=== PATIENT | female | born 1970 | race American Indian/Alaskan Native ===

== ENCOUNTER 2020-11-08 02:02 | Emergency (ER) | payer OTHER, SELFPAY ==
[2020-11-08 02:55] VITALS: BP 83/57; PULSE 78; RESP 18; TEMP 36.7; O2SAT 98; BMI 19.4
--- NOTE | 2020-11-08 04:06 | ED.HA ---
HPI - Headache General Chief Complaint: Headache Stated Complaint: Migraine Time Seen by Provider: 11/08/20 04:04 History of Present Illness HPI Narrative: Patient is a 50-year-old female presents today with having headaches that is frontal in nature similar to previous bouts of migraine headache. Associated with nausea. No fever no chills. Light makes the headache worse. Loud sound makes the headache worse. The symptoms been ongoing for about 4 days. Patient denies any focal weakness. No chest pain or shortness of breath no diaphoresis no cough no congestion no neck pain no fever no chills. No history of sudden in the family. Related Data Home Medications Medication Instructions Recorded Confirmed czukzkevmp-lysxmlswxinlk-xoyggpaz 1 tab PO Q8H PRN tab 08/31/20 50 mg-325 mg-40 mg tablet Previous Rx's Medication Instructions Recorded valproic acid 250 mg capsule 250 mg PO BID #180 cap 07/03/20 mhijecjhfb-taaewzmbvkugx-relbwevo 1 tab PO TID PRN 30 Days #90 tab 09/02/20 50 mg-325 mg-40 mg tablet amoxicillin 875 mg-potassium 1 tab PO BID #20 tab 10/29/20 clavulanate 125 mg tablet prednisone 20 mg tablet 20 mg PO .COMPLEX #18 tab 10/29/20 ibuprofen 400 mg PO Q6H PRN #20 tab 11/08/20 ondansetron 4 mg PO TID PRN 5 Days #10 tab 11/08/20 Allergies Allergy/AdvReac Type Severity Reaction Status Date / Time aspirin [Aspirin] Allergy Severe WHEEZING Verified 11/08/20 04:11 clarithromycin [From Biaxin] Allergy Intermediate HIVES Verified 11/08/20 04:11 Sulfa (Sulfonamide Allergy Intermediate HIVES Verified 11/08/20 04:11 Antibiotics) [SULFA (SULFONAMIDE ANTIBIOTICS)] bee pollen [BEE STINGS] Allergy Unknown UNKNOWN Unverified 05/10/20 16:00 pineapple [PINEAPPLE] Allergy Unknown UNKNOWN Unverified 05/10/20 16:00 Review of Systems Review of Systems: Constitutional: No Weight loss, No Fever, No Chills, No Night Sweats, No Fatigue, No Malaise ENT/Mouth: No Hearing loss, No Ear Pain, No Nasal Congestion, No Sinus Pain, No Hoarseness, No sore throat, No Rhinorrhea, No Swallowing Difficulty Eyes: No Eye Pain, No Swelling, No Redness, No Foreign Body, No Discharge, No Vision Changes Cardiovascular: No Chest Pain, No SOB, No Dyspnea on Exertion, No Orthopnea, No Edema, No Palpitations Respiratory: No Cough, No Sputum, No Wheezing, No Smoke Exposure, No Dyspnea Gastrointestinal: Positive Nausea, No Vomiting, No Diarrhea, No Constipation, No abdominal Pain, No Hematochezia, No Melena Genitourinary: no irregular bleeding, No Dysuria, No Urinary Frequency, No Hematuria, No Urinary Incontinence, No Urgency, No Flank Pain, No Urinary Flow Changes, No Hesitancy Musculoskeletal: No joint pain, No Myalgias, No Joint Swelling Skin: No Skin Lesions, No rash Neuro: No Weakness, No Numbness, No Paresthesias, No Loss of Consciousness, No Dizziness, positive Psych: No Anxiety/Panic, No Depression, No SI/HI/AH/VH, No Social Issues, Heme/Lymph: No Bruising, No Bleeding,No Lymphadenopathy Endocrine: No Polyuria, No Polydipsia, No Temperature Intolerance [facility] Past Medical History Medical History Hypotension IBS (irritable bowel syndrome) Migraine Social History Social History Alcohol intake: unknown Smoking Status: Unknown if ever smoked Use of substances other than those prescribed or required for medical reasons: No Advance Directives: No Physical Exam Vital Signs: Vital Signs: Last Vital Signs Temp 98.0 F 11/08/20 02:55 Pulse 78 11/08/20 02:55 Resp 18 11/08/20 02:55 BP 83/57 L 11/08/20 02:55 Pulse Ox 98 11/08/20 02:55 Body Mass Index 19.4 Appearance: Alert. Oriented X3. No acute distress. Eyes: Pupils equal, round and reactive to light. ENT: Pharynx normal. Neck: Normal inspection. Neck supple. No lymph nodes noted. No crepitus CVS: Normal heart rate and rhythm. Pulses normal. Normal S1 and S2 Respiratory: No respiratory distress. Breath sounds normal. No Wheezing. No rales Abdomen: Soft and nontender. No rigidity. No distention. good BS x4 Skin: Skin warm and dry. Normal skin color. Normal skin turgor. Extremities: No lower extremity edema. Neurovascular intact to all extremities. No Lacerations. No Rash Neuro: Oriented X 3. No motor deficit. No sensory deficit. Moving all extermities. No slurred speech MDM - Headache MDM Narrative Medical decision making narrative: Patient neurologically intact. Given Reglan, Benadryl, NSAIDs with good relief of patient's headache. She is currently sleeping. Will discharge patient home. Patient had a previous history of overdosing on narcotics. Will attempt to avoid narcotics. Will have patient follow-up outpatient. Differential Diagnosis Differential diagnosis: Likely migraine Medical Records Attestation: I reviewed the patient's medical records. Discharge Plan Discharge Clinical Impression: Migraines, Headache Patient Disposition: Home, Self-Care Instructions: Migraine Headache (ED) Prescriptions: New ibuprofen 400 mg tablet 400 mg PO Q6H PRN (Reason: pain) Qty: 20 RF: 0 ondansetron 4 mg tablet,disintegrating 4 mg PO TID PRN (Reason: nausea and vomiting) 5 Days Qty: 10 RF: 0 No Action valproic acid 250 mg capsule 250 mg PO BID Qty: 180 RF: 2 emgdlfmgmj-rygyvbqhoqkpp-mlpr 50-325-40 mg tablet 1 tab PO Q8H PRNRF: 0 zoteovwves-ajizaghityurz-hoqy 50-325-40 mg tablet 1 tab PO TID PRN (Reason: pain) 30 Days Qty: 90 RF: 2 prednisone 20 mg tablet 20 mg PO .COMPLEX Qty: 18 RF: 0 amoxicillin-pot clavulanate [Augmentin] 875-125 mg tablet 1 tab PO BID Qty: 20 RF: 0 Referrals: Kevan Gordon PA-C [Primary Care Provider] - 2 days
[2020-11-08] MEDS: 0.9 % Sodium Chloride 1,000 ML 999 ML IV (04:38)
[2020-11-08] MEDS: Ketorolac Tromethamine 30 MG/ML VIAL IVPUSH (04:38)
[2020-11-08] MEDS: diphenhydrAMINE HCL 50 MG/ML VIAL 25 MG IVPUSH (04:39)
[2020-11-08] MEDS: Prochlorperazine Edisylate 10 MG/2 ML VIAL IVPUSH (04:39)
--- NOTE | 2020-11-08 05:55 | PC.NURSE ---
PT SOUND ASLEEP.
--- NOTE | 2020-11-08 08:00 | PC.NURSE ---
d/c vs 136/94 p-66 98%
== END 2020-11-08 07:31 | disposition home or self-care (01) ==
PROVIDERS: Emergency Provider Emergency Medicine Emergency Medical Services; PCP Physician Assistant
DX: G43.909 Migraine, unspecified, not intractable, without status migrainosus (principal); R11.0 Nausea
CPT/HCPCS: 96361; 96374; 96375; 99284; J1200; J1885

== ENCOUNTER 2021-01-26 11:35 | Emergency (ER) | payer OTHER, SELFPAY ==
[2021-01-26 14:47] VITALS: BP 95/68; PULSE 81; RESP 16; TEMP 36.7; O2SAT 99; BMI 19.0
--- NOTE | 2021-01-26 15:30 | ED_ITS ---
HPI - Headache General Chief Complaint: Headache Stated Complaint: headache Time Seen by Provider: 01/26/21 15:26 History of Present Illness HPI Narrative: 50-year-old female with a history of migraine headaches. Presents today with having headaches on the left side. Associated with nausea. Associated photophobia. Made worse with light. Pain typical of her migraine. Patient tried Motrin at home to no avail. Denies any coughing congestion upper respiratory symptoms. Denies any focal weakness. Patient is from home. No new medications. Related Data Previous Rx's Medication Instructions Recorded amoxicillin 875 mg-potassium 1 tab PO BID #20 tab 10/29/20 clavulanate 125 mg tablet prednisone 20 mg tablet 20 mg PO .COMPLEX #18 tab 10/29/20 ibuprofen 400 mg PO Q6H PRN #20 tab 11/08/20 ondansetron 4 mg PO TID PRN 5 Days #10 tab 11/08/20 prochlorperazine 25 mg rectal 25 mg [place] BID #12 ea 12/13/20 suppository lmxzeoeivn-rlxmcfkrjyibk-xxgfdhsz 1 tab PO Q8H PRN #30 tab 12/16/20 50 mg-325 mg-40 mg tablet atorvastatin 20 mg tablet 20 mg PO BEDTIME #30 tab 01/17/21 metoprolol tartrate 100 mg tablet 100 mg PO BID #60 tab 01/17/21 hntledrtlc-kggwkbkwopqzs-vqopwfzi 1 cap PO TID PRN #30 cap 01/19/21 50 mg-300 mg-40 mg capsule topiramate 100 mg tablet 100 mg PO BID #60 tab 01/19/21 Allergies Allergy/AdvReac Type Severity Reaction Status Date / Time aspirin [Aspirin] Allergy Severe WHEEZING Verified 01/17/21 12:44 clarithromycin [From Biaxin] Allergy Intermediate HIVES Verified 01/17/21 12:44 Sulfa (Sulfonamide Allergy Intermediate HIVES Verified 01/17/21 12:44 Antibiotics) [SULFA (SULFONAMIDE ANTIBIOTICS)] bee pollen [BEE STINGS] Allergy Unknown UNKNOWN Unverified 01/17/21 12:44 pineapple [PINEAPPLE] Allergy Unknown UNKNOWN Unverified 01/17/21 12:44 Review of Systems Review of Systems: Constitutional: No Weight loss, No Fever, No Chills, No Night Sweats, No Fatigue, No Malaise ENT/Mouth: No Hearing loss, No Ear Pain, No Nasal Congestion, No Sinus Pain, No Hoarseness, No sore throat, No Rhinorrhea, No Swallowing Difficulty Eyes: No Eye Pain, No Swelling, No Redness, No Foreign Body, No Discharge, No Vision Changes Cardiovascular: No Chest Pain, No SOB, No Dyspnea on Exertion, No Orthopnea, No Edema, No Palpitations Respiratory: No Cough, No Sputum, No Wheezing, No Smoke Exposure, No Dyspnea Gastrointestinal: No Nausea, No Vomiting, No Diarrhea, No Constipation, No abdominal Pain, No Hematochezia, No Melena Genitourinary: no irregular bleeding, No Dysuria, No Urinary Frequency, No Hematuria, No Urinary Incontinence, No Urgency, No Flank Pain, No Urinary Flow Changes, No Hesitancy Musculoskeletal: No joint pain, No Myalgias, No Joint Swelling Skin: No Skin Lesions, No rash Neuro: No Weakness, No Numbness, No Paresthesias, No Loss of Consciousness, No Dizziness, No Headache Psych: No Anxiety/Panic, No Depression, No SI/HI/AH/VH, No Social Issues, Heme/Lymph: No Bruising, No Bleeding,No Lymphadenopathy Endocrine: No Polyuria, No Polydipsia, No Temperature Intolerance Yes all other systems are reviewed and are negative [facility] Past Medical History Attestation statement: The following information was validated with the patient. Medical History Hypotension IBS (irritable bowel syndrome) Migraine Social History Social History Alcohol intake: unknown Advance Directives: No Advance Directives Information Provided: No Physical Exam Vital Signs: Vital Signs: Last Vital Signs Temp 98.0 F 01/26/21 14:47 Pulse 81 01/26/21 14:47 Resp 16 01/26/21 14:47 BP 95/68 01/26/21 14:47 Pulse Ox 99 01/26/21 14:47 Body Mass Index 19.0 Appearance: Alert. Oriented X3. No acute distress. Eyes: Pupils equal, round and reactive to light. ENT: Pharynx normal. Neck: Normal inspection. Neck supple. No lymph nodes noted. No crepitus CVS: Normal heart rate and rhythm. Pulses normal. Normal S1 and S2 Respiratory: No respiratory distress. Breath sounds normal. No Wheezing. No rales Abdomen: Soft and nontender. No rigidity. No distention. good BS x4 Skin: Skin warm and dry. Normal skin color. Normal skin turgor. Extremities: No lower extremity edema. Neurovascular intact to all extremities. No Lacerations. No Rash Neuro: Oriented X 3. No motor deficit. No sensory deficit. Moving all extermities. No slurred speech Discharge Plan Discharge Prescriptions: No Action prochlorperazine [Compazine] 25 mg suppository 25 mg [place] BID Qty: 12 RF: 0 kxkxiqchrx-gvmjgbrklmdng-katt 50-325-40 mg tablet 1 tab PO Q8H PRN (Reason: pain) Qty: 30 RF: 0 topiramate [Topamax] 100 mg tablet 100 mg PO BID Qty: 60 RF: 2 rxgpcgeqol-yectqpdbhasrz-poso [Fioricet] 50-300-40 mg capsule 1 cap PO TID PRN (Reason: pain) Qty: 30 RF: 0 ibuprofen 400 mg tablet 400 mg PO Q6H PRN (Reason: pain) Qty: 20 RF: 0 ondansetron 4 mg tablet,disintegrating 4 mg PO TID PRN (Reason: nausea and vomiting) 5 Days Qty: 10 RF: 0 prednisone 20 mg tablet 20 mg PO .COMPLEX Qty: 18 RF: 0 amoxicillin-pot clavulanate [Augmentin] 875-125 mg tablet 1 tab PO BID Qty: 20 RF: 0 atorvastatin [Lipitor] 20 mg tablet 20 mg PO BEDTIME Qty: 30 RF: 2 metoprolol tartrate [Lopressor] 100 mg tablet 100 mg PO BID Qty: 60 RF: 2
[2021-01-26 15:58] LABS: MANUAL DIFF FLAG NO
[2021-01-26 16:10] LABS: Basophils Absolute Auto 0.1 X10*3/uL (0.0-0.2); Basophils Percent Auto 0.8 % (0-2); Eosinophils Absolute Auto 0.2 X10*3/uL (0.0-0.4); Eosinophils Percent Auto 2.5 % (0-4); Hematocrit 35.1 % (37-47); Hemoglobin 11.6 g/dl (12.0-16.0); Imm Gran Abs Auto 0.02 X10*3/uL (0.00-0.03); Imm Gran Pct Auto 0.2 % (0.0-0.4); Lymphocytes Absolute Auto 4.2 X10*3/uL (1.2-4.9); Lymphocytes Percent Auto 50.2 % (20-40); Mean Corpuscular Hemoglobin 31.4 pg (27.0-33.0); Mean Corpuscular Volume 95.1 fL (80-98); Mean Platelet Volume 9.3 fL (9.4-12.3); Monocytes Absolute Auto 0.5 X10*3/uL (0.1-1.2); Monocytes Percent Auto 5.9 % (2-11); Neutrophils Absolute Auto 3.4 X10*3/uL (2.0-8.3); Neutrophils Percent Auto 40.4 % (45-73); Platelet Count 248 X10*3/uL (160-400); Red Blood Count 3.69 X10*6/uL (4.20-5.50); Red Cell Distribution Width 14.7 % (11.0-16.0); White Blood Count 8.4 X10*3/uL (4.8-10.8)
[2021-01-26] MEDS: diphenhydrAMINE HCL 50 MG/ML VIAL 25 MG IVPUSH (16:28)
[2021-01-26] MEDS: Ketorolac Tromethamine 30 MG/ML VIAL IVPUSH (16:29)
[2021-01-26] MEDS: Metoclopramide HCl 10 MG/2 ML VIAL IVPUSH (16:29)
[2021-01-26 16:30] LABS: Anion Gap 12 (12-20); Blood Urea Nitrogen 16 mg/dL (9-16); Calcium 8.7 mg/dL (8.4-10.2); Carbon Dioxide 19 mmol/L (22-29); Chloride 114 mmol/L (96-108); Creatinine Clr Calc Pharmacy 65.5; Estimated Glomerular Filt Rate > 60; Glucose Random 89 mg/dL (60-115); Potassium 4.2 mmol/L (3.3-5.1); Sodium 141 mmol/L (135-145)
[2021-01-26 16:36] VITALS: BP 93/62; PULSE 65; RESP 20; O2SAT 100
[2021-01-26] MEDS: 0.9 % Sodium Chloride 1,000 ML 999 ML IV (16:36)
--- NOTE | 2021-01-26 16:45 | PC.NURSE ---
Pt alert, oriented, skin pink, warm, dry, VSS, reports migraine starting last night, worse this morning. IV established, labs obtained, meds given as documented. Pt resting quietly, at bedside.
[2021-01-26] MEDS: Butalb/Acetamin/Caff 50/325/40 TABLET 1 TAB PO (18:50)
[2021-01-26] MEDS: 0.9 % Sodium Chloride 1,000 ML 999 ML IVCONT (19:30)
--- NOTE | 2021-01-26 19:45 | PC.NURSE ---
Per , plan to discharge home pending improvement in blood pressure. Pt remains alert/oriented, given Fioricet at change of shift for migraine, pt reported some effectiveness with previously given Toradol dose. Pt is right arm only blood pressure/lab draw. Will continue to monitor. Pt aware of plan.
[2021-01-26 19:56] VITALS: BP 93/51; PULSE 77; RESP 18; O2SAT 99
[2021-01-26 20:11] VITALS: BP 97/62; PULSE 63; RESP 18; O2SAT 100
[2021-01-26 20:26] VITALS: BP 90/59; PULSE 65; RESP 18; O2SAT 99
== END 2021-01-26 21:43 | disposition home or self-care (01) ==
PROVIDERS: Emergency Medicine Emergency Medical Services; Emergency Provider Emergency Medicine; PCP Physician Assistant
DX: G43.909 Migraine, unspecified, not intractable, without status migrainosus (principal); Z79.899 Other long term (current) drug therapy
CPT/HCPCS: 36415; 80048; 85025; 96365; 96375; 99282; 99284; J1200; J1885; J2765

== ENCOUNTER 2021-02-27 22:40 | Emergency (ER) | payer OTHER, SELFPAY ==
--- NOTE | ~2021-02-27 | CT_ITS ---
EXAMINATION: CT ABDOMEN AND PELVIS WITHOUT CONTRAST CLINICAL INFORMATION: Right lower quadrant pain x4 days COMPARISON: CT abdomen pelvis 06/25/2018 TECHNIQUE: Multidetector volumetric imaging was performed from the superior aspect of the liver through the pubic symphysis. Sagittal and coronal reformatted images were obtained on the technologist's workstation. This CT examination was performed using dose optimization techniques as appropriate, variously including the following: *Automated exposure control *Adjustment of mA and/or kV according to patient size (this includes techniques or standardized protocols for targeted exams where dose is matched to indication/reason for exam; i.e. extremities or head) *Use of iterative reconstruction technique DLP: 527 mGy-cm FINDINGS: LUNG BASES: The visualized lung bases are unremarkable. LIVER, GALLBLADDER, AND BILIARY TREE: The liver is normal in size, shape, and attenuation. Tiny punctate granuloma noted in the right lobe (4:186). No worrisome focal hepatic lesion or biliary ductal dilatation is present. Status post cholecystectomy PANCREAS: Unremarkable. SPLEEN: Unremarkable. ADRENAL GLANDS: Unremarkable. KIDNEYS AND URETERS: The kidneys are normal in size, shape, and attenuation. No hydronephrosis, hydroureter, or calculi seen. No perinephric stranding. BLADDER: Unremarkable. GASTROINTESTINAL TRACT: The small and large bowel are unremarkable. The appendix is unremarkable. ABDOMINAL WALL: No significant hernia is appreciated. LYMPH NODES: No retroperitoneal lymphadenopathy. VASCULAR: The coronary vein is enlarged and small number of GE junction and perigastric varices are present. Calcific atherosclerotic changes present in the aorta and iliac vessels without aneurysm. PELVIC VISCERA: Status post hysterectomy. Stable left adnexal mass is seen containing some calcification. OSSEOUS STRUCTURES: Minimal degenerative changes present in the spine most marked at L3-L4. CT/CT abdomen pelvis wo con IMPRESSION: An etiology for the patient's right lower quadrant pain has not been found. Incidental note made of cholecystectomy, punctate hepatic granuloma gastric varices and hysterectomy.
[2021-02-27 22:43] VITALS: BP 99/69; PULSE 81; RESP 18; TEMP 36.5; O2SAT 100; BMI 20.9
--- NOTE | 2021-02-27 23:09 | ED.HA ---
HPI - Headache General Chief Complaint: Headache Stated Complaint: migraine Time Seen by Provider: 02/27/21 23:09 Source: patient Mode of arrival: ambulatory Limitations: no limitations History of Present Illness HPI Narrative: patient with history of migraine headache been complaining of headache on the left side for last 4 days also complaining of pain in the right lower abdomen for same duration associated with nausea no vomiting no fever no urinary complaint patient never had similar abdominal pain in the past no history of ovarian cyst patient does have history of kidney stone patient denies any flank pain no fever no chills. patient took Fioricet, Benadryl and Compazine 2 hours ago without much relief MD elicited complaint: migraine Related Data Previous Rx's Medication Instructions Recorded prednisone 20 mg tablet 20 mg PO .COMPLEX #18 tab 10/29/20 ondansetron 4 mg PO TID PRN 5 Days #10 tab 11/08/20 prochlorperazine 25 mg rectal 25 mg SD BID #12 ea 12/13/20 suppository atorvastatin 20 mg tablet 20 mg PO BEDTIME #30 tab 01/17/21 metoprolol tartrate 100 mg tablet 100 mg PO BID #60 tab 01/17/21 topiramate 100 mg tablet 100 mg PO BID #60 tab 01/19/21 amitriptyline 25 mg tablet 25 mg PO BEDTIME 30 Days #30 tab 02/27/21 lexzypruve-hmfmvaozhajft-cklbjevq 1 cap PO ONCE 7 Days #7 cap 02/27/21 50 mg-300 mg-40 mg capsule erenumab-aooe 70 mg/mL 70 mg SUBCUT .once per month 28 02/27/21 subcutaneous auto-injector Days #1 ea erenumab-aooe 70 mg/mL 140 mg SUBCUT ONCE 1 Days #1 ea 02/27/21 subcutaneous auto-injector Allergies Allergy/AdvReac Type Severity Reaction Status Date / Time aspirin [Aspirin] Allergy Intermediate WHEEZING Verified 02/27/21 22:42 clarithromycin [From Biaxin] Allergy Intermediate HIVES Verified 02/27/21 22:42 Sulfa (Sulfonamide Allergy Intermediate HIVES Verified 02/27/21 11:11 Antibiotics) [SULFA (SULFONAMIDE ANTIBIOTICS)] bee pollen [BEE STINGS] Allergy Unknown UNKNOWN Verified 02/27/21 11:11 pineapple [PINEAPPLE] Allergy Unknown UNKNOWN Verified 02/27/21 11:11 Review of Systems Review of Systems: Constitutional : No Weight loss, No Fever, No Chills ENT/Mouth : No sore throat, No Rhinorrhea Eyes: No Eye Pain, No Swelling Cardiovascular : No Chest Pain, no palpitations Respiratory : No Cough, No Sputum, no shortness of breath Gastrointestinal : no Nausea, No Vomiting, No Diarrhea, No abdominal Pain, no black stools Genitourinary : No Dysuria, No Urinary Frequency Musculoskeletal : No joint pain, No Myalgias, No Joint Swelling Skin : No Skin Lesions, No rash Neuro : No Weakness, No Numbness, No Dizziness, No Headache Psych : No Anxiety/Panic, No Depression Heme/Lymph: No Bruising, No Lymphadenopathy Endocrine : No Polyuria, No Polydipsia All other systems reviewed and are negative [facility] Past Medical History Medical History Hypotension IBS (irritable bowel syndrome) Migraine Surgical History History of cholecystectomy History of partial hysterectomy Family History Family History Mother Substance use disorder Stroke Other Mental health disorder Social History Social History Housing: House Alcohol intake: never Patient Tobacco Use Status: Current everyday Tobacco user Tobacco use type: Cigarette Cigarettes Per Day: 7 Substance Use Type: Marijuana Advance Directives: No Advance Directives Information Provided: No Patient : No service: No Current occupational status: employed and disabled Physical Exam Vital Signs: Vital Signs: Last Vital Signs Temp 97.7 F 02/27/21 22:43 Pulse 81 02/27/21 22:43 Resp 18 02/27/21 22:43 BP 99/69 02/27/21 22:43 Pulse Ox 100 02/27/21 22:43 Body Mass Index 20.9 MDM - Headache MDM Narrative Medical decision making narrative: patient has stable labs CT scan abdomen negative for any acute pathology etiology of right lower abdominal pain not clear likely bowel related. Patient fell little better but still having headache will give a dose of morphine and discharge patient home Lab Data Attestation: I reviewed the patient's lab results. Result diagrams: 02/27/21 23:48 02/27/21 23:48 Labs: Lab Results 02/27/21 02/27/21 Range/Units 23:48 23:48 WBC 11.1 H (4.8-10.8) X10*3/uL RBC 3.52 L (4.20-5.50) X10*6/uL Hgb 11.4 L (12.0-16.0) g/dl Hct 33.5 L (37-47) % MCV 95.2 (80-98) fL MCH 32.4 (27.0-33.0) pg MCHC 34.0 (31.0-35.0) g/dl RDW 14.6 (11.0-16.0) % Plt Count 184 D (160-400) X10*3/uL MPV 9.9 (9.4-12.3) fL Immature Gran % (Auto) 0.3 (0.0-0.4) % Neut % (Auto) 45.1 (45-73) % Lymph % (Auto) 44.8 H (20-40) % [place] % (Auto) 7.5 (2-11) % Eos % (Auto) 1.7 (0-4) % Baso % (Auto) 0.6 (0-2) % Lymph # (Auto) 5.0 H (1.2-4.9) X10*3/uL [place] # (Auto) 0.8 (0.1-1.2) X10*3/uL Eos # (Auto) 0.2 (0.0-0.4) X10*3/uL Baso # (Auto) 0.1 (0.0-0.2) X10*3/uL Abs Immat Gran (auto) 0.03 (0.00-0.03) X10*3/uL Absolute Neuts (auto) 5.0 (2.0-8.3) X10*3/uL Absolute Nucleated RBC 0.000 (0.0-0.012) X10*3/uL Nucleated RBC % (auto) 0.0 (0.0-0.2) /100WBC Sodium 142 (135-145) mmol/L Potassium 3.4 (3.3-5.1) mmol/L Chloride 116 H (96-108) mmol/L Carbon Dioxide 18 L (22-29) mmol/L Anion Gap 11 L (12-20) BUN 24 H (9-16) mg/dL Creatinine 1.04 (0.5-1.4) mg/dL Estim Creat Clear Calc 63.9 Estimated GFR 56 Random Glucose 95 (60-115) mg/dL Calcium 8.3 L (8.4-10.2) mg/dL Total Bilirubin 0.4 (0.0-1.0) mg/dL Direct Bilirubin 0.2 (0.0-0.5) mg/dL AST 17 (5-31) U/L ALT 20 (0-31) U/L Alkaline Phosphatase 100 (39-117) U/L Total Protein 6.0 L (6.5-8.0) g/dL Albumin 3.8 (3.5-5.0) g/dL Discharge Plan Discharge Prescriptions: No Action prochlorperazine [Compazine] 25 mg suppository 25 mg SD BID Qty: 12 RF: 0 topiramate [Topamax] 100 mg tablet 100 mg PO BID Qty: 60 RF: 2 ondansetron 4 mg tablet,disintegrating 4 mg PO TID PRN (Reason: nausea and vomiting) 5 Days Qty: 10 RF: 0 Aimovig Autoinjector 70 mg/mL auto-injector 140 mg subcut ONCE 1 Days Qty: 1 RF: 0 Aimovig Autoinjector 70 mg/mL auto-injector 70 mg subcut .once per month 28 Days Qty: 1 RF: 3 qtaqnevlum-voebwfxkzvvxr-ojxw [Fioricet] 50-300-40 mg capsule 1 cap PO ONCE 7 Days Qty: 7 RF: 0 amitriptyline 25 mg tablet 25 mg PO BEDTIME 30 Days Qty: 30 RF: 2 prednisone 20 mg tablet 20 mg PO .COMPLEX Qty: 18 RF: 0 atorvastatin [Lipitor] 20 mg tablet 20 mg PO BEDTIME Qty: 30 RF: 2 metoprolol tartrate [Lopressor] 100 mg tablet 100 mg PO BID Qty: 60 RF: 2
[2021-02-27] MEDS: 0.9 % Sodium Chloride 1,000 ML 999 ML IVCONT (23:49)
[2021-02-27] MEDS: ondansetron HCL 4 MG/2 ML VIAL IVPUSH (23:52)
[2021-02-27 23:53] LABS: Basophils Absolute Auto 0.1 X10*3/uL (0.0-0.2); Basophils Percent Auto 0.6 % (0-2); Eosinophils Absolute Auto 0.2 X10*3/uL (0.0-0.4); Eosinophils Percent Auto 1.7 % (0-4); Hematocrit 33.5 % (37-47); Hemoglobin 11.4 g/dl (12.0-16.0); Imm Gran Abs Auto 0.03 X10*3/uL (0.00-0.03); Imm Gran Pct Auto 0.3 % (0.0-0.4); Lymphocytes Percent Auto 44.8 % (20-40); MANUAL DIFF FLAG NO; Mean Corpuscular Hemoglobin 32.4 pg (27.0-33.0); Mean Corpuscular Volume 95.2 fL (80-98); Mean Platelet Volume 9.9 fL (9.4-12.3); Monocytes Absolute Auto 0.8 X10*3/uL (0.1-1.2); Monocytes Percent Auto 7.5 % (2-11); Neutrophils Percent Auto 45.1 % (45-73); Platelet Count 184 X10*3/uL (160-400); Red Blood Count 3.52 X10*6/uL (4.20-5.50); Red Cell Distribution Width 14.6 % (11.0-16.0); White Blood Count 11.1 X10*3/uL (4.8-10.8)
[2021-02-28 00:28] LABS: Alanine Aminotransferase 20 U/L (0-31); Albumin Level 3.8 g/dL (3.5-5.0); Alkaline Phosphatase 100 U/L (39-117); Aspartate Amino Transferase 17 U/L (5-31); Bilirubin Direct 0.2 mg/dL (0.0-0.5); Bilirubin Total 0.4 mg/dL (0.0-1.0); Blood Urea Nitrogen 24 mg/dL (9-16); Calcium 8.3 mg/dL (8.4-10.2); Creatinine Clr Calc Pharmacy 63.9; Estimated Glomerular Filt Rate 56; Glucose Random 95 mg/dL (60-115)
[2021-02-28 00:34] LABS: Anion Gap 11 (12-20); Carbon Dioxide 18 mmol/L (22-29); Chloride 116 mmol/L (96-108); Potassium 3.4 mmol/L (3.3-5.1); Sodium 142 mmol/L (135-145)
[2021-02-28] MEDS: Morphine Sulfate 4 MG/ML CARTRIDGE IVPUSH (00:45)
== END 2021-02-28 01:28 | disposition home or self-care (01) ==
PROVIDERS: Emergency Provider Internal Medicine; PCP Physician Assistant
DX: G43.009 Migraine without aura, not intractable, without status migrainosus (principal); R10.31 Right lower quadrant pain; Z87.442 Personal history of urinary calculi
CPT/HCPCS: 36415; 74176; 80048; 80076; 85025; 96361; 96372; 96374; 96375; 99283; 99284; J2270; J2405; J3030

== ENCOUNTER 2021-03-19 07:57 | Outpatient (REF) | payer OTHER, SELFPAY ==
--- NOTE | ~2021-03-19 | XR_ITS ---
EXAMINATION: XR RIGHT KNEE XR RIGHT CLAVICLE CLINICAL INFORMATION: Pain right knee. Right clavicle fracture. COMPARISON: None TECHNIQUE: AP and lateral views of the right knee and 2 views of the right clavicle FINDINGS: Right Knee: 2 views of the right knee demonstrate some mild narrowing of the medial joint space compartment with mild spurring. There are also noted to be small spurs undersurface of the patella. There is a right knee effusion. There is some irregularity about the lateral tibial plateau which may be secondary to previous trauma and mild compression fracture. An acute fracture is not totally excluded and clinical correlation is suggested. Right Clavicle: 2 views of the right clavicle performed. No prior studies are available for comparison. There is a fracture about the distal aspect of the clavicle with no dislocation of the acromioclavicular joint. The proximal fracture fragment is elevated by a single bone width of approximately 1.4 cm. No overriding of the fracture fragments is identified. No evidence of dislocation of the shoulder. There is no evidence of callus formation. XR/XR knee RT 2V IMPRESSION: Right knee effusion with mild degenerative change about the medial joint space compartment and patellofemoral joint. Question possible lateral tibial plateau mild compression fracture which may be acute or chronic in nature. Distal right clavicle fracture with dislocation as described.
--- NOTE | ~2021-03-19 | XR_ITS ---
EXAMINATION: XR RIGHT KNEE XR RIGHT CLAVICLE CLINICAL INFORMATION: Pain right knee. Right clavicle fracture. COMPARISON: None TECHNIQUE: AP and lateral views of the right knee and 2 views of the right clavicle FINDINGS: Right Knee: 2 views of the right knee demonstrate some mild narrowing of the medial joint space compartment with mild spurring. There are also noted to be small spurs undersurface of the patella. There is a right knee effusion. There is some irregularity about the lateral tibial plateau which may be secondary to previous trauma and mild compression fracture. An acute fracture is not totally excluded and clinical correlation is suggested. Right Clavicle: 2 views of the right clavicle performed. No prior studies are available for comparison. There is a fracture about the distal aspect of the clavicle with no dislocation of the acromioclavicular joint. The proximal fracture fragment is elevated by a single bone width of approximately 1.4 cm. No overriding of the fracture fragments is identified. No evidence of dislocation of the shoulder. There is no evidence of callus formation. XR/XR clavicle RT IMPRESSION: Right knee effusion with mild degenerative change about the medial joint space compartment and patellofemoral joint. Question possible lateral tibial plateau mild compression fracture which may be acute or chronic in nature. Distal right clavicle fracture with dislocation as described.
== END 2021-03-19 07:58 | disposition home or self-care (01) ==
LOC: HO.HOSX 07:57
PROVIDERS: Visit Provider Physician Assistant
DX: S42.001A Fracture of unspecified part of right clavicle, initial encounter for closed fracture (principal); S82.141A Displaced bicondylar fracture of right tibia, initial encounter for closed fracture; F17.210 Nicotine dependence, cigarettes, uncomplicated; W19.XXXA Unspecified fall, initial encounter; Y93.9 Activity, unspecified; Y92.9 Unspecified place or not applicable; Y99.9 Unspecified external cause status
CPT/HCPCS: 73000; 73560; 99202

== ENCOUNTER 2021-04-09 07:25 | Outpatient (REF) | payer OTHER, SELFPAY ==
--- NOTE | ~2021-04-09 | CT_ITS ---
EXAMINATION: CT KNEE WITHOUT CONTRAST, RIGHT CLINICAL INFORMATION: Displaced bicondylar fracture of the right tibia. COMPARISON: Right knee radiographs dated 03/19/2021 TECHNIQUE: Contiguous axial CT images of the right knee were obtained without contrast. Sagittal and coronal reformats were provided and reviewed. This CT examination was performed using dose optimization techniques as appropriate, variously including the following: *Automated exposure control *Adjustment of mA and/or kV according to patient size (this includes techniques or standardized protocols for targeted exams where dose is matched to indication/reason for exam; i.e. extremities or head) *Use of iterative reconstruction technique DLP: 158 mGy-cm FINDINGS: There is a minimally displaced, comminuted fracture extending through the posterior aspect of the medial and lateral tibial plateau as well as involving the tibial spine. The dominant fracture line is transverse in the subchondral region with extension to the articular surface through the midportion of the medial and lateral tibial plateau. There is approximately 0.2 cm of cortical step-off at the medial tibial plateau with a fracture gap measuring 0.2 cm. At the posterior aspect of the lateral tibial plateau, there is approximately 0.2 cm of cortical step-off. There is more anterior extension of the fracture line in the region of the tibial spine with approximately 0.2 cm of cortical step-off medially and laterally. There is extension of the fracture line inferiorly at the central aspect of the posterior tibial cortex with minimal new bone/callus formation. No distal femoral fracture. No proximal fibular fracture. No dislocation. Moderate medial compartment joint space narrowing. Tricompartmental marginal osteophytes. No concerning lytic or blastic osseous lesion. Vugqwtec-gm-berrg joint effusion. No abnormal soft tissue mass or fluid collection. The visualized muscles and tendons are grossly intact, however, evaluation is limited on CT examination. CT/CT knee RT wo con IMPRESSION: Comminuted posterior tibial plateau fracture extending from the medial to lateral aspect as well as anteriorly within the tibial spine. Multiple extensions of the fracture to the articular surface where there are areas of cortical step-off measuring up to 0.2 cm. Vuixhxpa-zs-agkpn joint effusion. 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
== END 2021-04-09 07:26 | disposition home or self-care (01) ==
LOC: HO.CT 07:25
PROVIDERS: PCP Physician Assistant; Visit Provider Physician Assistant
DX: S82.141A Displaced bicondylar fracture of right tibia, initial encounter for closed fracture (principal)
CPT/HCPCS: 73700

== ENCOUNTER 2021-04-12 09:42 | Outpatient (REF) | payer OTHER, SELFPAY ==
--- NOTE | ~2021-04-12 | XR_ITS ---
EXAMINATION: XR CLAVICLE, RIGHT CLINICAL INFORMATION: Right clavicle fracture. COMPARISON: 03/19/2021 TECHNIQUE: Two views of the right clavicle. FINDINGS: There is no change in alignment or appearance of the distal right clavicle fracture. There remains elevation of the proximal fracture fragment by a bone width. No significant periosteal new bone formation is appreciated. The fracture appears to be distal to the coracoclavicular ligament without widening of the coracoclavicular space. No evidence of dislocation of the acromioclavicular joint. No evidence of dislocation of the shoulder is evident. XR/XR clavicle RT IMPRESSION: No change in appearance of displaced distal right clavicle fracture.
== END 2021-04-12 09:43 | disposition home or self-care (01) ==
LOC: HO.HOSX 09:42
PROVIDERS: Visit Provider Physician Assistant
DX: S42.009A Fracture of unspecified part of unspecified clavicle, initial encounter for closed fracture (principal); S82.131A Displaced fracture of medial condyle of right tibia, initial encounter for closed fracture
CPT/HCPCS: 73000; 99212

== ENCOUNTER 2021-04-29 21:20 | Emergency (ER) | payer OTHER, SELFPAY ==
[2021-04-29 21:22] VITALS: BP 97/65; PULSE 78; RESP 16; TEMP 36.2; O2SAT 97; BMI 19.8
--- NOTE | 2021-04-29 22:32 | ED.HA ---
HPI - Headache General Chief Complaint: Headache Stated Complaint: migraine Time Seen by Provider: 04/29/21 23:19 Source: patient Mode of arrival: ambulatory Limitations: no limitations History of Present Illness HPI Narrative: Patient history of migraines having headache for last 2 days similar to that in the past took Fioricet and Reglan without much response headache localized mostly to the left side of the forehead with light sensitivity and nausea no head injury no fever no chills no neck pain Related Data Previous Rx's Medication Instructions Recorded ondansetron 4 mg disintegrating 4 mg PO TID PRN 5 Days #10 tab 11/08/20 tablet prochlorperazine 25 mg rectal 25 mg RI BID #12 ea 12/13/20 suppository (Compazine) atorvastatin 20 mg tablet (Lipitor) 20 mg PO BEDTIME #30 tab 01/17/21 metoprolol tartrate 100 mg tablet 100 mg PO BID #60 tab 01/17/21 (Lopressor) topiramate 100 mg tablet (Topamax) 100 mg PO BID #60 tab 01/19/21 amitriptyline 50 mg tablet 50 mg PO BEDTIME 30 Days #30 tab 03/26/21 oxycodone-acetaminophen 5 mg-325 1 tab PO BID PRN 5 Days #10 tab 04/03/21 mg tablet (Percocet) oxycodone-acetaminophen 5 mg-325 1 tab PO TID PRN #10 tab 04/08/21 mg tablet (Percocet) kftjjippcz-iqosflvhygbbk-vzgymtbw 1 cap PO DAILY 30 Days #30 cap 04/23/21 50 mg-325 mg-40 mg capsule Allergies Allergy/AdvReac Type Severity Reaction Status Date / Time aspirin [Aspirin] Allergy Intermediate WHEEZING Verified 04/29/21 21:28 clarithromycin [From Biaxin] Allergy Intermediate HIVES Verified 04/29/21 21:28 Sulfa (Sulfonamide Allergy Intermediate HIVES Verified 04/29/21 21:28 Antibiotics) [SULFA (SULFONAMIDE ANTIBIOTICS)] bee pollen [BEE STINGS] Allergy Unknown UNKNOWN Verified 04/29/21 21:28 pineapple [PINEAPPLE] Allergy Unknown UNKNOWN Verified 04/29/21 21:28 beeswax Allergy Anaphylaxis Verified 04/29/21 21:28 Review of Systems Review of Systems: Yes all other systems are reviewed and are negative PMFSH Past Medical History Medical History Hypotension IBS (irritable bowel syndrome) Migraine Surgical History History of cholecystectomy History of partial hysterectomy Family History Family History Mother Substance use disorder Stroke Other Mental health disorder Social History Social History Housing: House Alcohol intake: never Patient Tobacco Use Status: Current everyday Tobacco user Tobacco use type: Cigarette Cigarettes Per Day: 7 Substance Use Type: Marijuana Advance Directives: No Advance Directives Information Provided: No service: No Current occupational status: employed and disabled Current occupation: rt handed Physical Exam Vital Signs: Vital Signs: Last Vital Signs Temp 97.2 F 04/29/21 21:22 Pulse 79 04/30/21 00:21 Resp 16 04/30/21 00:21 BP 93/65 04/30/21 00:21 Pulse Ox 98 04/30/21 00:21 Body Mass Index 19.8 Appearance: Alert. Oriented X3. No acute distress. Eyes: PERRLA, No Nystagmus ENT: Pharynx normal. Oral Mucosa moist no temporal artery tenderness Neck: Normal inspection. Neck supple. CVS: Normal heart rate and rhythm. Pulses normal. Respiratory: No respiratory distress. Equal air entry bilateral, no wheezing/rales/rhonchi Abdomen: Soft and nontender. Bowel sounds are present, no mass palpable, no CVA tenderness Skin: Skin warm and dry. Normal skin color. Normal skin turgor. Extremities: No lower extremity edema. No calf tenderness Neuro: Oriented X 3. No motor deficit. No sensory deficit.No cerebellar signs , cranial nerves II-XII intact MDM - Headache MDM Narrative Medical decision making narrative: Patient with poor response to Imitrex. Responded to morphine 4 mg IM feeling much better now will discharge home Discharge Plan Discharge Clinical Impression: Migraines Qualifiers: Migraine type: without aura Status migrainosus presence: without status migrainosus Intractability: not intractable Qualified Code(s): G43.009 - Migraine without aura, not intractable, without status migrainosus Patient Disposition: Home, Self-Care Instructions: Migraine Headache (ED) Additional Instructions: Continue taking medications and follow-up with neurologist Prescriptions: No Action prochlorperazine [Compazine] 25 mg suppository 25 mg RI BID Qty: 12 RF: 0 topiramate [Topamax] 100 mg tablet 100 mg PO BID Qty: 60 RF: 2 oxycodone-acetaminophen [Percocet] 5-325 mg tablet 1 tab PO BID PRN (Reason: pain) 5 Days Qty: 10 RF: 0 ejjkbrozui-tamprvuwoskcu-cdsa 50-325-40 mg capsule 1 cap PO DAILY 30 Days Qty: 30 RF: 0 ondansetron 4 mg tablet,disintegrating 4 mg PO TID PRN (Reason: nausea and vomiting) 5 Days Qty: 10 RF: 0 amitriptyline 50 mg tablet 50 mg PO BEDTIME 30 Days Qty: 30 RF: 1 oxycodone-acetaminophen [Percocet] 5-325 mg tablet 1 tab PO TID PRN (Reason: pain) Qty: 10 RF: 0 atorvastatin [Lipitor] 20 mg tablet 20 mg PO BEDTIME Qty: 30 RF: 2 metoprolol tartrate [Lopressor] 100 mg tablet 100 mg PO BID Qty: 60 RF: 2 Interventions: ED Discharge Assessment Last Done: 04/30/21 00:49 Discharge Date/Time: 04/30/21 00:50
[2021-04-30 00:21] VITALS: BP 93/65; PULSE 79; RESP 16; O2SAT 98
[2021-04-30] MEDS: Morphine Sulfate 4 MG/ML CARTRIDGE IM (00:26)
== END 2021-04-30 00:50 | disposition home or self-care (01) ==
PROVIDERS: Emergency Provider Internal Medicine; PCP Physician Assistant
DX: G43.009 Migraine without aura, not intractable, without status migrainosus (principal); F17.210 Nicotine dependence, cigarettes, uncomplicated
CPT/HCPCS: 96372; 99284; J2270; J3030

== ENCOUNTER 2021-05-11 22:16 | Emergency (ER) | payer OTHER, SELFPAY ==
[2021-05-11 22:32] VITALS: BP 85/62; PULSE 70; RESP 16; TEMP 36.6; O2SAT 98; BMI 19.4
--- NOTE | 2021-05-12 00:30 | ED.HA ---
HPI - Headache General Chief Complaint: Headache Stated Complaint: migraine Time Seen by Provider: 05/12/21 00:30 Source: patient Mode of arrival: ambulatory Limitations: no limitations History of Present Illness HPI Narrative: Patient on topramate and fiorect for headache. This headache started 2 days ago, on the left side. Despite taking her medications the patient has the headache. MD elicited complaint: migraine Onset (ago): day(s) Onset description: suddenly Location: left and frontal Associated symptoms: nausea and photophobia Related Data Previous Rx's Medication Instructions Recorded ondansetron 4 mg disintegrating 4 mg PO TID PRN 5 Days #10 tab 11/08/20 tablet prochlorperazine 25 mg rectal 25 mg TN BID #12 ea 12/13/20 suppository (Compazine) atorvastatin 20 mg tablet (Lipitor) 20 mg PO BEDTIME #30 tab 01/17/21 metoprolol tartrate 100 mg tablet 100 mg PO BID #60 tab 01/17/21 (Lopressor) topiramate 100 mg tablet (Topamax) 100 mg PO BID #60 tab 01/19/21 amitriptyline 50 mg tablet 50 mg PO BEDTIME 30 Days #30 tab 03/26/21 oxycodone-acetaminophen 5 mg-325 1 tab PO BID PRN 5 Days #10 tab 04/03/21 mg tablet (Percocet) oxycodone-acetaminophen 5 mg-325 1 tab PO TID PRN #10 tab 04/08/21 mg tablet (Percocet) krvbjzbbxn-xtivdihwihimf-qgmbzxpf 1 cap PO DAILY 30 Days #30 cap 04/23/21 50 mg-325 mg-40 mg capsule Allergies Allergy/AdvReac Type Severity Reaction Status Date / Time aspirin [Aspirin] Allergy Intermediate WHEEZING Verified 04/29/21 21:28 clarithromycin [From Biaxin] Allergy Intermediate HIVES Verified 04/29/21 21:28 Sulfa (Sulfonamide Allergy Intermediate HIVES Verified 04/29/21 21:28 Antibiotics) [SULFA (SULFONAMIDE ANTIBIOTICS)] bee pollen [BEE STINGS] Allergy Unknown UNKNOWN Verified 04/29/21 21:28 pineapple [PINEAPPLE] Allergy Unknown UNKNOWN Verified 04/29/21 21:28 beeswax Allergy Anaphylaxis Verified 04/29/21 21:28 Review of Systems Constitutional: Constitutional: Reports no additional constitutional complaints Eyes: Eyes: Reports no additional eye complaints ENT: Denies dizziness Cardiovascular: Cardiovascular: Reports no additional cardiovascular complaints Respiratory: Respiratory: Reports as per HPI Gastrointestinal: Gastrointestinal: Reports no additional gastrointestinal complaints Genitourinary: Genitourinary: Reports no additional female genitourinary complaints Musculoskeletal: Musculoskeletal: Reports no additional musculoskeletal complaints Integumentary/Breasts: Skin/Breast: Denies rash Neurologic: Reports system reviewed and no additional complaints, except as documented, Denies dizziness and Denies Sensory deficit (Neuro) Psychiatric: Psychiatric: Denies anxiety [facility] Past Medical History Medical History Hypotension IBS (irritable bowel syndrome) Migraine Surgical History History of cholecystectomy History of partial hysterectomy Family History Family History Mother Substance use disorder Stroke Other Mental health disorder Social History Social History Housing: House Alcohol intake: never Patient Tobacco Use Status: Current everyday Tobacco user Tobacco use type: Cigarette Cigarettes Per Day: 7 Substance Use Type: Marijuana Advance Directives: Yes Advance Directives on File: Yes Advance Directives Date on File: 02/01/21 service: No Current occupational status: employed and disabled Current occupation: rt handed Physical Exam Vital Signs: Vital Signs: Last Vital Signs Temp 98 F 05/11/21 22:32 Pulse 64 05/12/21 02:46 Resp 16 05/12/21 02:46 BP 89/56 L 05/12/21 02:46 Pulse Ox 98 05/12/21 02:46 Body Mass Index 19.4 Const: General: healthy appearing Nutritional Appearance: average body habitus Orientation/consciousness: oriented to person and patient oriented x3 Limitations: no limitations HENMT: Head: Yes normal to inspection Ears: external ears normal General nose exam: Normal external nose present Mouth: Normal oral and palatal mucosa present and oropharynx normal Throat: Yes posterior oropharynx normal Eyes: General: appearance normal, both eyes and all related structures Neck: Other: supple Neck: Yes normal visual inspection Chest: Chest palpation & inspection: normal inspection of the chest Resp: Auscultation: clear to auscultation bilaterally Cardio: Jugular venous distension: no JVD Rate: regular rate Rhythm: regular rhythm Heart sounds: S1 normal heart sound present and S2 normal heart sound present GI: Inspection: Yes normal to inspection Palpation (GI): Soft to palpation, nontender and No hepatosplenomegaly present Auscultation: normal bowel sounds : General: Yes no CVA tenderness Back/Spine/Pelvis: Back: no CVA tenderness Skin: General skin exam: no rashes or lesions noted Neuro: General: oriented to person and patient oriented x3 Cranial nerves: Yes CN's II-XII intact bilaterally Motor exam (neuro): 5/5 motor strength present throughout Sensory Exam: No Sensory deficit (Neuro) Extrem: General: Yes normal to inspection Psych: Appearance: grossly normal Course Reevaluation(s) Reevaluation #1: Less nausea but still with headache will give benadryl and Haldol Time: 02:02 Reevaluation #2: improved after meds will dc home Time: 03:09 Discharge Plan Discharge Clinical Impression: Migraine Qualifiers: Migraine type: unspecified Status migrainosus presence: with status migrainosus Intractability: not intractable Qualified Code(s): G43.901 - Migraine, unspecified, not intractable, with status migrainosus Patient Disposition: Home, Self-Care Instructions: Migraine Headache (ED) Prescriptions: No Action prochlorperazine [Compazine] 25 mg suppository 25 mg TN BID Qty: 12 RF: 0 topiramate [Topamax] 100 mg tablet 100 mg PO BID Qty: 60 RF: 2 oxycodone-acetaminophen [Percocet] 5-325 mg tablet 1 tab PO BID PRN (Reason: pain) 5 Days Qty: 10 RF: 0 shntlxaqby-yxvxtxrbkguhw-jqax 50-325-40 mg capsule 1 cap PO DAILY 30 Days Qty: 30 RF: 0 ondansetron 4 mg tablet,disintegrating 4 mg PO TID PRN (Reason: nausea and vomiting) 5 Days Qty: 10 RF: 0 amitriptyline 50 mg tablet 50 mg PO BEDTIME 30 Days Qty: 30 RF: 1 oxycodone-acetaminophen [Percocet] 5-325 mg tablet 1 tab PO TID PRN (Reason: pain) Qty: 10 RF: 0 atorvastatin [Lipitor] 20 mg tablet 20 mg PO BEDTIME Qty: 30 RF: 2 metoprolol tartrate [Lopressor] 100 mg tablet 100 mg PO BID Qty: 60 RF: 2 Referrals: Kevan Gordon PA-C [Primary Care Provider] - 5 days
[2021-05-12] MEDS: 0.9 % Sodium Chloride 1,000 ML 999 ML IVCONT ×2 (01:00→02:44)
[2021-05-12] MEDS: Ketorolac Tromethamine 15 MG/ML VIAL 30 MG IVPUSH (01:00)
[2021-05-12 01:02] VITALS: BP 82/55; PULSE 62; RESP 16
[2021-05-12] MEDS: Haloperidol Lactate 5 MG/ML VIAL IVPUSH (02:44)
[2021-05-12] MEDS: diphenhydrAMINE HCL 50 MG/ML VIAL 25 MG IVPUSH (02:44)
[2021-05-12 02:46] VITALS: BP 89/56; PULSE 64; RESP 16; O2SAT 98
== END 2021-05-12 03:44 | disposition home or self-care (01) ==
PROVIDERS: Emergency Provider Emergency Medicine; PCP Physician Assistant
DX: G43.901 Migraine, unspecified, not intractable, with status migrainosus (principal); Z79.899 Other long term (current) drug therapy
CPT/HCPCS: 96361; 96374; 96375; 99284; 99285; J1200; J1885; J2550

== ENCOUNTER 2021-05-31 07:19 | Outpatient (REF) | payer OTHER, SELFPAY | END 2021-05-31 07:20 | disposition home or self-care (01) | LOC: HO.HOSX 07:19 | PROVIDERS: Visit Provider Physician Assistant | DX: Z13.89 Encounter for screening for other disorder (principal) ==

== ENCOUNTER 2021-08-10 21:57 | Emergency (ER) | payer OTHER, SELFPAY ==
[2021-08-10 22:35] VITALS: BP 94/67; PULSE 103; RESP 16; TEMP 36.6; O2SAT 97; BMI 20.3
[2021-08-11 03:38] VITALS: BP 99/65; PULSE 85; RESP 16; TEMP 36.5; O2SAT 99
--- NOTE | 2021-08-11 06:22 | ED.HA ---
HPI - Headache General Chief Complaint: Headache Stated Complaint: Migraine Time Seen by Provider: 08/11/21 06:15 Source: patient Mode of arrival: ambulatory Limitations: no limitations History of Present Illness HPI Narrative: 51-year-old female who presents emergency department for evaluation of migraine headaches. Patient states that she developed a migraine 2 days prior. She states the headache has been constant but waxes and wanes in intensity. The headache is located on the right side of her head behind her right eye. She describes the pain is a sharp pain which is 8/10 at its worst. The pain is associated with nausea but no vomiting. She states she has had a nonproductive cough but she denied fever, chills, chest pain, shortness of breath, numbness, weakness. Patient states she has been taking her migraine medications at home with no relief of her symptoms. She states that she has had to come to the emergency department in the past and she has been treated with IV Toradol, Reglan and Benadryl. Related Data Previous Rx's Medication Instructions Recorded ondansetron 4 mg disintegrating 4 mg PO TID PRN 5 Days #10 tab 11/08/20 tablet oxycodone-acetaminophen 5 mg-325 1 tab PO BID PRN 5 Days #10 tab 04/03/21 mg tablet (Percocet) oxycodone-acetaminophen 5 mg-325 1 tab PO TID PRN #10 tab 04/08/21 mg tablet (Percocet) amitriptyline 50 mg tablet 50 mg PO BEDTIME 30 Days #30 tab 05/28/21 atorvastatin 20 mg tablet (Lipitor) 20 mg PO BEDTIME #30 tab 05/28/21 metoprolol tartrate 100 mg tablet 100 mg PO BID #60 tab 05/28/21 (Lopressor) prochlorperazine 25 mg rectal 25 mg IN BID #12 ea 05/28/21 suppository (Compazine) metoclopramide HCl 10 mg tablet 10 mg PO DAILY PRN #5 tab 07/08/21 (Reglan) topiramate 100 mg tablet (Topamax) 100 mg PO BID #60 tab 07/08/21 jpmtfadmvg-zwruaroxjphmq-wzlyrdtb 1 cap PO DAILY 30 Days #30 cap 07/30/21 50 mg-325 mg-40 mg capsule Allergies Allergy/AdvReac Type Severity Reaction Status Date / Time aspirin [Aspirin] Allergy Intermediate WHEEZING Verified 12/18/21 22:40 clarithromycin [From Biaxin] Allergy Intermediate HIVES Verified 08/10/21 22:40 Sulfa (Sulfonamide Allergy Intermediate HIVES Verified 08/10/21 22:40 Antibiotics) [SULFA (SULFONAMIDE ANTIBIOTICS)] bee pollen [BEE STINGS] Allergy Unknown UNKNOWN Verified 08/10/21 22:40 pineapple [PINEAPPLE] Allergy Unknown UNKNOWN Verified 08/10/21 22:40 beeswax Allergy Anaphylaxis Verified 08/10/21 22:40 Review of Systems Review of Systems: Yes all other systems are reviewed and are negative [facility] Past Medical History [facility] Narrative: Social history: Patient smokes 7 cigarettes per day times 35 years. She denies alcohol use. She smokes marijuana daily she states that this helps with her migraine headaches. Medical History Hypotension IBS (irritable bowel syndrome) Migraine Surgical History History of cholecystectomy History of partial hysterectomy Family History Family History Mother Substance use disorder Stroke Other Mental health disorder Social History Social History Housing: House Alcohol intake: never Patient Tobacco Use Status: Current everyday Tobacco user Tobacco use type: Cigarette Cigarettes Per Day: 7 Substance Use Type: Marijuana Advance Directives: No Advance Directives Information Provided: No Advance Directives Date on File: 02/01/21 service: No Current occupational status: employed and disabled Current occupation: rt handed Physical Exam Vital Signs: Vital Signs: Last Vital Signs Temp 97.7 F 08/11/21 03:38 Pulse 85 08/11/21 03:38 Resp 16 08/11/21 03:38 BP 99/65 08/11/21 03:38 Pulse Ox 99 08/11/21 03:38 BMI result Body Mass Index 20.3 Const: General: cooperative and no acute distress Orientation/consciousness: oriented to person and oriented to place Limitations: no limitations HENMT: Head: Yes normal to inspection, Yes normocephalic and Yes atraumatic Ears: external ears normal General nose exam: Normal external nose present Face and sinus: Yes normal facial exam Mouth: Normal oral and palatal mucosa present Throat: Yes posterior oropharynx normal Eyes: General: appearance normal, both eyes and all related structures Pupils: Equal, round and reactive pupils present Neck: Neck: Yes normal visual inspection, Yes no lymphadenopathy, Yes trachea midline and Yes supple Chest: Chest palpation & inspection: normal inspection of the chest and normal palpation of entire chest wall Resp: Effort & Inspection: normal respiratory effort and able to speak in complete sentences Auscultation: clear to auscultation bilaterally Cardio: Rate: regular rate Rhythm: regular rhythm Heart sounds: S1 normal heart sound present, S2 normal heart sound present and no murmurs GI: Inspection: Yes normal to inspection Palpation (GI): Soft to palpation, nontender and no guarding Auscultation: normal bowel sounds : General: Yes no CVA tenderness Back/Spine/Pelvis: Back: no CVA tenderness Skin: General skin exam: no rashes or lesions noted Neuro: General: oriented to person and oriented to place Cranial nerves: Yes CN's II-XII intact bilaterally and Yes Equal, round and reactive pupils present Cognition (Neuro): normal cognition Motor exam (neuro): 5/5 motor strength present throughout Extrem: General: Yes normal to inspection Psych: Appearance: grossly normal Speech and movement: Normal speech and movement present Affect: normal affect Attitude: cooperative Thought process: Normal thought process present Thought content: Normal thought content present Course Course Course Narrative: 51-year-old female who presents emergency department for evaluation a migraine headache that she has had for 2 days. Patient has taken a usual migraine medications at home with no relief. Initial vital signs revealed an elevated pulse of 103 otherwise were unremarkable. The patient's physical examination was unremarkable. The patient was ordered to get Toradol 30 mg IV, Reglan 10 mg IV and Benadryl 50 mg IV. She also ordered to get normal saline IV x1 L. 0724: The patient's headache did not improve after the above treatment. She was ordered to get morphine 4 mg IV. Patient will be discharged home if she improves after this next treatment Discharge Plan Discharge Clinical Impression: Migraines Patient Disposition: Home, Self-Care Instructions: Migraine Headache (ED) Additional Instructions: Your treated with Toradol, Reglan and Benadryl IV with only minimal improvement of your headache, therefore your also given morphine 4 mg IV. You should go home and take your medications as prescribed by your doctor. Follow-up with your doctor in 2 days. Please return to the emergency department if your symptoms get worse or if you develop any symptoms that are concerning to you. Prescriptions: No Action oxycodone-acetaminophen [Percocet] 5-325 mg tablet 1 tab PO BID PRN (Reason: pain) 5 Days Qty: 10 RF: 0 atorvastatin [Lipitor] 20 mg tablet 20 mg PO BEDTIME Qty: 30 RF: 2 amitriptyline 50 mg tablet 50 mg PO BEDTIME 30 Days Qty: 30 RF: 2 metoprolol tartrate [Lopressor] 100 mg tablet 100 mg PO BID Qty: 60 RF: 2 prochlorperazine [Compazine] 25 mg suppository 25 mg IN BID Qty: 12 RF: 0 topiramate [Topamax] 100 mg tablet 100 mg PO BID Qty: 60 RF: 2 ufjqlmnyko-ltxkfojyzzbud-mabk 50-325-40 mg capsule 1 cap PO DAILY 30 Days Qty: 30 RF: 0 ondansetron 4 mg tablet,disintegrating 4 mg PO TID PRN (Reason: nausea and vomiting) 5 Days Qty: 10 RF: 0 oxycodone-acetaminophen [Percocet] 5-325 mg tablet 1 tab PO TID PRN (Reason: pain) Qty: 10 RF: 0 metoclopramide HCl [Reglan] 10 mg tablet 10 mg PO DAILY PRN (Reason: nausea and vomiting) Qty: 5 RF: 0
[2021-08-11] MEDS: Ketorolac Tromethamine 30 MG/ML VIAL IVPUSH (06:35)
[2021-08-11] MEDS: diphenhydrAMINE HCL 25 MG TABLET 50 MG PO (06:35)
[2021-08-11] MEDS: 0.9 % Sodium Chloride 1,000 ML 999 ML IV (06:35)
[2021-08-11] MEDS: Metoclopramide HCl 10 MG/2 ML VIAL IVPUSH (06:36)
[2021-08-11] MEDS: Morphine Sulfate 4 MG/ML CARTRIDGE IVPUSH (07:51)
[2021-08-11 07:52] VITALS: BP 92/59; PULSE 68; RESP 16; O2SAT 100
[2021-08-11 08:46] VITALS: BP 111/68; PULSE 75; RESP 16
== END 2021-08-11 08:49 | disposition home or self-care (01) ==
PROVIDERS: Emergency Provider Emergency Medicine Emergency Medical Services; PCP Physician Assistant
DX: G43.909 Migraine, unspecified, not intractable, without status migrainosus (principal); F17.200 Nicotine dependence, unspecified, uncomplicated
CPT/HCPCS: 96361; 96374; 96375; 99284; J1885; J2270; J2765; Q0163

== ENCOUNTER 2021-11-30 23:05 | Emergency (ER) | payer MEDICAID, SELFPAY ==
--- NOTE | ~2021-11-30 | CT_ITS ---
EXAMINATION: CT HEAD WITHOUT CONTRAST CLINICAL INFORMATION: Headache COMPARISON: 12/08/2019 TECHNIQUE: Contiguous axial imaging was performed from the skull base to vertex without intravenous administration of contrast. This CT examination was performed using dose optimization techniques as appropriate, variously including the following: *Automated exposure control *Adjustment of mA and/or kV according to patient size (this includes techniques or standardized protocols for targeted exams where dose is matched to indication/reason for exam; i.e. extremities or head) *Use of iterative reconstruction technique DLP: 655 mGy-cm FINDINGS: There is no evidence of acute intracranial hemorrhage or territorial infarction. No abnormal mass effect or midline shift is seen. Zayas to white matter differentiation is well preserved. No extra-axial fluid collections are identified. The ventricles are normal in size. There is no abnormal attenuation within the brain parenchyma. The osseous structures and soft tissues are normal. There is mucosal thickening of the sphenoid sinuses. The mastoid air cells are well-aerated. CT/CT head/brain wo con IMPRESSION: No acute intracranial pathology.
[2021-11-30 23:20] VITALS: BP 99/73; PULSE 113; RESP 18; TEMP 37; O2SAT 97; BMI 20.7
--- NOTE | 2021-11-30 23:39 | ED_ITS ---
HPI - Headache General Chief Complaint: Headache Stated Complaint: migraine Time Seen by Provider: 11/30/21 23:37 Source: patient Mode of arrival: ambulatory Limitations: no limitations History of Present Illness HPI Narrative: 51-year-old for evaluation of headache. Patient with history of migraine, came in with 4 days history of migraine associated with photophobia and nausea, patient been having migraines since age of 30 confirm this is her typical migraine headache, patient try Fioricet with partial relief. Migraine is mostly to the left side of her head consider as moderate 5/10, no neck stiffness or neck pain, the migraine is typical to her previous headaches. Related Data Previous Rx's Medication Instructions Recorded ondansetron 4 mg disintegrating 4 mg PO TID PRN 5 Days #10 tab 11/08/20 tablet oxycodone-acetaminophen 5 mg-325 1 tab PO BID PRN 5 Days #10 tab 04/03/21 mg tablet (Percocet) oxycodone-acetaminophen 5 mg-325 1 tab PO TID PRN #10 tab 04/08/21 mg tablet (Percocet) prochlorperazine 25 mg rectal 25 mg ID BID #12 ea 05/28/21 suppository (Compazine) metoclopramide HCl 10 mg tablet 10 mg PO DAILY PRN #5 tab 07/08/21 (Reglan) topiramate 100 mg tablet (Topamax) 100 mg PO BID #60 tab 07/08/21 sxpbdqdcar-eikqrtslogzpv-kdvsrupd 1 cap PO DAILY 30 Days #30 cap 09/19/21 50 mg-325 mg-40 mg capsule metoprolol tartrate 100 mg tablet 100 mg PO BID #60 tab 09/19/21 (Lopressor) amitriptyline 50 mg tablet 50 mg PO BEDTIME 30 Days #30 tab 10/10/21 atorvastatin 20 mg tablet (Lipitor) 20 mg PO BEDTIME #30 tab 10/10/21 Allergies Allergy/AdvReac Type Severity Reaction Status Date / Time aspirin [Aspirin] Allergy Intermediate WHEEZING Verified 11/30/21 23:20 clarithromycin [From Biaxin] Allergy Intermediate HIVES Verified 11/30/21 23:20 Sulfa (Sulfonamide Allergy Intermediate HIVES Verified 11/30/21 23:20 Antibiotics) [SULFA (SULFONAMIDE ANTIBIOTICS)] bee pollen [BEE STINGS] Allergy Unknown UNKNOWN Verified 11/30/21 23:20 pineapple [PINEAPPLE] Allergy Unknown UNKNOWN Verified 11/30/21 23:20 beeswax Allergy Anaphylaxis Verified 11/30/21 23:20 Review of Systems Review of Systems: All other systems are reviewed and are negative Constitutional: Reports as per HPI and Reports no additional constitutional complaints Eyes: Reports as per HPI and Reports no additional eye complaints Reports system reviewed and no additional complaints, except as documented Cardiovascular: Reports as per HPI and Reports no additional cardiovascular complaints Respiratory: Reports as per HPI and Reports no additional respiratory complaints Gastrointestinal: Reports as per HPI and Reports no additional gastrointestinal complaints Genitourinary: Reports no additional female genitourinary complaints Musculoskeletal: Reports no additional musculoskeletal complaints Skin/Breast: Reports system reviewed and no additional complaints, except as docu Psychiatric: Reports no additional psychiatric complaints Endocrine: Reports no additional endocrine complaints Hematologic/Lymphatic: Reports no additional hematologic/lymphatic complaints Allergic/Immunologic: Reports no additional allergic/immunologic complaints Reports system reviewed and no additional complaints, except as documented and Reports Abnormal speech present [facility] Past Medical History Medical History Hypotension IBS (irritable bowel syndrome) Migraine Surgical History History of cholecystectomy History of partial hysterectomy Family History Family History Mother Substance use disorder Stroke Other Mental health disorder Social History Social History Housing: House Alcohol intake: never Patient Tobacco Use Status: Current everyday Tobacco user Tobacco use type: Cigarette Cigarettes Per Day: 7 Substance Use Type: Marijuana Advance Directives: Yes Advance Directives on File: Yes Advance Directives Date on File: 02/01/21 service: No Current occupational status: employed and disabled Current occupation: rt handed Physical Exam Vital Signs: Vital Signs: Last Vital Signs Temp 98.6 F 11/30/21 23:20 Pulse 82 12/01/21 05:40 Resp 12 12/01/21 05:40 BP 87/58 L 12/01/21 05:40 Pulse Ox 98 12/01/21 05:40 BMI result Body Mass Index 20.7 Vital signs have been reviewed as appeared to be correct. Blood pressure normal. Heart rate normal. Respiration rate normal. Temperature normal. Oxygen saturation normal. Appearance: Alert. Oriented X3. No acute distress. Head: Normal external exam. Normocephalic. Atraumatic. No Carey signs noted. No raccoon eyes noted Eyes: PERRLA. EOMI. Conjunctiva and sclera normal. Eyelids normal. ENT: TM's Normal. Pharynx normal. Uvula midline. Moist mucous membranes. No trismus noted. No drooling noted. No muffled voice noted. Neck: Normal inspection. Neck supple. FROM. No adenopathy. Thyroid Normal. No meningeal signs. No neck mass noted. CVS: Normal heart rate and rhythm. Heart sound normal. No murmurs noted. Pulses normal throughout. Respiratory: No respiratory distress. Painless inspiration. Breath sounds n ormal. No wheezes/rales/rhonchi noted. Chest nontender. No accessory muscle usage noted or decreased air movement noted. Abdomen: Soft and nontender. Bowel sounds normal in all 4 quadrants. No diste ntion noted. No organomegaly noted. No visible injury noted. Back: No CVA tenderness. Full range of motion noted. Skin: Skin warm and dry. Normal skin color. Normal skin turgor. No rashes/lesions/lacerations noted. Extremities: No lower extremity edema. Extremities exhibit normal range of motion. Extremities nontender. Neuro: Oriented X 3. Cranial nerve exam: II-XII are grossly intact No motor deficit. No sensory deficit. Reflexes normal. Course Course Course Narrative: Assessment and plan. 51-year-old female with long history of migraine came in with 4 days of exacerbation of migraine, symptoms improved with IV fluids/Benadryl/Solu-Medrol, patient has a normal neuro exam and normal CT plus patient's symptoms is typical to her usual migraine. Will discharge the patient to follow-up with PCP. Patient had low blood pressure in the ED but patient confirmed that she normally runs a low blood pressure reviewing patient's records revealed multiple low blood pressure readings in the emergency room in her past visits patient stated that her PCP is aware of her blood pressure and he is not manage in it because patient is asymptomatic. Patient takes Lopressor for other cardiac reasons. [facility] - Headache Medical Records Attestation: I reviewed the patient's medical records. Lab Data Attestation: I reviewed the patient's lab results. Imaging Data CT scan - head: Attestation: I personally reviewed and interpreted this imaging study as follows: Radiologist's impression: No acute intercranial pathology Discharge Plan Discharge Clinical Impression: Migraine Patient Disposition: Home, Self-Care Instructions: Migraine Headache (ED) Prescriptions: No Action oxycodone-acetaminophen [Percocet] 5-325 mg tablet 1 tab PO BID PRN (Reason: pain) 5 Days Qty: 10 0RF prochlorperazine [Compazine] 25 mg suppository 25 mg ID BID Qty: 12 0RF topiramate [Topamax] 100 mg tablet 100 mg PO BID Qty: 60 2RF metoprolol tartrate [Lopressor] 100 mg tablet 100 mg PO BID Qty: 60 3RF mzynpnpxoq-sqtaslhbofjnf-qzfb 50-325-40 mg capsule 1 cap PO DAILY 30 Days Qty: 30 0RF amitriptyline 50 mg tablet 50 mg PO BEDTIME 30 Days Qty: 30 2RF atorvastatin [Lipitor] 20 mg tablet 20 mg PO BEDTIME Qty: 30 2RF ondansetron 4 mg tablet,disintegrating 4 mg PO TID PRN (Reason: nausea and vomiting) 5 Days Qty: 10 0RF oxycodone-acetaminophen [Percocet] 5-325 mg tablet 1 tab PO TID PRN (Reason: pain) Qty: 10 0RF metoclopramide HCl [Reglan] 10 mg tablet 10 mg PO DAILY PRN (Reason: nausea and vomiting) Qty: 5 0RF Referrals: Physician,Unknown J [Primary Care Provider] -
[2021-12-01] MEDS: ondansetron HCL 4 MG/2 ML VIAL IVPUSH (01:40)
[2021-12-01] MEDS: diphenhydrAMINE HCL 50 MG/ML VIAL 25 MG IVPUSH (01:40)
[2021-12-01] MEDS: 0.9 % Sodium Chloride 1,000 ML 999 ML IV ×3 (01:40→05:38)
[2021-12-01] MEDS: methylPREDNISolone Sod Succ 125 MG/2 ML VIAL IVPUSH (01:40)
[2021-12-01] MEDS: Morphine Sulfate 2 MG/ML CARTRIDGE IVPUSH (04:31)
[2021-12-01 04:46] VITALS: BP 78/51; PULSE 77; RESP 16; O2SAT 99
[2021-12-01 04:54] VITALS: BP 81/56; PULSE 76; RESP 14; O2SAT 96
[2021-12-01 05:40] VITALS: BP 87/58; PULSE 82; RESP 12; O2SAT 98
== END 2021-12-01 06:12 | disposition home or self-care (01) ==
PROVIDERS: Emergency Provider Emergency Medicine
DX: G43.909 Migraine, unspecified, not intractable, without status migrainosus (principal); I95.9 Hypotension, unspecified; F17.200 Nicotine dependence, unspecified, uncomplicated
CPT/HCPCS: 70450; 96360; 96361; 96374; 96375; 99284; J1200; J2270; J2405; J2930

== ENCOUNTER 2022-03-23 18:38 | Emergency (ER) | payer MEDICAID, SELFPAY ==
--- NOTE | ~2022-03-23 | XR_ITS ---
EXAMINATION: XR CHEST CLINICAL INFORMATION: Chest pain COMPARISON: Chest x-ray 10/12/2019, right clavicle radiographs 04/12/2021 TECHNIQUE: Frontal view of the chest was obtained. FINDINGS: The lungs are clear. No airspace consolidation, pleural effusion, or pneumothorax. The cardiomediastinal silhouette is within normal limits. No acute osseous injury. Displaced ununited appearing right distal clavicle fracture deformity is redemonstrated. XR/XR chest 1V IMPRESSION: 1. No acute pulmonary process.
[2022-03-23 18:43] VITALS: BP 103/60; PULSE 102; RESP 18; TEMP 36.7; O2SAT 95; BMI 22.4
--- NOTE | 2022-03-23 18:46 | ECG_ITS ---
Test Reason : CHEST PAIN Blood Pressure : / mmHG Vent. Rate : 097 BPM Atrial Rate : 097 BPM P-R Int : 132 ms QRS Dur : 094 ms QT Int : 374 ms P-R-T Axes : 070 065 057 degrees QTc Int : 474 ms Normal sinus rhythm Normal ECG When compared with ECG of 26-OCT-2019 11:11, Vent. rate has increased BY 40 BPM QT has lengthened Referred By: Generic ED Physician Electronically Signed By:JALEESA SHEIKH MD
[2022-03-23 19:00] LABS: Basophils Absolute Auto 0.1 X10*3/uL (0.0-0.2); Basophils Percent Auto 1.1 % (0-2); Eosinophils Absolute Auto 0.2 X10*3/uL (0.0-0.4); Eosinophils Percent Auto 1.7 % (0-4); Hematocrit 39.5 % (37.0-47.0); Hemoglobin 13.4 g/dl (12.0-16.0); Imm Gran Abs Auto 0.01 X10*3/uL (0.00-0.03); Imm Gran Pct Auto 0.1 % (0.0-0.4); Lymphocytes Absolute Auto 5.6 X10*3/uL (1.2-4.9); Lymphocytes Percent Auto 56.7 % (20-40); MANUAL DIFF FLAG SCAN; Mean Corpuscular HGB Conc 33.9 g/dl (31.0-35.0); Mean Corpuscular Hemoglobin 31.3 pg (27.0-33.0); Mean Corpuscular Volume 92.3 fL (80.0-98.0); Mean Platelet Volume 9.4 fL (9.4-12.3); Monocytes Absolute Auto 0.6 X10*3/uL (0.1-1.2); Monocytes Percent Auto 6.1 % (2-11); Neutrophils Absolute Auto 3.4 x10*3/uL (2.0-8.3); Neutrophils Percent Auto 34.3 % (45-73); Platelet Count 221 X10*3/uL (160-400); Red Blood Count 4.28 X10*6/uL (4.20-5.50); Red Cell Distribution Width 15.2 % (11.0-16.0); SCAN SMEAR FLAG 1; White Blood Count 9.9 X10*3/uL (4.8-10.8)
[2022-03-23 19:11] LABS: Anion Gap 15 (12-20); Blood Urea Nitrogen 12 mg/dL (9-16); Calcium 8.9 mg/dL (8.4-10.2); Carbon Dioxide 19 mmol/L (22-29); Chloride 110 mmol/L (96-108); Creatinine Clr Calc Pharmacy 69.2; Estimated Glomerular Filt Rate > 60; Glucose Random 96 mg/dL (60-115); Potassium 4.1 mmol/L (3.3-5.1); Sodium 140 mmol/L (135-145)
[2022-03-23 19:17] LABS: SLIDE REVIEW VERIFIED
[2022-03-23 19:18] LABS: Troponin-I High Sensitivity < 3.5 ng/L (<3.5-17.0)
--- NOTE | 2022-03-23 20:10 | PC.NURSE ---
pt states she has tingling to bilat arms intermittently but not at same time and a migraine pt states she has blocked arteries and has been told to get stents but she states she has refused. CP onset 2pm described as pressure and nausea and migraine. pt in no distress at this time. states 9/10 pain all together
[2022-03-23 20:14] VITALS: PULSE 79; RESP 22; O2SAT 97
[2022-03-23 20:17] VITALS: BP 91/63; O2SAT 96
--- NOTE | 2022-03-23 20:50 | ED_ITS ---
HPI - Chest Pain General Chief Complaint: Chest Pain Stated Complaint: chest tightness/leg pain/headaches Time Seen by Provider: 03/23/22 20:50 Source: patient Mode of arrival: ambulatory Limitations: no limitations History of Present Illness HPI narrative: Patient with multiple complaints complaining of diffuse chest pain for last few days also off and on s is getting a rash on the right and left hips no fever no shortness of breath no cough Related Data Previous Rx's Medication Instructions Recorded ondansetron 4 mg disintegrating 4 mg PO TID PRN nausea and 11/08/20 tablet vomiting 5 days #10 tabs oxycodone-acetaminophen 5 mg-325 1 tab PO BID PRN pain 5 days #10 /07/14 mg tablet (Percocet) tabs oxycodone-acetaminophen 5 mg-325 1 tab PO TID PRN pain #10 tabs 04/08/21 mg tablet (Percocet) prochlorperazine 25 mg rectal 25 mg DC BID #12 ea 05/28/21 suppository (Compazine) metoclopramide HCl 10 mg tablet 10 mg PO DAILY PRN nausea and 07/08/21 (Reglan) vomiting #5 tabs topiramate 100 mg tablet (Topamax) 100 mg PO BID #60 tabs 07/08/21 nmxgsgvons-soqcyfewceuvf-tcbrvozr 1 cap PO DAILY pain 30 days #30 09/19/21 50 mg-325 mg-40 mg capsule caps metoprolol tartrate 100 mg tablet 100 mg PO BID #60 tabs 09/19/21 (Lopressor) amitriptyline 50 mg tablet 50 mg PO BEDTIME 30 days #30 tabs 10/10/21 atorvastatin 20 mg tablet (Lipitor) 20 mg PO BEDTIME #30 tabs 10/10/21 anthqvqbkz-xvgnohxdruifz-vkdacayf 1 cap PO Q6H PRN headache #20 caps 03/23/22 50 mg-300 mg-40 mg capsule (Fioricet) doxycycline hyclate 100 mg tablet 100 mg PO BID #20 tabs 03/23/22 Allergies Allergy/AdvReac Type Severity Reaction Status Date / Time aspirin [Aspirin] Allergy Intermediate WHEEZING Verified 03/23/22 18:43 clarithromycin [From Biaxin] Allergy Intermediate HIVES Verified 03/23/22 18:43 Sulfa (Sulfonamide Allergy Intermediate HIVES Verified 03/23/22 18:43 Antibiotics) [SULFA (SULFONAMIDE ANTIBIOTICS)] bee pollen [BEE STINGS] Allergy Unknown UNKNOWN Verified 03/23/22 18:43 pineapple [PINEAPPLE] Allergy Unknown UNKNOWN Verified 03/23/22 18:43 beeswax Allergy Anaphylaxis Verified 03/23/22 18:43 Review of Systems Review of Systems: Yes all other systems are reviewed and are negative [facility] Past Medical History Medical History Hypotension IBS (irritable bowel syndrome) Migraine Surgical History History of cholecystectomy History of partial hysterectomy Family History Family History Mother Substance use disorder Stroke Other Mental health disorder Social History Social History Housing: House Alcohol intake: never Patient Tobacco Use Status: Current everyday Tobacco user Tobacco use type: Cigarette Cigarettes Per Day: 7 Substance Use Type: Marijuana Advance Directives: Yes Advance Directives on File: Yes Advance Directives Date on File: 02/01/21 service: No Current occupational status: employed and disabled Current occupation: rt handed Physical Exam Vital Signs: Vital Signs: Last Vital Signs Temp 98.1 F 03/23/22 18:43 Pulse 79 03/23/22 20:14 Resp 22 H 03/23/22 20:14 BP 91/63 03/23/22 20:17 Pulse Ox 96 03/23/22 20:17 O2 Del Method 03/23/22 20:17 BMI result Body Mass Index 22.4 Appearance: Alert. Oriented X3. No acute distress. ENT: Pharynx normal. Oral Mucosa moist Neck: Normal inspection. Neck supple. CVS: Normal heart rate and rhythm. Pulses normal. Respiratory: No respiratory distress. Equal air entry bilateral, Abdomen: Soft and nontender. Bowel sounds are present, Skin: Skin warm and dry. Extremities: No lower extremity edema. No calf tenderness mccray colored rash on right gluteal area Neuro: Oriented X 3. MDM - Chest Pain Lab Data Attestation: I reviewed the patient's lab results. Result diagrams: 03/23/22 18:52 03/23/22 18:52 Labs: Lab Results 03/23/22 03/23/22 03/23/22 Range/Units 18:52 18:52 18:52 WBC 9.9 (4.8-10.8) X10*3/uL RBC 4.28 (4.20-5.50) X10*6/uL Hgb 13.4 (12.0-16.0) g/dl Hct 39.5 (37.0-47.0) % MCV 92.3 (80.0-98.0) fL MCH 31.3 (27.0-33.0) pg MCHC 33.9 (31.0-35.0) g/dl RDW 15.2 (11.0-16.0) % Plt Count 221 (160-400) X10*3/uL MPV 9.4 (9.4-12.3) fL Immature Gran % (Auto) 0.1 (0.0-0.4) % Neut % (Auto) 34.3 L (45-73) % Lymph % (Auto) 56.7 H (20-40) % [place] % (Auto) 6.1 (2-11) % Eos % (Auto) 1.7 (0-4) % Baso % (Auto) 1.1 (0-2) % Lymph # (Auto) 5.6 H (1.2-4.9) X10*3/uL [place] # (Auto) 0.6 (0.1-1.2) X10*3/uL Eos # (Auto) 0.2 (0.0-0.4) X10*3/uL Baso # (Auto) 0.1 (0.0-0.2) X10*3/uL Abs Immat Gran (auto) 0.01 (0.00-0.03) X10*3/uL Absolute Neuts (auto) 3.4 (2.0-8.3) x10*3/uL Absolute Nucleated RBC 0.000 (0.0-0.012) X10*3/uL Nucleated RBC % (auto) 0.0 (0.0-0.2) /100WBC Smear Tech's Comments VERIFIED Sodium 140 (135-145) mmol/L Potassium 4.1 D (3.3-5.1) mmol/L Chloride 110 H (96-108) mmol/L Carbon Dioxide 19 L (22-29) mmol/L Anion Gap 15 (12-20) BUN 12 (9-16) mg/dL Creatinine 0.97 (0.5-1.4) mg/dL Estim Creat Clear Calc 69.2 Estimated GFR > 60 Random Glucose 96 (60-115) mg/dL Calcium 8.9 D (8.4-10.2) mg/dL Troponin I High Sens < 3.5 (<3.5-17.0) ng/L ECG Data ECG #1: Attestation: I personally reviewed and interpreted this ECG as follows: Interpretation: Normal sinus rhythm heart rate 97 beats per minute normal interval normal axis no acute ST wave changes no acute ischemia Discharge Plan Discharge Clinical Impression: Atypical chest pain, MRSA infection Patient Disposition: Home, Self-Care Instructions: Chest Pain (ED), MRSA (Methicillin-Resistant Staphylococcus Aureus) (ED) Additional Instructions: You likely have a MRSA infection of the skin Take antibiotic as prescribed Fioricet for headaches Follow-up with your PCP Prescriptions: New doxycycline hyclate 100 mg tablet 100 mg PO BID Qty: 20 0RF dibkdeobej-rcqdylqnoynax-kmzi [Fioricet] 50-300-40 mg capsule 1 cap PO Q6H PRN (Reason: headache) Qty: 20 0RF No Action oxycodone-acetaminophen [Percocet] 5-325 mg tablet 1 tab PO BID PRN (Reason: pain) 5 Days Qty: 10 0RF prochlorperazine [Compazine] 25 mg suppository 25 mg DC BID Qty: 12 0RF topiramate [Topamax] 100 mg tablet 100 mg PO BID Qty: 60 2RF metoprolol tartrate [Lopressor] 100 mg tablet 100 mg PO BID Qty: 60 3RF nqdrojpnvf-zbsejbizobfkz-pgjd 50-325-40 mg capsule 1 cap PO DAILY 30 Days Qty: 30 0RF amitriptyline 50 mg tablet 50 mg PO BEDTIME 30 Days Qty: 30 2RF atorvastatin [Lipitor] 20 mg tablet 20 mg PO BEDTIME Qty: 30 2RF ondansetron 4 mg tablet,disintegrating 4 mg PO TID PRN (Reason: nausea and vomiting) 5 Days Qty: 10 0RF oxycodone-acetaminophen [Percocet] 5-325 mg tablet 1 tab PO TID PRN (Reason: pain) Qty: 10 0RF metoclopramide HCl [Reglan] 10 mg tablet 10 mg PO DAILY PRN (Reason: nausea and vomiting) Qty: 5 0RF Interventions: ED Discharge Assessment Last Done: 03/23/22 21:22 Discharge Date/Time: 03/23/22 21:22
[2022-03-23] MEDS: Butalb/Acetamin/Caff 50/325/40 TABLET 1 TAB PO (21:11)
--- NOTE | 2022-03-23 21:21 | PC.NURSE ---
pt a&o, no sob or chest pain at this time. Reviewed discharge instructions with pt. pt verbalize understanding. 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
== END 2022-03-23 21:22 | disposition home or self-care (01) ==
PROVIDERS: Emergency Provider Internal Medicine
DX: R07.89 Other chest pain (principal); A49.02 Methicillin resistant Staphylococcus aureus infection, unspecified site; F17.210 Nicotine dependence, cigarettes, uncomplicated; Z71.6 Tobacco abuse counseling; Z20.822 Contact with and (suspected) exposure to COVID-19; Z79.899 Other long term (current) drug therapy
CPT/HCPCS: 36415; 71045; 80048; 84484; 85025; 93005; 99285

== ENCOUNTER 2022-05-23 02:05 | Emergency (ER) | payer MEDICAID, SELFPAY ==
[2022-05-23 02:15] VITALS: BP 107/75; PULSE 87; RESP 18; TEMP 37.1; O2SAT 96; BMI 20.9
--- NOTE | 2022-05-23 03:10 | ED.HA ---
HPI - Headache General Chief Complaint: Headache Stated Complaint: migraine & boil? Time Seen by Provider: 05/23/22 03:03 Source: patient History of Present Illness HPI Narrative: Patient history of migraine headache been having headache for last 3 days finish her Fioricet headache is localized mostly on the left side with nausea and photosensitivity similar to that in the past. No fever no chills also noticed small boil at right gluteal area with no pus discharge Related Data Previous Rx's Medication Instructions Recorded uwepcxzuqp-mhgukkhfwoefw-fpsptvwv 1 cap PO Q6H PRN headache #20 caps 05/23/22 50 mg-300 mg-40 mg capsule (Fioricet) doxycycline hyclate 100 mg tablet 100 mg PO BID #20 tabs 05/23/22 Allergies Allergy/AdvReac Type Severity Reaction Status Date / Time aspirin Allergy Hives Verified 01/26/21 12:18 beeswax Allergy Anaphylaxis Verified 01/26/21 12:18 clarithromycin [From Biaxin] Allergy Hives Verified 01/26/21 12:18 pineapple Allergy Anaphylaxis Verified 01/26/21 12:18 Sulfa (Sulfonamide Allergy Hives Verified 01/26/21 12:18 Antibiotics) Review of Systems Review of Systems: Yes all other systems are reviewed and are negative [facility] Past Medical History Medical History CAD (coronary artery disease) Migraine Social History Social History Advance Directives: No Advance Directives Information Provided: No Physical Exam Vital Signs: Vital Signs: Last Vital Signs Temp 98.1 F 05/23/22 03:50 Pulse 82 05/23/22 03:50 Resp 16 05/23/22 03:50 BP 91/67 05/23/22 03:50 Pulse Ox 97 05/23/22 03:50 O2 Del Method 05/23/22 03:50 BMI result Body Mass Index 20.9 Appearance: Alert. Oriented X3. No acute distress. Eyes: PERRLA, No Nystagmus ENT: Pharynx normal. Oral Mucosa moist no temporal artery tenderness Neck: Normal inspection. Neck supple. CVS: Normal heart rate and rhythm. Pulses normal. Respiratory: No respiratory distress. Equal air entry bilateral, no wheezing/rales/rhonchi Abdomen: Soft and nontender. Bowel sounds are present, no mass palpable, no CVA tenderness Skin: Skin warm and dry. Normal skin color. Normal skin turgor. Small ulcerated boil left gluteal area Extremities: No lower extremity edema. No calf tenderness Neuro: Oriented X 3. No motor deficit. MDM - Headache MDM Narrative Medical decision making narrative: Patient has chronic headache felt better after Toradol discharge patient on Fioricet also given doxycycline for follicular infection Discharge Plan Discharge Clinical Impression: Migraine, Folliculitis Patient Disposition: Home, Self-Care Instructions: Migraine Headache (ED), Folliculitis (ED) Additional Instructions: Take medication as prescribed and follow with PCP Prescriptions: New doxycycline hyclate 100 mg tablet 100 mg PO BID Qty: 20 0RF ddukmayxgi-bxirswsrpcuyq-tavk [Fioricet] 50-300-40 mg capsule 1 cap PO Q6H PRN (Reason: headache) Qty: 20 0RF Interventions: ED Discharge Assessment Last Done: 05/23/22 03:52 Discharge Date/Time: 05/23/22 04:01
[2022-05-23] MEDS: Ketorolac Tromethamine 60 MG/2 ML VIAL IM (03:30)
[2022-05-23] MEDS: Ondansetron ODT 4 MG TAB.RAPDIS TRANSLINGU (03:30)
[2022-05-23 03:50] VITALS: BP 91/67; PULSE 82; RESP 16; TEMP 36.7; O2SAT 97
[2022-05-23] MEDS: Butalb/Acetamin/Caff 50/325/40 TABLET 1 TAB PO (04:00)
== END 2022-05-23 04:01 | disposition home or self-care (01) ==
PROVIDERS: Emergency Provider Internal Medicine
DX: G43.909 Migraine, unspecified, not intractable, without status migrainosus (principal); L73.9 Follicular disorder, unspecified; Z79.899 Other long term (current) drug therapy
CPT/HCPCS: 96372; 99283; 99284; J1885

== ENCOUNTER 2022-08-02 15:07 | Emergency (ER) | payer OTHER, SELFPAY ==
--- NOTE | ~2022-08-02 | CT_ITS ---
EXAMINATION: CT HEAD WITHOUT CONTRAST CLINICAL INFORMATION: Headache COMPARISON: Head CT on 11/30/2021 TECHNIQUE: Contiguous axial imaging was performed from the skull base to vertex without intravenous administration of contrast. This CT examination was performed using dose optimization techniques as appropriate, variously including the following: *Automated exposure control *Adjustment of mA and/or kV according to patient size (this includes techniques or standardized protocols for targeted exams where dose is matched to indication/reason for exam; i.e. extremities or head) *Use of iterative reconstruction technique DLP: 629 mGy-cm FINDINGS: There is no evidence of acute intracranial hemorrhage, acute large vessel infarct, midline shift or mass effect. The santos-white differentiation is preserved. The ventricles and sulci are within normal limits in size and configuration. There is no evidence of hydrocephalus. There are no extraaxial collections. Osseous structures are intact. Paranasal sinuses and mastoid air cells are well aerated. CT/CT head/brain wo IV con IMPRESSION: Unremarkable non-contrast CT of the brain.
--- NOTE | 2022-08-02 15:25 | ED_ITS ---
HPI - General Adult General Chief complaint: General Medical Stated complaint: headache,neck pain Related Data Previous Rx's Medication Instructions Recorded diclofenac sodium 1 % topical gel 4 g topical QID #100 grams 11/17/22 amitriptyline 50 mg tablet 50 mg PO BEDTIME 30 days #30 tabs 11/25/22 famotidine 20 mg tablet 20 mg PO DAILY 30 days #30 tabs 11/25/22 propranolol 60 mg tablet 120 mg PO BID 90 days #360 tabs 11/25/22 bisacodyl 5 mg tablet,delayed 10 mg PO BEDTIME 2 days #4 tabs 12/03/22 release (Dulcolax (bisacodyl)) metoclopramide HCl 10 mg tablet 10 mg PO DAILY PRN nausea and 12/03/22 (Reglan) vomiting #30 tabs simvastatin 20 mg tablet 20 mg PO DAILY #90 tabs 12/09/22 linaclotide 290 mcg capsule 290 mcg PO QAM 30 days #30 caps 12/30/22 (Linzess) nitrofurantoin 100 mg PO Q12H 7 days #14 caps 03/04/23 monohydrate/macrocrystals 100 mg capsule (Macrobid) cholecalciferol (vitamin D3) 25 25 mcg PO DAILY #90 tabs 03/12/23 mcg (1,000 unit) tablet prochlorperazine 25 mg rectal 25 mg [place] BID PRN nausea and 03/27/23 suppository (Compazine) vomiting #12 ea topiramate 100 mg tablet (Topamax) 100 mg PO BID #60 tabs 03/27/23 zavkfgtnoq-nabntyohhlhur-yamcqgac 1 tab PO DAILY PRN pain #14 tabs 04/09/23 50 mg-325 mg-40 mg tablet Allergies Allergy/AdvReac Type Severity Reaction Status Date / Time aspirin [Aspirin] Allergy Intermediate WHEEZING Verified 03/04/23 10:44 clarithromycin [From Biaxin] Allergy Intermediate HIVES Verified 03/04/23 10:44 Sulfa (Sulfonamide Allergy Intermediate HIVES Verified 03/04/23 10:44 Antibiotics) [SULFA (SULFONAMIDE ANTIBIOTICS)] bee pollen [BEE STINGS] Allergy Unknown UNKNOWN Verified 03/04/23 10:44 pineapple [PINEAPPLE] Allergy Unknown UNKNOWN Verified 03/04/23 10:44 beeswax Allergy Anaphylaxis Verified 03/04/23 10:44 [facility] Past Medical History Medical History Hypotension IBS (irritable bowel syndrome) Migraine Surgical History History of cholecystectomy History of partial hysterectomy Family History Family History Mother Substance use disorder Stroke Other Mental health disorder Social History Social History Housing: House Alcohol intake: never Patient Tobacco Use Status: Current everyday Tobacco user Tobacco use type: Cigarette Cigarettes Per Day: 10 e-Cigarette/Vaping Use: Never Used Second Hand Smoke Exposure: Yes Substance Use Type: Marijuana Advance Directives Date on File: 02/01/21 service: No Current occupational status: employed and disabled Current occupation: rt handed Cognitive needs: No Hearing needs: No Vision needs: Yes (glasses) Physical Exam ED Vital Signs: BMI result Body Mass Index 20.3 Course Course Course Narrative: JOSÉ MIGUEL 52 year old female hx of htn presents w/ severe migraine reports shes supposed to get stents in her head however she refuses. Tells me she has a blockage in her head and it requires stents. Denies vision changes, dizziness, chest pain,shortness of breath, trauma. Not on blood thinner PE: benign . NIHSS-0. Ambulating w/ steady gait normal coordination. Plan: flu/covid/rsv, basic labs, head scan Discharge Plan Discharge Clinical Impression: Migraine headache, Eloped from emergency department Patient Disposition: Elopement Prescriptions: No Action simvastatin 20 mg tablet 20 mg PO DAILY Qty: 90 1RF Linzess 290 mcg capsule 290 mcg PO QAM 30 Days Qty: 30 0RF cholecalciferol (vitamin D3) 25 mcg (1,000 unit) tablet 25 mcg PO DAILY Qty: 90 0RF prochlorperazine [Compazine] 25 mg suppository 25 mg [place] BID PRN (Reason: nausea and vomiting) Qty: 12 0RF topiramate [Topamax] 100 mg tablet 100 mg PO BID Qty: 60 0RF ozbdibuwtt-myasjdoqdvjll-mrqn 50-325-40 mg tablet 1 tab PO DAILY PRN (Reason: pain) Qty: 14 0RF amitriptyline 50 mg tablet 50 mg PO BEDTIME 30 Days Qty: 30 4RF famotidine 20 mg tablet 20 mg PO DAILY 30 Days Qty: 30 4RF propranolol 60 mg tablet 120 mg PO BID 90 Days Qty: 360 1RF nitrofurantoin monohyd/m-cryst [Macrobid] 100 mg capsule 100 mg PO Q12H 7 Days Qty: 14 0RF Rx Instructions: must administer with a meal/food diclofenac sodium 1 % gel 4 g topical QID Qty: 100 0RF Rx Instructions: apply to single knee, ankle, foot; for foot includes sole/toes/top of foot bisacodyl [Dulcolax (bisacodyl)] 5 mg tablet,delayed release (DR/EC) 10 mg PO BEDTIME 2 Days Qty: 4 0RF metoclopramide HCl [Reglan] 10 mg tablet 10 mg PO DAILY PRN (Reason: nausea and vomiting) Qty: 30 3RF Interventions: ED Discharge Assessment Last Done: 08/02/22 17:03 Discharge Date/Time: 08/02/22 17:05
[2022-08-02 15:26] VITALS: BP 125/76; PULSE 106; RESP 18; TEMP 37.1; O2SAT 97; BMI 20.3
[2022-08-02 15:54] LABS: Basophils Absolute Auto 0.1 X10*3/uL (0.0-0.2); Basophils Percent Auto 1.1 % (0-2); Eosinophils Absolute Auto 0.2 X10*3/uL (0.0-0.4); Eosinophils Percent Auto 2.1 % (0-4); Hemoglobin 12.8 g/dl (12.0-16.0); Imm Gran Abs Auto 0.03 X10*3/uL (0.00-0.03); Imm Gran Pct Auto 0.3 % (0.0-0.4); Lymphocytes Absolute Auto 4.6 X10*3/uL (1.2-4.9); Lymphocytes Percent Auto 44.9 % (20-40); MANUAL DIFF FLAG NO; Mean Corpuscular HGB Conc 33.7 g/dl (31.0-35.0); Mean Corpuscular Hemoglobin 32.8 pg (27.0-33.0); Mean Corpuscular Volume 97.4 fL (80.0-98.0); Monocytes Absolute Auto 0.5 X10*3/uL (0.1-1.2); Monocytes Percent Auto 5.1 % (2-11); Neutrophils Absolute Auto 4.7 x10*3/uL (2.0-8.3); Neutrophils Percent Auto 46.5 % (45-73); Platelet Count 213 X10*3/uL (160-400); Red Cell Distribution Width 14.3 % (11.0-16.0); White Blood Count 10.2 X10*3/uL (4.8-10.8)
--- OUTSIDE RECORDS SUMMARY | 2022-08-02 15:58 | XMS_ITS ---
:1970 Author Care Team Providers Name [facility] Unavailable Allergies None recorded. Medications None recorded. Problems None recorded. Procedures None recorded. Results Lab Results Date Name Specimen Result Interpretation Description Value Range Status Address ? ? Rapid SARS CoV 2 ? Rapid SARS CoV 2 negative ? ? In-Office Order: Ag, QL IA, Ag, QL IA, In ternal Use Only Respiratory Respiratory DO Not Attach Specimen Specimen Compen dium DO Not Attach Com pendium, Do Not Del ete/merge Past Encounters None recorded. Social History None recorded. Vaccine List None recorded. Plan of Care Reminders Provider Appointments None recorded. ? ? Lab None recorded. ? ? Referral None recorded. ? ? Procedures None recorded. ? ? Surgeries None recorded. ? ? Imaging None recorded. ? ? Vitals None recorded.
[2022-08-02 16:16] LABS: Alanine Aminotransferase 10 U/L (0-31); Albumin Level 4.4 g/dL (3.5-5.0); Alkaline Phosphatase 94 U/L (39-117); Anion Gap 12 (12-20); Aspartate Amino Transferase 13 U/L (5-31); Bilirubin Total 0.3 mg/dL (0.0-1.0); Blood Urea Nitrogen 12 mg/dL (9-16); Calcium 8.8 mg/dL (8.4-10.2); Carbon Dioxide 21 mmol/L (22-29); Chloride 112 mmol/L (96-108); Creatinine Clr Calc Pharmacy 61.9; Estimated Glomerular Filt Rate 57; Glucose Random 98 mg/dL (60-115); Magnesium 1.9 mg/dL (1.6-2.6); Potassium 4.5 mmol/L (3.3-5.1); Sodium 140 mmol/L (135-145); Total Protein 6.9 g/dL (6.5-8.0)
== END 2022-08-02 17:05 | disposition left against medical advice (07) ==
PROVIDERS: Physician Assistant; Emergency Provider Emergency Medicine; PCP Physician Assistant
DX: R51.9 Headache, unspecified (principal); F17.210 Nicotine dependence, cigarettes, uncomplicated
CPT/HCPCS: 36415; 70450; 80053; 83735; 85025; 99282; 99284

== ENCOUNTER 2022-08-30 03:54 | Emergency (ER) | payer OTHER, SELFPAY ==
[2022-08-30 03:59] VITALS: BP 96/74; PULSE 115; RESP 18; TEMP 36.6; O2SAT 97; BMI 20.7
--- NOTE | 2022-08-30 04:14 | PC.NURSE ---
pt is a&ox4, pt states she has a headache started on 08/26/22; pt admits to having nausea and dizziness, denies vomiting; no apparent distress
--- NOTE | 2022-08-30 04:16 | PC.NURSE ---
pt states her baseline for sys bp runs between mid to high 90s
--- NOTE | 2022-08-30 04:18 | PC.NURSE ---
Addendum entered by Rosy Garcia 08/30/22 04:36: Provider notified; provider to order alternate med Original Note: pt states she took 2- 500 mg tylenol tablets at midnight for headache; and has been trying to treat headache with tylenol for the last three days based on the dosage on bottle without any effect
--- NOTE | 2022-08-30 04:22 | ED_ITS ---
HPI - General Adult General Chief complaint: General Medical Stated complaint: Headache Time Seen by Provider: 08/30/22 04:13 Source: patient Mode of arrival: ambulatory History of Present Illness HPI narrative: 52-year-old female with a history of migraine who presents with reports of the same onset and progression as normally. Patient states that she has ?been out of the system for bit? and states that she was seeing Dr. Couch but they did not ?communicate well?. She denies any fever, chills, GI or symptoms. Related Data Previous Rx's Medication Instructions Recorded ondansetron 4 mg disintegrating 4 mg PO TID PRN nausea and 11/08/20 tablet vomiting 5 days #10 tabs oxycodone-acetaminophen 5 mg-325 1 tab PO BID PRN pain 5 days #10 04/03/21 mg tablet (Percocet) tabs oxycodone-acetaminophen 5 mg-325 1 tab PO TID PRN pain #10 tabs 04/08/21 mg tablet (Percocet) prochlorperazine 25 mg rectal 25 mg [place] BID #12 ea 05/28/21 suppository (Compazine) metoclopramide HCl 10 mg tablet 10 mg PO DAILY PRN nausea and 07/08/21 (Reglan) vomiting #5 tabs topiramate 100 mg tablet (Topamax) 100 mg PO BID #60 tabs 07/08/21 zbawhpkgpr-tpmkivmavilvf-imfjqppd 1 cap PO DAILY pain 30 days #30 09/19/21 50 mg-325 mg-40 mg capsule caps metoprolol tartrate 100 mg tablet 100 mg PO BID #60 tabs 09/19/21 (Lopressor) amitriptyline 50 mg tablet 50 mg PO BEDTIME 30 days #30 tabs 10/10/21 atorvastatin 20 mg tablet (Lipitor) 20 mg PO BEDTIME #30 tabs 10/10/21 ujghpkpcmt-xgtdphlbxduxp-yctpxbfv 1 cap PO Q6H PRN headache #20 caps 03/23/22 50 mg-300 mg-40 mg capsule (Fioricet) doxycycline hyclate 100 mg tablet 100 mg PO BID #20 tabs 03/23/22 jvydoqzcop-jpkywnioxjjpu-intkpbry 1 cap PO Q8H PRN pain #8 caps 08/05/22 50 mg-300 mg-40 mg capsule (Fioricet) Allergies Allergy/AdvReac Type Severity Reaction Status Date / Time aspirin [Aspirin] Allergy Intermediate WHEEZING Verified 08/05/22 11:08 clarithromycin [From Biaxin] Allergy Intermediate HIVES Verified 08/05/22 11:08 Sulfa (Sulfonamide Allergy Intermediate HIVES Verified 08/05/22 11:08 Antibiotics) [SULFA (SULFONAMIDE ANTIBIOTICS)] bee pollen [BEE STINGS] Allergy Unknown UNKNOWN Verified 08/05/22 11:08 pineapple [PINEAPPLE] Allergy Unknown UNKNOWN Verified 08/05/22 11:08 beeswax Allergy Anaphylaxis Verified 08/05/22 11:08 Review of Systems Review of Systems: Pertinent positives and negatives as stated in HPI [facility] Past Medical History Source: nursing notes reviewed Medical History Hypotension IBS (irritable bowel syndrome) Migraine Surgical History History of cholecystectomy History of partial hysterectomy Family History Family History Mother Substance use disorder Stroke Other Mental health disorder Social History Social History Housing: House Alcohol intake: never Patient Tobacco Use Status: Current everyday Tobacco user Tobacco use type: Cigarette Cigarettes Per Day: 7 Smoked in Last 30 Days: Yes Use of substances other than those prescribed or required for medical reasons: Yes Substance Use Type: Marijuana Advance Directives: Yes Advance Directives on File: Yes Advance Directives Date on File: 02/01/21 Patient : No service: No Current occupational status: employed and disabled Current occupation: rt handed Physical Exam ED Vital Signs: Vital Signs - 24 hr 08/30/22 03:59 Temperature 97.8 F Pulse Rate 115 H Respiratory Rate 18 Blood Pressure 96/74 Pulse Oximetry 97 Oxygen Delivery Method Room Air BMI result Body Mass Index 20.7 VITAL SIGNS: Reviewed. GENERAL: Well developed, well nourished, in no acute distress. HEAD: Normocephalic/atraumatic EYES: PERRLA, EOMI EARS: Ext canals without abnormality NOSE: Nares patent bilateral OROPHARYNX: no oral lesions noted, posterior pharynx clear NECK: Supple, no adenopathy LUNGS: Normal breath sounds. No adventitious sounds or accessory muscle use. SpO2<97> CARDIOVASCULAR: Regular rate and rhythm without noted murmurs ABDOMEN: Soft, non-tender, non-distended with bowel sounds. MUSCULOSKELETAL: No tenderness, deformities, or effusions noted on gross inspection. EXTREMITIES: No cyanosis, clubbing or edema. SKIN: Inspection of the skin reveals no rashes NEUROLOGIC: Alert and oriented x 4. Strength and sensation to light touch were grossly intact x 4, cranial nerves 2-12 are grossly intact, no meningeal signs noted. Medications Administered Generic Name Dose Route Start Last Admin Trade Name Freq PRN Reason Stop Dose Admin Sodium Chloride 1,000 mls @ 999 mls/hr 08/30/22 06:00 08/30/22 06:10 Ns IV 08/30/22 07:00 999 mls/hr .Q1H1M EDGAR Administration Discontinued Medications Generic Name Dose Route Start Last Admin Trade Name Freq PRN Reason Stop Dose Admin Acetaminophen 975 mg 08/30/22 04:14 08/30/22 04:36 Acetaminophen 325 Mg Tablet PO 08/30/22 04:15 Not Given ONCE ONE Acetaminophen/Butalbital/Caffeine 1 tab 08/30/22 04:25 08/30/22 04:33 Butalb/Acetamin/Caff 50/325/40 Tablet PO 08/30/22 04:26 1 tab ONCE ONE Administration Diphenhydramine HCl 25 mg 08/30/22 05:54 08/30/22 06:10 Diphenhydramine Hcl 50 Mg/Ml Vial IVPUSH 08/30/22 05:55 25 mg ONCE ONE Administration Metoclopramide HCl 10 mg 08/30/22 05:54 08/30/22 06:10 Metoclopramide Hcl 10 Mg/2 Ml Vial IVPUSH 08/30/22 05:55 10 mg ONCE ONE Administration Medical Decision Making Medical Decision Making MDM Narrative: 52-year-old female presents with complaints headache and has a reported history of migraines for which she has not successfully been on any anti migraine medication because ?none of it works?. Patient has received IV fluids, Reglan, Benadryl, she declined Tylenol, but did receive Fioricet and though the note fro m 08/05 when she went to be evaluated at the walk-in clinic for her migraine she had told that provider that Fioricet was the only thing that worked for her. I have no clinical suspicion that this is a meningitis My interpretation after review the workup is did patient was experiencing a mild migrated which resolved nicely with IV fluids, Fioricet. Patient was otherwise discharged in stable condition with a referral to follow-up with Dr. Boyd and recommendations for using magnesium oxide as a migraine prevention. Viral testing is negative. Differential Diagnosis Migraine Lab Data MDM Lab Attestation statement: I reviewed the patient's lab results. Please see above Labs: Lab Results 08/30/22 08/30/22 Range/Units 04:26 04:26 COVID-19 ([facility]) Negative (Negative) COVID-19 Clin Com See Note Influenza Type A ([facility]) Negative (Negative) Influenza Type B ([facility]) Negative (Negative) Influenza A & B Note See Note Discharge Plan Discharge Clinical Impression: Migraines Patient Disposition: Home, Self-Care Instructions: Migraine Headache (ED) Additional Instructions: 1. Resume all home medications as prescribed. 2. I recommend that you start taking magnesium oxide 400 mg daily for migraine prevention. In addition, consider increasing the amount of water intake each day. I also recommend using high-dose Tylenol, I know you have been doing this, but continue to do so while using the magnesium oxide. 3. I have provided you with a referral to follow-up with Neurology, Dr. Boyd 4. Please follow-up with your primary care provider on Thursday morning. Return to the ER for any worsening symptoms. Prescriptions: No Action oxycodone-acetaminophen [Percocet] 5-325 mg tablet 1 tab PO BID PRN (Reason: pain) 5 Days Qty: 10 0RF prochlorperazine [Compazine] 25 mg suppository 25 mg [place] BID Qty: 12 0RF topiramate [Topamax] 100 mg tablet 100 mg PO BID Qty: 60 2RF metoprolol tartrate [Lopressor] 100 mg tablet 100 mg PO BID Qty: 60 3RF nfhebjpyqo-dtmefgifcrhyj-kpjb 50-325-40 mg capsule 1 cap PO DAILY 30 Days Qty: 30 0RF amitriptyline 50 mg tablet 50 mg PO BEDTIME 30 Days Qty: 30 2RF atorvastatin [Lipitor] 20 mg tablet 20 mg PO BEDTIME Qty: 30 2RF ondansetron 4 mg tablet,disintegrating 4 mg PO TID PRN (Reason: nausea and vomiting) 5 Days Qty: 10 0RF doxycycline hyclate 100 mg tablet 100 mg PO BID Qty: 20 0RF gqueyzvjkk-xlozynsbxszuz-ctvb [Fioricet] 50-300-40 mg capsule 1 cap PO Q6H PRN (Reason: headache) Qty: 20 0RF oxycodone-acetaminophen [Percocet] 5-325 mg tablet 1 tab PO TID PRN (Reason: pain) Qty: 10 0RF metoclopramide HCl [Reglan] 10 mg tablet 10 mg PO DAILY PRN (Reason: nausea and vomiting) Qty: 5 0RF tsyfdhqaxg-wohiofxundnge-casc [Fioricet] 50-300-40 mg capsule 1 cap PO Q8H PRN (Reason: pain) Qty: 8 0RF Referrals: Kevan Gordon PA-C [Primary Care Provider] - Wendy Boyd MD [Physician] - (52F refractory migraines, has seen Dr Couch in the past.)
[2022-08-30] MEDS: Butalb/Acetamin/Caff 50/325/40 TABLET 1 TAB PO (04:33)
[2022-08-30 04:51] LABS: COVID-19 Test Negative (Negative); IDNOW Serial# 16C4AD1C; IDNOW Serial# BCCEAD1C; Influenza A Negative (Negative); Influenza B2 Negative (Negative)
[2022-08-30] MEDS: 0.9 % Sodium Chloride 1,000 ML 999 ML IV (06:10)
[2022-08-30] MEDS: Metoclopramide HCl 10 MG/2 ML VIAL IVPUSH (06:10)
[2022-08-30] MEDS: diphenhydrAMINE HCL 50 MG/ML VIAL 25 MG IVPUSH (06:10)
[2022-08-30 06:48] VITALS: BP 109/71; PULSE 81; RESP 16; TEMP 36.7; O2SAT 100
== END 2022-08-30 06:52 | disposition home or self-care (01) ==
PROVIDERS: Emergency Provider Student in an Organized Health Care Education/Training Program; PCP Physician Assistant
DX: G43.909 Migraine, unspecified, not intractable, without status migrainosus (principal); F17.210 Nicotine dependence, cigarettes, uncomplicated; F12.90 Cannabis use, unspecified, uncomplicated
CPT/HCPCS: 87502; 87635; 96365; 96374; 99284; 99285; J1200; J2765

== ENCOUNTER 2022-09-04 13:59 | Outpatient (REF) | payer OTHER, SELFPAY ==
--- NOTE | ~2022-09-04 | XR_ITS ---
EXAMINATION: XR BILATERAL KNEE AP STANDING. LATERAL AND SUNRISE VIEWS OF THE RIGHT KNEE. CLINICAL INFORMATION: Pain in unspecified knee COMPARISON: CT 04/09/2021 TECHNIQUE: AP bilateral standing view of both knees, lateral view of the right knee, and sunrise view of the right knee were obtained. FINDINGS: Right knee: There is irregularity of the right proximal tibia, particularly notable in the lateral tibial plateau in keeping with bicondylar fracture. There is mild medial and lateral compartment joint space narrowing. No joint effusion. There is lateral patellofemoral joint space narrowing and osteophytosis. Left knee: Mild medial compartment joint space narrowing. No fracture or dislocation. XR/XR knee RT 2V IMPRESSION: Posttraumatic irregularity of the right proximal tibia most notable in the lateral tibial plateau.
--- NOTE | ~2022-09-04 | XR_ITS ---
EXAMINATION: XR BILATERAL KNEE AP STANDING. LATERAL AND SUNRISE VIEWS OF THE RIGHT KNEE. CLINICAL INFORMATION: Pain in unspecified knee COMPARISON: CT 04/09/2021 TECHNIQUE: AP bilateral standing view of both knees, lateral view of the right knee, and sunrise view of the right knee were obtained. FINDINGS: Right knee: There is irregularity of the right proximal tibia, particularly notable in the lateral tibial plateau in keeping with bicondylar fracture. There is mild medial and lateral compartment joint space narrowing. No joint effusion. There is lateral patellofemoral joint space narrowing and osteophytosis. Left knee: Mild medial compartment joint space narrowing. No fracture or dislocation. XR/XR knee standing BI IMPRESSION: Posttraumatic irregularity of the right proximal tibia most notable in the lateral tibial plateau.
== END 2022-09-04 14:00 | disposition home or self-care (01) ==
LOC: HO.HOSX 13:59
PROVIDERS: Visit Provider Physician Assistant
DX: M17.11 Unilateral primary osteoarthritis, right knee (principal)
CPT/HCPCS: 20610; 73560; 73565; 99202; J1040

== ENCOUNTER 2022-10-27 18:47 | Emergency (ER) | payer OTHER, SELFPAY ==
[2022-10-27 19:06] VITALS: BP 110/69; PULSE 69; RESP 16; TEMP 36.8; O2SAT 95; BMI 20.3
--- NOTE | 2022-10-27 19:08 | ED_ITS ---
HPI - Headache General Chief Complaint: Headache <KIARA Harrell - Last Filed: 10/27/22 19:09> Stated Complaint: migraine <KIARA Harrell - Last Filed: 10/27/22 19:09> Time Seen by Provider: 10/27/22 22:29 <KIARA Harrell - Last Filed: 10/27/22 19:09> Source: patient <Tigist Lui MD - Last Filed: 10/28/22 01:07> Mode of arrival: ambulatory <Tigist Lui MD - Last Filed: 10/28/22 01:07> Limitations: no limitations <Tigist Lui MD - Last Filed: 10/28/22 01:07> History of Present Illness HPI Narrative: Patient comes to the emergency room complaining of a migraine headache that has been present for 3 days. Patient has tried Toradol, propanolol, Tylenol, Fioricet. Patient has not had any relief. Patient complaining of photophobia, nausea. <Tigist Lui MD - Last Filed: 10/28/22 01:07> Related Data Home Medications: Previous Rx's Medication Instructions Recorded prochlorperazine 25 mg rectal 25 mg OH BID #12 ea 05/28/21 suppository (Compazine) metoprolol tartrate 100 mg tablet 100 mg PO BID #60 tabs 09/19/21 (Lopressor) amitriptyline 50 mg tablet 50 mg PO BEDTIME 30 days #30 tabs 09/04/22 [id number]-[id number] 1 cap PO ONCE PRN pain 30 days #30 09/04/22 50 mg-300 mg-40 mg capsule caps (Fioricet) metoclopramide HCl 10 mg tablet 10 mg PO DAILY PRN nausea and 09/04/22 (Reglan) vomiting #30 tabs topiramate 100 mg tablet (Topamax) 100 mg PO BID #60 tabs 09/04/22 [id number]-erubrbtz 1 cap PO DAILY pain 14 days #14 10/03/22 50 mg-325 mg-40 mg capsule caps <KIARA Harrell - Last Filed: 10/27/22 19:09> Allergies/Adverse Reactions: Allergies Allergy/AdvReac Type Severity Reaction Status Date / Time aspirin [Aspirin] Allergy Intermediate WHEEZING Verified 10/01/22 10:47 clarithromycin [From Biaxin] Allergy Intermediate HIVES Verified 10/01/22 10:47 Sulfa (Sulfonamide Allergy Intermediate HIVES Verified 10/01/22 10:47 Antibiotics) [SULFA (SULFONAMIDE ANTIBIOTICS)] bee pollen [BEE STINGS] Allergy Unknown UNKNOWN Verified 10/01/22 10:47 pineapple [PINEAPPLE] Allergy Unknown UNKNOWN Verified 10/01/22 10:47 beeswax Allergy Anaphylaxis Verified 10/01/22 10:47 <KIARA Harrell - Last Filed: 10/27/22 19:09> Review of Systems Review of Systems: Constitutional : No Weight loss, No Fever, No Chills, No Night Sweats, No Fatigue, No Malaise ENT/Mouth : No Hearing loss, No Ear Pain, No Nasal Congestion, No Sinus Pain, No Hoarseness, No sore throat, No Rhinorrhea, No Swallowing Difficulty Eyes: No Eye Pain, No Swelling, No Redness, No Foreign Body, No Discharge, No Vision Changes, complaining of photophobia Cardiovascular : No Chest Pain, No SOB, No Dyspnea on Exertion, No Orthopnea, No Edema, No Palpitations Respiratory : No Cough, No Sputum, No Wheezing, No Smoke Exposure, No Dyspnea Gastrointestinal : No Nausea, No Vomiting, No Diarrhea, No Constipation, No abdominal Pain, No Hematochezia, No Melena Genitourinary : no irregular bleeding, No Dysuria, No Urinary Frequency, No Hematuria, No Urinary Incontinence, No Urgency, No Flank Pain, No Urinary Flow Changes, No Hesitancy Musculoskeletal : No joint pain, No Myalgias, No Joint Swelling Skin : No Skin Lesions, No rash Neuro : No Weakness, No Numbness, No Paresthesias, No Loss of Consciousness, No Dizziness, complaining of a migraine headache Psych : No Anxiety/Panic, No Depression, No SI/HI/AH/VH, No Social Issues, Heme/Lymph: No Bruising, No Bleeding,No Lymphadenopathy Endocrine : No Polyuria, No Polydipsia, No Temperature Intolerance <Tigist Lui MD - Last Filed: 10/28/22 01:07> [facility] Past Medical History Medical History: Medical History Hypotension IBS (irritable bowel syndrome) Migraine <KIARA Harrell - Last Filed: 10/27/22 19:09> Surgical History: Surgical History History of cholecystectomy History of partial hysterectomy <KIARA Harrell - Last Filed: 10/27/22 19:09> Family History Family History: Family History Mother Substance use disorder Stroke Other Mental health disorder <KIARA Harrell - Last Filed: 10/27/22 19:09> Social History Social History: Social History Housing: House Alcohol intake: never Patient Tobacco Use Status: Current everyday Tobacco user Tobacco use type: Cigarette Cigarettes Per Day: 7 Substance Use Type: Marijuana Advance Directives: Yes Advance Directives on File: Yes Advance Directives Date on File: 02/01/21 service: No Current occupational status: employed and disabled Current occupation: rt handed <KIARA Harrell - Last Filed: 10/27/22 19:09> Physical Exam Vital Signs: Vital Signs: Last Vital Signs Temp 98.5 F 10/27/22 23:29 Pulse 64 10/27/22 23:29 Resp 18 10/28/22 00:53 BP 105/62 10/27/22 23:29 Pulse Ox 98 10/27/22 23:29 O2 Del Method 10/27/22 23:29 BMI result Body Mass Index 20.3 <KIARA Harrell - Last Filed: 10/27/22 19:09> Vital Signs: Last Vital Signs Temp 98.5 F 10/27/22 23:29 Pulse 64 10/27/22 23:29 Resp 18 10/28/22 00:53 BP 105/62 10/27/22 23:29 Pulse Ox 98 10/27/22 23:29 O2 Del Method 10/27/22 23:29 BMI result Body Mass Index 20.3 <Tigist Lui MD - Last Filed: 10/28/22 01:07> Const: Other: Appearance: Alert. Oriented X3. No acute distress. Eyes: Pupils equal, round and reactive to light. ENT: Pharynx normal. Neck: Normal inspection. Neck supple. No lymph nodes noted. No crepitus CVS: Normal heart rate and rhythm. Pulses normal. Normal S1 and S2 Respiratory: No respiratory distress. Breath sounds normal. No Wheezing. No rales Abdomen: Soft and nontender. No rigidity. No distention. Skin: Skin warm and dry. Normal skin color. Normal skin turgor. Extremities: No lower extremity edema. No Lacerations. No Rash Neuro: Oriented X 3. No motor deficit. No sensory deficit. Moving all extremities. No slurred speech. CN 2 through 12 grossly intact Psych: calm, cooperative, normal affect <Tigist Lui MD - Last Filed: 10/28/22 01:07> Course Course Course Narrative: RME - 52 yo female with history of migraine headaches presents to the ER for evaluation of a migraine for the last 3 days. No improvement with benadyl, fiorcet at home. Reports improvement with IV migraine cocktail which has been ordered for when she gets back to a treatment room. <KIARA Harrell - Last Filed: 10/27/22 19:09> Medications Administered Discontinued Medications Generic Name Dose Route Start Last Admin Trade Name Davidq PRN Reason Stop Dose Admin Diphenhydramine HCl 50 mg 10/27/22 19:07 10/27/22 23:04 Diphenhydramine Hcl 50 Mg/Ml Vial IVPUSH 10/27/22 19:08 50 mg ONCE ONE Administration Sodium Chloride 1,000 mls @ 999 mls/hr 10/27/22 22:30 10/28/22 00:54 Ns IVCONT 10/27/22 23:30 Infused .Q1H1M ONE Infusion Ketorolac Tromethamine 30 mg 10/27/22 19:07 10/27/22 23:04 Ketorolac Tromethamine 30 Mg/Ml Vial IVPUSH 10/27/22 19:08 30 mg ONCE ONE Administration Metoclopramide HCl 10 mg 10/27/22 19:07 10/27/22 23:03 Metoclopramide Hcl 10 Mg/2 Ml Vial IVPUSH 10/27/22 19:08 10 mg ONCE ONE Administration Morphine Sulfate 4 mg 10/28/22 00:37 10/28/22 00:53 Morphine Sulfate 4 Mg/Ml Cartridge IVPUSH 10/28/22 00:38 4 mg ONCE ONE Administration Protocol <KIARA Harrell - Last Filed: 10/27/22 19:09> Medications Administered Discontinued Medications Generic Name Dose Route Start Last Admin Trade Name Kendall PRN Reason Stop Dose Admin Diphenhydramine HCl 50 mg 10/27/22 19:07 10/27/22 23:04 Diphenhydramine Hcl 50 Mg/Ml Vial IVPUSH 10/27/22 19:08 50 mg ONCE ONE Administration Sodium Chloride 1,000 mls @ 999 mls/hr 10/27/22 22:30 10/28/22 00:54 Ns IVCONT 10/27/22 23:30 Infused .Q1H1M ONE Infusion Ketorolac Tromethamine 30 mg 10/27/22 19:07 10/27/22 23:04 Ketorolac Tromethamine 30 Mg/Ml Vial IVPUSH 10/27/22 19:08 30 mg ONCE ONE Administration Metoclopramide HCl 10 mg 10/27/22 19:07 10/27/22 23:03 Metoclopramide Hcl 10 Mg/2 Ml Vial IVPUSH 10/27/22 19:08 10 mg ONCE ONE Administration Morphine Sulfate 4 mg 10/28/22 00:37 10/28/22 00:53 Morphine Sulfate 4 Mg/Ml Cartridge IVPUSH 10/28/22 00:38 4 mg ONCE ONE Administration Protocol <Tigist Lui MD - Last Filed: 10/28/22 01:07> Medical Decision Making Medical Decision Making MDM Narrative: -after receiving IV fluids, Toradol, Reglan, Benadryl, patient feeling better. Patient still requesting a little bit more pain medication. Patient was given 1 dose of 4 mg IV morphine. -patient has tried Fioricet, Imitrex, Toradol. Nothing really seems to take care of her migraines. Patient states she has an appointment pending tomorrow with her primary care physician, patient looking for referral to Neurology. -medications were offered to the patient for prescription. Patient states that she prefers to wait until she sees her primary care physician tomorrow, and hopefully she will soon see Neurology. Patient to continue taking propanolol to help prevent further migraines. <Tigist Lui MD - Last Filed: 10/28/22 01:07> Differential Diagnosis Differential Diagnoses: The differential diagnosis associated with the presentation includes (Tension headache, migraine headache) <Tigist Lui MD - Last Filed: 10/28/22 01:07> Discharge Plan Discharge Clinical Impression: Migraines <KIARA Harrell - Last Filed: 10/27/22 19:09> Patient Disposition: Home, Self-Care <KIARA Harrell - Last Filed: 10/27/22 19:09> Instructions: Migraine Headache (ED) <KIARA Harrell - Last Filed: 10/27/22 19:09> Additional Instructions: Please follow-up with your primary care physician tomorrow. If you have any worsening or new symptoms, please return to the emergency room or call 911 <KIARA Harrell - Last Filed: 10/27/22 19:09> Prescriptions: No Action prochlorperazine [Compazine] 25 mg suppository 25 mg OH BID Qty: 12 0RF metoprolol tartrate [Lopressor] 100 mg tablet 100 mg PO BID Qty: 60 3RF qyngfwqoqm-skjwvnsxcwqqs-fkbx 50-325-40 mg capsule 1 cap PO DAILY 14 Days Qty: 14 0RF [id number]-lgequnzaselrh-dcfg [Fioricet] 50-300-40 mg capsule 1 cap PO ONCE PRN (Reason: pain) 30 Days Qty: 30 0RF topiramate [Topamax] 100 mg tablet 100 mg PO BID Qty: 60 0RF amitriptyline 50 mg tablet 50 mg PO BEDTIME 30 Days Qty: 30 0RF metoclopramide HCl [Reglan] 10 mg tablet 10 mg PO DAILY PRN (Reason: nausea and vomiting) Qty: 30 0RF <KIARA Harrell - Last Filed: 10/27/22 19:09>
--- NOTE | 2022-10-27 22:35 | PC.NURSE ---
ASSUMED CARE OF THIS PT AT [id number]. PT REPORTS CHRONIC MIGRAINES UNRELIEVED BY HER PRESCRIPTIVE MEDS.
[2022-10-27] MEDS: Metoclopramide HCl 10 MG/2 ML VIAL IVPUSH (23:03)
[2022-10-27] MEDS: Ketorolac Tromethamine 30 MG/ML VIAL IVPUSH (23:04)
[2022-10-27] MEDS: diphenhydrAMINE HCL 50 MG/ML VIAL IVPUSH (23:04)
[2022-10-27] MEDS: 0.9 % Sodium Chloride 1,000 ML 999 ML IVCONT (23:08)
[2022-10-27 23:29] VITALS: BP 105/62; PULSE 64; RESP 18; TEMP 36.9; O2SAT 98
[2022-10-28 00:53] VITALS: RESP 18
[2022-10-28] MEDS: Morphine Sulfate 4 MG/ML CARTRIDGE IVPUSH (00:53)
--- NOTE | 2022-10-28 01:14 | PC.NURSE ---
Pt reports effectiveness to med given as documented.
== END 2022-10-28 01:18 | disposition home or self-care (01) ==
PROVIDERS: Emergency Provider Emergency Medicine; PCP Physician Assistant
DX: G43.909 Migraine, unspecified, not intractable, without status migrainosus (principal); F17.210 Nicotine dependence, cigarettes, uncomplicated; F12.90 Cannabis use, unspecified, uncomplicated; Z79.899 Other long term (current) drug therapy
CPT/HCPCS: 96361; 96374; 96375; 99284; J1200; J1885; J2270; J2765

== ENCOUNTER 2022-10-28 16:45 | Emergency (ER) | payer OTHER, SELFPAY ==
--- NOTE | ~2022-10-28 | CT_ITS ---
EXAMINATION: CT ABDOMEN AND PELVIS WITH CONTRAST CLINICAL INFORMATION: Right lower quadrant pain with nausea COMPARISON: CT abdomen pelvis 02/27/2021 TECHNIQUE: Multidetector volumetric images were obtained from the superior aspect of the liver through the pubic symphysis following administration 85 mL of Omnipaque 350 intravenous contrast. Sagittal and coronal reformatted images were obtained on the technologist's workstation. Oral contrast: No This CT examination was performed using dose optimization techniques as appropriate, variously including the following: *Automated exposure control *Adjustment of mA and/or kV according to patient size (this includes techniques or standardized protocols for targeted exams where dose is matched to indication/reason for exam; i.e. extremities or head) *Use of iterative reconstruction technique DLP: 475 mGy-cm FINDINGS: LUNG BASES: The visualized lung bases are unremarkable aside from the presence of dependent groundglass changes. LIVER, GALLBLADDER, AND BILIARY TREE: The liver is mildly enlarged at 17.8 cm in size. No focal hepatic lesion or biliary ductal dilatation is present. Status post cholecystectomy. The common bile duct measures 1 cm. PANCREAS: Unremarkable. SPLEEN: Unremarkable. ADRENAL GLANDS: Unremarkable. KIDNEYS AND URETERS: The kidneys are normal in size, shape, and attenuation. No hydronephrosis, hydroureter, or calculi seen. No perinephric stranding. BLADDER: Unremarkable. GASTROINTESTINAL TRACT: The small and large bowel are unremarkable. The appendix is not seen but there is no evidence of appendicitis evidence of appendicitis. ABDOMINAL WALL: No significant hernia is appreciated. LYMPH NODES: No retroperitoneal lymphadenopathy. 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 A recanalized umbilical vein is not seen. Marked atherosclerotic changes are present in the infrarenal aorta with calcified and noncalcified plaque. No evidence of an aneurysm. The celiac, SMA and MILA are patent. Single renal arteries present bilaterally which are patent PELVIC VISCERA: The uterus is not seen. An abnormal adnexal mass or free intraperitoneal fluid is not present. OSSEOUS STRUCTURES: Unremarkable. CT/CT abdomen pelvis w IV con IMPRESSION: 1. An etiology for the patient's right lower quadrant pain and nausea has not been found. 2. Incidental note made of mild hepatomegaly with evidence of portal hypertension large gastric varices with splenorenal shunt, cholecystectomy, hysterectomy and atherosclerotic changes in the aorta. Fleischner guidelines were followed.
[2022-10-28 16:51] VITALS: BP 95/57; PULSE 76; RESP 18; TEMP 36.7; O2SAT 97; BMI 22.3
--- NOTE | 2022-10-28 16:54 | ED_ITS ---
HPI - Abdominal Pain General Chief Complaint: Abdominal Pain <Renetta Victor CNP - Last Filed: 10/28/22 16:58> Stated Complaint: Sent from Dr office for U/S <Renetta Victor CNP - Last Filed: 10/28/22 16:58> Time Seen by Provider: 10/28/22 18:27 <Renetta Victor CNP - Last Filed: 10/28/22 16:58> Source: patient <KIARA Puckett - Last Filed: 10/28/22 20:55> Mode of arrival: ambulatory <KIARA Puckett - Last Filed: 10/28/22 20:55> Limitations: no limitations <KIARA Puckett - Last Filed: 10/28/22 20:55> History of Present Illness HPI narrative: This is a 52-year-old female history of IBS, migraine headache, diabetes, presenting to the emergency department with complaints low blood pressure in right lower quadrant pain progressively worsening over the past few days. Patient tells me she was seen here last night for migraine headache and at the time she forgot to tell them that her right lower quadrant was hurting, she had an appointment with her primary care provider and she mention to them that she is having right lower quadrant pain and she was advised to come into the rule out appendicitis. Reports associated nausea however no vomiting. She also reports are PCP was concerned about her blood pressures as they were low systolic pressures in 80s and 90s however patient tells me at baseline her s ystolic pressure is around 90. Patient denies chest pain, shortness of breath, vomiting, changes in urination or bowel habits, hematochezia, hematemesis, headache, vision changes, dizziness, lower extremity pain or swelling. Patient reports that she has decreased appetite however she is drinking without difficulty upon triage. <KIARA Puckett - Last Filed: 10/28/22 20:55> Related Data Home Medications: Home Medications Medication Instructions Recorded Confirmed propranolol 60 mg tablet 120 mg PO BID 10/28/22 10/28/22 Previous Rx's Medication Instructions Recorded prochlorperazine 25 mg rectal 25 mg MI BID #12 ea 05/28/21 suppository (Compazine) metoprolol tartrate 100 mg tablet 100 mg PO BID #60 tabs 09/19/21 (Lopressor) amitriptyline 50 mg tablet 50 mg PO BEDTIME 30 days #30 tabs 09/04/22 uafhyfqaxp-cwslrjkmicrmw-svafxiun 1 cap PO ONCE PRN pain 30 days #30 09/04/22 50 mg-300 mg-40 mg capsule caps (Fioricet) metoclopramide HCl 10 mg tablet 10 mg PO DAILY PRN nausea and 09/04/22 (Reglan) vomiting #30 tabs topiramate 100 mg tablet (Topamax) 100 mg PO BID #60 tabs 09/04/22 lthdwoqmvq-dtygfpokvfhdg-shysnxzv 1 cap PO DAILY pain 14 days #14 10/28/22 50 mg-325 mg-40 mg capsule caps <Renetta Victor CNP - Last Filed: 10/28/22 16:58> Allergies/Adverse Reactions: Allergies Allergy/AdvReac Type Severity Reaction Status Date / Time aspirin [Aspirin] Allergy Intermediate WHEEZING Verified 10/28/22 15:55 clarithromycin [From Biaxin] Allergy Intermediate HIVES Verified 10/28/22 15:55 Sulfa (Sulfonamide Allergy Intermediate HIVES Verified 10/28/22 15:55 Antibiotics) [SULFA (SULFONAMIDE ANTIBIOTICS)] bee pollen [BEE STINGS] Allergy Unknown UNKNOWN Verified 10/28/22 15:55 pineapple [PINEAPPLE] Allergy Unknown UNKNOWN Verified 10/28/22 15:55 beeswax Allergy Anaphylaxis Verified 10/28/22 15:55 <Renetta Victor CNP - Last Filed: 10/28/22 16:58> Review of Systems Review of Systems Constitutional : No Weight loss, No Fever, No Chills, No Fatigue, No Malaise ENT/Mouth : No sore throat, No Rhinorrhea Eyes: No Eye Pain, No Swelling, No Redness Cardiovascular : No Chest Pain, No SOB, No Dyspnea on Exertion, No Orthopnea, No Edema, No Palpitations Respiratory : No Cough, No Sputum, No Wheezing Gastrointestinal : + Nausea, No Vomiting, No Diarrhea, No Constipation, + abdominal Pain, No Hematochezia, No Melena Genitourinary : No Dysuria, No Urinary Frequency, No Hematuria, Musculoskeletal : No joint pain, No Myalgias, No Joint Swelling Skin : No Skin Lesions, No rash Neuro : No Weakness, No Numbness, No Dizziness, No Headache Psych : No Anxiety/Panic, No Depression All other systems reviewed and are negative <KIARA Puckett - Last Filed: 10/28/22 20:55> Yes all other systems are reviewed and are negative <KIARA Puckett - Last Filed: 10/28/22 20:55> PMFSH Past Medical History Attestation statement: The following information was validated with the patient. <KIARA Puckett - Last Filed: 10/28/22 20:55> Source: old records reviewed and nursing notes reviewed <KIARA Puckett - Last Filed: 10/28/22 20:55> Medical History: Medical History Hypotension IBS (irritable bowel syndrome) Migraine <Renetta Victor CNP - Last Filed: 10/28/22 16:58> Surgical History: Surgical History History of cholecystectomy History of partial hysterectomy <Renetta Victor CNP - Last Filed: 10/28/22 16:58> Family History Family History: Family History Mother Substance use disorder Stroke Other Mental health disorder <Renetta Victor CNP - Last Filed: 10/28/22 16:58> Social History Social History: Social History Housing: House Alcohol intake: never Patient Tobacco Use Status: Current everyday Tobacco user Tobacco use type: Cigarette Cigarettes Per Day: 7 Smoked in Last 30 Days: Yes Use of substances other than those prescribed or required for medical reasons: Yes Substance Use Type: Marijuana Advance Directives: Yes Advance Directives on File: Yes Advance Directives Date on File: 02/01/21 Patient : No service: No Current occupational status: employed and disabled Current occupation: rt handed Cognitive needs: No Hearing needs: No Vision needs: No <Renetta Victor CNP - Last Filed: 10/28/22 16:58> Physical Exam ED Vital Signs: Vital Signs - 24 hr 10/28/22 16:51 10/28/22 18:35 10/28/22 19:41 Temperature 98.1 F 98 F Pulse Rate 76 68 56 Respiratory Rate 18 18 Blood Pressure 95/57 L 86/58 L 103/70 Pulse Oximetry 97 97 Oxygen Delivery Method Room Air Room Air 10/28/22 19:42 10/28/22 19:44 10/28/22 20:00 Temperature 98.7 F Pulse Rate 61 86 57 Respiratory Rate 16 Blood Pressure 110/76 108/75 103/70 Pulse Oximetry 95 Oxygen Delivery Method Room Air BMI result Body Mass Index 22.3 <Renetta Victor CNP - Last Filed: 10/28/22 16:58> Vital Signs - 24 hr 10/28/22 16:51 10/28/22 18:35 10/28/22 19:41 Temperature 98.1 F 98 F Pulse Rate 76 68 56 Respiratory Rate 18 18 Blood Pressure 95/57 L 86/58 L 103/70 Pulse Oximetry 97 97 Oxygen Delivery Method Room Air Room Air 10/28/22 19:42 10/28/22 19:44 10/28/22 20:00 Temperature 98.7 F Pulse Rate 61 86 57 Respiratory Rate 16 Blood Pressure 110/76 108/75 103/70 Pulse Oximetry 95 Oxygen Delivery Method Room Air BMI result Body Mass Index 22.3 Patient's pressure is slightly soft however appears to be around patient's baseline. <KIARA Puckett - Last Filed: 10/28/22 20:55> Appearance: Alert.? Oriented X3.? No acute distress.? Head: Normocephalic, atraumatic, no step-offs or deformities Eyes: Pupils equal, round and reactive to light.? ENT: Pharynx normal.? Neck: Normal inspection.? Neck supple.? CVS: Normal heart rate and rhythm.? Pulses normal.? Respiratory: No respiratory distress.? Breath sounds normal.? Abdomen: Soft and right lower quadrant tenderness with rebound tenderness. Normoactive bowel sounds.? Skin: Skin warm and dry.? Normal skin color.? Normal skin turgor.? Extremities: No lower extremity edema.? No calf ttp. 5/5 strength to bilateral upper and lower extremities Neuro: Oriented X 3.? No motor deficit.? No sensory deficit. CN 2-12 intact <KIARA Puckett - Last Filed: 10/28/22 20:55> Course Course Course Narrative: This is an RME: Additional HPI, ROS, PE not included below will be deferred to primary provider. Patient is a 52-year-old female who presents emergency department with a referral from primary care provider's office. Patient was seen in the emergency department overnight for migraine headaches. She states that she did not mention her abdominal pain at this time she had an appoint with her primary care provider this morning. She was seen by primary care provider today at [facility], was referred for suspected appendicitis right lower quadrant pain x2 weeks with nausea worsening significantly over the past 3 days and rebound tenderness RLQ. Plan: labs, urinalysis. CT ABD and pelvis <Renetta Victor CNP - Last Filed: 10/28/22 16:58> Reevaluation(s) Reevaluation #1: CBC appears to be around patient's baseline. Chemistry with no acute findings requiring intervention. Transaminases slightly elevated. UA without infection. Pending TSH, T3, T4 and CT of the abdomen and pelvis. Patient is reporting right lower quadrant pain, will give fentanyl for pain control, morphine and other opiates are not appropriate as they can drop patient's pressure more. Patient allergic to aspirin therefore cannot give Toradol. <KIARA Puckett - Last Filed: 10/28/22 20:55> Time: 18:57 <KIARA Puckett - Last Filed: 10/28/22 20:55> Reevaluation #2: Orthostatic vital signs negative. An etiology for patient's right lower quadrant pain and nausea has not been found. 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 Patient feeling better. Tolerating p.o.. Re-evaluation with improved abdominal exam, just minimal tenderness right lower quadrant, no rebound tenderness. Patient appears comfortable. Blood pressure improved after fluids. Educated patient on diagnosis and treatment plan, answered all question, patient verbalizes understanding. At this time patient will be discharged home, advised to return with new or worsening symptoms. Educated on worrisome signs and symptoms and when to return. At this time I feel comfortable discharge home. <KIARA Puckett - Last Filed: 10/28/22 20:55> Time: 20:51 <KIARA Puckett - Last Filed: 10/28/22 20:55> Reevaluation #3: To note patient tells me she is scheduled to see GI on the 14. <KIARA Puckett - Last Filed: 10/28/22 20:55> Medical Decision Making Medical Decision Making [facility] Narrative: 1850 52-year-old female presents with nausea, right lower quadrant pain and soft pressures, was told to come in by her PCP. Pain started a few weeks ago worsening over the past few days. Physical exam significant for right lower quadrant tenderness with present rebound tenderness. Normoactive bowel sounds. Vital signs significant for slight hypotension however this appears to be around patient's baseline when doing a chart review. Concerns for possible appendicitis, orthostatic hypotension, electrolyte abnormalities or dehydration. Unlikely acute abdomen,, acute ovarian torsion I do not suspect sepsis. dudley Rule out UTI. Plan at this time basic labs, urine, imaging. Will give fluids for hypotension <KIARA Puckett - Last Filed: 10/28/22 20:55> Differential Diagnosis Differential Diagnoses: The differential diagnosis associated with the presentation includes <KIARA Puckett - Last Filed: 10/28/22 20:55> Concerns for possible appendicitis, orthostatic hypotension, electrolyte abnormalities or dehydration. Unlikely acute abdomen, acute ovarian torsion I do not suspect sepsis. will Rule out UTI. <KIARA Puckett - Last Filed: 10/28/22 20:55> Admission/Observation Consideration of admission/observation: Escalation of care including admission/observation considered <KIARA Puckett - Last Filed: 10/28/22 20:55> Lab Data [facility] Lab Attestation statement: I reviewed the patient's lab results. <KIARA Puckett - Last Filed: 10/28/22 20:55> Result Diagrams: 10/28/22 17:01 10/28/22 17:01 <Renetta Victor CNP - Last Filed: 10/28/22 16:58> Labs: Lab Results 10/28/22 10/28/22 10/28/22 Range/Units 17:01 17:01 17:01 WBC 8.7 (4.8-10.8) X10*3/uL RBC 3.70 L (4.20-5.50) X10*6/uL Hgb 12.3 (12.0-16.0) g/dl Hct 37.2 (37.0-47.0) % MCV 100.5 H (80.0-98.0) fL MCH 33.2 H (27.0-33.0) pg MCHC 33.1 (31.0-35.0) g/dl RDW 14.5 (11.0-16.0) % Plt Count 229 (160-400) X10*3/uL MPV 9.4 (9.4-12.3) fL Immature Gran % (Auto) 0.2 (0.0-0.4) % Neut % (Auto) 32.3 L (45-73) % Lymph % (Auto) 56.6 H (20-40) % [place] % (Auto) 6.9 (2-11) % Eos % (Auto) 2.6 (0-4) % Baso % (Auto) 1.4 (0-2) % Lymph # (Auto) 4.9 (1.2-4.9) X10*3/uL [place] # (Auto) 0.6 (0.1-1.2) X10*3/uL Eos # (Auto) 0.2 (0.0-0.4) X10*3/uL Baso # (Auto) 0.1 (0.0-0.2) X10*3/uL Abs Immat Gran (auto) 0.02 (0.00-0.03) X10*3/uL Absolute Neuts (auto) 2.8 (2.0-8.3) x10*3/uL Absolute Nucleated RBC 0.000 (0.0-0.012) X10*3/uL Nucleated RBC % (auto) 0.0 (0.0-0.2) /100WBC Smear Tech's Comments VERIFIED ESR 4 (0-20) MM/HR Sodium 141 (135-145) mmol/L Potassium 4.5 (3.3-5.1) mmol/L Chloride 112 H (96-108) mmol/L Carbon Dioxide 23 (22-29) mmol/L Anion Gap 11 L (12-20) BUN 17 H (9-16) mg/dL Creatinine 1.00 (0.5-1.4) mg/dL Estim Creat Clear Calc 66.4 Estimated GFR 58 Random Glucose 100 (60-115) mg/dL Calcium 8.4 (8.4-10.2) mg/dL Total Bilirubin 0.5 (0.0-1.0) mg/dL AST 36 H (5-31) U/L ALT 43 H (0-31) U/L Alkaline Phosphatase 107 (39-117) U/L C-Reactive Protein 0.18 (< or = 0.50) mg/dL Total Protein 6.4 L (6.5-8.0) g/dL Albumin 4.1 (3.5-5.0) g/dL TSH 2.03 (0.32-4.0) uIU/mL Thyroxine (T4) 5.6 (4.5-12.0) ug/dL Beta HCG, Quant < 2 mIU/mL Urine Color Urine Appearance Urine pH (5.0-9.0) Ur Specific [place] (1.005-1.025) Urine Protein (Neg-Trace) mg/dL Urine Glucose (UA) (Negative) mg/dL Urine Ketones (Negative) mg/dL Urine Blood (Negative) Urine Nitrite (Negative) Ur Leukocyte Esterase (Negative) 10/28/22 Range/Units 17:02 WBC (4.8-10.8) X10*3/uL RBC (4.20-5.50) X10*6/uL Hgb (12.0-16.0) g/dl Hct (37.0-47.0) % MCV (80.0-98.0) fL MCH (27.0-33.0) pg MCHC (31.0-35.0) g/dl RDW (11.0-16.0) % Plt Count (160-400) X10*3/uL MPV (9.4-12.3) fL Immature Gran % (Auto) (0.0-0.4) % Neut % (Auto) (45-73) % Lymph % (Auto) (20-40) % [place] % (Auto) (2-11) % Eos % (Auto) (0-4) % Baso % (Auto) (0-2) % Lymph # (Auto) (1.2-4.9) X10*3/uL [place] # (Auto) (0.1-1.2) X10*3/uL Eos # (Auto) (0.0-0.4) X10*3/uL Baso # (Auto) (0.0-0.2) X10*3/uL Abs Immat Gran (auto) (0.00-0.03) X10*3/uL Absolute Neuts (auto) (2.0-8.3) x10*3/uL Absolute Nucleated RBC (0.0-0.012) X10*3/uL Nucleated RBC % (auto) (0.0-0.2) /100WBC Smear Tech's Comments ESR (0-20) MM/HR Sodium (135-145) mmol/L Potassium (3.3-5.1) mmol/L Chloride (96-108) mmol/L Carbon Dioxide (22-29) mmol/L Anion Gap (12-20) BUN (9-16) mg/dL Creatinine (0.5-1.4) mg/dL Estim Creat Clear Calc Estimated GFR Random Glucose (60-115) mg/dL Calcium (8.4-10.2) mg/dL Total Bilirubin (0.0-1.0) mg/dL AST (5-31) U/L ALT (0-31) U/L Alkaline Phosphatase (39-117) U/L C-Reactive Protein (< or = 0.50) mg/dL Total Protein (6.5-8.0) g/dL Albumin (3.5-5.0) g/dL TSH (0.32-4.0) uIU/mL Thyroxine (T4) (4.5-12.0) ug/dL Beta HCG, Quant mIU/mL Urine Color Dark Yellow Urine Appearance Clear Urine pH 5.5 (5.0-9.0) Ur Specific [place] >= 1.030 H (1.005-1.025) Urine Protein Trace (Neg-Trace) mg/dL Urine Glucose (UA) Negative (Negative) mg/dL Urine Ketones 15 (Negative) mg/dL Urine Blood Negative (Negative) Urine Nitrite Negative (Negative) Ur Leukocyte Esterase Negative (Negative) <Renetta Victor, W[employer]SH[employer]ER - Last Filed: 10/28/22 16:58> Lab Results 10/28/22 10/28/22 10/28/22 Range/Units 17:01 17:01 17:01 WBC 8.7 (4.8-10.8) X10*3/uL RBC 3.70 L (4.20-5.50) X10*6/uL Hgb 12.3 (12.0-16.0) g/dl Hct 37.2 (37.0-47.0) % MCV 100.5 H (80.0-98.0) fL MCH 33.2 H (27.0-33.0) pg MCHC 33.1 (31.0-35.0) g/dl RDW 14.5 (11.0-16.0) % Plt Count 229 (160-400) X10*3/uL MPV 9.4 (9.4-12.3) fL Immature Gran % (Auto) 0.2 (0.0-0.4) % Neut % (Auto) 32.3 L (45-73) % Lymph % (Auto) 56.6 H (20-40) % [place] % (Auto) 6.9 (2-11) % Eos % (Auto) 2.6 (0-4) % Baso % (Auto) 1.4 (0-2) % Lymph # (Auto) 4.9 (1.2-4.9) X10*3/uL [place] # (Auto) 0.6 (0.1-1.2) X10*3/uL Eos # (Auto) 0.2 (0.0-0.4) X10*3/uL Baso # (Auto) 0.1 (0.0-0.2) X10*3/uL Abs Immat Gran (auto) 0.02 (0.00-0.03) X10*3/uL Absolute Neuts (auto) 2.8 (2.0-8.3) x10*3/uL Absolute Nucleated RBC 0.000 (0.0-0.012) X10*3/uL Nucleated RBC % (auto) 0.0 (0.0-0.2) /100WBC Smear Tech's Comments VERIFIED ESR 4 (0-20) MM/HR Sodium 141 (135-145) mmol/L Potassium 4.5 (3.3-5.1) mmol/L Chloride 112 H (96-108) mmol/L Carbon Dioxide 23 (22-29) mmol/L Anion Gap 11 L (12-20) BUN 17 H (9-16) mg/dL Creatinine 1.00 (0.5-1.4) mg/dL Estim Creat Clear Calc 66.4 Estimated GFR 58 Random Glucose 100 (60-115) mg/dL Calcium 8.4 (8.4-10.2) mg/dL Total Bilirubin 0.5 (0.0-1.0) mg/dL AST 36 H (5-31) U/L ALT 43 H (0-31) U/L Alkaline Phosphatase 107 (39-117) U/L C-Reactive Protein 0.18 (< or = 0.50) mg/dL Total Protein 6.4 L (6.5-8.0) g/dL Albumin 4.1 (3.5-5.0) g/dL TSH 2.03 (0.32-4.0) uIU/mL Thyroxine (T4) 5.6 (4.5-12.0) ug/dL Beta HCG, Quant < 2 mIU/mL Urine Color Urine Appearance Urine pH (5.0-9.0) Ur Specific [place] (1.005-1.025) Urine Protein (Neg-Trace) mg/dL Urine Glucose (UA) (Negative) mg/dL Urine Ketones (Negative) mg/dL Urine Blood (Negative) Urine Nitrite (Negative) Ur Leukocyte Esterase (Negative) 10/28/22 Range/Units 17:02 WBC (4.8-10.8) X10*3/uL RBC (4.20-5.50) X10*6/uL Hgb (12.0-16.0) g/dl Hct (37.0-47.0) % MCV (80.0-98.0) fL MCH (27.0-33.0) pg MCHC (31.0-35.0) g/dl RDW (11.0-16.0) % Plt Count (160-400) X10*3/uL MPV (9.4-12.3) fL Immature Gran % (Auto) (0.0-0.4) % Neut % (Auto) (45-73) % Lymph % (Auto) (20-40) % [place] % (Auto) (2-11) % Eos % (Auto) (0-4) % Baso % (Auto) (0-2) % Lymph # (Auto) (1.2-4.9) X10*3/uL [place] # (Auto) (0.1-1.2) X10*3/uL Eos # (Auto) (0.0-0.4) X10*3/uL Baso # (Auto) (0.0-0.2) X10*3/uL Abs Immat Gran (auto) (0.00-0.03) X10*3/uL Absolute Neuts (auto) (2.0-8.3) x10*3/uL Absolute Nucleated RBC (0.0-0.012) X10*3/uL Nucleated RBC % (auto) (0.0-0.2) /100WBC Smear Tech's Comments ESR (0-20) MM/HR Sodium (135-145) mmol/L Potassium (3.3-5.1) mmol/L Chloride (96-108) mmol/L Carbon Dioxide (22-29) mmol/L Anion Gap (12-20) BUN (9-16) mg/dL Creatinine (0.5-1.4) mg/dL Estim Creat Clear Calc Estimated GFR Random Glucose (60-115) mg/dL Calcium (8.4-10.2) mg/dL Total Bilirubin (0.0-1.0) mg/dL AST (5-31) U/L ALT (0-31) U/L Alkaline Phosphatase (39-117) U/L C-Reactive Protein (< or = 0.50) mg/dL Total Protein (6.5-8.0) g/dL Albumin (3.5-5.0) g/dL TSH (0.32-4.0) uIU/mL Thyroxine (T4) (4.5-12.0) ug/dL Beta HCG, Quant mIU/mL Urine Color Dark Yellow Urine Appearance Clear Urine pH 5.5 (5.0-9.0) Ur Specific [place] >= 1.030 H (1.005-1.025) Urine Protein Trace (Neg-Trace) mg/dL Urine Glucose (UA) Negative (Negative) mg/dL Urine Ketones 15 (Negative) mg/dL Urine Blood Negative (Negative) Urine Nitrite Negative (Negative) Ur Leukocyte Esterase Negative (Negative) <KIARA Puckett - Last Filed: 10/28/22 20:55> Independent Interpretation I performed an independent interpretation of an: CT Scan <KIARA Puckett - Last Filed: 10/28/22 20:55> Radiology Impression Discussion of test interpretation with radiology: I have reviewed the radiologist's reading. <KIARA Puckett - Last Filed: 10/28/22 20:55> Core Measures AMI core measures followed: Yes <KIARA Puckett - Last Filed: 10/28/22 20:55> Measure exclusions: not indicated <KIARA Puckett - Last Filed: 10/28/22 20:55> Medications Administered Discontinued Medications Generic Name Dose Route Start Last Admin Trade Name Freq PRN Reason Stop Dose Admin Fentanyl 25 mcg 10/28/22 18:57 10/28/22 20:05 Fentanyl Citrate/Pf 100 Mcg/2 Ml Vial IVPUSH 10/28/22 18:58 25 mcg ONCE ONE Administration Protocol Sodium Chloride 1,000 mls @ 999 mls/hr 10/28/22 19:00 10/28/22 20:05 Ns IV 10/28/22 20:00 999 mls/hr .Q1H1M EDGAR Administration Iohexol 100 ml 10/28/22 19:39 10/28/22 19:39 Iohexol 350 Mg/Ml 100 Ml Infus..Btl IV 10/28/22 19:40 85 ml ONCE ONE Administration <Renetta Victor CNP - Last Filed: 10/28/22 16:58> Medications Administered Discontinued Medications Generic Name Dose Route Start Last Admin Trade Name Freq PRN Reason Stop Dose Admin Fentanyl 25 mcg 10/28/22 18:57 10/28/22 20:05 Fentanyl Citrate/Pf 100 Mcg/2 Ml Vial IVPUSH 10/28/22 18:58 25 mcg ONCE ONE Administration Protocol Sodium Chloride 1,000 mls @ 999 mls/hr 10/28/22 19:00 10/28/22 20:05 Ns IV 10/28/22 20:00 999 mls/hr .Q1H1M EDGAR Administration Iohexol 100 ml 10/28/22 19:39 10/28/22 19:39 Iohexol 350 Mg/Ml 100 Ml Infus..Btl IV 10/28/22 19:40 85 ml ONCE ONE Administration <KIARA Puckett - Last Filed: 10/28/22 20:55> Critical Care Time Critical Care Time Critical Care Time: No <KIARA Puckett - Last Filed: 10/28/22 20:55> Discharge Plan Discharge Clinical Impression: Nausea, Abdominal pain, RLQ <Renetta Victor CNP - Last Filed: 10/28/22 16:58> Patient Disposition: Home, Self-Care <Renetta Victor CNP - Last Filed: 10/28/22 16:58> Instructions: Acute Nausea and Vomiting (ED), Abdominal Pain (ED) <Renetta Victor CNP - Last Filed: 10/28/22 16:58> Additional Instructions: Take your medications as prescribed. If you were prescribed antibiotics today, it is important that you take your medication to their entirety, do not skip any doses, do not finish them early. Follow-up with your primary care provider this week. Follow-up with gastroenterology. Return to the emergency department with new or worsening symptoms. Such as fevers, chills, chest pain, shortness of breath, nausea, vomiting, dizziness, headache, vision changes, lethargy In case of emergency call 911 CT/CT abdomen pelvis w IV con IMPRESSION: 1. An etiology for the patient's right lower quadrant pain and nausea has not been found. 2. Incidental note made of mild hepatomegaly with evidence of portal hypertension large gastric varices with splenorenal shunt, cholecystectomy, hysterectomy and atherosclerotic changes in the aorta. Fleischner guidelines were followed. <Renetta Victor CNP - Last Filed: 10/28/22 16:58> Prescriptions: No Action prochlorperazine [Compazine] 25 mg suppository 25 mg MI BID Qty: 12 0RF metoprolol tartrate [Lopressor] 100 mg tablet 100 mg PO BID Qty: 60 3RF pxdkunkcpn-samurmgnydyvk-kgnf [Fioricet] 50-300-40 mg capsule 1 cap PO ONCE PRN (Reason: pain) 30 Days Qty: 30 0RF topiramate [Topamax] 100 mg tablet 100 mg PO BID Qty: 60 0RF amitriptyline 50 mg tablet 50 mg PO BEDTIME 30 Days Qty: 30 0RF metoclopramide HCl [Reglan] 10 mg tablet 10 mg PO DAILY PRN (Reason: nausea and vomiting) Qty: 30 0RF ahohnegite-wbnoletxzjeyc-rlol 50-325-40 mg capsule 1 cap PO DAILY 14 Days Qty: 14 0RF propranolol 60 mg tablet 120 mg PO BID <Renetta Victor CNP - Last Filed: 10/28/22 16:58> Referrals: [facility] G[facility] [Provider Group] - 1 week Kevan Gordon PA-C [Primary Care Provider] - 2 days <Renetta Victor CNP - Last Filed: 10/28/22 16:58> Stand Alone Forms: Work/School Release <Renetta Victor CNP - Last Filed: 10/28/22 16:58>
[2022-10-28 17:11] LABS: Basophils Absolute Auto 0.1 X10*3/uL (0.0-0.2); Basophils Percent Auto 1.4 % (0-2); Eosinophils Absolute Auto 0.2 X10*3/uL (0.0-0.4); Eosinophils Percent Auto 2.6 % (0-4); Hematocrit 37.2 % (37.0-47.0); Hemoglobin 12.3 g/dl (12.0-16.0); Imm Gran Abs Auto 0.02 X10*3/uL (0.00-0.03); Imm Gran Pct Auto 0.2 % (0.0-0.4); Lymphocytes Absolute Auto 4.9 X10*3/uL (1.2-4.9); Lymphocytes Percent Auto 56.6 % (20-40); MANUAL DIFF FLAG SCAN; Mean Corpuscular HGB Conc 33.1 g/dl (31.0-35.0); Mean Corpuscular Hemoglobin 33.2 pg (27.0-33.0); Mean Corpuscular Volume 100.5 fL (80.0-98.0); Mean Platelet Volume 9.4 fL (9.4-12.3); Monocytes Absolute Auto 0.6 X10*3/uL (0.1-1.2); Monocytes Percent Auto 6.9 % (2-11); Neutrophils Absolute Auto 2.8 x10*3/uL (2.0-8.3); Neutrophils Percent Auto 32.3 % (45-73); Platelet Count 229 X10*3/uL (160-400); Red Cell Distribution Width 14.5 % (11.0-16.0); SCAN SMEAR FLAG 1; White Blood Count 8.7 X10*3/uL (4.8-10.8)
[2022-10-28 17:13] LABS: Appearance Urine Clear; Color Urine Dark Yellow; Glucose Urine UA Negative (Negative); Leukocyte Esterase Urine Negative (Negative); Nitrite Urine Negative (Negative); PH 5.5 (5.0-9.0); Specific Gravity - Urine >= 1.030 (1.005-1.025); Urine Blood Negative (Negative); Urine Ketones 15 mg/dL (Negative); Urine Protein Trace mg/dL (Neg-Trace)
[2022-10-28 17:32] LABS: Alanine Aminotransferase 43 U/L (0-31); Albumin Level 4.1 g/dL (3.5-5.0); Alkaline Phosphatase 107 U/L (39-117); Anion Gap 11 (12-20); Aspartate Amino Transferase 36 U/L (5-31); Bilirubin Total 0.5 mg/dL (0.0-1.0); Blood Urea Nitrogen 17 mg/dL (9-16); C Reactive Protein 0.18 mg/dL (< or = 0.50); Calcium 8.4 mg/dL (8.4-10.2); Carbon Dioxide 23 mmol/L (22-29); Chloride 112 mmol/L (96-108); Creatinine Clr Calc Pharmacy 66.4; Estimated Glomerular Filt Rate 58; Glucose Random 100 mg/dL (60-115); Potassium 4.5 mmol/L (3.3-5.1); Sodium 141 mmol/L (135-145); Total Protein 6.4 g/dL (6.5-8.0)
[2022-10-28 17:38] LABS: SLIDE REVIEW VERIFIED
[2022-10-28 17:52] LABS: Erythrocyte Sedimentation Rate 4 MM/HR (0-20)
[2022-10-28 18:35] VITALS: BP 86/58; PULSE 68; RESP 18; TEMP 36.6; O2SAT 97
--- NOTE | 2022-10-28 18:38 | PC.NURSE ---
Addendum entered by Lucinda Deutsch 10/28/22 20:24: Provider aware of BP Original Note: Pt presents to ER with right with right sided abd pain. Pt was in ED earlier today with a migraine headache. At a doctors appt this afternoon, pt BP was notably low, and the pts reported abd pain. The doctor sent the pt back to the ED . At this point the pts BP is low 86/58 and she reports lightheadedness when she stands. Pt reports her baseline sys BP is early 90s.
[2022-10-28 19:27] LABS: HCG Quantitative < 2 mIU/mL; T4 Thyroxine 5.6 ug/dL (4.5-12.0); Thyroid Stimulating Hormone 2.03 uIU/mL (0.32-4.0)
[2022-10-28] MEDS: iohexoL 350 MG/ML 100 ML INFUS..BTL IV (19:39)
[2022-10-28 19:41] VITALS: BP 103/70; PULSE 56
[2022-10-28 19:42] VITALS: BP 110/76; PULSE 61
[2022-10-28 19:44] VITALS: BP 108/75; PULSE 86
[2022-10-28 20:00] VITALS: BP 103/70; PULSE 57; RESP 16; TEMP 37.1; O2SAT 95
--- NOTE | 2022-10-28 20:00 | PC.NURSE ---
ortho stats preformed, negative
[2022-10-28] MEDS: 0.9 % Sodium Chloride 1,000 ML 999 ML IV (20:05)
[2022-10-28] MEDS: fentaNYL citrate/PF 100 MCG/2 ML VIAL 25 MCG IVPUSH (20:05)
--- NOTE | 2022-10-28 20:13 | PC.NURSE ---
IV fluids hung per order, pt medicated for pain per order
--- NOTE | 2022-10-28 21:00 | PC.NURSE ---
Report received and care assumed
[2022-10-31 06:19] LABS: Triiodothyronine T3 Total 66 ng/dL (76-181)
== END 2022-10-28 21:15 | disposition home or self-care (01) ==
PROVIDERS: Nurse Practitioner Family; Physician Assistant; Emergency Provider Emergency Medicine; PCP Physician Assistant
DX: R10.31 Right lower quadrant pain (principal); R11.0 Nausea; R16.0 Hepatomegaly, not elsewhere classified; E11.9 Type 2 diabetes mellitus without complications; F17.210 Nicotine dependence, cigarettes, uncomplicated; Z71.6 Tobacco abuse counseling; Z79.899 Other long term (current) drug therapy
CPT/HCPCS: 36415; 74177; 80053; 81003; 84436; 84443; 84480; 84702; 85025; 85652; 86140; 96374; 99284; 99285; J3010; Q9967

== ENCOUNTER → 2022-11-17 11:20 | Outpatient (BNVA) | payer OTHER, SELFPAY | PROVIDERS: PCP Physician Assistant; Visit Provider Physician Assistant | DX: M17.11 Unilateral primary osteoarthritis, right knee (principal) | CPT/HCPCS: 99212 ==

== ENCOUNTER 2022-11-19 01:28 | Emergency (ER) | payer OTHER, SELFPAY ==
[2022-11-19 01:54] VITALS: BP 98/58; PULSE 70; RESP 18; TEMP 36.6; O2SAT 99; BMI 22.3
[2022-11-19 02:23] LABS: Basophils Absolute Auto 0.1 X10*3/uL (0.0-0.2); Basophils Percent Auto 0.8 % (0-2); Eosinophils Absolute Auto 0.3 X10*3/uL (0.0-0.4); Eosinophils Percent Auto 2.9 % (0-4); Hematocrit 38.5 % (37.0-47.0); Hemoglobin 12.6 g/dl (12.0-16.0); Imm Gran Abs Auto 0.02 X10*3/uL (0.00-0.03); Imm Gran Pct Auto 0.2 % (0.0-0.4); Lymphocytes Absolute Auto 5.8 X10*3/uL (1.2-4.9); Lymphocytes Percent Auto 58.3 % (20-40); MANUAL DIFF FLAG SCAN; Mean Corpuscular HGB Conc 32.7 g/dl (31.0-35.0); Mean Corpuscular Hemoglobin 32.6 pg (27.0-33.0); Mean Corpuscular Volume 99.5 fL (80.0-98.0); Mean Platelet Volume 9.5 fL (9.4-12.3); Monocytes Absolute Auto 0.6 X10*3/uL (0.1-1.2); Monocytes Percent Auto 6.4 % (2-11); Neutrophils Absolute Auto 3.1 x10*3/uL (2.0-8.3); Neutrophils Percent Auto 31.4 % (45-73); Platelet Count 231 X10*3/uL (160-400); Red Blood Count 3.87 X10*6/uL (4.20-5.50); Red Cell Distribution Width 13.9 % (11.0-16.0); SCAN SMEAR FLAG 1
--- NOTE | 2022-11-19 02:28 | PC.NURSE ---
pt a&o, no sob or chest pain. pt reports 8/10 abd pain, nausea, no vomiting, pt lined and lab. 20g in left ac. Pt awaiting provider to be seen.
--- NOTE | 2022-11-19 02:37 | ED.ABDPAIN ---
HPI - Abdominal Pain General Chief Complaint: Abdominal Pain Stated Complaint: Flank pain Time Seen by Provider: 11/19/22 02:34 Source: patient Mode of arrival: ambulatory Limitations: no limitations History of Present Illness HPI narrative: Patient's history of IBS chronic abdominal pain been to the ER multiple times for abdominal pain patient was seen here on 10/[address] scan was negative comes here for similar pain going for long time getting worse now assisted with nausea normal bowel movements no fever no chills Related Data Home Medications Medication Instructions Recorded Confirmed propranolol 60 mg tablet 120 mg PO BID 10/28/22 10/28/22 Previous Rx's Medication Instructions Recorded prochlorperazine 25 mg rectal 25 mg IN BID #12 ea 05/28/21 suppository (Compazine) metoprolol tartrate 100 mg tablet 100 mg PO BID #60 tabs 09/19/21 (Lopressor) amitriptyline 50 mg tablet 50 mg PO BEDTIME 30 days #30 tabs 09/04/22 [id number]-mjmlcdqvjtbhz-jlogyhom 1 cap PO ONCE PRN pain 30 days #30 09/04/22 50 mg-300 mg-40 mg capsule caps (Fioricet) metoclopramide HCl 10 mg tablet 10 mg PO DAILY PRN nausea and 09/04/22 (Reglan) vomiting #30 tabs topiramate 100 mg tablet (Topamax) 100 mg PO BID #60 tabs 09/04/22 epupdbimht-zefupdulnupir-dopypqbb 1 cap PO DAILY pain 14 days #14 10/28/22 50 mg-325 mg-40 mg capsule caps diclofenac sodium 1 % topical gel 4 g topical QID #100 grams 11/17/22 dicyclomine 20 mg tablet 20 mg PO QID PRN abdominal pain 11/19/22 #20 tabs Allergies Allergy/AdvReac Type Severity Reaction Status Date / Time aspirin [Aspirin] Allergy Intermediate WHEEZING Verified 11/19/22 02:02 clarithromycin [From Biaxin] Allergy Intermediate HIVES Verified 11/19/22 02:02 Sulfa (Sulfonamide Allergy Intermediate HIVES Verified 11/19/22 02:02 Antibiotics) [SULFA (SULFONAMIDE ANTIBIOTICS)] bee pollen [BEE STINGS] Allergy Unknown UNKNOWN Verified 11/19/22 02:02 pineapple [PINEAPPLE] Allergy Unknown UNKNOWN Verified 11/19/22 02:02 beeswax Allergy Anaphylaxis Verified 11/19/22 02:02 Review of Systems Review of Systems Yes all other systems are reviewed and are negative [facility] Past Medical History Medical History Hypotension IBS (irritable bowel syndrome) Migraine Surgical History History of cholecystectomy History of partial hysterectomy Family History Family History Mother Substance use disorder Stroke Other Mental health disorder Social History Social History Housing: House Alcohol intake: never Patient Tobacco Use Status: Current everyday Tobacco user Tobacco use type: Cigarette Cigarettes Per Day: 7 Smoked in Last 30 Days: Yes Use of substances other than those prescribed or required for medical reasons: Yes Substance Use Type: Marijuana Substance Use Type Other:: pt has a medical card Substance Use Frequency: Daily Advance Directives: Yes Advance Directives on File: Yes Advance Directives Date on File: 02/01/21 service: No Current occupational status: employed and disabled Current occupation: rt handed Cognitive needs: No Hearing needs: No Vision needs: No Physical Exam ED Vital Signs: Vital Signs - 24 hr 11/19/22 01:54 11/19/22 04:47 Temperature 97.9 F 98.6 F Pulse Rate 70 59 Respiratory Rate 18 16 Blood Pressure 98/58 L 100/61 Pulse Oximetry 99 98 Oxygen Delivery Method Room Air Room Air BMI result Body Mass Index 22.3 Appearance: Alert. Oriented X3. No acute distress. Eyes: PERRLA, No Nystagmus ENT: Pharynx normal. Oral Mucosa moist Neck: Normal inspection. Neck supple. CVS: Normal heart rate and rhythm. Pulses normal. Respiratory: No respiratory distress. Equal air entry bilateral, no wheezing/rales/rhonchi Abdomen: Soft mild tenderness right upper quadrant no rebound or guarding Bowel sounds are present, no mass palpable, no CVA tenderness Skin: Skin warm and dry. Normal skin color. Normal skin turgor. Extremities: No lower extremity edema. No calf tenderness Neuro: Oriented X 3. No motor deficit. Medical Decision Making Medical Decision Making MDM Narrative: Patient with chronic recurrent flank pain with CT scan negative on 10/28/2022 labs are stable likely requires the same pain patient does have IBS more likely the cause of the pain Lab Data MDM Lab Attestation statement: I reviewed the patient's lab results. 11/19/22 02:18 11/19/22 02:18 Labs: Lab Results 11/19/22 11/19/22 11/19/22 Range/Units 02:18 02:18 03:14 WBC 10.0 (4.8-10.8) X10*3/uL RBC 3.87 L (4.20-5.50) X10*6/uL Hgb 12.6 (12.0-16.0) g/dl Hct 38.5 (37.0-47.0) % MCV 99.5 H (80.0-98.0) fL MCH 32.6 (27.0-33.0) pg MCHC 32.7 (31.0-35.0) g/dl RDW 13.9 (11.0-16.0) % Plt Count 231 (160-400) X10*3/uL MPV 9.5 (9.4-12.3) fL Immature Gran % (Auto) 0.2 (0.0-0.4) % Neut % (Auto) 31.4 L (45-73) % Lymph % (Auto) 58.3 H (20-40) % [place] % (Auto) 6.4 (2-11) % Eos % (Auto) 2.9 (0-4) % Baso % (Auto) 0.8 (0-2) % Lymph # (Auto) 5.8 H (1.2-4.9) X10*3/uL [place] # (Auto) 0.6 (0.1-1.2) X10*3/uL Eos # (Auto) 0.3 (0.0-0.4) X10*3/uL Baso # (Auto) 0.1 (0.0-0.2) X10*3/uL Abs Immat Gran (auto) 0.02 (0.00-0.03) X10*3/uL Absolute Neuts (auto) 3.1 (2.0-8.3) x10*3/uL Absolute Nucleated RBC 0.000 (0.0-0.012) X10*3/uL Nucleated RBC % (auto) 0.0 (0.0-0.2) /100WBC Smear Tech's Comments VERIFIED Sodium 141 (135-145) mmol/L Potassium 4.2 (3.3-5.1) mmol/L Chloride 111 H (96-108) mmol/L Carbon Dioxide 22 (22-29) mmol/L Anion Gap 12 (12-20) BUN 15 (9-16) mg/dL Creatinine 0.94 (0.5-1.4) mg/dL Estim Creat Clear Calc 70.6 Estimated GFR > 60 Random Glucose 89 (60-115) mg/dL Calcium 8.6 (8.4-10.2) mg/dL Total Bilirubin 0.3 (0.0-1.0) mg/dL AST 14 (5-31) U/L ALT 9 (0-31) U/L Alkaline Phosphatase 115 (39-117) U/L Total Protein 6.6 (6.5-8.0) g/dL Albumin 4.1 (3.5-5.0) g/dL Lipase 144 H (8-78) U/L Urine Color Yellow Urine Appearance Clear Urine pH 6.0 (5.0-9.0) Ur Specific [place] 1.010 (1.005-1.025) Urine Protein Negative (Neg-Trace) mg/dL Urine Glucose (UA) Negative (Negative) mg/dL Urine Ketones Negative (Negative) mg/dL Urine Blood Negative (Negative) Urine Nitrite Negative (Negative) Ur Leukocyte Esterase Negative (Negative) Urine Test (NEGATIVE) 11/19/22 Range/Units 03:14 WBC (4.8-10.8) X10*3/uL RBC (4.20-5.50) X10*6/uL Hgb (12.0-16.0) g/dl Hct (37.0-47.0) % MCV (80.0-98.0) fL MCH (27.0-33.0) pg MCHC (31.0-35.0) g/dl RDW (11.0-16.0) % Plt Count (160-400) X10*3/uL MPV (9.4-12.3) fL Immature Gran % (Auto) (0.0-0.4) % Neut % (Auto) (45-73) % Lymph % (Auto) (20-40) % [place] % (Auto) (2-11) % Eos % (Auto) (0-4) % Baso % (Auto) (0-2) % Lymph # (Auto) (1.2-4.9) X10*3/uL [place] # (Auto) (0.1-1.2) X10*3/uL Eos # (Auto) (0.0-0.4) X10*3/uL Baso # (Auto) (0.0-0.2) X10*3/uL Abs Immat Gran (auto) (0.00-0.03) X10*3/uL Absolute Neuts (auto) (2.0-8.3) x10*3/uL Absolute Nucleated RBC (0.0-0.012) X10*3/uL Nucleated RBC % (auto) (0.0-0.2) /100WBC Smear Tech's Comments Sodium (135-145) mmol/L Potassium (3.3-5.1) mmol/L Chloride (96-108) mmol/L Carbon Dioxide (22-29) mmol/L Anion Gap (12-20) BUN (9-16) mg/dL Creatinine (0.5-1.4) mg/dL Estim Creat Clear Calc Estimated GFR Random Glucose (60-115) mg/dL Calcium (8.4-10.2) mg/dL Total Bilirubin (0.0-1.0) mg/dL AST (5-31) U/L ALT (0-31) U/L Alkaline Phosphatase (39-117) U/L Total Protein (6.5-8.0) g/dL Albumin (3.5-5.0) g/dL Lipase (8-78) U/L Urine Color Urine Appearance Urine pH (5.0-9.0) Ur Specific [place] (1.005-1.025) Urine Protein (Neg-Trace) mg/dL Urine Glucose (UA) (Negative) mg/dL Urine Ketones (Negative) mg/dL Urine Blood (Negative) Urine Nitrite (Negative) Ur Leukocyte Esterase (Negative) Urine Test NEGATIVE (NEGATIVE) Medications Administered Discontinued Medications Generic Name Dose Route Start Last Admin Trade Name Freq PRN Reason Stop Dose Admin Dicyclomine HCl 20 mg 11/19/22 04:55 11/19/22 05:14 Dicyclomine Hcl 10 Mg Capsule PO 11/19/22 04:56 20 mg ONCE ONE Administration Morphine Sulfate 4 mg 11/19/22 02:50 11/19/22 03:17 Morphine Sulfate 4 Mg/Ml Cartridge IVPUSH 11/19/22 02:51 4 mg ONCE ONE Administration Protocol Ondansetron HCl 4 mg 11/19/22 02:50 11/19/22 03:17 Ondansetron Hcl 4 Mg/2 Ml Vial IVPUSH 11/19/22 02:51 4 mg ONCE ONE Administration Discharge Plan Discharge Clinical Impression: IBS (irritable bowel syndrome) Patient Disposition: Home, Self-Care Instructions: Irritable Bowel Syndrome (ED) Additional Instructions: Drink plenty of fluids Take Bentyl as prescribed and follow with PCP Report to the ER if worsening of the pain Prescriptions: New dicyclomine 20 mg tablet 20 mg PO QID PRN (Reason: abdominal pain) Qty: 20 0RF No Action prochlorperazine [Compazine] 25 mg suppository 25 mg IN BID Qty: 12 0RF metoprolol tartrate [Lopressor] 100 mg tablet 100 mg PO BID Qty: 60 3RF wserazahhb-woqqyvaowysqv-ixxl [Fioricet] 50-300-40 mg capsule 1 cap PO ONCE PRN (Reason: pain) 30 Days Qty: 30 0RF topiramate [Topamax] 100 mg tablet 100 mg PO BID Qty: 60 0RF amitriptyline 50 mg tablet 50 mg PO BEDTIME 30 Days Qty: 30 0RF metoclopramide HCl [Reglan] 10 mg tablet 10 mg PO DAILY PRN (Reason: nausea and vomiting) Qty: 30 0RF tqyxfnjbaj-ugugzxhyctrqc-szpp 50-325-40 mg capsule 1 cap PO DAILY 14 Days Qty: 14 0RF propranolol 60 mg tablet 120 mg PO BID diclofenac sodium 1 % gel 4 g topical QID Qty: 100 0RF Rx Instructions: apply to single knee, ankle, foot; for foot includes sole/toes/top of foot Interventions: ED Discharge Assessment Last Done: 11/19/22 05:21 Discharge Date/Time: 11/19/22 05:22
[2022-11-19 02:49] LABS: SLIDE REVIEW VERIFIED
[2022-11-19 03:03] LABS: Alanine Aminotransferase 9 U/L (0-31); Albumin Level 4.1 g/dL (3.5-5.0); Alkaline Phosphatase 115 U/L (39-117); Anion Gap 12 (12-20); Aspartate Amino Transferase 14 U/L (5-31); Bilirubin Total 0.3 mg/dL (0.0-1.0); Blood Urea Nitrogen 15 mg/dL (9-16); Calcium 8.6 mg/dL (8.4-10.2); Carbon Dioxide 22 mmol/L (22-29); Chloride 111 mmol/L (96-108); Creatinine Clr Calc Pharmacy 70.6; Estimated Glomerular Filt Rate > 60; Glucose Random 89 mg/dL (60-115); Lipase 144 U/L (8-78); Potassium 4.2 mmol/L (3.3-5.1); Sodium 141 mmol/L (135-145); Total Protein 6.6 g/dL (6.5-8.0)
[2022-11-19] MEDS: ondansetron HCL 4 MG/2 ML VIAL IVPUSH (03:17)
[2022-11-19] MEDS: Morphine Sulfate 4 MG/ML CARTRIDGE IVPUSH (03:17)
[2022-11-19 03:20] LABS: Appearance Urine Clear; Color Urine Yellow; Glucose Urine UA Negative (Negative); Leukocyte Esterase Urine Negative (Negative); Nitrite Urine Negative (Negative); Urine Blood Negative (Negative); Urine Ketones Negative (Negative); Urine Protein Negative (Neg-Trace)
[2022-11-19 03:22] LABS: UPreg QC Valid YES; Urine Pregnancy NEGATIVE (NEGATIVE)
--- NOTE | 2022-11-19 03:22 | PC.NURSE ---
pt medicated per Mar, Will continue to monitor.
[2022-11-19 04:47] VITALS: BP 100/61; PULSE 59; RESP 16; TEMP 37; O2SAT 98
[2022-11-19] MEDS: Dicyclomine HCl 10 MG CAPSULE 20 MG PO (05:14)
--- NOTE | 2022-11-19 05:19 | PC.NURSE ---
Medicated per mar, Reviewed discharge instructions, pt verbalized understanding.
== END 2022-11-19 05:22 | disposition home or self-care (01) ==
PROVIDERS: Emergency Provider Internal Medicine; PCP Physician Assistant
DX: K58.9 Irritable bowel syndrome, unspecified (principal); Z79.899 Other long term (current) drug therapy; F17.210 Nicotine dependence, cigarettes, uncomplicated; Z71.6 Tobacco abuse counseling
CPT/HCPCS: 36415; 80053; 81003; 81025; 83690; 85025; 96374; 96375; 99284; J2270; J2405

== ENCOUNTER 2022-12-03 08:16 | Outpatient (REF) | payer OTHER, SELFPAY ==
[2022-12-03 08:40] LABS: Hematocrit 41.6 % (37.0-47.0); Hemoglobin 14.1 g/dl (12.0-16.0); Mean Corpuscular HGB Conc 33.9 g/dl (31.0-35.0); Mean Corpuscular Hemoglobin 33.6 pg (27.0-33.0); Mean Platelet Volume 9.3 fL (9.4-12.3); Platelet Count 238 X10*3/uL (160-400); Red Cell Distribution Width 14.1 % (11.0-16.0)
[2022-12-03 09:12] LABS: Alanine Aminotransferase 18 U/L (0-31); Albumin Level 4.5 g/dL (3.5-5.0); Alkaline Phosphatase 136 U/L (39-117); Anion Gap 13 (12-20); Aspartate Amino Transferase 18 U/L (5-31); Bilirubin Total 0.5 mg/dL (0.0-1.0); Blood Urea Nitrogen 16 mg/dL (9-16); Calcium 9.2 mg/dL (8.4-10.2); Carbon Dioxide 24 mmol/L (22-29); Chloride 110 mmol/L (96-108); Cholesterol 264 mg/dL; Estimated Glomerular Filt Rate > 60; Glucose Fasting 94 mg/dL (60-99); HDL Cholesterol 69 mg/dL; LDL Cholesterol Calculated 166 mg/dl; Potassium 4.7 mmol/L (3.3-5.1); Sodium 142 mmol/L (135-145); Total Protein 7.3 g/dL (6.5-8.0); Triglycerides 146 mg/dL
== END 2022-12-03 08:17 | disposition home or self-care (01) ==
LOC: HO.LAB 08:16
PROVIDERS: PCP Physician Assistant; Visit Provider Physician Assistant
DX: R10.9 Unspecified abdominal pain (principal); K59.04 Chronic idiopathic constipation; R11.0 Nausea; R74.8 Abnormal levels of other serum enzymes; K21.9 Gastro-esophageal reflux disease without esophagitis; I65.21 Occlusion and stenosis of right carotid artery; Z13.1 Encounter for screening for diabetes mellitus
CPT/HCPCS: 36415; 80053; 80061; 85027; 99202

== ENCOUNTER 2022-12-04 10:52 | Outpatient (REF) | payer OTHER, SELFPAY ==
--- NOTE | ~2022-12-04 | US_ITS ---
EXAMINATION: US EXTRACRANIAL CAROTID DUPLEX, BILATERAL CLINICAL INFORMATION: Stenosis of right carotid artery COMPARISON: Carotid ultrasound 11/17/2019 TECHNIQUE: Real-time ultrasound and Doppler techniques (integrating B-mode 2-D vascular images, Doppler spectral analysis and color-flow Doppler imaging) were utilized to interrogate the extracranial carotid arteries, the vertebral arteries and proximal subclavian arteries bilaterally. The degree of stenosis is determined by criteria similar to NASCET. FINDINGS: Right Side: 1. There is mild atherosclerotic plaque seen in the bifurcation/proximal ICA region. 2. The common carotid artery PSV proximally is 108 cm/s and distally 117 cm/s. 3. The proximal internal carotid artery velocities are 97 cm/s systolic and 27 cm/s diastolic. 4. The proximal external carotid artery PSV is 164 cm/s. 5. The vertebral artery shows antegrade flow. 6. The subclavian artery waveforms are normal. Left Side: 1. There is mild atherosclerotic plaque seen in the bifurcation/proximal ICA region. 2. The common carotid artery PSV proximally is 114 cm/s and distally 122 cm/s. 3. The proximal internal carotid artery velocities are 115 cm/s systolic and 41 cm/s diastolic. 4. The proximal external carotid artery PSV is 146 cm/s. 5. The vertebral artery shows retrograde flow. 6. The subclavian artery waveforms are normal. US/US carotid duplex BI IMPRESSION: 1. RIGHT: Minimal, non-hemodynamically significant stenosis of the proximal right internal carotid artery corresponding to a 0-49% stenosis by velocity criteria. 2. LEFT: Minimal, non-hemodynamically significant stenosis of the proximal left internal carotid artery corresponding to a 0-49% stenosis by velocity criteria. 3. There is an increase in the category severity of disease when compared to the previous study dated 11/17/2019. 4. Retrograde flow within the left vertebral artery, unchanged. 5. No evidence of subclavian artery stenosis bilaterally seen on the current study.
== END 2022-12-04 10:53 | disposition home or self-care (01) ==
LOC: HO.US 10:52
PROVIDERS: Visit Provider Physician Assistant
DX: I65.21 Occlusion and stenosis of right carotid artery (principal)
CPT/HCPCS: 93880

== ENCOUNTER 2023-02-18 20:54 | Emergency (ER) | payer OTHER, SELFPAY ==
[2023-02-18 20:55] VITALS: BP 134/97; PULSE 102; RESP 18; TEMP 37.1; O2SAT 97; BMI 21.6
[2023-02-18 22:17] VITALS: BP 128/77; PULSE 74; RESP 18; TEMP 36.8; O2SAT 99
--- NOTE | 2023-02-18 23:07 | ED.GENADULT ---
HPI - General Adult General Chief complaint: Head Injury Stated complaint: Hit head/ear pain Time Seen by Provider: 02/18/23 22:49 Source: patient, RN notes reviewed and old records reviewed Mode of arrival: ambulatory Limitations: no limitations History of Present Illness HPI narrative: 52-year-old female presents for evaluation of right-sided headache Patient reports that she was pulling a box out of her closet. She had a large picture frame that was resting against the wall When she pulled on box a force the picture frame to slide over and strike her in the right side of the head just behind her ear There was no loss of consciousness The patient states that she is not on any anticoagulation She complains of a dull, 5/10 headache in the area where she was struck Related Data Previous Rx's Medication Instructions Recorded topiramate 100 mg tablet (Topamax) 100 mg PO BID #60 tabs 09/04/22 diclofenac sodium 1 % topical gel 4 g topical QID #100 grams 11/17/22 prochlorperazine 25 mg rectal 25 mg SD BID PRN nausea and 11/19/22 suppository (Compazine) vomiting #12 ea amitriptyline 50 mg tablet 50 mg PO BEDTIME 30 days #30 tabs 11/25/22 famotidine 20 mg tablet 20 mg PO DAILY 30 days #30 tabs 11/25/22 propranolol 60 mg tablet 120 mg PO BID 90 days #360 tabs 11/25/22 bisacodyl 5 mg tablet,delayed 10 mg PO BEDTIME 2 days #4 tabs 12/03/22 release (Dulcolax (bisacodyl)) metoclopramide HCl 10 mg tablet 10 mg PO DAILY PRN nausea and 12/03/22 (Reglan) vomiting #30 tabs simvastatin 20 mg tablet 20 mg PO DAILY #90 tabs 12/09/22 linaclotide 290 mcg capsule 290 mcg PO QAM 30 days #30 caps 12/30/22 (Linzess) wgrszapxvw-qoxhdkmwiokkm-tlecfsco 1 cap PO DAILY pain 14 days #14 01/05/23 50 mg-325 mg-40 mg capsule caps Allergies Allergy/AdvReac Type Severity Reaction Status Date / Time aspirin [Aspirin] Allergy Intermediate WHEEZING Verified 12/03/22 11:22 clarithromycin [From Biaxin] Allergy Intermediate HIVES Verified 12/03/22 11:22 Sulfa (Sulfonamide Allergy Intermediate HIVES Verified 12/03/22 11:22 Antibiotics) [SULFA (SULFONAMIDE ANTIBIOTICS)] bee pollen [BEE STINGS] Allergy Unknown UNKNOWN Verified 12/03/22 11:22 pineapple [PINEAPPLE] Allergy Unknown UNKNOWN Verified 12/03/22 11:22 beeswax Allergy Anaphylaxis Verified 12/03/22 11:22 Review of Systems Constitutional: Constitutional: Reports as per HPI, Denies chills, Denies fatigue, Denies fever(s) and Reports headache(s) ENT: Reports headache(s) Cardiovascular: Cardiovascular: Denies chest pain and Denies dyspnea Respiratory: Respiratory: Denies cough and Denies dyspnea Neurologic: Reports headache(s) and Denies focal weakness Endocrine: Endocrine: Denies fatigue PMFSH Past Medical History Medical History Hypotension IBS (irritable bowel syndrome) Migraine Surgical History History of cholecystectomy History of partial hysterectomy Family History Family History Mother Substance use disorder Stroke Other Mental health disorder Social History Social History Housing: House Alcohol intake: never Patient Tobacco Use Status: Current everyday Tobacco user Tobacco use type: Cigarette Cigarettes Per Day: 10 Smoked in Last 30 Days: No e-Cigarette/Vaping Use: Never Used Second Hand Smoke Exposure: Yes Use of substances other than those prescribed or required for medical reasons: No Substance Use Type: Marijuana Advance Directives: Yes Advance Directives on File: Yes Advance Directives Date on File: 02/01/21 Patient : No service: No Current occupational status: employed and disabled Current occupation: rt handed Cognitive needs: No Hearing needs: No Vision needs: Yes (glasses) Physical Exam ED Vital Signs: Vital Signs - 24 hr 02/18/23 20:55 02/18/23 22:17 Temperature 98.8 F 98.2 F Pulse Rate 102 H 74 Respiratory Rate 18 18 Blood Pressure 134/97 H 128/77 Pulse Oximetry 97 99 Oxygen Delivery Method Room Air Room Air BMI result Body Mass Index 21.6 Const General: healthy appearing, comfortable, no acute distress, alert and awake Nutritional Appearance: well nourished Orientation/consciousness: patient oriented x3 HENMT Other: No contusion, erythema, abrasion, laceration in the right postauricular region Head: Yes normocephalic and Yes atraumatic Ears: external ears normal, TM's normal bilaterally and EAC's normal Eyes Eyelids: Yes eyelids normal Conjunctivae: conjunctivae normal Sclerae: sclerae normal Corneas: corneas normal Pupils: Equal, round and reactive pupils present EOM: EOMs intact bilaterally Neck Neck: Yes full ROM Resp Effort & Inspection: normal respiratory effort, able to speak in complete sentences and not labored Skin General skin exam: elasticity normal Neuro General: patient oriented x3 Cranial nerves: Yes CN's II-XII intact bilaterally, Yes Equal, round and reactive pupils present and Yes Bilaterally intact EOM present Cognition (Neuro): normal cognition Extrem Other: Moving all extremities well without any obvious deformities Medical Decision Making Medical Decision Making MDM Narrative: Patient describes a minor head trauma, there was no loss of consciousness, no evidence of basilar skull fracture. She has no neuro deficits. No objective signs of trauma. Her neuro exam is benign. I do not see any indication to get emergent CT imaging of the patient's head as a have an exceedingly low suspicion for calvarial fracture. The patient be given a Fioricet and will be discharged home to follow-up with her PCP Differential Diagnosis Differential Diagnoses: The differential diagnosis associated with the presentation includes Acute headache Tension headache Concussion Contusion Migraine headache Intracranial hemorrhage Tests considered The following testing was considered but not selected: CT scan of the brain was considered but ultimately felt to have a low likelyhood to yield positive findings and was deferred Discharge Plan Discharge Clinical Impression: Right-sided headache Patient Disposition: Home, Self-Care Instructions: Acute Headache (ED) Additional Instructions: You may use ibuprofen or Tylenol for any further headaches The area where your struck may bother you for the next few days You may also apply an ice pack to the sore area Follow-up with your primary doctor Prescriptions: No Action simvastatin 20 mg tablet 20 mg PO DAILY Qty: 90 1RF Linzess 290 mcg capsule 290 mcg PO QAM 30 Days Qty: 30 0RF rjriktvjaf-wgojnwzuwaygi-fxki 50-325-40 mg capsule 1 cap PO DAILY 14 Days Qty: 14 0RF amitriptyline 50 mg tablet 50 mg PO BEDTIME 30 Days Qty: 30 4RF famotidine 20 mg tablet 20 mg PO DAILY 30 Days Qty: 30 4RF propranolol 60 mg tablet 120 mg PO BID 90 Days Qty: 360 1RF topiramate [Topamax] 100 mg tablet 100 mg PO BID Qty: 60 0RF prochlorperazine [Compazine] 25 mg suppository 25 mg SD BID PRN (Reason: nausea and vomiting) Qty: 12 0RF diclofenac sodium 1 % gel 4 g topical QID Qty: 100 0RF Rx Instructions: apply to single knee, ankle, foot; for foot includes sole/toes/top of foot bisacodyl [Dulcolax (bisacodyl)] 5 mg tablet,delayed release (DR/EC) 10 mg PO BEDTIME 2 Days Qty: 4 0RF metoclopramide HCl [Reglan] 10 mg tablet 10 mg PO DAILY PRN (Reason: nausea and vomiting) Qty: 30 3RF
--- NOTE | 2023-02-18 23:13 | PC.NURSE ---
patient in the process of being discharged patient is aware
[2023-02-18] MEDS: Butalb/Acetamin/Caff 50/325/40 TABLET 1 TAB PO (23:20)
--- NOTE | 2023-02-18 23:22 | PC.NURSE ---
patient in the process of being discharged patient vitals are stable patient will continue to be monitored for safety
== END 2023-02-18 23:28 | disposition home or self-care (01) ==
PROVIDERS: Emergency Provider Student in an Organized Health Care Education/Training Program; PCP Physician Assistant
DX: R51.9 Headache, unspecified (principal); Z79.899 Other long term (current) drug therapy; F17.210 Nicotine dependence, cigarettes, uncomplicated; Z71.6 Tobacco abuse counseling
CPT/HCPCS: 99283; 99284

== ENCOUNTER 2023-03-04 10:25 | Outpatient (AMB) | payer OTHER, SELFPAY ==
[2023-03-04 10:31] VITALS: BP 90/62; PULSE 81; O2SAT 99; BMI 22.3
--- NOTE | 2023-03-04 10:31 | A.OFFPC_ITS ---
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: No Allergies aspirin [Aspirin] Allergy (Intermediate, Verified 03/04/23 10:44) WHEEZING clarithromycin [From Biaxin] Allergy (Intermediate, Verified 03/04/23 10:44) HIVES Sulfa (Sulfonamide Antibiotics) [SULFA (SULFONAMIDE ANTIBIOTICS)] Allergy (Intermediate, Verified 03/04/23 10:44) HIVES bee pollen [BEE STINGS] Allergy (Unknown, Verified 03/04/23 10:44) UNKNOWN pineapple [PINEAPPLE] Allergy (Unknown, Verified 03/04/23 10:44) UNKNOWN beeswax Allergy (Verified 03/04/23 10:44) Anaphylaxis Medication List - Last Reconciled 03/04/23 by ESTHER Arzate amitriptyline 50 mg PO BEDTIME 30 days bisacodyl (Dulcolax (bisacodyl)) 10 mg (2 x 5 mg) PO BEDTIME 2 days xihdlsztzl-okpywjkxgxmqn-msoq 50-325-40 mg 1 cap PO DAILY 14 days diclofenac sodium 1% 4 grams topical QID famotidine 20 mg PO DAILY 30 days linaclotide (Linzess) 290 mcg PO QAM 30 days metoclopramide HCl (Reglan) 10 mg PO DAILY PRN prochlorperazine (Compazine) 25 mg [place] BID PRN propranolol 120 mg (2 x 60 mg) PO BID 90 days simvastatin 20 mg PO DAILY topiramate (Topamax) 100 mg PO BID Tobacco use date assessed: 03/04/23 HPI pain in LT side HPI Details Patient is a 52-year-old female presents today for an office visit due to right flank pain, right leg and right arm heavy feeling for the past 3 days. Patient of KIARA Gordon. medical history significant for migraines, IBS, GERD, carotid stenosis on the right side, hyperlipidemia. Patient denies injury. Reports that at times she feels like she cannot empty her bladder completely. Denies burning with urination or urinary frequency. Denies blood in urine. Denies history of kidney stones. She denies shortness of breath or chest pain, no headache. No chest pain with activity. Reports left heel pain for the past 1 month which is not improving, she reports that she twisted her left ankle about 1 month ago and then she started with left heel pain. Would like to see Podiatry. [facility] Medical History Hypotension IBS (irritable bowel syndrome) Migraine Surgical History History of cholecystectomy History of partial hysterectomy Family History Mother Substance use disorder Stroke Other Mental health disorder Social History Housing: House Alcohol intake: never Patient Tobacco Use Status: Current everyday Tobacco user Tobacco use type: Cigarette Cigarettes Per Day: 10 e-Cigarette/Vaping Use: Never Used Second Hand Smoke Exposure: Yes Substance Use Type: Marijuana Advance Directives Date on File: 02/01/21 service: No Current occupational status: employed and disabled Current occupation: rt handed Cognitive needs: No Hearing needs: No Vision needs: Yes (glasses) Questionnaire Thrive Questionnaire Date Thrive assessed: 02/20/23 AUDIT C Alcohol Use Questionnaire (AUDIT-C) 1. How often do you have a drink containing alcohol?: Never Total Score: 0 Score Reviewed/Action Taken: No SYLVESTER-7 AMB Questionnaire SYLVESTER-7 Date SYLVESTER - 7 assessed: 02/20/23 Source: Developed by Drs. Galo Stanford, Lynne Correia, Rico Guerrero and colleagues, with an educational bernarda from [employer]. Review of Systems Const Denies body aches, Denies chills, Denies fever(s) and Denies headache(s) Eyes Denies change in vision ENT Denies dizziness, Denies otalgia, Denies headache(s), Denies nasal discharge, Denies sinus pain and Denies sore throat Card Denies chest pain, Denies chest pain at rest, Denies chest pain with activity, Denies edema, Denies lightheadedness and Denies dyspnea Resp Denies cough and Denies dyspnea GI Denies abdominal pain, Denies constipation, Denies diarrhea, Denies nausea and Denies vomiting Denies hematuria, Denies dysuria and Reports flank pain (Right) Musc Reports as per HPI, Denies myalgias, Denies arthralgias, Denies joint swelling, Denies numbness and Denies tingling Skin/Breast Denies lesions, Denies rash and Denies unusual bruising Neuro Denies dizziness, Denies headache(s), Denies numbness and Denies tingling Physical exam (Primary Care) Vital Signs: Last Vital Signs Pulse 81 03/04/23 10:31 BP 90/62 03/04/23 10:31 Pulse Ox 99 03/04/23 10:31 Oxygen Delivery Method Room Air 03/04/23 10:31 BMI result Body Mass Index 22.3 Tobacco/Smoking Status: Tobacco use Status Tobacco use date assessed 03/04/23 03/04/23 10:32 Patient Tobacco Use Status Current everyday Tobacco 03/04/23 10:32 Tobacco use type Cigarette 03/04/23 10:32 e-Cigarette/Vaping Use Never Used 03/04/23 10:32 Thrive Assessment: Date of Thrive Assessment Date Thrive assessed 02/20/23 03/04/23 10:32 Const General: cooperative and no acute distress Orientation/consciousness: patient oriented x3 HENMT Head: Yes normocephalic and Yes atraumatic Mouth: oropharynx normal and moist mucous membranes Throat: Yes posterior oropharynx normal Eyes General: appearance normal, both eyes and all related structures Neck Neck: Yes normal visual inspection and Yes full ROM Resp Effort & Inspection: normal respiratory effort and able to speak in complete sentences Auscultation: clear to auscultation bilaterally, no crackles, no rales, no rhonchi and no wheezes Cardio Rate: regular rate Rhythm: regular rhythm Heart sounds: S1 normal heart sound present and S2 normal heart sound present GI Palpation (GI): Soft to palpation, not firm, nontender, no guarding, not rigid and no hepatosplenomegaly Auscultation: normal bowel sounds General: No CVA tenderness Back/Spine/Pelvis Back: No CVA tenderness Thoracic/Lumbar Spine: paraspinal muscle tenderness (Right lumbar aspect) Skin General skin exam: no rashes or lesions noted Neuro General: patient oriented x3 Gait exam (Neuro): Normal gait present Motor exam (neuro): 12/26 motor strength present throughout Extrem Other: Left heel normal to inspection, tender to palpation General: Yes full ROM and No edema Results AMB Urinalysis, Automated 2 UA Leukoctes 0 Edwardo/uL Last Edit by GUSTAVO Murphy on 03/04/23 10:49 UA Nitrite Positive Last Edit by Trisha Tucker Deepa on 03/04/23 10:49 UA Urobilinogen 0.2 mg/dL Last Edit by Trisha Tucker Deepa on 03/04/23 10:49 UA Protein 15 mg/dL Last Edit by Trisha Tucker Deepa on 03/04/23 10:49 UA pH 6.0 Last Edit by Trisha Tucker Deepa on 03/04/23 10:49 UA Blood 1 Serafin/uL Last Edit by Trisha Tucker Deepa on 03/04/23 10:49 UA Specific [place] 1.020 Last Edit by Trisha Tucker Deepa on 03/04/23 10:49 UA Ketone Positive Last Edit by Trisha Tucker Deepa on 03/04/23 10:49 UA Bilirubin 0 mg/dL Last Edit by Trisha Tucker Deepa on 03/04/23 10:49 UA Glucose 0 mg/dL Last Edit by Trisha Tucker Deepa on 03/04/23 10:49 Results Reviewed Results Reviewed: Laboratory Last Values Urine pH (Auto) 6.0 03/04/23 10:47 Specific [place] (Auto) 1.020 03/04/23 10:47 Urine Protein (Auto) 15 mg/dL 03/04/23 10:47 Glucose (UA)(Auto) 0 mg/dL 03/04/23 10:47 Urine Ketones (Auto) Positive 03/04/23 10:47 Urine Blood (Auto) 1 Serafin/uL 03/04/23 10:47 Urine Nitrite (Auto) Positive 03/04/23 10:47 Urine Bilirubin (Auto) 0 mg/dL 03/04/23 10:47 Urine Urobilinogen (Auto) 0.2 mg/dL 03/04/23 10:47 Leukocyte Esterase (Auto) 0 Edwardo/uL 03/04/23 10:47 Assessment and Plan Assessment & Plan (1) Right flank pain: Code(s): R10.9 - Unspecified abdominal pain Plan: Physical exam revealed right paraspinal lumbar aspect muscle tenderness, encouraged patient to use heating packs p.r.n.. Patient also reports mild heavy sensation in her right arm and right leg, physical exam normal, she denies numbness or tingling. Vitals are stable. Will check vitamin B12 and vitamin-D. Patient agreed with the plan. Signs and symptoms reviewed when to notify provider or go to the emergency department. Blood work from November of this year stable. (2) Pain of left heel: Code(s): M79.672 - Pain in left foot Plan: Will obtain left foot x-ray and refer to Podiatry for an evaluation and treatment (3) UTI (urinary tract infection): Code(s): N39.0 - Urinary tract infection, site not specified Plan: Urinalysis positive for UTI, will treat with Macrobid b.i.d. for 7 days. Pat ient was encouraged to increase fluid consumption. Follow-up if no improvement after finishing antibiotic. Signs and symptoms reviewed when to notify provider or go to the emergency department. Patient agreed with the plan. Orders: Orders Vitamin B12 and Folate Today R10.9 - Unspecified abdominal pain Vitamin D 25-OH Total Today R10.9 - Unspecified abdominal pain XR foot LT min 3V Today M79.672 - Pain in left foot AMB Urinalysis Automated Today R30.0 - Dysuria Referrals Podiatry Referral M79.672 - Pain in left foot Medications: New nitrofurantoin monohyd/m-cryst 100 mg (Macrobid) must administer with a meal/food 100 mg PO Q12H 7 days 14 caps 0RF N39.0 - Urinary tract infection, site not specified Refilled topiramate (Topamax) 100 mg PO BID 60 tabs 0RF Coding Level of Care Code Est Pt Level 3 (79003) Diagnoses Right flank pain R10.9 Pain of left heel M79.672 UTI (urinary tract infection) N39.0
== END 2023-03-04 11:02 | disposition home or self-care (01) ==
PROVIDERS: PCP Physician Assistant; Visit Provider Nurse Practitioner Family
DX: R10.9 Unspecified abdominal pain (principal); M79.672 Pain in left foot; N39.0 Urinary tract infection, site not specified; R30.0 Dysuria
CPT/HCPCS: 81003; 99213

== ENCOUNTER 2023-03-05 11:59 | Outpatient (REF) | payer OTHER, SELFPAY ==
--- NOTE | ~2023-03-05 | XR_ITS ---
EXAMINATION: XR FOOT, LEFT CLINICAL INFORMATION: Left foot pain. COMPARISON: None available. TECHNIQUE: AP, lateral, and oblique views of the left foot. FINDINGS: The bones and soft tissues are unremarkable. No fracture. Alignment is anatomic. Joint spaces are maintained and no significant arthritic changes are seen. No fractures or stress fractures seen. XR/XR foot LT min 3V IMPRESSION: Normal left foot.
[2023-03-05 14:49] LABS: Vitamin D 25-OH Total 23.6 ng/mL (>30)
[2023-03-05 14:51] LABS: Folate 14.2 ng/mL (> or = 4.0); Vitamin B12 473 pg/mL (200-900)
== END 2023-03-05 12:00 | disposition home or self-care (01) ==
LOC: HO.LAB 11:59
PROVIDERS: PCP Physician Assistant; Visit Provider Nurse Practitioner Family
DX: M79.672 Pain in left foot (principal); R10.9 Unspecified abdominal pain
CPT/HCPCS: 36415; 73630; 82306; 82607; 82746

== ENCOUNTER 2023-05-13 08:13 | Outpatient (AMB) | payer MEDICAID, SELFPAY ==
[2023-05-13 08:38] VITALS: BP 98/64; PULSE 70; TEMP 36.5; O2SAT 96; BMI 22.5
--- NOTE | 2023-05-13 08:38 | AM.OFFWIN_ITS ---
Intake Vital Signs 05/13/23 08:38 Height 5 ft 8 in Weight 148 lb BMI 22.5 BP 98/64 Blood Pressure Location Rt brachial Position Sitting Pulse 70 Pulse Source Pulse Oximeter Temp 97.7 F Temp Source Temporal Artery Scan Pulse Oximetry (%) 96 Oxygen Delivery Method Room Air Intake Visit Reasons: EP, Pain on left side of abdomen Intake Note: pt is here for c/o pain on left side of abd Patient Tobacco Use Status: Current everyday Tobacco user Allergies aspirin [Aspirin] Allergy (Intermediate, Verified 05/13/23 09:14) WHEEZING clarithromycin [From Biaxin] Allergy (Intermediate, Verified 05/13/23 09:14) HIVES Sulfa (Sulfonamide Antibiotics) [SULFA (SULFONAMIDE ANTIBIOTICS)] Allergy (Intermediate, Verified 05/13/23 09:14) HIVES bee pollen [BEE STINGS] Allergy (Unknown, Verified 05/13/23 09:14) UNKNOWN pineapple [PINEAPPLE] Allergy (Unknown, Verified 05/13/23 09:14) UNKNOWN beeswax Allergy (Verified 05/13/23 09:14) Anaphylaxis Do you need a note to return to daycare/school/sports/work: Yes HPI EP, Pain on left side of abdomen HPI Details 52-year-old female presents to the offic e for a sick visit. she has 2 complaints. Since yesterday patient has been complaining of pain in the right lower abdomen. Continues pain without vomiting. Occasional symptoms of nausea. She lives in a [facility] in [place]. Patient also wants me to start her psych meds. She is not sure of what medications they are. She has not taken them for 4 years. Does not recall the name of the psychiatrist was started her medications. [facility] Medical History IBS (irritable bowel syndrome) Hypotension Migraine Surgical History History of partial hysterectomy History of cholecystectomy Family History Mother Substance use disorder Stroke Other Mental health disorder Social History Housing: House Alcohol intake: never Patient Tobacco Use Status: Current everyday Tobacco user Tobacco use type: Cigarette Cigarettes Per Day: 10 e-Cigarette/Vaping Use: Never Used Second Hand Smoke Exposure: Yes Substance Use Type: Marijuana Advance Directives Date on File: 02/01/21 service: No Current occupational status: employed and disabled Current occupation: rt handed Cognitive needs: No Hearing needs: No Vision needs: Yes (glasses) Physical Exam Vital Signs: Last Vital Signs Temp 97.7 F 05/13/23 08:38 Pulse 70 05/13/23 08:38 BP 98/64 05/13/23 08:38 Pulse Ox 96 05/13/23 08:38 Oxygen Delivery Method Room Air 05/13/23 08:38 BMI result Body Mass Index 22.5 Const General: cooperative and healthy appearing Nutritional Appearance: well nourished Orientation/consciousness: patient oriented x3 Limitations: no limitations HEENT Head: Yes normal to inspection Eyes General: appearance normal, both eyes and all related structures Neck Neck: Yes normal visual inspection Chest Chest palpation & inspection: normal palpation of entire chest wall Resp Effort & Inspection: normal respiratory effort Neuro General: patient oriented x3 Assessment & Plan Assessment & Plan (1) Abdominal pain: Code(s): R10.9 - Unspecified abdominal pain Qualifiers: Abdominal location: right lower quadrant Qualified Code(s): R10.31 - Right lower quadrant pain Plan Review of previous visits show patient has had alcoholic pancreatitis in the past. Blood work has been ordered. Omeprazole has been called in. Per patient's request p.o. Compazine has been ordered. Unable to fill her psych meds from here. Orders: Orders Amylase Today R10.9 - Unspecified abdominal pain Lipase Today R10.9 - Unspecified abdominal pain Basic Metabolic Panel Today R10.9 - Unspecified abdominal pain Erythrocyte Sedimentation Rate Today R10.9 - Unspecified abdominal pain Liver Panel Today R10.9 - Unspecified abdominal pain Complete Blood Count no Diff Today R10.9 - Unspecified abdominal pain Coding Level of Care Code Est Pt Level 4 (51417) Diagnoses Right lower quadrant abdominal pain R10.31 Abdominal location: right lower quadrant
== END 2023-05-13 09:07 | disposition home or self-care (01) ==
PROVIDERS: PCP Physician Assistant; Visit Provider Internal Medicine
DX: R10.31 Right lower quadrant pain (principal)
CPT/HCPCS: 99214

== ENCOUNTER 2023-05-19 02:01 | Emergency (ER) | payer OTHER, SELFPAY ==
[2023-05-19 02:04] VITALS: BP 97/64; PULSE 97; RESP 16; TEMP 37.5; O2SAT 98; BMI 21.6
--- NOTE | 2023-05-19 02:44 | ED.HA ---
HPI - Headache General Chief Complaint: Headache Stated Complaint: Migraine Time Seen by Provider: 05/19/23 02:41 Source: patient and old records reviewed Mode of arrival: ambulatory Limitations: no limitations History of Present Illness HPI Narrative: 52 yo female with PMH of depression, GERD, IBS, HLD, headaches, bronchitis here with c/o typical gradual R sided headache with mild nausea after losing [facility] - became stressed out did not respond to her typical fioricet or topamax. tried aspirin. no fevers, URI symptoms or trauma. MD elicited complaint: migraine Pertinent past history: migraines Onset (ago): day(s) (1) Onset description: gradually Location: right Severity: moderate Quality & Timing: throbbing Exacerbating factors: other Relieving factors: nothing Context: other (stressful event) Associated symptoms: nausea Treatments prior to arrival: migraine medication Related Data Home Medications Medication Instructions Recorded Confirmed aspirin 81 mg chewable tablet 81 mg PO DAILY 05/13/23 Previous Rx's Medication Instructions Recorded diclofenac sodium 1 % topical gel 4 g topical QID #100 grams 11/17/22 amitriptyline 50 mg tablet 50 mg PO BEDTIME 30 days #30 tabs 11/25/22 propranolol 60 mg tablet 120 mg (2 x 60 mg) PO BID 90 days 11/25/22 #360 tabs bisacodyl 5 mg tablet,delayed 10 mg (2 x 5 mg) PO BEDTIME 2 days 12/03/22 release (Dulcolax (bisacodyl)) #4 tabs metoclopramide HCl 10 mg tablet 10 mg PO DAILY PRN nausea and 12/03/22 (Reglan) vomiting #30 tabs simvastatin 20 mg tablet 20 mg PO DAILY #90 tabs 12/09/22 linaclotide 290 mcg capsule 290 mcg PO QAM 30 days #30 caps 12/30/22 (Linzess) cholecalciferol (vitamin D3) 25 25 mcg PO DAILY #90 tabs 03/12/23 mcg (1,000 unit) tablet topiramate 100 mg tablet (Topamax) 100 mg PO BID #60 tabs 03/27/23 pjfeuyvgsq-wlphqpvqsbnrx-reaxdbcd 1 tab PO DAILY PRN pain #14 tabs 05/13/23 50 mg-325 mg-40 mg tablet famotidine 20 mg tablet 20 mg PO DAILY 30 days #30 tabs 05/13/23 prochlorperazine maleate 10 mg 10 mg PO BID PRN nausea and 05/13/23 tablet (Compazine) vomiting #14 tabs Allergies Allergy/AdvReac Type Severity Reaction Status Date / Time aspirin [Aspirin] Allergy Intermediate WHEEZING Verified 05/19/23 02:08 clarithromycin [From Biaxin] Allergy Intermediate HIVES Verified 05/19/23 02:08 Sulfa (Sulfonamide Allergy Intermediate HIVES Verified 05/19/23 02:08 Antibiotics) [SULFA (SULFONAMIDE ANTIBIOTICS)] bee pollen [BEE STINGS] Allergy Unknown UNKNOWN Verified 05/19/23 02:08 pineapple [PINEAPPLE] Allergy Unknown UNKNOWN Verified 05/19/23 02:08 beeswax Allergy Anaphylaxis Verified 05/19/23 02:08 Review of Systems Review of Systems: Constitutional : No Fever, No Chills, No Fatigue ENT/Mouth : No sore throat, No Rhinorrhea Eyes: No Eye Pain, No Swelling, No Redness Cardiovascular : No Chest Pain, No SOB, No Dyspnea on Exertion Respiratory : No Cough, No Sputum Gastrointestinal : No Nausea, No Vomiting, No Diarrhea, No abdominal Pain Genitourinary : No Dysuria, No Urinary Frequency, No Hematuria, Musculoskeletal : No joint pain, No Myalgias, No Joint Swelling Skin : No Skin Lesions, No rash Neuro : No Weakness, No Numbness, No Dizziness, positive Headache Psych : No Anxiety/Panic, No Depression Heme/Lymph: No Bruising, No Bleeding,No Lymphadenopathy Endocrine : No Polyuria, No Polydipsia All other systems reviewed and are negative [facility] Past Medical History Attestation statement: The following information was validated with the patient. Source: old records reviewed Medical History IBS (irritable bowel syndrome) Hypotension Migraine Surgical History History of partial hysterectomy History of cholecystectomy Family History Family History Mother Substance use disorder Stroke Other Mental health disorder Social History Social History Housing: House Alcohol intake: never Patient Tobacco Use Status: Current everyday Tobacco user Tobacco use type: Cigarette Cigarettes Per Day: 10 e-Cigarette/Vaping Use: Never Used Second Hand Smoke Exposure: Yes Substance Use Type: Marijuana Advance Directives: No Advance Directives Information Provided: No Advance Directives Date on File: 02/01/21 service: No Current occupational status: employed and disabled Current occupation: rt handed Cognitive needs: No Hearing needs: No Vision needs: Yes (glasses) Physical Exam Vital Signs: Vital Signs: Last Vital Signs Temp 99.5 F 05/19/23 02:04 Pulse 97 05/19/23 02:04 Resp 16 05/19/23 02:04 BP 97/64 05/19/23 02:04 Pulse Ox 98 05/19/23 02:04 O2 Del Method Room Air 05/19/23 02:04 BMI result Body Mass Index 21.6 Appearance: Alert. Oriented X3. No acute distress. Eyes: Pupils equal, round and reactive to light. ENT: Pharynx normal. Neck: Normal inspection. Neck supple. CVS: Normal heart rate and rhythm. Pulses normal. Respiratory: No respiratory distress. Breath sounds normal. Abdomen: Soft and nontender. Skin: Skin warm and dry. Normal skin color. Normal skin turgor. Extremities: No lower extremity edema. No calf ttp Neuro: Oriented X 3. No motor deficit. No sensory deficit. Medical Decision Making Medical Decision Making MDM Narrative: 52 yo female with PMH of depression, GERD, IBS, HLD, headaches, bronchitis here with typical migraine - brought on by stress - no fevers, normal neuro exam at this time will be given oral medications - given lack of fevers typical onset doubt [employer] infection or SAH Differential Diagnosis Differential Diagnoses: The differential diagnosis associated with the presentation includes tension, migraine Admission/Observation Consideration of admission/observation: Escalation of care including admission/observation considered feels better stable for DC External Record Review External record reviewed: Inpatient record Tests considered The following testing was considered but not selected: CT head but given typical onset doubt SAH Prescription Management I considered prescription management with: Pain Medication Discharge Plan Discharge Clinical Impression: Migraines Qualifiers: Migraine type: without aura Status migrainosus presence: without status migrainosus Intractability: not intractable Qualified Code(s): G43.009 - Migraine without aura, not intractable, without status migrainosus Patient Disposition: Home, Self-Care Instructions: Migraine Headache (ED) Additional Instructions: take your medications as prescribed return for worsening pain, fevers, confusion, vision changes, vomiting or any other concerns. Prescriptions: No Action simvastatin 20 mg tablet 20 mg PO DAILY Qty: 90 1RF Linzess 290 mcg capsule 290 mcg PO QAM 30 Days Qty: 30 0RF cholecalciferol (vitamin D3) 25 mcg (1,000 unit) tablet 25 mcg PO DAILY Qty: 90 0RF topiramate [Topamax] 100 mg tablet 100 mg PO BID Qty: 60 0RF brjoqwagwo-lvbieorydrvab-ncxk 50-325-40 mg tablet 1 tab PO DAILY PRN (Reason: pain) Qty: 14 0RF amitriptyline 50 mg tablet 50 mg PO BEDTIME 30 Days Qty: 30 4RF propranolol 60 mg tablet 120 mg PO BID 90 Days Qty: 360 1RF aspirin 81 mg tablet,chewable 81 mg PO DAILY famotidine 20 mg tablet 20 mg PO DAILY 30 Days Qty: 30 4RF prochlorperazine maleate [Compazine] 10 mg tablet 10 mg PO BID PRN (Reason: nausea and vomiting) Qty: 14 0RF diclofenac sodium 1 % gel 4 g topical QID Qty: 100 0RF Rx Instructions: apply to single knee, ankle, foot; for foot includes sole/toes/top of foot bisacodyl [Dulcolax (bisacodyl)] 5 mg tablet,delayed release (DR/EC) 10 mg PO BEDTIME 2 Days Qty: 4 0RF metoclopramide HCl [Reglan] 10 mg tablet 10 mg PO DAILY PRN (Reason: nausea and vomiting) Qty: 30 3RF
[2023-05-19] MEDS: LORazepam 0.5 MG TABLET PO (03:26)
[2023-05-19] MEDS: oxyCODONE HCl Immed Release 5 MG TABLET PO (03:27)
[2023-05-19 04:20] VITALS: BP 86/55; PULSE 91; RESP 16; TEMP 36.8; O2SAT 99
== END 2023-05-19 04:36 | disposition home or self-care (01) ==
PROVIDERS: Emergency Provider Emergency Medicine
DX: G43.009 Migraine without aura, not intractable, without status migrainosus (principal); F17.210 Nicotine dependence, cigarettes, uncomplicated; Z71.6 Tobacco abuse counseling; Z79.899 Other long term (current) drug therapy
CPT/HCPCS: 99283; 99284

== ENCOUNTER 2023-07-11 08:24 | Emergency (ER) | payer OTHER, SELFPAY ==
[2023-07-11 08:34] VITALS: BP 105/75; PULSE 74; RESP 18; TEMP 37.6; O2SAT 98; BMI 21.0
--- NOTE | 2023-07-11 09:16 | ED.DENTAL ---
HPI - Dental/Oral General Chief complaint: Dental/Oral Stated complaint: facial swelling Time Seen by Provider: 07/11/23 09:16 Source: patient Mode of arrival: ambulatory Limitations: no limitations History of Present Illness HPI Narrative: 53 year old female with pmhx significant for GED, MDD, HDL, constipation, GERD, IBS, migraines, hypotension presents to the ED today with a complaint of toothache x2 days. Reports waking up this morning with mild swelling to her left cheek. No radiation. Rates pain intensity an 8/10. States she was on her way to her dentist this morning as a walk-in however came to the ED instead. Has not been taking anything at home for this. States she last saw her dentist 6 months ago. Denies fever, chills, headache, eye pain, vision changes, ear pain, difficulty swallowing, sore throat, cough, rash, palpitations or chest pain. Denies facial trauma. Related Data Home Medications Medication Instructions Recorded Confirmed aspirin 81 mg chewable tablet 81 mg PO DAILY 05/13/23 Previous Rx's Medication Instructions Recorded diclofenac sodium 1 % topical gel 4 g topical QID #100 grams 11/17/22 amitriptyline 50 mg tablet 50 mg PO BEDTIME 30 days #30 tabs 11/25/22 propranolol 60 mg tablet 120 mg (2 x 60 mg) PO BID 90 days 11/25/22 #360 tabs bisacodyl 5 mg tablet,delayed 10 mg (2 x 5 mg) PO BEDTIME 2 days 12/03/22 release (Dulcolax (bisacodyl)) #4 tabs metoclopramide HCl 10 mg tablet 10 mg PO DAILY PRN nausea and 12/03/22 (Reglan) vomiting #30 tabs simvastatin 20 mg tablet 20 mg PO DAILY #90 tabs 12/09/22 linaclotide 290 mcg capsule 290 mcg PO QAM 30 days #30 caps 12/30/22 (Linzess) cholecalciferol (vitamin D3) 25 25 mcg PO DAILY #90 tabs 03/12/23 mcg (1,000 unit) tablet topiramate 100 mg tablet (Topamax) 100 mg PO BID #60 tabs 03/27/23 famotidine 20 mg tablet 20 mg PO DAILY 30 days #30 tabs 05/13/23 prochlorperazine maleate 10 mg 10 mg PO BID PRN nausea and 05/13/23 tablet (Compazine) vomiting #14 tabs aripiprazole 2 mg tablet (Abilify) 2 mg PO DAILY 30 days #30 tabs 05/20/23 divalproex 250 mg tablet,extended 250 mg PO BID 30 days #60 tabs 05/20/23 release 24 hr (Depakote ER) lorazepam 0.5 mg tablet 0.5 mg PO DAILY PRN anxiety 7 days 05/20/23 #7 tabs elgtqzouto-eykxadjtppabe-wvhsqcye 1 tab PO DAILY PRN pain #14 tabs 07/07/23 50 mg-325 mg-40 mg tablet amoxicillin 875 mg-potassium 1 tab PO BID 7 days #14 tabs 07/11/23 clavulanate 125 mg tablet Allergies Allergy/AdvReac Type Severity Reaction Status Date / Time aspirin [Aspirin] Allergy Intermediate WHEEZING Verified 05/19/23 02:08 clarithromycin [From Biaxin] Allergy Intermediate HIVES Verified 05/19/23 02:08 Sulfa (Sulfonamide Allergy Intermediate HIVES Verified 05/19/23 02:08 Antibiotics) [SULFA (SULFONAMIDE ANTIBIOTICS)] bee pollen [BEE STINGS] Allergy Unknown UNKNOWN Verified 05/19/23 02:08 pineapple [PINEAPPLE] Allergy Unknown UNKNOWN Verified 05/19/23 02:08 beeswax Allergy Anaphylaxis Verified 05/19/23 02:08 Review of Systems Review of Systems: Constitutional: No fever, chills, fatigue, night sweats, weight changes ENT/Mouth: No ear pain, hearing loss, nasal congestion, sinus pain, rhinorrhea, sore throat, +dental pain Eyes: No eye pain, swelling, redness, vision changes, discharge Cardio: No chest pain, palpitations, STEWART, orthopnea, peripheral edema Pulm: No SOB, cough, sputum, wheezing, dyspnea, hemoptysis GI: No nausea, vomiting, hematemesis, abdominal pain, diarrhea, constipation, hematochezia, melena : No irregular bleeding, dysuria, frequency, urgency, hesitancy, hematuria, flank pain, urinary flow changes, urinary incontinence or retention MSK: No back pain, neck pain, joint pain, myalgias Skin: No lesions, rashes Neuro: No weakness, numbness, paresthesias, LOC, dizziness, headache All other systems reviewed and are negative. PMFSH Past Medical History Attestation statement: The following information was validated with the patient. Source: old records reviewed and nursing notes reviewed Medical History IBS (irritable bowel syndrome) Hypotension Migraine Surgical History History of partial hysterectomy History of cholecystectomy Family History Family History Mother Substance use disorder Stroke Other Mental health disorder Social History Social History Housing: House Alcohol intake: never Patient Tobacco Use Status: Current everyday Tobacco user Tobacco use type: Cigarette Cigarettes Per Day: 10 e-Cigarette/Vaping Use: Never Used Second Hand Smoke Exposure: Yes Substance Use Type: Marijuana Advance Directives: No Advance Directives Information Provided: No Advance Directives Date on File: 02/01/21 service: No Current occupational status: employed and disabled Current occupation: rt handed Cognitive needs: No Hearing needs: No Vision needs: Yes (glasses) Physical Exam Vital Signs: Vital Signs: Last Vital Signs Temp 99.6 F 07/11/23 08:34 Pulse 74 07/11/23 08:34 Resp 18 07/11/23 08:34 BP 105/75 07/11/23 08:34 Pulse Ox 98 07/11/23 08:34 O2 Del Method Room Air 07/11/23 08:34 BMI result Body Mass Index 21.0 Vital signs stable, afebrile Const: General: cooperative, no acute distress, alert and awake Nutritional Appearance: average body habitus Orientation/consciousness: patient oriented x3 Limitations: no limitations HEENT: Other: + multiple dental caries, broken and missing teeth. No visible abscess, erythema, edema along the upper/ lower gumline or bilateral buccal mucosa. No visible drainage. There is tenderness to palpation over the left cuspid and 1st bicuspid/associated gum without palpable mass or fluctuance. The left 1st bicuspid is broken. Posterior oropharynx without erythema or edema. Uvula is midline. She is talking in complete sentences and controlling secretions. No edema/erythema/cellulitic changes overlying pain left cheek. No tenderness to palpation of the left cheek/jaw. Head: Yes normal to inspection, Yes normocephalic and Yes atraumatic Ears: hearing grossly normal bilaterally, external ears normal, TM's normal bilaterally, EAC's normal, mastoids normal and no periauricular adenopathy General nose exam: Normal external nose present Face and sinus: Yes normal facial exam, Yes sinuses nontender, Yes face symmetric, No crepitus and No fluctuance Teeth and gingiva: caries and poor dentition Teeth image: 1. tender to palpation over left cuspid and 1st bicuspid, no palpable mass or fluctuance Eyes: General: appearance normal, both eyes and all related structures Conjunctivae: conjunctivae normal Sclerae: sclerae normal Pupils: Equal, round and reactive pupils present EOM: EOMs intact bilaterally Neck: Neck: Yes normal visual inspection and Yes no lymphadenopathy Resp: Effort & Inspection: normal respiratory effort Auscultation: clear to auscultation bilaterally Cardio: Rate: regular rate Rhythm: regular rhythm Skin: General skin exam: no rashes or lesions noted Neuro: General: patient oriented x3 and No moves all extremities Cranial nerves: Yes Equal, round and reactive pupils present Extrem: General: Yes normal to inspection Course Course Course Narrative: On physical exam there is no obvious dental abscess or area of fluctuance that would warrant drainage. I suspect early stages of a tooth infection. There is no orbital involvement. I will prescribe a 7 day course of Augmentin. Additionally she should take Tylenol and ibuprofen as needed for dental pain. I advised patient to follow-up with her dentist this week. She states she will call them Thursday morning. Discussed strict return precautions. All questions answered at this time. Patient is agreeable with disposition and stable for discharge. Medications Administered Discontinued Medications Generic Name Dose Route Start Last Admin Trade Name Freq PRN Reason Stop Dose Admin Acetaminophen 975 mg 07/11/23 09:27 07/11/23 09:37 Acetaminophen 325 Mg Tablet PO 07/11/23 09:28 975 mg ONCE ONE Administration Medical Decision Making Medical Decision Making [facility] Narrative: 53 year old female with pmhx significant for GED, MDD, HDL, constipation, GERD, IBS, migraines, hypotension presents to the ED today with a complaint of toothache x2 days. VSS, afebrile. Patient is nontoxic appearing in NAD. On exam there are multiple dental caries with broken and missing teeth. There is no visible abscess, erythema, edema noted to the upper/ lower gumline or bilateral buccal mucosa. No visible drainage. There is tenderness to palpation over the left cuspid and 1st bicuspid/associated gum without palpable mass or fluctuance. The left 1st bicuspid is broken. Posterior oropharynx without erythema or edema. Uvula is midline. She is talking in complete sentences and controlling secretions. No edema/erythema/cellulitic changes overlying the left cheek. There is no tenderness to palpation of the left cheek or jaw. Clinical concern for dental caries, poor dentition, dental abscess. Unlikely facial cellulitis, facial abscess, peritonsillar abscess, retropharyngeal abscess, strep throat, mono, sinusitis. Unlikely trigeminal neuralgia. Unlikely otitis externa, otitis media, malignant otitis externa, mastoiditis, orbital or preorbital cellulitis. Differential Diagnosis Differential Diagnoses: The differential diagnosis associated with the presentation includes As above. Admission/Observation Not indicated. External Record Review External record reviewed: Inpatient record Prescription Management I considered prescription management with: Pain Medication and Antibiotic Chronic Conditions Patient?s care impacted by: Other (Dental caries) Social Determinants Patient?s care significantly limited by Social Determinants of Health including: Other Social Determinant of Health Critical Care Time Critical Care Time Critical Care Time: No Discharge Plan Discharge Clinical Impression: Toothache, Dental caries Patient Disposition: Home, Self-Care Instructions: Toothache (ED) Additional Instructions: You were seen in the emergency department today for a toothache. There is no abscess. You likely have the beginning stages of a tooth infection. Augmentin is an antibiotic that has been sent to your pharmacy. Take this twice a day for the next 7 days to help with infection. Do not soft taking this early were miss any doses as this can cause infection to worsen or come back. You may also take Tylenol and ibuprofen as needed for pain. Follow-up with your dentist this week. Follow-up with your primary care provider as needed. If your symptoms persist or worsen, return to the emergency department. In the case of an emergency call 911. Prescriptions: New amoxicillin-pot clavulanate 875-125 mg tablet 1 tab PO BID 7 Days Qty: 14 0RF No Action simvastatin 20 mg tablet 20 mg PO DAILY Qty: 90 1RF Linzess 290 mcg capsule 290 mcg PO QAM 30 Days Qty: 30 0RF cholecalciferol (vitamin D3) 25 mcg (1,000 unit) tablet 25 mcg PO DAILY Qty: 90 0RF topiramate [Topamax] 100 mg tablet 100 mg PO BID Qty: 60 0RF aripiprazole [Abilify] 2 mg tablet 2 mg PO DAILY 30 Days Qty: 30 1RF divalproex [Depakote ER] 250 mg tablet extended release 24 hr 250 mg PO BID 30 Days Qty: 60 1RF lorazepam 0.5 mg tablet 0.5 mg PO DAILY PRN (Reason: anxiety) 7 Days Qty: 7 0RF wqkzeiokyu-luguffqrkxcgm-grdf 50-325-40 mg tablet 1 tab PO DAILY PRN (Reason: pain) Qty: 14 0RF amitriptyline 50 mg tablet 50 mg PO BEDTIME 30 Days Qty: 30 4RF propranolol 60 mg tablet 120 mg PO BID 90 Days Qty: 360 1RF aspirin 81 mg tablet,chewable 81 mg PO DAILY famotidine 20 mg tablet 20 mg PO DAILY 30 Days Qty: 30 4RF prochlorperazine maleate [Compazine] 10 mg tablet 10 mg PO BID PRN (Reason: nausea and vomiting) Qty: 14 0RF diclofenac sodium 1 % gel 4 g topical QID Qty: 100 0RF Rx Instructions: apply to single knee, ankle, foot; for foot includes sole/toes/top of foot bisacodyl [Dulcolax (bisacodyl)] 5 mg tablet,delayed release (DR/EC) 10 mg PO BEDTIME 2 Days Qty: 4 0RF metoclopramide HCl [Reglan] 10 mg tablet 10 mg PO DAILY PRN (Reason: nausea and vomiting) Qty: 30 3RF Referrals: Kevan Gordon PA-C [Primary Care Provider] - Interventions: ED Discharge Assessment Last Done: 07/11/23 09:39 Discharge Date/Time: 07/11/23 09:39
[2023-07-11] MEDS: Acetaminophen 325 MG TABLET 975 MG PO (09:37)
== END 2023-07-11 09:39 | disposition home or self-care (01) ==
PROVIDERS: Emergency Provider Emergency Medicine; PCP Physician Assistant
DX: K02.9 Dental caries, unspecified (principal); K08.89 Other specified disorders of teeth and supporting structures; Z79.899 Other long term (current) drug therapy; Z79.82 Long term (current) use of aspirin; F17.210 Nicotine dependence, cigarettes, uncomplicated; F12.90 Cannabis use, unspecified, uncomplicated
CPT/HCPCS: 99283

== ENCOUNTER 2023-07-12 08:51 | Emergency (ER) | payer OTHER, SELFPAY ==
[2023-07-12 09:09] VITALS: BP 104/89; PULSE 78; RESP 18; TEMP 37.6; O2SAT 98; BMI 22.1
--- NOTE | 2023-07-12 09:41 | ED_ITS ---
HPI - Dental/Oral General Chief complaint: Dental/Oral Stated complaint: Abscess in mouth Time Seen by Provider: 07/12/23 09:12 Source: patient and RN notes reviewed Mode of arrival: ambulatory Limitations: no limitations History of Present Illness HPI Narrative: This is a 53-year-old female, with a history of anxiety, depression, hyperlipidemia, GERD, and migraines, presenting to the emergency department with left upper dental pain. She was seen in the emergency room yesterday for dental caries, and was started on Augmentin. She has taken 2 doses. She states that this morning she noticed a white spot above the tooth that is causing her to have pain. She has increased swelling in this area and pain. She denies any fevers or chills. Denies taking any other medications at home to treat her current pain. She has a dentist but they will not see her until she has completed the antibiotic. No difficulty swallowing. No other complaints or concerns at this time. MD Complaint: tooth pain Location: Tooth # (11, 12) Onset (ago): hour(s) Duration: constant Severity: moderate Relieving factors: nothing Exacerbating factors: nothing Context: history of dental caries and poor dental care Associated symptoms: gum swelling Treatment prior to arrival: none Related Data Home Medications Medication Instructions Recorded Confirmed aspirin 81 mg chewable tablet 81 mg PO DAILY 05/13/23 Previous Rx's Medication Instructions Recorded diclofenac sodium 1 % topical gel 4 g topical QID #100 grams 11/17/22 amitriptyline 50 mg tablet 50 mg PO BEDTIME 30 days #30 tabs 11/25/22 propranolol 60 mg tablet 120 mg (2 x 60 mg) PO BID 90 days 11/25/22 #360 tabs bisacodyl 5 mg tablet,delayed 10 mg (2 x 5 mg) PO BEDTIME 2 days 12/03/22 release (Dulcolax (bisacodyl)) #4 tabs metoclopramide HCl 10 mg tablet 10 mg PO DAILY PRN nausea and 12/03/22 (Reglan) vomiting #30 tabs simvastatin 20 mg tablet 20 mg PO DAILY #90 tabs 12/09/22 linaclotide 290 mcg capsule 290 mcg PO QAM 30 days #30 caps 12/30/22 (Linzess) cholecalciferol (vitamin D3) 25 25 mcg PO DAILY #90 tabs 07/20/23 mcg (1,000 unit) tablet topiramate 100 mg tablet (Topamax) 100 mg PO BID #60 tabs 03/27/23 famotidine 20 mg tablet 20 mg PO DAILY 30 days #30 tabs 05/13/23 prochlorperazine maleate 10 mg 10 mg PO BID PRN nausea and 05/13/23 tablet (Compazine) vomiting #14 tabs aripiprazole 2 mg tablet (Abilify) 2 mg PO DAILY 30 days #30 tabs 05/20/23 divalproex 250 mg tablet,extended 250 mg PO BID 30 days #60 tabs 05/20/23 release 24 hr (Depakote ER) lorazepam 0.5 mg tablet 0.5 mg PO DAILY PRN anxiety 7 days 05/20/23 #7 tabs aljhwtizdm-yyvacfrmbjzzg-gyonzibw 1 tab PO DAILY PRN pain #14 tabs 07/07/23 50 mg-325 mg-40 mg tablet amoxicillin 875 mg-potassium 1 tab PO BID 7 days #14 tabs 07/11/23 clavulanate 125 mg tablet acetaminophen 500 mg tablet 500 mg PO Q6H PRN fever or pain 07/12/23 (Tylenol Extra Strength) #30 tabs Allergies Allergy/AdvReac Type Severity Reaction Status Date / Time aspirin [Aspirin] Allergy Intermediate WHEEZING Verified 07/12/23 09:07 clarithromycin [From Biaxin] Allergy Intermediate HIVES Verified 07/12/23 09:07 Sulfa (Sulfonamide Allergy Intermediate HIVES Verified 07/12/23 09:07 Antibiotics) [SULFA (SULFONAMIDE ANTIBIOTICS)] bee pollen [BEE STINGS] Allergy Unknown UNKNOWN Verified 07/12/23 09:07 pineapple [PINEAPPLE] Allergy Unknown UNKNOWN Verified 07/12/23 09:07 beeswax Allergy Anaphylaxis Verified 07/12/23 09:07 Review of Systems Review of Systems: Yes all other systems are reviewed and are negative PMFSH Past Medical History Attestation statement: The following information was validated with the patient. Medical History IBS (irritable bowel syndrome) Hypotension Migraine Surgical History History of partial hysterectomy History of cholecystectomy Family History Family History Mother Substance use disorder Stroke Other Mental health disorder Social History Social History Housing: House Alcohol intake: never Patient Tobacco Use Status: Current everyday Tobacco user Tobacco use type: Cigarette Cigarettes Per Day: 10 e-Cigarette/Vaping Use: Never Used Second Hand Smoke Exposure: Yes Substance Use Type: Marijuana Advance Directives: No Advance Directives Information Provided: Yes Advance Directives Date on File: 02/01/21 service: No Current occupational status: employed and disabled Current occupation: rt handed Cognitive needs: No Hearing needs: No Vision needs: Yes (glasses) Physical Exam Vital Signs: Vital Signs: Last Vital Signs Temp 99.6 F 07/12/23 09:09 Pulse 78 07/12/23 09:09 Resp 18 07/12/23 09:09 BP 104/89 07/12/23 09:09 Pulse Ox 98 07/12/23 09:09 O2 Del Method Room Air 07/12/23 09:09 BMI result Body Mass Index 22.1 Const: Other: General: Awake, alert, and oriented X3. No acute distress. HEENT: Normal inspection, see below CVS: Normal heart rate and rhythm. Pulses normal. Respiratory: No respiratory distress Skin: Warm, dry, no rashes noted to exposed skin. Normal skin color. Normal skin turgor. Extremities: Normal to inspection Neuro: Oriented X 3. No motor deficit. No sensory deficit. HEENT: Other: poor dentition throughout, multiple broken and missing teeth.tooth 11 and 12 with obvious dental decay noted. There is tenderness to palpation noted to Tooth 11. And 12. There is a visible abscess with erythema, edema, and fluctuance noted to the outer gumline superior to tooth 10 and 11. Tenderness to palpation in this region. Mouth: Normal oral and palatal mucosa present, lip normal, tongue normal and moist mucous membranes Teeth and gingiva: poor dentition Throat: Yes posterior oropharynx normal, Yes tonsils normal and Yes uvula midline Medical Decision Making Medical Decision Making MDM Narrative: this is a 53-year-old female presenting to the emergency department with complaints of left upper gum swelling and pain. Patient was seen yesterday in the emergency room and was started on Augmentin. She noticed this morning increased swelling to her upper gumline return to the emergency department for re-evaluation. She has not no fevers or chills. No difficulty opening and closing her mouth. On exam, there is a tender, fluctuant area above tooth number 11 and 12. Tenderness palpation in this region. Lollicaine applied to gumline and needle aspiration performed. see procedure note for further details. Patient was placed on Augmentin yesterday, advised to continue taking this, educated on return precautions. Patient understands and agrees with plan. Patient stable for discharge. Differential Diagnosis Differential Diagnoses: The differential diagnosis associated with the presentation includes Dental abscess, dental decay, dental fracture Procedures Procedure Narrative Procedure Narrative: Lollicaine applied to left upper gum line. Area of fluctuance was identified, 20 gauge needle inserted into this region, only blood was expressed, Small 1 mm superficial cut was made using 11 blade needle was then used to incise region, scant purulence drainage and blood was expressed. Patient tolerated procedure well without any complications or concerns. Discharge Plan Discharge Clinical Impression: Abscess, dental Patient Disposition: Home, Self-Care Instructions: Dental Abscess (ED) Additional Instructions: You had a dental abscess, we drained this area today. Please continue taking prescribed antibiotic you were given yesterday. Finish the entire course. Please follow-up with your dentist. Youu may take Tylenol as needed for pain. If any new or worsening symptoms occur including but not limited to, worsening pain, fevers, chills, increased facial swelling, please return for re- evaluation. Prescriptions: New acetaminophen [Tylenol Extra Strength] 500 mg tablet 500 mg PO Q6H PRN (Reason: fever or pain) Qty: 30 0RF No Action simvastatin 20 mg tablet 20 mg PO DAILY Qty: 90 1RF Linzess 290 mcg capsule 290 mcg PO QAM 30 Days Qty: 30 0RF cholecalciferol (vitamin D3) 25 mcg (1,000 unit) tablet 25 mcg PO DAILY Qty: 90 0RF topiramate [Topamax] 100 mg tablet 100 mg PO BID Qty: 60 0RF aripiprazole [Abilify] 2 mg tablet 2 mg PO DAILY 30 Days Qty: 30 1RF divalproex [Depakote ER] 250 mg tablet extended release 24 hr 250 mg PO BID 30 Days Qty: 60 1RF lorazepam 0.5 mg tablet 0.5 mg PO DAILY PRN (Reason: anxiety) 7 Days Qty: 7 0RF vjbklgjlwi-buvmrtcrbwnxd-auvh 50-325-40 mg tablet 1 tab PO DAILY PRN (Reason: pain) Qty: 14 0RF amoxicillin-pot clavulanate 875-125 mg tablet 1 tab PO BID 7 Days Qty: 14 0RF amitriptyline 50 mg tablet 50 mg PO BEDTIME 30 Days Qty: 30 4RF propranolol 60 mg tablet 120 mg PO BID 90 Days Qty: 360 1RF aspirin 81 mg tablet,chewable 81 mg PO DAILY famotidine 20 mg tablet 20 mg PO DAILY 30 Days Qty: 30 4RF prochlorperazine maleate [Compazine] 10 mg tablet 10 mg PO BID PRN (Reason: nausea and vomiting) Qty: 14 0RF diclofenac sodium 1 % gel 4 g topical QID Qty: 100 0RF Rx Instructions: apply to single knee, ankle, foot; for foot includes sole/toes/top of foot bisacodyl [Dulcolax (bisacodyl)] 5 mg tablet,delayed release (DR/EC) 10 mg PO BEDTIME 2 Days Qty: 4 0RF metoclopramide HCl [Reglan] 10 mg tablet 10 mg PO DAILY PRN (Reason: nausea and vomiting) Qty: 30 3RF
== END 2023-07-12 10:21 | disposition home or self-care (01) ==
PROVIDERS: Emergency Provider Emergency Medicine; PCP Physician Assistant
DX: K12.2 Cellulitis and abscess of mouth (principal); K13.79 Other lesions of oral mucosa; Z79.899 Other long term (current) drug therapy
CPT/HCPCS: 40800; 99282; 99284

== ENCOUNTER 2023-07-21 15:25 | Outpatient (AMB) | payer OTHER, SELFPAY ==
[2023-07-21 15:30] VITALS: PULSE 120; O2SAT 96; BMI 21.6
--- NOTE | 2023-07-21 15:30 | MHC.PC.OV ---
Vital Signs 07/21/23 15:30 07/21/23 15:55 Height 5 ft 8 in Weight 142 lb BMI 21.6 BP 92/60 Blood Pressure Location Rt brachial Lt brachial Position Sitting Sitting Pulse 120 H 108 H Pulse Source Pulse Oximeter Pulse Oximeter Pulse Oximetry (%) 96 Oxygen Delivery Method Room Air Intake Visit Reasons: Medication Follow Up Scheduling Manager Required: No Allergies aspirin [Aspirin] Allergy (Intermediate, Verified 07/21/23 15:42) WHEEZING clarithromycin [From Biaxin] Allergy (Intermediate, Verified 07/21/23 15:42) HIVES Sulfa (Sulfonamide Antibiotics) [SULFA (SULFONAMIDE ANTIBIOTICS)] Allergy (Intermediate, Verified 07/21/23 15:42) HIVES bee pollen [BEE STINGS] Allergy (Unknown, Verified 07/21/23 15:42) UNKNOWN pineapple [PINEAPPLE] Allergy (Unknown, Verified 07/21/23 15:42) UNKNOWN beeswax Allergy (Verified 07/21/23 15:42) Anaphylaxis Medication List - Last Reconciled 07/21/23 by ESTHER Arzate acetaminophen (Tylenol Extra Strength) 500 mg PO Q6H PRN amitriptyline 50 mg PO BEDTIME 30 days amoxicillin-pot clavulanate 875-125 mg 1 tab PO BID 7 days aripiprazole (Abilify) 2 mg PO DAILY 30 days aspirin 81 mg PO DAILY bisacodyl (Dulcolax (bisacodyl)) 10 mg (2 x 5 mg) PO BEDTIME 2 days ywmpgcapwa-iyqhzqoqtuyme-zrua 50-325-40 mg 1 tab PO DAILY PRN cholecalciferol (vitamin D3) 25 mcg PO DAILY diclofenac sodium 1% 4 grams topical QID divalproex ER (Depakote ER) 250 mg PO BID 30 days famotidine 20 mg PO DAILY 30 days linaclotide (Linzess) 290 mcg PO QAM 30 days lorazepam 0.5 mg PO DAILY PRN 7 days metoclopramide HCl (Reglan) 10 mg PO DAILY PRN prochlorperazine maleate (Compazine) 10 mg PO BID PRN propranolol 120 mg (2 x 60 mg) PO BID 90 days simvastatin 20 mg PO DAILY topiramate (Topamax) 100 mg PO BID Tobacco use date assessed: 07/21/23 HPI Medication Follow Up HPI Details Patient is a 53-year-old female who presents today to follow-up on her medications. Patient of KIARA Gordon. medical history significant for migraines-reports she needs refills on her migraine medications-she has referral to see Neurology although did not hear about this referral-will follow-up on referral, IBS, GERD, tobacco dependence, hyperlipidemia, depression, anxiety. Patient reports that she only been taking Fioricet for migraine headache with very minimal improvement, she has ran out on amitriptyline, propranolol, topiramate. No shortness of breath or chest pain. Patient was encouraged to complete her blood work. [facility] Medical History IBS (irritable bowel syndrome) Hypotension Migraine Surgical History History of partial hysterectomy History of cholecystectomy Family History Mother Substance use disorder Stroke Other Mental health disorder Social History Housing: House Alcohol intake: never Patient Tobacco Use Status: Current everyday Tobacco user Tobacco use type: Cigarette Cigarettes Per Day: 10 e-Cigarette/Vaping Use: Never Used Second Hand Smoke Exposure: Yes Substance Use Type: Marijuana Advance Directives Date on File: 02/01/21 service: No Current occupational status: employed and disabled Current occupation: rt handed Cognitive needs: No Hearing needs: No Vision needs: Yes (glasses) Questionnaire Thrive Questionnaire Date Thrive assessed: 02/20/23 AUDIT C Alcohol Use Questionnaire (AUDIT-C) 1. How often do you have a drink containing alcohol?: Never Total Score: 0 Score Reviewed/Action Taken: No SYLVESTER-7 AMB Questionnaire SYLVESTER-7 Date SYLVESTER - 7 assessed: 02/20/23 Source: Developed by Drs. Galo Stanford, Lynne Correia, Rico Guerrero and colleagues, with an educational bernarda from [employer]. Review of Systems Const Denies body aches, Denies chills, Denies fever(s) and Reports headache(s) ENT Denies dizziness, Denies otalgia, Reports headache(s), Denies nasal discharge, Denies sinus pain and Denies sore throat Card Denies chest pain, Denies edema, Denies lightheadedness and Denies dyspnea Resp Denies cough, Denies dyspnea and Denies wheezing GI Denies abdominal pain Musc Denies myalgias Skin/Breast Denies rash Neuro Denies dizziness and Reports headache(s) Aller/Immun Denies wheezing Physical exam (Primary Care) Vital Signs: Last Vital Signs Pulse 108 H 07/21/23 15:55 BP 92/60 07/21/23 15:55 Pulse Ox 96 07/21/23 15:30 Oxygen Delivery Method Room Air 07/21/23 15:30 BMI result Body Mass Index 21.6 Tobacco/Smoking Status: Tobacco use Status Tobacco use date assessed 07/21/23 07/21/23 15:31 Patient Tobacco Use Status Current everyday Tobacco 07/21/23 15:31 Tobacco use type Cigarette 07/21/23 15:31 e-Cigarette/Vaping Use Never Used 07/21/23 15:31 Thrive Assessment: Date of Thrive Assessment Date Thrive assessed 02/20/23 07/21/23 15:31 Const General: cooperative and no acute distress Orientation/consciousness: patient oriented x3 HENMT Head: Yes normocephalic and Yes atraumatic Throat: Yes posterior oropharynx normal Eyes General: appearance normal, both eyes and all related structures Neck Neck: Yes normal visual inspection and Yes full ROM Resp Effort & Inspection: normal respiratory effort and able to speak in complete sentences Auscultation: clear to auscultation bilaterally, no crackles, no rales, no rhonchi and no wheezes Cardio Rate: regular rate Rhythm: regular rhythm Heart sounds: S1 normal heart sound present and S2 normal heart sound present GI Auscultation: normal bowel sounds Skin General skin exam: no rashes or lesions noted Neuro General: patient oriented x3 Gait exam (Neuro): Normal gait present Extrem General: Yes full ROM and No edema Assessment and Plan Assessment & Plan (1) MDD (major depressive disorder), recurrent episode, moderate: Code(s): F33.1 - Major depressive disorder, recurrent, moderate Plan: Continue Depakote (2) HLD (hyperlipidemia): Code(s): E78.5 - Hyperlipidemia, unspecified Plan: Continue simvastatin Low-cholesterol diet Lipid panel ordered (3) Migraine headache: Code(s): G43.909 - Migraine, unspecified, not intractable, without status migrainosus Qualifiers: Intractability: not intractable Migraine type: without aura Status migrainosus presence: without status migrainosus Qualified Code(s): G43.009 - Migraine without aura, not intractable, without status migrainosus Plan: Will follow-up on neurology referral Continue Topamax b.i.d., propranolol b.i.d., amitriptyline at bedtime, Fioricet p.r.n. Plan Follow-up with PCP in 3 months Patient was encouraged to complete her blood work Orders: Orders Lipid Panel Today E78.5 - Hyperlipidemia, unspecified Medications: Refilled amitriptyline 50 mg PO BEDTIME 30 days 30 tabs 4RF G43.011 - Migraine without aura, intractable, with status migrainosus divalproex ER (Depakote ER) 250 mg PO BID 30 days 60 tabs 1RF F33.1 - Major depressive disorder, recurrent, moderate topiramate (Topamax) 100 mg PO BID 60 tabs 0RF btmeoyyzav-mrctxwsjsygnu-dxqm 50-325-40 mg 1 tab PO DAILY PRN 14 tabs 0RF pain G43.119 - Migraine with aura, intractable, without status migrainosus propranolol 120 mg (2 x 60 mg) PO BID 90 days 360 tabs 1RF G43.909 - Migraine, unspecified, not intractable, without status migrainosus simvastatin 20 mg PO DAILY 90 tabs 1RF E78.5 - Hyperlipidemia, unspecified Coding Level of Care Code Est Pt Level 4 (77609) Diagnoses MDD (major depressive disorder), recurrent episode, moderate F33.1 HLD (hyperlipidemia) E78.5 Intractable migraine with aura without status migrainosus G43.009 Intractability: not intractable Migraine type: without aura Status migrainosus presence: without status migrainosus
[2023-07-21 15:55] VITALS: BP 92/60; PULSE 108
== END 2023-07-21 16:03 | disposition home or self-care (01) ==
PROVIDERS: PCP Physician Assistant; Visit Provider Nurse Practitioner Family
DX: F33.1 Major depressive disorder, recurrent, moderate (principal); E78.5 Hyperlipidemia, unspecified; G43.009 Migraine without aura, not intractable, without status migrainosus
CPT/HCPCS: 99214

== ENCOUNTER 2023-10-20 14:15 | Outpatient (AMB) | payer OTHER, SELFPAY ==
[2023-10-20 14:17] VITALS: BP 90/56; PULSE 50; O2SAT 97; BMI 21.0
--- NOTE | 2023-10-20 14:17 | MHC.PC.OV ---
Vital Signs 10/20/23 14:17 Height 5 ft 8 in Weight 138 lb 4 oz BMI 21.0 BP 90/56 L Blood Pressure Location Rt brachial Position Sitting Pulse 50 Pulse Source Pulse Oximeter Pulse Oximetry (%) 97 Oxygen Delivery Method Room Air Intake Visit Reasons: meds Claims Attorney Required: No Accompanied by: Self / Same As Patient Allergies aspirin [Aspirin] Allergy (Intermediate, Verified 10/20/23 14:43) WHEEZING clarithromycin [From Biaxin] Allergy (Intermediate, Verified 10/20/23 14:43) HIVES Sulfa (Sulfonamide Antibiotics) [SULFA (SULFONAMIDE ANTIBIOTICS)] Allergy (Intermediate, Verified 10/20/23 14:43) HIVES bee pollen [BEE STINGS] Allergy (Unknown, Verified 10/20/23 14:43) UNKNOWN pineapple [PINEAPPLE] Allergy (Unknown, Verified 10/20/23 14:43) UNKNOWN beeswax Allergy (Verified 10/20/23 14:43) Anaphylaxis Medication List - Last Reconciled 10/20/23 by Kevan Gordon PA-C acetaminophen (Tylenol Extra Strength) 500 mg PO Q6H PRN amitriptyline 50 mg PO BEDTIME 30 days aripiprazole (Abilify) 2 mg PO DAILY 30 days aspirin 81 mg PO DAILY bisacodyl (Dulcolax (bisacodyl)) 10 mg (2 x 5 mg) PO BEDTIME 2 days vpbqpmgfah-nyqepxivqhidk-dbpa 50-325-40 mg 1 tab PO DAILY PRN cholecalciferol (vitamin D3) 25 mcg PO DAILY divalproex ER (Depakote ER) 250 mg PO BID 30 days famotidine 20 mg PO DAILY 30 days linaclotide (Linzess) 290 mcg PO QAM 30 days lorazepam 0.5 mg PO DAILY PRN 7 days metoclopramide HCl (Reglan) 10 mg PO DAILY PRN prochlorperazine maleate (Compazine) 10 mg PO BID PRN propranolol 120 mg (2 x 60 mg) PO BID 90 days simvastatin 20 mg PO DAILY topiramate (Topamax) 100 mg PO BID 30 days Tobacco use date assessed: 10/20/23 Dental Screening Dental Screen Date: 10/20/23 Did you have a dental visit in the last 12 months?: Yes Did you have a dental problem in the last 6 months where you did not have access to dental care?: No Was dental information given to patient?: Patient has dentist HPI meds HPI Details Patient is a 53-year-old female here today for follow-up visit. This been quite a while since I have seen this 53-year-old female with a past medical history significant for chronic migraines, tobacco dependency and IBS, GERD, major depression. Currently homeless and living in a retirement in [place]. Does use public transit and support from her daughters to get to medical appointments. .. Migraines: Was previously followed by a neurologist and was on her chronic pain medications for her migraines. She does report continuing to have daily headaches. Has been out of her longstanding headache medication. Currently on--> amitriptyline, Topamax and propanolol. Has lost follow-up with Neurology .. Tobacco dependency: Reports having a half a pack of cigarettes per day. She does understand her her need to quit smoking though at this time is not willing to do so. PAD: Patient does have a history of carotid stenosis to which she reports she was told she needed stent placed though she is apprehensive on doing this and will let me know if she would like to see a vascular surgeon.. On physical exam and does have loud right carotid bruit. [facility] Medical History IBS (irritable bowel syndrome) Hypotension Migraine Surgical History History of partial hysterectomy History of cholecystectomy Family History Mother Substance use disorder Stroke Other Mental health disorder Social History Housing: House Alcohol intake: never Patient Tobacco Use Status: Current everyday Tobacco user Tobacco use type: Cigarette Cigarettes Per Day: 10 e-Cigarette/Vaping Use: Never Used Second Hand Smoke Exposure: Yes Substance Use Type: Marijuana Advance Directives Date on File: 02/01/21 service: No Current occupational status: employed and disabled Current occupation: rt handed Cognitive needs: No Hearing needs: No Vision needs: Yes (glasses) Questionnaire PHQ-9 Over the last 2 weeks, how often have you been bothered by any of the following problems? 1. Little interest or pleasure in doing things: more than half the days 2. Feeling down, depressed, or hopeless: more than half the days 3. Trouble falling or staying asleep, or sleeping too much: nearly every day 4. Feeling tired or having little energy: several days 5. Poor appetite or overeating: more than half the days 6. Feeling bad about yourself - or that you are a failure or have let yourself or your family down: not at all 7. Trouble concentrating on things, such as reading the newspaper or watching television: not at all 8. Moving or speaking so slowly that other people could have noticed. Or the opposite - being so fidgety or restless that you have been moving around a lot more than usual: more than half the days 9. Thoughts that you would be better off or of hurting yourself in some way: not at all Total score: 12 Depression Screening Interpretation: Positive Depression Screening Follow-up: Existing condition Depression Screening Done: Yes 19009 - PHQ-9 Billing: Yes Source: Developed by Drs. Galo Stanford, Lynne Correia, Rico Guerrero and colleagues, with an educational bernarda from [employer]. Thrive Questionnaire Date Thrive assessed: 10/20/23 I am a: Patient What is your living situation today?: I have a steady place to live Within the past 12 months, did the food you bought not last and you didn't have the money to get more?: Never true Within the past 12 months, did you worry whether your food would run out before you got money to buy more?: Never true Do you have trouble paying for medicines?: No Do you have trouble getting transportation to medical appointments?: No Do you have trouble paying your heating and electricity bill?: No Do you have trouble taking care of your child, family member or friend?: No Do you have trouble with day-to-day activities such as bathing, preparing meals, shopping, managing finances, etc.?: No Are you currently unemployed and looking for a job?: No Are you interested in more education?: No Please select the resources that you would like help with: None Currently or been in a relationship where the following occur: no concerns reported THRIVE Score: 0 AUDIT C Alcohol Use Questionnaire (AUDIT-C) 1. How often do you have a drink containing alcohol?: Never 3. How often do you have six or more drinks on one occasion?: Never Total Score: 0 SYLVESTER-7 AMB Questionnaire SYLVESTER-7 Date SYLVESTER - 7 assessed: 10/20/23 Feeling nervous, anxious, or on edge: 3 = Nearly every day Not being able to stop or control worryin = Not at all Worrying too much about different things: 0 = Not at all Trouble relaxin = Nearly every day Being so restless that it is hard to sit still: 3 = Nearly every day Becoming easily annoyed or irritable: 3 = Nearly every day Feeling afraid as if something awful might happen: 0 = Not at all Total SYLVESTER-7 score (0-4 normal; 5-9 mild; 10-14 moderate; 15-21 severe): 12 Source: Developed by Drs. Galo Stanford, Lynne Correia, Rico Guerrero and colleagues, with an educational bernarda from [employer]. SYLVESTER-7 Assessment Billing SYLVESTER-7 Assessment Tool: SYLVESTER-7 Assessment 20342 Review of Systems Const Denies headache(s) Eyes Denies loss of vision ENT Denies vertigo, Denies dizziness, Denies headache(s) and Denies sore throat Card Denies chest pain, Denies leg edema and Denies lightheadedness Resp Denies cough, Denies hemoptysis and Denies wheezing GI Denies abdominal pain, Denies melena, Denies constipation, Denies diarrhea and Denies vomiting Denies urinary frequency, Denies dysuria and Denies urinary urgency Musc Denies arthralgias, Denies joint swelling, Denies numbness and Denies tingling Neuro Denies Abnormal speech present, Denies behavioral changes, Denies vertigo, Denies dizziness, Denies headache(s), Denies loss of vision, Denies memory loss, Denies numbness and Denies tingling Psych Denies anxiety, Denies behavioral changes, Denies depression, Denies memory loss and Denies panic attacks Stuart/Lymph Denies easy bleeding and Denies easy bruising Aller/Immun Denies wheezing Physical exam (Primary Care) Vital Signs: Last Vital Signs Pulse 50 10/20/23 14:17 BP 90/56 L 10/20/23 14:17 Pulse Ox 97 10/20/23 14:17 Oxygen Delivery Method Room Air 10/20/23 14:17 BMI result Body Mass Index 21.0 Tobacco/Smoking Status: Tobacco use Status Tobacco use date assessed 10/20/23 10/20/23 14:18 Patient Tobacco Use Status Current everyday Tobacco 10/20/23 14:18 Tobacco use type Cigarette 10/20/23 14:18 e-Cigarette/Vaping Use Never Used 10/20/23 14:18 PHQ-9: PHQ-9 Score PHQ-9: Total score 12 10/20/23 15:01 Depression Screening Interpretation: Positive Depression Screening Follow-up: Existing condition Thrive Assessment: Date of Thrive Assessment Date Thrive assessed 10/20/23 10/20/23 14:37 Currently or been in a relationship where the following occur: no concerns reported Const General: healthy appearing, no acute distress, alert and awake Nutritional Appearance: well nourished Orientation/consciousness: oriented to person, oriented to place and oriented to time HENMT Ears: TM's normal bilaterally General nose exam: Normal nasal mucous membranes and turbinates present Eyes Conjunctivae: conjunctivae normal Sclerae: sclerae normal Pupils: Equal, round and reactive pupils present Neck Neck: Yes no lymphadenopathy and Yes no JVD Thyroid: Thyroid normal Carotids: bruit on the right Resp Effort & Inspection: normal respiratory effort and not tachypneic Auscultation: no crackles, no rales, no rhonchi and no wheezes Cardio Rate: regular rate Rhythm: regular rhythm Heart sounds: no murmurs and normal S1 and S2 GI Palpation (GI): Soft to palpation, nontender, no hepatomegaly and no splenomegaly Auscultation: normal bowel sounds Skin General skin exam: no rashes or lesions noted and dry skin Neuro General: oriented to person, oriented to place and oriented to time Cranial nerves: Yes Equal, round and reactive pupils present Speech: No Abnormal speech present Gait exam (Neuro): Normal gait present Motor exam (neuro): no tremor noted Extrem Right upper extremity: full ROM Left upper extremity: full ROM Right lower extremity: full ROM; no edema Left lower extremity: full ROM; no edema Psych Mental Status: mental status grossly normal Speech and movement: Normal speech and movement present Affect: normal affect Attitude: cooperative Thought process: Normal thought process present Assessment and Plan Assessment & Plan (1) HLD (hyperlipidemia): Code(s): E78.5 - Hyperlipidemia, unspecified Qualifiers: Hyperlipidemia type: mixed hyperlipidemia Qualified Code(s): E78.2 - Mixed hyperlipidemia Plan: Patient continues on simvastatin 20 mg. Does have peripheral artery disease and unfortunately continues to smoke. Will continue to follow fasting lipid panel with goal LDL to be below 100 (2) Bipolar disorder in partial remission: Code(s): F31.70 - Bipolar disorder, currently in remission, most recent episode unspecified Qualifiers: Most recent bipolar episode type: depressed Qualified Code(s): F31.75 - Bipolar disorder, in partial remission, most recent episode depressed Plan: Continues on mood stabilization with Depakote. Also on Abilify. She feels her mental health fairly stable. She is living in a homeless retirement in [place] at this time. Will awaiting to be placed in housing. (3) Carotid stenosis, right: Code(s): I65.21 - Occlusion and stenosis of right carotid artery Plan: Does have right carotid bruit on physical exam. She does report getting imaging in [place] to which she reports severe stenosis in her carotid artery and subclavian region She does understand she needs to see vascular surgeon for possible revascularization surgery though she is anxious about this and does not want to go through with the procedure. (4) Tobacco dependence: Code(s): F17.200 - Nicotine dependence, unspecified, uncomplicated Plan: She does understand she needs to quit smoking. Has drastically reduced the amount of smoking over the last several months. She reports smoking a half a pack of cigarettes per day. She declines offers to start nicotine replacement or medication. (5) Migraine headache: Code(s): G43.909 - Migraine, unspecified, not intractable, without status migrainosus Qualifiers: Intractability: not intractable Migraine type: without aura Status migrainosus presence: without status migrainosus Qualified Code(s): G43.009 - Migraine without aura, not intractable, without status migrainosus Plan: Patient has a longstanding history of frequent severe migraines. Was even on opiate (methadone) in the past for her migraines. Now continues with daily use of propanolol, Topamax and amitriptyline. Does have Fioricet and antiemetics available to her for migraine symptoms. (6) MDD (major depressive disorder), recurrent episode, moderate: Code(s): F33.1 - Major depressive disorder, recurrent, moderate Plan: Patient's PHQ-9 score positive for depression which has been existing condition for her. Has seen psychiatrists in the past though not at this time. She has not interested in mental health therapy or Psychiatry. Will continue on her current dose of Depakote, (7) SYLVESTER (generalized anxiety disorder): Code(s): F41.1 - Generalized anxiety disorder Plan: Patient's SYLVESTER-7 score positive for anxiety which has been existing condition for her. Not speaking with a mental health therapist or a psychiatrist at this time. Continues on mood stabilization with Depakote which has been helpful. (8) Asthma: Code(s): J45.909 - Unspecified asthma, uncomplicated Qualifiers: Asthma complication type: uncomplicated Asthma persistence: unspecified Asthma severity: mild Qualified Code(s): J45.909 - Unspecified asthma, uncomplicated Plan: Does have a history of asthma. Would like a refill on her albuterol inhaler. She does report not needing to use her albuterol inhaler all the time though does at times have coughing fits. (9) Homeless: Code(s): Z59.00 - Homelessness unspecified Plan: Currently living in a homeless retirement in [place]. Currently on waiting list for housing.. Does use public transit to get to her appointments. Orders: Orders Lipid Panel 10/20/23 E78.2 - Mixed hyperlipidemia Comprehensive [facility]oy. Panel Fast 10/20/23 E78.2 - Mixed hyperlipidemia Complete Blood Count no Diff 10/20/23 E78.2 - Mixed hyperlipidemia Medications: New albuterol sulfate 90 mcg/actuation 1 inh inhalation QID 30 days PRN 8.5 grams 3RF shortness of breath or wheezing J45.909 - Unspecified asthma, uncomplicated Changed From amitriptyline 50 mg PO BEDTIME 30 days 30 tabs 4RF G43.011 - Migraine without aura, intractable, with status migrainosus To amitriptyline 50 mg PO BEDTIME 90 days 90 tabs 2RF G43.011 - Migraine without aura, intractable, with status migrainosus From divalproex ER (Depakote ER) 250 mg PO BID 30 days 60 tabs 1RF F33.1 - Major depressive disorder, recurrent, moderate To divalproex ER (Depakote ER) 250 mg PO BID 90 days 180 tabs 2RF F33.1 - Major depressive disorder, recurrent, moderate From famotidine 20 mg PO DAILY 30 days 30 tabs 4RF K21.9 - Gastro-esophageal reflux disease without esophagitis To famotidine 20 mg PO DAILY 90 days 90 tabs 2RF K21.9 - Gastro-esophageal reflux disease without esophagitis From topiramate (Topamax) 100 mg PO BID 30 days 60 tabs 3RF G43.009 - Migraine without aura, not intractable, without status migrainosus To topiramate (Topamax) 100 mg PO BID 90 days 180 tabs 2RF G43.009 - Migraine without aura, not intractable, without status migrainosus Refilled simvastatin 20 mg PO DAILY 90 tabs 2RF E78.5 - Hyperlipidemia, unspecified lorazepam 0.5 mg PO DAILY 7 days PRN 7 tabs 0RF anxiety F33.1 - Major depressive disorder, recurrent, moderate, F41.1 - Generalized anxiety disorder [id number]-zpdbylqlvzhnp-mxqa 50-325-40 mg 1 tab PO DAILY PRN 14 tabs 0RF pain G43.119 - Migraine with aura, intractable, without status migrainosus prochlorperazine maleate (Compazine) 10 mg PO BID PRN 14 tabs 0RF nausea and vomiting propranolol 120 mg (2 x 60 mg) PO BID 90 days 360 tabs 2RF G43.909 - Migraine, unspecified, not intractable, without status migrainosus Coding Level of Care Code Est Pt Level 4 (86649) Diagnoses Mixed hyperlipidemia E78.2 Hyperlipidemia type: mixed hyperlipidemia Bipolar disorder, in partial remission, most recent episode depressed F31.75 Most recent bipolar episode type: depressed Carotid stenosis, right I65.21 Tobacco dependence F17.200 Intractable migraine with aura without status migrainosus G43.009 Intractability: not intractable Migraine type: without aura Status migrainosus presence: without status migrainosus MDD (major depressive disorder), recurrent episode, moderate F33.1 SYLVESTER (generalized anxiety disorder) F41.1 Mild asthma without complication, unspecified whether persistent J45.909 Asthma complication type: uncomplicated Asthma persistence: unspecified Asthma severity: mild Homeless Z59.00 Additional Codes SYLVESTER-7 Assessment Billing - SYLVESTER-7 Assessment Tool: SYLVESTER-7 Assessment [id number] ([id number])
== END 2023-10-20 15:05 | disposition home or self-care (01) ==
PROVIDERS: PCP Physician Assistant; Visit Provider Physician Assistant
DX: E78.2 Mixed hyperlipidemia (principal); F31.75 Bipolar disorder, in partial remission, most recent episode depressed; I65.21 Occlusion and stenosis of right carotid artery; Z59.00 Homelessness unspecified; F17.210 Nicotine dependence, cigarettes, uncomplicated; G43.009 Migraine without aura, not intractable, without status migrainosus; F41.1 Generalized anxiety disorder; J45.909 Unspecified asthma, uncomplicated; K21.9 Gastro-esophageal reflux disease without esophagitis
CPT/HCPCS: 99214

== ENCOUNTER 2023-10-23 07:25 | Outpatient (REF) | payer OTHER, SELFPAY ==
[2023-10-23 08:06] LABS: Hematocrit 38.6 % (37.0-47.0); Hemoglobin 12.6 g/dl (12.0-16.0); Mean Corpuscular HGB Conc 32.6 g/dl (31.0-35.0); Mean Corpuscular Hemoglobin 31.7 pg (27.0-33.0); Mean Corpuscular Volume 97.2 fL (80.0-98.0); Mean Platelet Volume 9.5 fL (9.4-12.3); Platelet Count 224 X10*3/uL (160-400); Red Blood Count 3.97 X10*6/uL (4.20-5.50); White Blood Count 9.2 X10*3/uL (4.8-10.8)
[2023-10-23 08:38] LABS: Alanine Aminotransferase 10 U/L (0-31); Albumin Level 4.2 g/dL (3.5-5.0); Alkaline Phosphatase 132 U/L (39-117); Anion Gap 12 (12-20); Aspartate Amino Transferase 15 U/L (5-31); Bilirubin Total 0.3 mg/dL (0.0-1.0); Blood Urea Nitrogen 21 mg/dL (9-16); Carbon Dioxide 18 mmol/L (22-29); Chloride 118 mmol/L (96-108); Cholesterol 183 mg/dL (<200); Estimated Glomerular Filt Rate > 60; Glucose Fasting 84 mg/dL (60-99); HDL Cholesterol 59 mg/dL (>40); LDL Cholesterol Calculated 102 mg/dL (<100); Potassium 4.2 mmol/L (3.3-5.1); Sodium 144 mmol/L (135-145); Total Protein 7.2 g/dL (6.5-8.0); Triglycerides 114 mg/dL (<150)
== END 2023-10-23 07:26 | disposition home or self-care (01) ==
LOC: HO.LAB 07:25
PROVIDERS: PCP Physician Assistant; Visit Provider Physician Assistant
DX: E78.2 Mixed hyperlipidemia (principal)
CPT/HCPCS: 36415; 80053; 80061; 85027

== ENCOUNTER 2023-10-24 03:16 | Emergency (ER) | payer OTHER, SELFPAY ==
[2023-10-24 03:28] VITALS: BP 82/53; PULSE 81; RESP 12; TEMP 36.8; O2SAT 96; BMI 22.5
[2023-10-24 04:19] VITALS: BP 81/47; PULSE 72; RESP 20; TEMP 36.5; O2SAT 97
--- NOTE | 2023-10-24 04:29 | ED_ITS ---
HPI - Headache General Chief Complaint: Headache Stated Complaint: Migraine Time Seen by Provider: 10/24/23 04:28 Source: patient Mode of arrival: ambulatory Limitations: no limitations History of Present Illness HPI Narrative: Patient's history of recurrent migraine headaches been having headache for last 3 days retrobulbar unable to get the medication used to take Fioricet without much relief usually high low blood pressure in 90s on arrival patient's blood pressure was in 80s no vomiting no diarrhea patient took Fioricet earlier without much relief no chest pain no palpitation patient does not feel lighthe aded Related Data Home Medications Medication Instructions Recorded Confirmed aspirin 81 mg chewable tablet 81 mg PO DAILY 05/13/23 10/20/23 Previous Rx's Medication Instructions Recorded bisacodyl 5 mg tablet,delayed 10 mg (2 x 5 mg) PO BEDTIME 2 days 12/03/22 release (Dulcolax (bisacodyl)) #4 tabs metoclopramide HCl 10 mg tablet 10 mg PO DAILY PRN nausea and 12/03/22 (Reglan) vomiting #30 tabs linaclotide 290 mcg capsule 290 mcg PO QAM 30 days #30 caps 12/30/22 (Linzess) cholecalciferol (vitamin D3) 25 25 mcg PO DAILY #90 tabs 03/12/23 mcg (1,000 unit) tablet aripiprazole 2 mg tablet (Abilify) 2 mg PO DAILY 30 days #30 tabs 05/20/23 acetaminophen 500 mg tablet 500 mg PO Q6H PRN fever or pain 07/12/23 (Tylenol Extra Strength) #30 tabs albuterol sulfate 90 mcg/actuation 1 inh inhalation QID PRN shortness 10/20/23 aerosol inhaler of breath or wheezing 30 days #8.5 grams amitriptyline 50 mg tablet 50 mg PO BEDTIME 90 days #90 tabs 10/20/23 aomvbwymmg-lamilfktljxmi-lninbwce 1 tab PO DAILY PRN pain #14 tabs 10/20/23 50 mg-325 mg-40 mg tablet divalproex 250 mg tablet,extended 250 mg PO BID 90 days #180 tabs 10/20/23 release 24 hr (Depakote ER) famotidine 20 mg tablet 20 mg PO DAILY 90 days #90 tabs 10/20/23 lorazepam 0.5 mg tablet 0.5 mg PO DAILY PRN anxiety 7 days 10/20/23 #7 tabs prochlorperazine maleate 10 mg 10 mg PO BID PRN nausea and 10/20/23 tablet (Compazine) vomiting #14 tabs propranolol 60 mg tablet 120 mg (2 x 60 mg) PO BID 90 days 10/20/23 #360 tabs simvastatin 20 mg tablet 20 mg PO DAILY #90 tabs 10/20/23 topiramate 100 mg tablet (Topamax) 100 mg PO BID 90 days #180 tabs 10/20/23 rimegepant 75 mg disintegrating 75 mg PO Q OTHER DAY 30 days #15 10/22/23 tablet (Nurtec ODT) tabs Allergies Allergy/AdvReac Type Severity Reaction Status Date / Time aspirin [Aspirin] Allergy Intermediate WHEEZING Verified 10/24/23 03:28 clarithromycin [From Biaxin] Allergy Intermediate HIVES Verified 10/24/23 03:28 Sulfa (Sulfonamide Allergy Intermediate HIVES Verified 10/24/23 03:28 Antibiotics) [SULFA (SULFONAMIDE ANTIBIOTICS)] bee pollen [BEE STINGS] Allergy Unknown UNKNOWN Verified 10/24/23 03:28 pineapple [PINEAPPLE] Allergy Unknown UNKNOWN Verified 10/24/23 03:28 beeswax Allergy Anaphylaxis Verified 10/24/23 03:28 Review of Systems Review of Systems: Yes all other systems are reviewed and are negative COUNTS INCLUDE 234 BEDS AT THE [facility] Past Medical History Medical History IBS (irritable bowel syndrome) Hypotension Migraine Surgical History History of partial hysterectomy History of cholecystectomy Family History Family History Mother Substance use disorder Stroke Other Mental health disorder Social History Social History Housing: House Alcohol intake: never Patient Tobacco Use Status: Current everyday Tobacco user Tobacco use type: Cigarette Cigarettes Per Day: 10 Smoked in Last 30 Days: No e-Cigarette/Vaping Use: Never Used Second Hand Smoke Exposure: Yes Use of substances other than those prescribed or required for medical reasons: No Substance Use Type: Marijuana Advance Directives: No Advance Directives Information Provided: Yes Advance Directives Date on File: 02/01/21 Patient : No service: No Current occupational status: employed and disabled Current occupation: rt handed Cognitive needs: No Hearing needs: No Vision needs: Yes (glasses) Physical Exam Vital Signs: Vital Signs: Last Vital Signs Temp 97.7 F 10/24/23 04:19 Pulse 69 10/24/23 05:26 Resp 19 10/24/23 05:26 BP 94/62 10/24/23 06:52 Pulse Ox 97 10/24/23 05:26 O2 Del Method Room Air 10/24/23 05:26 BMI result Body Mass Index 22.5 Appearance: Alert. Oriented X3. No acute distress. Eyes: No pallor or icterus ENT: Pharynx normal. Oral Mucosa moist no temporal artery tenderness Neck: Normal inspection. Neck supple. CVS: Normal heart rate and rhythm. Pulses normal. Respiratory: No respiratory distress. Equal air entry bilateral, no wheezing/rales/rhonchi Abdomen: Soft and nontender. Bowel sounds are present, no mass palpable, no CVA tenderness Skin: Skin warm and dry. Normal skin color. Normal skin turgor. Extremities: No lower extremity edema. No calf tenderness Neuro: Oriented X 3. No motor deficit. Medications Administered Generic Name Dose Route Start Last Admin Trade Name Freq PRN Reason Stop Dose Admin Sodium Chloride 1,000 mls @ 999 mls/hr 10/24/23 06:34 10/24/23 06:42 Ns IV 10/24/23 07:34 999 mls/hr .Q1H1M ONE Administration Discontinued Medications Generic Name Dose Route Start Last Admin Trade Name Freq PRN Reason Stop Dose Admin Sodium Chloride 1,000 mls @ 999 mls/hr 10/24/23 04:29 10/24/23 05:35 Ns IV 10/24/23 05:29 Infused .Q1H1M ONE Infusion Midodrine 5 mg 10/24/23 06:34 10/24/23 06:42 Midodrine Hcl 5 Mg Tablet PO 10/24/23 06:35 5 mg ONCE ONE Administration Sumatriptan Succinate 6 mg 10/24/23 04:29 10/24/23 04:47 Sumatriptan Succinate 6 Mg/0.5 Ml Vial SUBCUT 10/24/23 04:30 6 mg ONCE ONE Administration Medical Decision Making Medical Decision Making MDM Narrative: Patient's migraine headache with asymptomatic hypertension improved after IV fluids and midodrine. patient advised to follow-up with PCP drink plenty of fluids Differential Diagnosis Differential Diagnoses: The differential diagnosis associated with the presentation includes Migraine headaches/tension headache Lab Data [facility] Lab Attestation statement: I reviewed the patient's lab results. Labs are stable which were done as outpatient on 10/23/2023 Independent Interpretation I performed an independent interpretation of an: Rhythm Strip Interpretation: Normal sinus rhythm Discharge Plan Discharge Clinical Impression: Migraines Patient Disposition: Home, Self-Care Instructions: Migraine Headache (ED) Prescriptions: No Action Linzess 290 mcg capsule 290 mcg PO QAM 30 Days Qty: 30 0RF cholecalciferol (vitamin D3) 25 mcg (1,000 unit) tablet 25 mcg PO DAILY Qty: 90 0RF aripiprazole [Abilify] 2 mg tablet 2 mg PO DAILY 30 Days Qty: 30 1RF Nurtec ODT 75 mg tablet,disintegrating 75 mg PO Q OTHER DAY 30 Days Qty: 15 3RF acetaminophen [Tylenol Extra Strength] 500 mg tablet 500 mg PO Q6H PRN (Reason: fever or pain) Qty: 30 0RF aspirin 81 mg tablet,chewable 81 mg PO DAILY amitriptyline 50 mg tablet 50 mg PO BEDTIME 90 Days Qty: 90 2RF divalproex [Depakote ER] 250 mg tablet extended release 24 hr 250 mg PO BID 90 Days Qty: 180 2RF famotidine 20 mg tablet 20 mg PO DAILY 90 Days Qty: 90 2RF lorazepam 0.5 mg tablet 0.5 mg PO DAILY PRN (Reason: anxiety) 7 Days Qty: 7 0RF ajlzvfpxxm-pteasxqudyotu-ovzw 50-325-40 mg tablet 1 tab PO DAILY PRN (Reason: pain) Qty: 14 0RF albuterol sulfate 90 mcg/actuation HFA aerosol inhaler 1 inh inhalation QID PRN (Reason: shortness of breath or wheezing) 30 Days Qty: 8.5 3RF prochlorperazine maleate [Compazine] 10 mg tablet 10 mg PO BID PRN (Reason: nausea and vomiting) Qty: 14 0RF propranolol 60 mg tablet 120 mg PO BID 90 Days Qty: 360 2RF simvastatin 20 mg tablet 20 mg PO DAILY Qty: 90 2RF topiramate [Topamax] 100 mg tablet 100 mg PO BID 90 Days Qty: 180 2RF bisacodyl [Dulcolax (bisacodyl)] 5 mg tablet,delayed release (DR/EC) 10 mg PO BEDTIME 2 Days Qty: 4 0RF metoclopramide HCl [Reglan] 10 mg tablet 10 mg PO DAILY PRN (Reason: nausea and vomiting) Qty: 30 3RF
[2023-10-24] MEDS: 0.9 % Sodium Chloride 1,000 ML 999 ML IV ×2 (04:41→06:42)
[2023-10-24] MEDS: SUMAtriptan succinate 6 MG/0.5 ML VIAL SUBCUT (04:47)
[2023-10-24 05:26] VITALS: BP 106/79; PULSE 69; RESP 19; O2SAT 97
[2023-10-24] MEDS: Midodrine HCl 5 MG TABLET PO (06:42)
[2023-10-24 06:52] VITALS: BP 94/62
--- NOTE | 2023-10-24 07:19 | ECG_ITS ---
Test Reason : LOW BLOOD PRESSURE Blood Pressure : / mmHG Vent. Rate : 073 BPM Atrial Rate : 073 BPM P-R Int : 136 ms QRS Dur : 088 ms QT Int : 402 ms P-R-T Axes : 071 074 068 degrees QTc Int : 442 ms Normal sinus rhythm Normal ECG When compared with ECG of 23-MAR-2022 18:47, No significant change was found Referred By: Zachery Barraza Electronically Signed By:Faraz Walker
[2023-10-24 08:50] VITALS: BP 93/56; PULSE 76; RESP 18; TEMP 36.7; O2SAT 100
--- NOTE | 2023-10-24 09:21 | PC.NURSE ---
Addendum: Pt cleared for discharge, discharge instructions reviewed with pt. Pt reports /10 headache that she said is tolerable, denied dizziness. Independently ambulated to waiting room, gait steady. vss on discharge. Dr. Chaves aware of discharge vitals.
== END 2023-10-24 08:49 | disposition home or self-care (01) ==
PROVIDERS: Emergency Provider Internal Medicine; PCP Physician Assistant
DX: G43.909 Migraine, unspecified, not intractable, without status migrainosus (principal); I95.9 Hypotension, unspecified; Z79.899 Other long term (current) drug therapy
CPT/HCPCS: 93005; 96360; 96361; 96372; 99284; 99285; J3030

== ENCOUNTER → 2023-10-24 07:19 | Outpatient (BNV) | payer OTHER, SELFPAY | PROVIDERS: Emergency Provider Internal Medicine; PCP Physician Assistant; Visit Provider Internal Medicine Cardiovascular Disease | DX: I95.9 Hypotension, unspecified (principal) | CPT/HCPCS: 93010 ==

== ENCOUNTER 2023-10-26 21:27 | Emergency (ER) | payer OTHER, SELFPAY ==
[2023-10-26 21:32] VITALS: BP 81/56; PULSE 85; RESP 16; TEMP 36.3; O2SAT 99; BMI 21.7
--- NOTE | 2023-10-26 23:57 | PC.NURSE ---
No answer in WR @ this time. T/W calling patients cell, no answer with number listed.
== END 2023-10-27 00:03 | disposition left against medical advice (07) ==
PROVIDERS: Emergency Provider Emergency Medicine
DX: G43.909 Migraine, unspecified, not intractable, without status migrainosus (principal)
CPT/HCPCS: 99281

== ENCOUNTER 2023-10-27 13:49 | Outpatient (AMB) | payer OTHER, SELFPAY ==
--- NOTE | 2023-10-27 13:50 | MHC.PC.OV ---
Intake Visit Reasons: ED F/U Intake Note: Telehealth call ED F/u for nausea, dizziness, headache and off balance. Top Lift Compressor Required: No Accompanied by: Self / Same As Patient Allergies aspirin [Aspirin] Allergy (Intermediate, Verified 10/27/23 13:53) WHEEZING clarithromycin [From Biaxin] Allergy (Intermediate, Verified 10/27/23 13:53) HIVES Sulfa (Sulfonamide Antibiotics) [SULFA (SULFONAMIDE ANTIBIOTICS)] Allergy (Intermediate, Verified 10/27/23 13:53) HIVES bee pollen [BEE STINGS] Allergy (Unknown, Verified 10/27/23 13:53) UNKNOWN pineapple [PINEAPPLE] Allergy (Unknown, Verified 10/27/23 13:53) UNKNOWN beeswax Allergy (Verified 10/27/23 13:53) Anaphylaxis Medication List - Last Reconciled 10/27/23 by Kevan Gordon PA-C acetaminophen (Tylenol Extra Strength) 500 mg PO Q6H PRN albuterol sulfate 90 mcg/actuation 1 inh inhalation QID PRN 30 days amitriptyline 50 mg PO BEDTIME 90 days aripiprazole (Abilify) 2 mg PO DAILY 30 days aspirin 81 mg PO DAILY bisacodyl (Dulcolax (bisacodyl)) 10 mg (2 x 5 mg) PO BEDTIME 2 days eeruepaggy-owxmbjblnavpi-dmwo 50-325-40 mg 1 tab PO DAILY PRN cholecalciferol (vitamin D3) 25 mcg PO DAILY divalproex ER (Depakote ER) 250 mg PO BID 90 days famotidine 20 mg PO DAILY 90 days linaclotide (Linzess) 290 mcg PO QAM 30 days lorazepam 0.5 mg PO DAILY PRN 7 days metoclopramide HCl (Reglan) 10 mg PO DAILY PRN prochlorperazine maleate (Compazine) 10 mg PO BID PRN propranolol 120 mg (2 x 60 mg) PO BID 90 days rimegepant (Nurtec ODT) 75 mg PO Q OTHER DAY 30 days simvastatin 20 mg PO DAILY sumatriptan succinate (Imitrex) 50 mg PO Q2H PRN topiramate (Topamax) 100 mg PO BID 90 days Tobacco use date assessed: 10/20/23 HPI ED F/U HPI Details Patient is a 53-year-old female being evaluated today via telephone this 53-year-old female has a past medical history significant for chronic migraines, tobacco dependency and IBS, GERD, major depression. Recently seen at the ER for dizziness and headaches. Was found to have low blood pressure was started on IV fluids. This is likely due to her propanolol thus advised on reduce her propanolol dose. Currently homeless and living in a senior living in [place]. Does use public transit and support from her daughters to get to medical appointments. .. Migraines: Was previously followed by a neurologist and was on her chronic pain medications for her migraines. She does report continuing to have daily headaches. Has been out of her longstanding headache medication. Currently on--> amitriptyline, Topamax and propanolol. Has lost follow-up with Neurology [facility] Medical History (Updated 10/27/23 @ 15:21 by Kevan Gordon PA-C) IBS (irritable bowel syndrome) Hypotension Migraine Surgical History History of partial hysterectomy History of cholecystectomy Family History Mother Substance use disorder Stroke Other Mental health disorder Social History Housing: House Alcohol intake: never Patient Tobacco Use Status: Current everyday Tobacco user Tobacco use type: Cigarette Cigarettes Per Day: 10 e-Cigarette/Vaping Use: Never Used Second Hand Smoke Exposure: Yes Substance Use Type: Marijuana Advance Directives Date on File: 02/01/21 service: No Current occupational status: employed and disabled Current occupation: rt handed Cognitive needs: No Hearing needs: No Vision needs: Yes (glasses) Questionnaire Thrive Questionnaire Date Thrive assessed: 10/20/23 SYLVESTER-7 AMB Questionnaire SYLVESTER-7 Date SYLVESTER - 7 assessed: 10/20/23 Source: Developed by Drs. Galo Stanford, Lynne Correia, Rico Guerrero and colleagues, with an educational bernarda from [employer]. Review of Systems Const Reports fatigue, Reports headache(s) and Reports malaise Eyes Denies loss of vision ENT Denies vertigo, Reports dizziness, Reports headache(s) and Denies sore throat Card Denies chest pain, Denies leg edema and Denies lightheadedness Resp Denies cough, Denies hemoptysis and Denies wheezing GI Denies abdominal pain, Denies melena, Denies constipation, Denies diarrhea and Denies vomiting Denies urinary frequency, Denies dysuria and Denies urinary urgency Musc Denies arthralgias, Denies joint swelling, Denies numbness and Denies tingling Neuro Denies behavioral changes, Denies vertigo, Reports dizziness, Reports headache(s), Denies loss of vision, Denies memory loss, Denies numbness and Denies tingling Psych Denies anxiety, Denies behavioral changes, Denies depression, Denies memory loss and Denies panic attacks Endo Reports fatigue Stuart/Lymph Denies easy bleeding and Denies easy bruising Aller/Immun Denies wheezing Physical exam (Primary Care) Tobacco/Smoking Status: Tobacco use Status Tobacco use date assessed 10/20/23 10/27/23 13:50 Patient Tobacco Use Status Current everyday Tobacco 10/27/23 13:50 Tobacco use type Cigarette 10/27/23 13:50 e-Cigarette/Vaping Use Never Used 10/27/23 13:50 Thrive Assessment: Date of Thrive Assessment Date Thrive assessed 10/20/23 10/27/23 13:50 Telehealth Telehealth Location of provider rendering services: practice address Location of patient: address on file Patient Identification confirmed using: Name, : Yes Telehealth method: voice only Patient verbally consented to treatment: Yes Patient verbally consented to billing insurance company: Yes Patient informed of any privacy concerns related to visit: Yes Minutes spent on Phone/Video with Pt.: 11 Assessment and Plan Assessment & Plan (1) Hypotension: Code(s): I95.9 - Hypotension, unspecified Qualifiers: Hypotension type: hypotension due to drug Qualified Code(s): I95.2 - Hypotension due to drugs Plan: Due to patient's symptoms dizziness, lethargy most likely related to the high dose of propanolol she is using. Advised to reduce her dose to 60 mg b.i.d. and continue monitoring blood pressure with goal blood pressure to remain above 100/60. Coding Level of Care Code Tele Est Pt Level 3 (21862) Diagnoses Hypotension due to drugs I95.2 Hypotension type: hypotension due to drug
== END 2023-10-27 16:16 | disposition home or self-care (01) ==
LOC: HO.HMGH 13:49
PROVIDERS: Visit Provider Physician Assistant
DX: I95.2 Hypotension due to drugs (principal); Z59.01 Sheltered homelessness; F33.1 Major depressive disorder, recurrent, moderate
CPT/HCPCS: 99213

== ENCOUNTER 2023-10-28 15:22 | Emergency (ER) | payer OTHER, SELFPAY | END 2023-10-28 16:07 | disposition left against medical advice (07) | PROVIDERS: Emergency Provider Emergency Medicine | DX: Z53.21 Procedure and treatment not carried out due to patient leaving prior to being seen by health care provider (principal); G43.909 Migraine, unspecified, not intractable, without status migrainosus ==

== ENCOUNTER 2023-10-28 15:42 | Outpatient (AMB) | payer OTHER, SELFPAY ==
[2023-10-28 15:43] VITALS: BP 80/58; PULSE 78; O2SAT 100; BMI 22.8
--- NOTE | 2023-10-28 15:43 | A.OFFPC_ITS ---
Vital Signs 10/28/23 15:43 Height 5 ft 8 in Weight 150 lb BMI 22.8 BP 80/58 L Blood Pressure Location Lt brachial Position Sitting Pulse 78 Pulse Source Pulse Oximeter Pulse Oximetry (%) 100 Oxygen Delivery Method Room Air Intake Visit Reasons: migraine Principal Network Architect Required: No Storage Battery Inspector And Tester: Not Required per policy Accompanied by: Self / Same As Patient Allergies aspirin [Aspirin] Allergy (Intermediate, Verified 10/28/23 15:49) WHEEZING clarithromycin [From Biaxin] Allergy (Intermediate, Verified 10/28/23 15:49) HIVES Sulfa (Sulfonamide Antibiotics) [SULFA (SULFONAMIDE ANTIBIOTICS)] Allergy (Intermediate, Verified 10/28/23 15:49) HIVES bee pollen [BEE STINGS] Allergy (Unknown, Verified 10/28/23 15:49) UNKNOWN pineapple [PINEAPPLE] Allergy (Unknown, Verified 10/28/23 15:49) UNKNOWN beeswax Allergy (Verified 10/28/23 15:49) Anaphylaxis Medication List - Last Reconciled 10/28/23 by Kevan Gordon PA-C acetaminophen (Tylenol Extra Strength) 500 mg PO Q6H PRN albuterol sulfate 90 mcg/actuation 1 inh inhalation QID PRN 30 days amitriptyline 50 mg PO BEDTIME 90 days aripiprazole (Abilify) 2 mg PO DAILY 30 days aspirin 81 mg PO DAILY bisacodyl (Dulcolax (bisacodyl)) 10 mg (2 x 5 mg) PO BEDTIME 2 days ewjgofwdvt-qpkbexyxhumzc-eiot 50-325-40 mg 1 tab PO DAILY PRN cholecalciferol (vitamin D3) 25 mcg PO DAILY divalproex ER (Depakote ER) 250 mg PO BID 90 days famotidine 20 mg PO DAILY 90 days linaclotide (Linzess) 290 mcg PO QAM 30 days lorazepam 0.5 mg PO DAILY PRN 7 days metoclopramide HCl (Reglan) 10 mg PO DAILY PRN prochlorperazine maleate (Compazine) 10 mg PO BID PRN propranolol 120 mg (2 x 60 mg) PO BID 90 days rimegepant (Nurtec ODT) 75 mg PO Q OTHER DAY 30 days simvastatin 20 mg PO DAILY sumatriptan succinate (Imitrex) 50 mg PO Q2H PRN topiramate (Topamax) 100 mg PO BID 90 days Tobacco use date assessed: 10/20/23 HPI migraine HPI Details Patient showed up today in office for urgent visit. She continues to have a migraine. Blood pressure remains low and we discussed yesterday in the phone to reduce her propanolol doses it may be causing her hypotension. She continues with what she reports as a headache and her medications not working. She mentions jokingly cut my head off but do not kill me . Unclear if she is using any illicit drugs besides marijuana as she is somewhat lethargic today in office. [facility] Medical History (Updated 10/28/23 @ 15:53 by Kevan Gordon PA-C) IBS (irritable bowel syndrome) Hypotension Migraine Surgical History History of partial hysterectomy History of cholecystectomy Family History Mother Substance use disorder Stroke Other Mental health disorder Social History Housing: House Alcohol intake: never Patient Tobacco Use Status: Current everyday Tobacco user Tobacco use type: Cigarette Cigarettes Per Day: 10 e-Cigarette/Vaping Use: Never Used Second Hand Smoke Exposure: Yes Substance Use Type: Marijuana Advance Directives: No Advance Directives Information Provided: No Advance Directives Date on File: 02/01/21 service: No Current occupational status: employed and disabled Current occupation: rt handed Cognitive needs: No Hearing needs: No Vision needs: Yes (glasses) Questionnaire Thrive Questionnaire Date Thrive assessed: 10/20/23 SYLVESTER-7 AMB Questionnaire SYLVESTER-7 Date SYLVESTER - 7 assessed: 10/20/23 Source: Developed by Drs. Galo Stanford, Lynne Correia, Rico Guerrero and colleagues, with an educational bernarda from [employer]. Review of Systems Const Reports fatigue, Reports headache(s) and Reports malaise Eyes Denies loss of vision ENT Denies vertigo, Reports dizziness, Reports headache(s) and Denies sore throat Card Denies chest pain, Denies leg edema and Denies lightheadedness Resp Denies cough, Denies hemoptysis and Denies wheezing GI Denies abdominal pain, Denies melena, Denies constipation, Denies diarrhea and Denies vomiting Denies urinary frequency, Denies dysuria and Denies urinary urgency Musc Denies arthralgias, Denies joint swelling, Denies numbness and Denies tingling Neuro Denies Abnormal speech present, Denies behavioral changes, Denies vertigo, Reports dizziness, Reports headache(s), Denies loss of vision, Denies memory loss, Denies numbness and Denies tingling Psych Denies anxiety, Denies behavioral changes, Denies depression, Denies memory loss and Denies panic attacks Endo Reports fatigue Stuart/Lymph Denies easy bleeding and Denies easy bruising Aller/Immun Denies wheezing Physical exam (Primary Care) Vital Signs: Last Vital Signs Pulse 78 10/28/23 15:43 BP 80/58 L 10/28/23 15:43 Pulse Ox 100 10/28/23 15:43 Oxygen Delivery Method Room Air 10/28/23 15:43 BMI result Body Mass Index 22.8 Tobacco/Smoking Status: Tobacco use Status Tobacco use date assessed 10/20/23 10/28/23 15:45 Patient Tobacco Use Status Current everyday Tobacco 10/28/23 15:45 Tobacco use type Cigarette 10/28/23 15:45 e-Cigarette/Vaping Use Never Used 10/28/23 15:45 Thrive Assessment: Date of Thrive Assessment Date Thrive assessed 10/20/23 10/28/23 15:45 Const General: healthy appearing, no acute distress, alert and awake Nutritional Appearance: well nourished Orientation/consciousness: oriented to person, oriented to place and oriented to time HENMT Ears: TM's normal bilaterally General nose exam: Normal nasal mucous membranes and turbinates present Eyes Conjunctivae: conjunctivae normal Sclerae: sclerae normal Pupils: Equal, round and reactive pupils present Neck Neck: Yes no lymphadenopathy and Yes no JVD Thyroid: Thyroid normal Carotids: no bruits Resp Effort & Inspection: normal respiratory effort and not tachypneic Auscultation: no crackles, no rales, no rhonchi and no wheezes Cardio Rate: regular rate Rhythm: regular rhythm Heart sounds: no murmurs and normal S1 and S2 GI Palpation (GI): Soft to palpation, nontender, no hepatomegaly and no splenomegaly Auscultation: normal bowel sounds Skin General skin exam: no rashes or lesions noted and dry skin Neuro General: oriented to person, oriented to place and oriented to time Cranial nerves: Yes Equal, round and reactive pupils present Speech: No Abnormal speech present Gait exam (Neuro): Normal gait present Motor exam (neuro): no tremor noted Extrem Right upper extremity: full ROM Left upper extremity: full ROM Right lower extremity: full ROM; no edema Left lower extremity: full ROM; no edema Psych Mental Status: mental status grossly normal Speech and movement: Normal speech and movement present Affect: normal affect Attitude: cooperative Thought process: Normal thought process present Assessment and Plan Assessment & Plan (1) Migraine headache: Code(s): G43.909 - Migraine, unspecified, not intractable, without status migrainosus Qualifiers: Intractability: not intractable Migraine type: unspecified Status migrainosus presence: with status migrainosus Qualified Code(s): G43.901 - Migraine, unspecified, not intractable, with status migrainosus Plan: Believe for migraine headaches are being triggered by her hypotension. We are reducing her propanolol down a 60 b.i.d.. Will give short-term script tramadol for her head pain to try to see if we can break the cycle of the migraine headaches. (2) Hypotension: Code(s): I95.9 - Hypotension, unspecified Qualifiers: Hypotension type: hypotension due to drug Qualified Code(s): I95.2 - Hypotension due to drugs Plan: Remains with low blood pressure. Recently seen at the ER for this and gave IV fluids which seem to have helped. We are reducing her propanolol though 60 mg b.i.d to help blood pressure normalized.. Medications: New tramadol 50 mg PO BID 4 days PRN 8 tabs 0RF pain G43.901 - Migraine, unspecified, not intractable, with status migrainosus Coding Level of Care Code Est Pt Level 3 (42401) Diagnoses Migraine with status migrainosus, not intractable, unspecified migraine type G43.901 Intractability: not intractable Migraine type: unspecified Status migrainosus presence: with status migrainosus Hypotension due to drugs I95.2 Hypotension type: hypotension due to drug
== END 2023-10-28 16:00 | disposition home or self-care (01) ==
LOC: HO.HMGH 15:42
PROVIDERS: Visit Provider Physician Assistant
DX: G43.901 Migraine, unspecified, not intractable, with status migrainosus (principal); I95.2 Hypotension due to drugs
CPT/HCPCS: 99213

== ENCOUNTER 2023-11-17 09:24 | Outpatient (AMB) | payer OTHER, SELFPAY ==
[2023-11-17 09:26] VITALS: BP 90/70; PULSE 69; TEMP 36.4; O2SAT 99; BMI 22.0
--- NOTE | 2023-11-17 09:26 | MHC.OFFWIV ---
Intake Vital Signs 11/17/23 09:26 Height 5 ft 8 in Weight 145 lb BMI 22.0 BP 90/70 Blood Pressure Location Lt brachial Position Sitting Pulse 69 Pulse Source Pulse Oximeter Temp 97.5 F Temp Source Temporal Artery Scan Pulse Oximetry (%) 99 Oxygen Delivery Method Room Air Intake Visit Reasons: EP Pain LT side Intake Note: pt is here today for lft side pain started 4 days ago Patient Tobacco Use Status: Current everyday Tobacco user Allergies aspirin [Aspirin] Allergy (Intermediate, Verified 11/17/23 09:54) WHEEZING clarithromycin [From Biaxin] Allergy (Intermediate, Verified 11/17/23 09:54) HIVES Sulfa (Sulfonamide Antibiotics) [SULFA (SULFONAMIDE ANTIBIOTICS)] Allergy (Intermediate, Verified 11/17/23 09:54) HIVES bee pollen [BEE STINGS] Allergy (Unknown, Verified 11/17/23 09:54) UNKNOWN pineapple [PINEAPPLE] Allergy (Unknown, Verified 11/17/23 09:54) UNKNOWN beeswax Allergy (Verified 11/17/23 09:54) Anaphylaxis Medication List - Last Reconciled 11/17/23 by ESTHER Ngo acetaminophen (Tylenol Extra Strength) 500 mg PO Q6H PRN albuterol sulfate 90 mcg/actuation 1 inh inhalation QID PRN 30 days amitriptyline 50 mg PO BEDTIME 90 days aripiprazole (Abilify) 2 mg PO DAILY 30 days aspirin 81 mg PO DAILY bisacodyl (Dulcolax (bisacodyl)) 10 mg (2 x 5 mg) PO BEDTIME 2 days ysxpwjuypt-nfrkojwalsite-btwh 50-300-40 mg (Fioricet) 1 cap PO Q6H PRN rhnqqmcyhe-xaohmraduofco-qobq 50-325-40 mg 1 tab PO DAILY PRN cholecalciferol (vitamin D3) 25 mcg PO DAILY divalproex ER (Depakote ER) 250 mg PO BID 90 days doxycycline hyclate 100 mg PO BID famotidine 20 mg PO DAILY 90 days linaclotide (Linzess) 290 mcg PO QAM 30 days lorazepam 0.5 mg PO DAILY PRN 7 days metoclopramide HCl (Reglan) 10 mg PO DAILY PRN prochlorperazine maleate (Compazine) 10 mg PO BID PRN propranolol 120 mg (2 x 60 mg) PO BID 90 days rimegepant (Nurtec ODT) 75 mg PO Q OTHER DAY 30 days simvastatin 20 mg PO DAILY sumatriptan succinate (Imitrex) 50 mg PO Q2H PRN topiramate (Topamax) 100 mg PO BID 90 days tramadol 50 mg PO BID PRN 4 days Do you need a note to return to daycare/school/sports/work: No HPI HPI Comments History of Present Illness Details Patient is a 53-year-old female in today for a sick visit. Patient has a past medical history significant for IBS, bipolar disorder, asthma, GERD, migraines, hypotension. Patient states that for the past 4 days she has developed discomfort right upper quadrant, +diarrhea. Denies to constipation, blood in stool, chest pain, shortness a breath, nausea, vomiting, dizziness. [facility] Medical History Migraine CAD (coronary artery disease) IBS (irritable bowel syndrome) Hypotension Migraine Surgical History History of partial hysterectomy History of cholecystectomy Family History Mother Substance use disorder Stroke Other Mental health disorder Social History Housing: House Alcohol intake: never Patient Tobacco Use Status: Current everyday Tobacco user Tobacco use type: Cigarette Cigarettes Per Day: 10 e-Cigarette/Vaping Use: Never Used Second Hand Smoke Exposure: Yes Substance Use Type: Marijuana Advance Directives Date on File: 02/01/21 service: No Current occupational status: employed and disabled Current occupation: rt handed Cognitive needs: No Hearing needs: No Vision needs: Yes (glasses) Review of Systems Const All systems reviewed & are unremarkable except as noted in HPI and below Denies headache(s) ENT Denies dizziness and Denies headache(s) GI Denies hematochezia, Denies constipation, Reports dyspepsia, Reports diarrhea, Denies nausea and Denies vomiting Musc Denies back pain and Denies numbness Neuro Denies dizziness, Denies headache(s) and Denies numbness Physical Exam Vital Signs: Last Vital Signs Temp 97.5 F 11/17/23 09:26 BP 90/70 11/17/23 09:26 BMI result Body Mass Index 22.0 Const Other: Appearance: Alert.? Oriented X3.? No acute distress.? Head: Normocephalic, atraumatic, Neck: Normal inspection.? Neck supple.? CVS: Normal heart rate and rhythm.? Pulses normal.? Respiratory: No respiratory distress.? Breath sounds normal.? Abdomen: + tenderness to palpation RUQ. Bowel sounds active. ? Back: No midline tenderness, no C-spine tenderness, full range of motion, no CVA tenderness bilaterally Neuro: Oriented X 3.? No motor deficit.? No sensory deficit. CN 2-12 intact Assessment & Plan Assessment & Plan (1) Right upper quadrant pain: Comment: Will draw labs including CMP, CBC, lipase, amylase, ESR. Will give patient dicyclomine and simethicone. Code(s): R10.11 - Right upper quadrant pain Plan: Take your medications as prescribed. If you were prescribed antibiotics today, it is important that you take your medication to their entirety, do not skip any doses, do not finish them early. Follow-up with your primary care provider this week. Return to the emergency department with new or worsening symptoms. Such as fevers, chills, chest pain, shortness of breath, nausea, vomiting, dizziness, headache, vision changes, lethargy In case of emergency call 911 Plan Follow-up with PCP. Orders: Orders Complete Blood Count Auto Diff Today D72.829 - Elevated white blood cell count, unspecified Lipase Today R10.11 - Right upper quadrant pain Comprehensive Met. Panel Today Z91.89 - Other specified personal risk factors, not elsewhere classified Amylase Today R10.11 - Right upper quadrant pain Erythrocyte Sedimentation Rate Today R10.11 - Right upper quadrant pain Medications: New simethicone (Gas Relief (simethicone)) 180 mg PO DAILY PRN 30 caps 0RF abdominal distention dicyclomine 10 mg PO BID 30 caps 0RF Refilled vymrocnnnu-pnspjbeebfuzu-dekw 50-325-40 mg 1 tab PO DAILY PRN 14 tabs 0RF pain G43.119 - Migraine with aura, intractable, without status migrainosus Coding Level of Care Code Est Pt Level 3 (98681) Diagnoses Right upper quadrant pain R10.11 Time Spent (min) 24
== END 2023-11-17 11:30 | disposition home or self-care (01) ==
PROVIDERS: PCP Physician Assistant; Visit Provider Nurse Practitioner Primary Care
DX: R10.11 Right upper quadrant pain (principal)
CPT/HCPCS: 99213

== ENCOUNTER 2023-11-17 09:51 | Outpatient (REF) | payer OTHER, SELFPAY ==
[2023-11-17 11:39] LABS: MANUAL DIFF FLAG NO
[2023-11-17 11:48] LABS: Basophils Absolute Auto 0.1 X10*3/uL (0.0-0.2); Basophils Percent Auto 1.2 % (0-2); Eosinophils Absolute Auto 0.3 X10*3/uL (0.0-0.4); Eosinophils Percent Auto 3.7 % (0-4); Hematocrit 41.9 % (37.0-47.0); Hemoglobin 13.6 g/dl (12.0-16.0); Imm Gran Abs Auto 0.02 X10*3/uL (0.00-0.03); Imm Gran Pct Auto 0.2 % (0.0-0.4); Lymphocytes Absolute Auto 4.6 X10*3/uL (1.2-4.9); Lymphocytes Percent Auto 56.3 % (20-40); Mean Corpuscular HGB Conc 32.5 g/dl (31.0-35.0); Mean Corpuscular Hemoglobin 31.9 pg (27.0-33.0); Mean Corpuscular Volume 98.1 fL (80.0-98.0); Mean Platelet Volume 9.9 fL (9.4-12.3); Monocytes Absolute Auto 0.4 X10*3/uL (0.1-1.2); Monocytes Percent Auto 4.8 % (2-11); Neutrophils Absolute Auto 2.8 x10*3/uL (2.0-8.3); Neutrophils Percent Auto 33.8 % (45-73); Platelet Count 266 X10*3/uL (160-400); Red Blood Count 4.27 X10*6/uL (4.20-5.50); Red Cell Distribution Width 14.8 % (11.0-16.0); White Blood Count 8.2 X10*3/uL (4.8-10.8)
[2023-11-17 13:02] LABS: Erythrocyte Sedimentation Rate 7 MM/HR (0-20)
[2023-11-17 13:25] LABS: Alanine Aminotransferase 6 U/L (0-31); Albumin Level 4.4 g/dL (3.5-5.0); Alkaline Phosphatase 109 U/L (39-117); Amylase 67 U/L (28-100); Anion Gap 12 (12-20); Aspartate Amino Transferase 11 U/L (5-31); Bilirubin Total 0.3 mg/dL (0.0-1.0); Blood Urea Nitrogen 17 mg/dL (9-16); Carbon Dioxide 19 mmol/L (22-29); Chloride 113 mmol/L (96-108); Estimated Glomerular Filt Rate > 60; Glucose Random 74 mg/dL (60-115); Lipase 14 U/L (8-78); Sodium 140 mmol/L (135-145); Total Protein 7.4 g/dL (6.5-8.0)
== END 2023-11-17 09:52 | disposition home or self-care (01) ==
LOC: HO.HMGCLDS 09:51
PROVIDERS: PCP Physician Assistant; Visit Provider Nurse Practitioner Primary Care
DX: R10.11 Right upper quadrant pain (principal); D72.829 Elevated white blood cell count, unspecified; Z91.89 Other specified personal risk factors, not elsewhere classified
CPT/HCPCS: 36415; 80053; 82150; 83690; 85025; 85652

== ENCOUNTER 2023-11-25 13:53 | Outpatient (AMB) | payer OTHER, SELFPAY ==
[2023-11-25 13:57] VITALS: BP 72/52; PULSE 85; O2SAT 99; BMI 21.5
--- NOTE | 2023-11-25 13:57 | A.OFFPC_ITS ---
Vital Signs 3 11/25/23 13:57 Height 5 ft 8 in Weight 141 lb 8 oz BMI 21.5 BP 72/52 L Blood Pressure Location Rt brachial Position Sitting Pulse 85 Pulse Source Pulse Oximeter Pulse Oximetry (%) 99 Oxygen Delivery Method Room Air Intake Visit Reasons: pain on right side of under ribs Allergies aspirin [Aspirin] Allergy (Intermediate, Verified 11/25/23 14:03) WHEEZING clarithromycin [From Biaxin] Allergy (Intermediate, Verified 11/25/23 14:03) HIVES Sulfa (Sulfonamide Antibiotics) [SULFA (SULFONAMIDE ANTIBIOTICS)] Allergy (Intermediate, Verified 11/25/23 14:03) HIVES bee pollen [BEE STINGS] Allergy (Unknown, Verified 11/25/23 14:03) UNKNOWN pineapple [PINEAPPLE] Allergy (Unknown, Verified 11/25/23 14:03) UNKNOWN beeswax Allergy (Verified 11/25/23 14:03) Anaphylaxis Medication List - Last Reconciled 11/25/23 by Kevan Gordon PA-C acetaminophen (Tylenol Extra Strength) 500 mg PO Q6H PRN albuterol sulfate 90 mcg/actuation 1 inh inhalation QID PRN 30 days amitriptyline 50 mg PO BEDTIME 90 days aripiprazole (Abilify) 2 mg PO DAILY 30 days aspirin 81 mg PO DAILY bisacodyl (Dulcolax (bisacodyl)) 10 mg (2 x 5 mg) PO BEDTIME 2 days drdxhyxcxz-wcrbmtfxkshhd-pmfj 50-325-40 mg 1 tab PO BID PRN 7 days cholecalciferol (vitamin D3) 25 mcg PO DAILY dicyclomine 10 mg PO BID divalproex ER (Depakote ER) 250 mg PO BID 90 days doxycycline hyclate 100 mg PO BID famotidine 20 mg PO DAILY 90 days linaclotide (Linzess) 290 mcg PO QAM 30 days lorazepam 0.5 mg PO DAILY PRN 7 days metoclopramide HCl (Reglan) 10 mg PO DAILY PRN prochlorperazine maleate (Compazine) 10 mg PO BID PRN propranolol 120 mg (2 x 60 mg) PO BID 90 days rimegepant (Nurtec ODT) 75 mg PO Q OTHER DAY 30 days simethicone (Gas Relief (simethicone)) 180 mg PO DAILY PRN simvastatin 20 mg PO DAILY sumatriptan succinate (Imitrex) 50 mg PO Q2H PRN topiramate (Topamax) 100 mg PO BID 90 days tramadol 50 mg PO BID PRN 4 days Tobacco use date assessed: 10/20/23 Dental Screening Dental Screen Date: 10/20/23 HPI pain on right side of under ribs 2 HPI0 Details Patient is a 53-year-old female here today for problem visit. She reports having pain right side of her abd over thelast 2 weeks. She has been to the walk-in clinic and had workup with blood work which was essentially normal. She denies any acute diarrhea or constipation, fevers or chills. She does have chronic IBS. She does have history of cholecystectomy. She is significantly hypotensive today. We did discuss reducing her dose of propanolol though she is concerned about this as she does not want her headaches to reoccur. She does report feeling somewhat dizzy at times. She would like to try on increasing her fluids and electrolytes and will also try compression socks PFSH Medical History Migraine CAD (coronary artery disease) IBS (irritable bowel syndrome) Hypotension Migraine Surgical History History of partial hysterectomy History of cholecystectomy Family History Mother Substance use disorder Stroke Other Mental health disorder Social History Housing: House Alcohol intake: never Patient Tobacco Use Status: Current everyday Tobacco user Tobacco use type: Cigarette Cigarettes Per Day: 10 e-Cigarette/Vaping Use: Never Used Second Hand Smoke Exposure: Yes Substance Use Type: Marijuana Advance Directives Date on File: 02/01/21 service: No Current occupational status: employed and disabled Current occupation: rt handed Cognitive needs: No Hearing needs: No Vision needs: Yes (glasses) Questionnaire Thrive Questionnaire Date Thrive assessed: 10/20/23 SYLVESTER-7 AMB Questionnaire SYLVESTER-7 Date SYLVESTER - 7 assessed: 10/20/23 Source: Developed by Drs. Galo Stanford, Lynne B.W. Rico Correia and colleagues, with an educational bernarda from [employer]. Review of Systems Const Denies headache(s) Eyes Denies loss of vision ENT Denies vertigo, Denies dizziness, Denies headache(s) and Denies sore throat Card Denies chest pain, Denies leg edema and Denies lightheadedness Resp Denies cough, Denies hemoptysis and Denies wheezing GI Denies abdominal pain, Denies melena, Denies constipation, Denies diarrhea and Denies vomiting Denies urinary frequency, Denies dysuria and Denies urinary urgency Musc Denies arthralgias, Denies joint swelling, Denies numbness and Denies tingling Neuro Denies Abnormal speech present, Denies behavioral changes, Denies vertigo, Denies dizziness, Denies headache(s), Denies loss of vision, Denies memory loss, Denies numbness and Denies tingling Psych Denies anxiety, Denies behavioral changes, Denies depression, Denies memory loss and Denies panic attacks Stuart/Lymph Denies easy bleeding and Denies easy bruising Aller/Immun Denies wheezing Physical exam (Primary Care) Vital Signs: Last Vital Signs Pulse 85 11/25/23 13:57 BP 72/52 L 11/25/23 13:57 Pulse Ox 99 11/25/23 13:57 Oxygen Delivery Method Room Air 11/25/23 13:57 BMI result Body Mass Index 21.5 Tobacco/Smoking Status: Tobacco use Status Tobacco use date assessed 10/20/23 11/25/23 13:59 Patient Tobacco Use Status Current everyday Tobacco 11/25/23 13:59 Tobacco use type Cigarette 11/25/23 13:59 e-Cigarette/Vaping Use Never Used 11/25/23 13:59 Thrive Assessment: Date of Thrive Assessment Date Thrive assessed 10/20/23 11/25/23 13:59 Const General: healthy appearing, no acute distress, alert and awake Nutritional Appearance: well nourished Orientation/consciousness: oriented to person, oriented to place and oriented to time HENMT Ears: TM's normal bilaterally General nose exam: Normal nasal mucous membranes and turbinates present Eyes Conjunctivae: conjunctivae normal Sclerae: sclerae normal Pupils: Equal, round and reactive pupils present Neck Neck: Yes no lymphadenopathy and Yes no JVD Thyroid: Thyroid normal Carotids: no bruits Resp Effort & Inspection: normal respiratory effort and not tachypneic Auscultation: no crackles, no rales, no rhonchi and no wheezes Cardio Rate: regular rate Rhythm: regular rhythm Heart sounds: no murmurs and normal S1 and S2 GI Palpation (GI): Soft to palpation, nontender, no hepatomegaly and no splenomegaly Auscultation: normal bowel sounds Abdomen image: 2 1. PAIN LOCALIZED IN THE AREA OUTLINED. Skin General skin exam: no rashes or lesions noted and dry skin Neuro General: oriented to person, oriented to place and oriented to time Cranial nerves: Yes Equal, round and reactive pupils present Speech: No Abnormal speech present Gait exam (Neuro): Normal gait present Motor exam (neuro): no tremor noted Extrem Right upper extremity: full ROM Left upper extremity: full ROM Right lower extremity: full ROM; no edema Left lower extremity: full ROM; no edema Psych Mental Status: mental status grossly normal Speech and movement: Normal speech and movement present Affect: normal affect Attitude: cooperative Thought process: Normal thought process present Assessment and Plan Assessment & Plan (1) Right upper quadrant pain: Comment: Will draw labs including CMP, CBC, lipase, amylase, ESR. Will give patient dicyclomine and simethicone. Code(s): R10.11 - Right upper quadrant pain Plan: Reports having right sided abdominal pain. Was seen by urgent care and was sent for labs which were all within normal range. Patient not toxic-appearing on physical exam. She is already had cholecystectomy. Will send for ultrasound evaluate for liver cyst. (2) Hypotension: Code(s): I95.9 - Hypotension, unspecified Qualifiers: Hypotension type: hypotension due to drug Qualified Code(s): I95.2 - Hypotension due to drugs Plan: Patient continues to have hypotension. Does report feeling somewhat dizzy at times. Likely related to her beta-titus use. Orders: Orders 2 XR KUB Today R10.11 - Right upper quadrant pain, R10.9 - Unspecified abdominal pain US abdomen limited Today R10.11 - Right upper quadrant pain Medications: Discontinued 2 doxycycline hyclate Discontinued Reason: Doctor's Order 100 mg PO BID 20 tabs 0RF Coding Level of Care Code Est Pt Level 3 (42630) Diagnoses Right upper quadrant pain R10.11 Hypotension due to drugs I95.2 Hypotension type: hypotension due to drug
== END 2023-11-25 14:16 | disposition home or self-care (01) ==
PROVIDERS: PCP Physician Assistant; Visit Provider Physician Assistant
DX: R10.11 Right upper quadrant pain (principal); I95.2 Hypotension due to drugs
CPT/HCPCS: 99213

== ENCOUNTER 2024-01-27 14:28 | Outpatient (AMB) | payer OTHER, SELFPAY ==
--- NOTE | 2024-01-27 14:40 | A.OFFPC_ITS ---
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: No Accompanied by: Self / Same As Patient Allergies aspirin [Aspirin] Allergy (Intermediate, Verified 11/25/23 14:03) WHEEZING clarithromycin [From Biaxin] Allergy (Intermediate, Verified 11/25/23 14:03) HIVES Sulfa (Sulfonamide Antibiotics) [SULFA (SULFONAMIDE ANTIBIOTICS)] Allergy (Intermediate, Verified 11/25/23 14:03) HIVES bee pollen [BEE STINGS] Allergy (Unknown, Verified 11/25/23 14:03) UNKNOWN pineapple [PINEAPPLE] Allergy (Unknown, Verified 11/25/23 14:03) UNKNOWN beeswax Allergy (Verified 11/25/23 14:03) Anaphylaxis Medication List - Last Reconciled 01/27/24 by Kevan Gordon PA-C acetaminophen (Tylenol Extra Strength) 500 mg PO Q6H PRN albuterol sulfate 90 mcg/actuation 1 inh inhalation QID PRN 30 days amitriptyline 50 mg PO BEDTIME 90 days aripiprazole (Abilify) 2 mg PO DAILY 30 days aspirin 81 mg PO DAILY bisacodyl (Dulcolax (bisacodyl)) 10 mg (2 x 5 mg) PO BEDTIME 2 days vbxtadprvf-guhhibuhyfdug-zkzr 50-325-40 mg 1 tab PO BID PRN 7 days cholecalciferol (vitamin D3) 25 mcg PO DAILY dicyclomine 10 mg PO BID dicyclomine 10 mg PO BID divalproex ER (Depakote ER) 250 mg PO BID 90 days famotidine 20 mg PO DAILY 90 days linaclotide (Linzess) 290 mcg PO QAM 30 days lorazepam 0.5 mg PO DAILY PRN 7 days metoclopramide HCl (Reglan) 10 mg PO DAILY PRN metoclopramide HCl (Reglan) 10 mg PO DAILY PRN prochlorperazine maleate (Compazine) 10 mg PO BID PRN propranolol 120 mg (2 x 60 mg) PO BID 90 days rimegepant (Nurtec ODT) 75 mg PO Q OTHER DAY 30 days simethicone (Gas Relief (simethicone)) 180 mg PO DAILY PRN simvastatin 20 mg PO DAILY sumatriptan succinate (Imitrex) 50 mg PO Q2H PRN topiramate (Topamax) 100 mg PO BID 90 days tramadol 50 mg PO BID PRN 4 days Tobacco use date assessed: 10/20/23 Dental Screening Dental Screen Date: 10/20/23 HPI Annual Exam HPI Details Patient is a 53-year-old female here today for a routine annual physical. Maritza has a past medical history significant for chronic migraines, tobacco dependency and IBS, GERD, major depression. Currently homeless and living in a fci in [place]. Does use public transit and support from her daughters to get to medical appointments. .. Hypotension: Continues to have chronic hypotension is fairly asymptomatic. Does report feeling somewhat fatigued at times. Has tried methadone in the past though is not consistent with this medication. Unclear etiology at this time of her hypotension as she reports she stays well hydrated and she has not taken beta-titus in the last 3 days.. She apparently does have pretty severe peripheral artery disease in upper extremities though is not interested in any interventionx. .. Migraines: Was previously followed by a neurologist and was on her chronic pain medications for her migraines. She does report continuing to have daily headaches. Has been out of her longstanding headache medication. Currently on--> amitriptyline, Topamax and propanolol. Has lost follow-up with Neurology .. Tobacco dependency: Reports having a half a pack of cigarettes per day. She does understand her her need to quit smoking though at this time is not willing to do so. PAD: Patient does have a history of carotid stenosis to which she reports she was told she needed stent placed though she is apprehensive on doing this and will let me know if she would like to see a vascular surgeon.. On physical exam and does have loud right carotid bruit. Colon cancer screening: Needs colon cancer screening- declines at this time Mammogram: Needs mammogram- declines at this time Gi Tech: Has had partial hysterectomy Vaccines: Up-to-date with COVID, tetanus, Need PCV- 20 pneumonia vaccine- declines at this time [facility] Medical History Migraine CAD (coronary artery disease) IBS (irritable bowel syndrome) Hypotension Migraine Surgical History History of partial hysterectomy History of cholecystectomy Family History Mother Substance use disorder Stroke Other Mental health disorder Social History Housing: House Alcohol intake: never Patient Tobacco Use Status: Current everyday Tobacco user Tobacco use type: Cigarette Cigarettes Per Day: 10 e-Cigarette/Vaping Use: Never Used Second Hand Smoke Exposure: Yes Substance Use Type: Marijuana Advance Directives Date on File: 02/01/21 service: No Current occupational status: employed and disabled Current occupation: rt handed Cognitive needs: No Hearing needs: No Vision needs: Yes (glasses) Questionnaire Thrive Questionnaire Date Thrive assessed: 10/20/23 SYLVESTER-7 AMB Questionnaire SYLVESTER-7 Date SYLVESTER - 7 assessed: 10/20/23 Source: Developed by Drs. Galo Stanford, Lynne Correia, Rico Guerrero and colleagues, with an educational bernarda from [employer]. ACT Questionnaire In the past 4 weeks, how much of the time did your asthma keep you from getting as much done at work, school or at home?: None of the time During the past 4 weeks, how often have you had shortness of breath?: Not at all During the past 4 weeks, how often did your asthma symptoms wake you up at night or earlier than usual in the morning?: Once or twice per week During the past 4 weeks, how often have you had to use your rescue inhaler or nebulizer medication?: Not at all How would you rate your asthma control during the past 4 weeks?: Completely controlled ACT Interpretation: Negative Score: 24 Review of Systems Const Denies body aches, Denies chills, Denies excessive sweating, Denies fatigue, Denies fever(s) and Denies headache(s) Eyes Denies blurry vision ENT Denies dysphagia, Denies vertigo, Denies dizziness, Denies headache(s), Denies hearing loss and Denies tinnitus Card Denies chest pain, Denies chest pain with activity, Denies syncope, Denies irregular heart rhythm and Denies dyspnea Resp Denies chest congestion, Denies cough, Denies hemoptysis, Denies dyspnea and Denies wheezing GI Denies abdominal pain, Denies melena, Denies hematochezia, Denies coffee ground emesis, Denies dysphagia, Denies diarrhea, Denies nausea and Denies vomiting Denies urinary frequency, Denies dysuria, Denies urinary hesitancy and Denies urinary urgency Musc Denies arthralgias, Denies limited range of motion, Denies muscle cramps and Denies muscle weakness Skin/Breast Denies rash and Denies skin ulcer Neuro Denies Abnormal speech present, Denies confusion, Denies vertigo, Denies di zziness, Denies syncope, Denies headache(s), Denies memory loss and Denies seizure-like activity Psych Denies anxiety, Denies confusion, Denies depression, Denies memory loss, Denies panic attacks and Denies paranoia Endo Denies excessive sweating, Denies fatigue, Denies flushing, Denies polydipsia and Denies polyuria Aller/Immun Denies wheezing Physical exam (Primary Care) Vital Signs: Last Vital Signs Pulse 69 01/27/24 14:44 BP 76/42 L 01/27/24 14:44 BMI result Body Mass Index 21.8 Tobacco/Smoking Status: Tobacco use Status Tobacco use date assessed 10/20/23 01/27/24 14:40 Patient Tobacco Use Status Current everyday Tobacco 01/27/24 14:40 Tobacco use type Cigarette 01/27/24 14:40 e-Cigarette/Vaping Use Never Used 01/27/24 14:40 Thrive Assessment: Date of Thrive Assessment Date Thrive assessed 10/20/23 01/27/24 14:40 Const General: cooperative, comfortable, no acute distress, alert and awake; No confusion Orientation/consciousness: oriented to person, oriented to place, patient oriented x3 and No confusion HENMT Head: Yes normocephalic Ears: external ears normal and TM's normal bilaterally Face and sinus: No sinus tenderness Mouth: Normal oral and palatal mucosa present and tongue normal Teeth and gingiva: dentition normal and gingiva normal Throat: Yes posterior oropharynx normal, Yes tonsils normal and Yes uvula midline Eyes Conjunctivae: conjunctivae normal Sclerae: sclerae normal Pupils: Equal, round and reactive pupils present EOM: EOMs intact bilaterally Direct Ophthalmoscopy: No no photophobia Neck Neck: Yes no lymphadenopathy, No tender and Yes no JVD Thyroid: Thyroid normal Carotids: no bruits Chest Chest palpation & inspection: no tenderness Resp Effort & Inspection: normal respiratory effort, no audible wheezes, not labored and no stridor Auscultation: no crackles, no rales, no rhonchi and no wheezes Cardio Jugular venous distension: no JVD Rate: regular rate, not bradycardic and not tachycardic Rhythm: regular rhythm Bruits: no carotid bruits Peripheral pulses: Peripheral pulses 2+ throughout GI Inspection: Yes normal to inspection, No abdominal wall ecchymosis and No visible herniation Palpation (GI): Soft to palpation, nontender, no guarding, not rigid and No hepatosplenomegaly present Auscultation: normoactive bowel sounds General: Yes no CVA tenderness Back/Spine/Pelvis Back: no CVA tenderness and No back tenderness Cervical Spine: cervical ROM normal Thoracic/Lumbar Spine: thoracic and lumbar spine normal to inspection, straight leg raise negative bilaterally, No thoraco-lumbar ROM limited and No lumbar spinal tenderness Skin Lesions: no lesions Rashes: no rashes Wounds: no wounds Neuro General: oriented to person, oriented to place, patient oriented x3, CN's II-XI intact bilaterally and No confusion Cranial nerves: Yes Equal, round and reactive pupils present and Yes Normal accommodation reflex present Cognition (Neuro): normal cognition Speech: No Abnormal speech present Gait exam (Neuro): Normal gait present Motor exam (neuro): 5/5 motor strength present throughout Extrem Right upper extremity: full ROM; no cyanosis Left upper extremity: full ROM; no cyanosis Right lower extremity: no edema Left lower extremity: no edema Psych Appearance: grossly normal Mental Status: mental status grossly normal Affect: normal affect Attitude: cooperative Thought process: Normal thought process present Assessment and Plan Assessment & Plan (1) Annual physical exam: Code(s): Z00.00 - Encounter for general adult medical examination without abnormal findings (2) Hypotension: Code(s): I95.9 - Hypotension, unspecified Qualifiers: Hypotension type: hypotension due to drug Qualified Code(s): I95.2 - Hypotension due to drugs Plan: Patient continues to have hypotension. Does report feeling somewhat dizzy at times. She apparently does have arterial vascular disease in her upper ex tremities which may be somewhat of a cause. Also could be related to beta- titus use. He has not interested in seeing vascular surgeon about the arterial disease at this time. Likely related to her beta-titus use. (3) Asthma: Code(s): J45.909 - Unspecified asthma, uncomplicated Qualifiers: Asthma complication type: uncomplicated Asthma persistence: unspecified Asthma severity: mild Qualified Code(s): J45.909 - Unspecified asthma, uncomplicated Plan: She reports asthma has been fairly well controlled. Unfortunately continues to smoke. Does use in albuterol inhaler on an as needed basis. Has not had any recent asthma exacerbations. (4) HLD (hyperlipidemia): Code(s): E78.5 - Hyperlipidemia, unspecified Qualifiers: Hyperlipidemia type: mixed hyperlipidemia Qualified Code(s): E78.2 - Mixed hyperlipidemia Plan: Most recent lipid panel showing appropriate total cholesterol and LDL. Will continue current dose of statin therapy with goal LDL to remain below 130 (5) GERD (gastroesophageal reflux disease): Code(s): K21.9 - Gastro-esophageal reflux disease without esophagitis Qualifiers: Esophagitis presence: without esophagitis Qualified Code(s): K21.9 - Gastro-esophageal reflux disease without esophagitis Plan: Her GERD symptoms have been fairly stable with use of famotidine in simethicone as needed. (6) Colon cancer screening: Code(s): Z12.11 - Encounter for screening for malignant neoplasm of colon Plan: Continues to decline Cologuard and colonoscopy. (7) Breast cancer screening: Code(s): Z12.39 - Encounter for other screening for malignant neoplasm of breast Qualifiers: Breast cancer screening modality: mammogram Qualified Code(s): Z12.31 - Encounter for screening mammogram for malignant neoplasm of breast Plan: Continues to decline my offers to send her for mammogram. (8) MDD (major depressive disorder), recurrent episode, moderate: Code(s): F33.1 - Major depressive disorder, recurrent, moderate Plan: Patient reports her depression has been fairly stable with current doses of her mental health medications. Not speaking with a mental health therapist or psychiatrist at this time. (9) Tobacco dependence: Code(s): F17.200 - Nicotine dependence, unspecified, uncomplicated Plan: Patient does understand she needs to quit smoking though finds it very difficult. Has tried nicotine replacement in the past though has not been successful. (10) Carotid stenosis, right: Code(s): I65.21 - Occlusion and stenosis of right carotid artery Plan: Does have a right carotid bruit on physical exam today. Does have peripheral artery disease in her upper extremities and has been evaluated by vascular in [place] in the past. She has not interested in any intervention at this time. Orders: Orders Comprehensive [facility]. Panel Fast 01/27/24 E78.2 - Mixed hyperlipidemia Lipid Panel 01/27/24 E78.2 - Mixed hyperlipidemia Complete Blood Count no Diff 01/27/24 E78.2 - Mixed hyperlipidemia Referrals Thoracic/General Surgery Referral F17.200 - Nicotine dependence, unspecified, uncomplicated Medications: Refilled lorazepam 0.5 mg PO DAILY PRN 7 tabs 0RF anxiety 7 days F33.1 - Major depressive disorder, recurrent, moderate, F41.1 - Generalized anxiety disorder metoclopramide HCl (Reglan) 10 mg PO DAILY PRN 30 tabs 3RF nausea and vomiting R11.0 - Nausea dicyclomine 10 mg PO BID 30 caps 0RF Coding Level of Care Code Est Pt Prev Care 40-64y(16135) Diagnoses Annual physical exam Z00.00 Hypotension due to drugs I95.2 Hypotension type: hypotension due to drug Mild asthma without complication, unspecified whether persistent J45.909 Asthma complication type: uncomplicated Asthma persistence: unspecified Asthma severity: mild Mixed hyperlipidemia E78.2 Hyperlipidemia type: mixed hyperlipidemia Gastroesophageal reflux disease without esophagitis K21.9 Esophagitis presence: without esophagitis Colon cancer screening Z12.11 Encounter for screening mammogram for malignant neoplasm of breast Z12.31 Breast cancer screening modality: mammogram MDD (major depressive disorder), recurrent episode, moderate F33.1 Tobacco dependence F17.200 Carotid stenosis, right I65.21
[2024-01-27 14:44] VITALS: BP 76/42; PULSE 69; BMI 21.8
== END 2024-01-27 15:25 | disposition home or self-care (01) ==
PROVIDERS: PCP Physician Assistant; Visit Provider Physician Assistant
DX: Z00.00 Encounter for general adult medical examination without abnormal findings (principal); I95.2 Hypotension due to drugs; F33.1 Major depressive disorder, recurrent, moderate; J45.909 Unspecified asthma, uncomplicated; E78.2 Mixed hyperlipidemia; K21.9 Gastro-esophageal reflux disease without esophagitis; Z12.11 Encounter for screening for malignant neoplasm of colon; Z12.31 Encounter for screening mammogram for malignant neoplasm of breast; F17.200 Nicotine dependence, unspecified, uncomplicated; I65.21 Occlusion and stenosis of right carotid artery
CPT/HCPCS: 99396

== ENCOUNTER 2024-01-29 09:00 | Outpatient (REF) | payer OTHER, SELFPAY ==
[2024-01-29 09:48] LABS: Hematocrit 39.8 % (37.0-47.0); Hemoglobin 13.2 g/dl (12.0-16.0); Mean Corpuscular HGB Conc 33.2 g/dl (31.0-35.0); Mean Corpuscular Volume 96.6 fL (80.0-98.0); Mean Platelet Volume 9.4 fL (9.4-12.3); Platelet Count 238 X10*3/uL (160-400); Red Blood Count 4.12 X10*6/uL (4.20-5.50); Red Cell Distribution Width 13.9 % (11.0-16.0); White Blood Count 7.3 X10*3/uL (4.8-10.8)
[2024-01-29 10:23] LABS: Alanine Aminotransferase 8 U/L (0-31); Albumin Level 4.3 g/dL (3.5-5.0); Alkaline Phosphatase 96 U/L (39-117); Anion Gap 11 (12-20); Aspartate Amino Transferase 11 U/L (5-31); Bilirubin Total 0.5 mg/dL (0.0-1.0); Blood Urea Nitrogen 14 mg/dL (9-16); Calcium 9.6 mg/dL (8.4-10.2); Carbon Dioxide 24 mmol/L (22-29); Chloride 113 mmol/L (96-108); Cholesterol 185 mg/dL (<200); Estimated Glomerular Filt Rate 59; Glucose Fasting 82 mg/dL (60-99); HDL Cholesterol 55 mg/dL (>40); LDL Cholesterol Calculated 111 mg/dL (<100); Potassium 4.6 mmol/L (3.3-5.1); Sodium 143 mmol/L (135-145); Total Protein 7.2 g/dL (6.5-8.0); Triglycerides 95 mg/dL (<150)
== END 2024-01-29 09:01 | disposition home or self-care (01) ==
LOC: HO.LAB 09:00
PROVIDERS: PCP Physician Assistant; Visit Provider Physician Assistant
DX: E78.2 Mixed hyperlipidemia (principal)
CPT/HCPCS: 36415; 80053; 80061; 85027

== ENCOUNTER 2024-01-30 10:50 | Emergency (ER) | payer OTHER, SELFPAY ==
[2024-01-30 11:02] VITALS: BP 97/66; PULSE 82; RESP 16; TEMP 36.6; O2SAT 98; BMI 22.4
--- NOTE | 2024-01-30 11:06 | ECG_ITS ---
Test Reason : HYPOTENSIVE Blood Pressure : / mmHG Vent. Rate : 073 BPM Atrial Rate : 073 BPM P-R Int : 142 ms QRS Dur : 094 ms QT Int : 380 ms P-R-T Axes : 056 068 060 degrees QTc Int : 418 ms Normal sinus rhythm Normal ECG When compared with ECG of 24-OCT-2023 04:31, No significant change was found Referred By: Generic ED Physician Electronically Signed By:JALEESA SHEIKH MD
== END 2024-01-30 16:00 | disposition left against medical advice (07) ==
PROVIDERS: Emergency Provider Emergency Medicine; PCP Physician Assistant
DX: R51.9 Headache, unspecified (principal); R42 Dizziness and giddiness
CPT/HCPCS: 93005; 99283

== ENCOUNTER → 2024-01-30 11:06 | Outpatient (BNV) | payer OTHER, SELFPAY | PROVIDERS: Emergency Provider Emergency Medicine; PCP Physician Assistant; Visit Provider Internal Medicine Cardiovascular Disease | DX: I10 Essential (primary) hypertension (principal) | CPT/HCPCS: 93010 ==

== ENCOUNTER 2024-03-28 10:03 | Outpatient (AMB) | payer OTHER, SELFPAY ==
--- NOTE | 2024-03-28 10:06 | MHC.PC.OV ---
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 Allergies aspirin [Aspirin] Allergy (Intermediate, Verified 03/28/24 15:37) WHEEZING clarithromycin [From Biaxin] Allergy (Intermediate, Verified 03/28/24 15:37) HIVES Sulfa (Sulfonamide Antibiotics) [SULFA (SULFONAMIDE ANTIBIOTICS)] Allergy (Intermediate, Verified 03/28/24 15:37) HIVES bee pollen [BEE STINGS] Allergy (Unknown, Verified 03/28/24 15:37) UNKNOWN pineapple [PINEAPPLE] Allergy (Unknown, Verified 03/28/24 15:37) UNKNOWN beeswax Allergy (Verified 03/28/24 15:37) Anaphylaxis Medication List - Last Reconciled 03/28/24 by Walter Kiran MD acetaminophen (Tylenol Extra Strength) 500 mg PO Q6H PRN albuterol sulfate 90 mcg/actuation 1 inh inhalation QID PRN 30 days amitriptyline 50 mg PO BEDTIME 90 days aripiprazole (Abilify) 2 mg PO DAILY 30 days aspirin 81 mg PO DAILY bisacodyl (Dulcolax (bisacodyl)) 10 mg (2 x 5 mg) PO BEDTIME 2 days aeuftvbqag-wbeoqfpghvpli-rzpd 50-325-40 mg 1 tab PO BID PRN 7 days cholecalciferol (vitamin D3) 25 mcg PO DAILY dicyclomine 10 mg PO BID divalproex ER (Depakote ER) 250 mg PO BID 90 days famotidine 20 mg PO DAILY 90 days linaclotide (Linzess) 290 mcg PO QAM 30 days lorazepam 0.5 mg PO DAILY PRN 7 days metoclopramide HCl (Reglan) 10 mg PO DAILY PRN prochlorperazine maleate (Compazine) 10 mg PO BID PRN propranolol 120 mg (2 x 60 mg) PO BID 90 days rimegepant (Nurtec ODT) 75 mg PO Q OTHER DAY 30 days rizatriptan take 1 tab at onset of headache; if no relief may repeat 1 tab after at least 2 hrs; max = 3 tabs/24 hr PO 30 days simethicone (Gas Relief (simethicone)) 180 mg PO DAILY PRN simvastatin 20 mg PO DAILY topiramate (Topamax) 100 mg PO BID 90 days tramadol 50 mg PO BID PRN 4 days Tobacco use date assessed: 10/20/23 Dental Screening Dental Screen Date: 10/20/23 HPI Low BP HPI Details 53-year-old female presents to the office for a sick visit. I am covering for her regular provider. Patient gives low blood pressure as the reason for her visit. However she gives me a different reason for the office visit. Patient is homeless. She takes Lamictal intermittently for her mental health condition. Patient would like to be considered for partial hospitalization program for her mental health. She believes that she has worsening and her depression is worsening. [facility] Medical History Migraine CAD (coronary artery disease) IBS (irritable bowel syndrome) Hypotension Migraine Surgical History History of partial hysterectomy History of cholecystectomy Family History Mother Substance use disorder Stroke Other Mental health disorder Social History Housing: House Alcohol intake: never Patient Tobacco Use Status: Current everyday Tobacco user Tobacco use type: Cigarette Cigarettes Per Day: 10 e-Cigarette/Vaping Use: Never Used Second Hand Smoke Exposure: Yes Substance Use Type: Marijuana Advance Directives Date on File: 02/01/21 service: No Current occupational status: employed and disabled Current occupation: rt handed Cognitive needs: No Hearing needs: No Vision needs: Yes (glasses) Questionnaire Thrive Questionnaire Date Thrive assessed: 10/20/23 AUDIT C Alcohol Use Questionnaire (AUDIT-C) 1. How often do you have a drink containing alcohol?: Never 3. How often do you have six or more drinks on one occasion?: Never Total Score: 0 SYLVESTER-7 AMB Questionnaire SYLVESTER-7 Date SYLVESTER - 7 assessed: 10/20/23 Source: Developed by Drs. Galo Stanford, Lynne B.W. Rico Correia and colleagues, with an educational bernarda from [employer] Physical exam (Primary Care) Vital Signs: Last Vital Signs Pulse 66 03/28/24 10:07 BP 90/74 03/28/24 10:07 Pulse Ox 98 03/28/24 10:07 Oxygen Delivery Method Room Air 03/28/24 10:07 BMI result Body Mass Index 21.1 Tobacco/Smoking Status: Tobacco use Status Tobacco use date assessed 10/20/23 03/28/24 10:06 Patient Tobacco Use Status Current everyday Tobacco 03/28/24 10:06 Tobacco use type Cigarette 03/28/24 10:06 e-Cigarette/Vaping Use Never Used 03/28/24 10:06 Thrive Assessment: Date of Thrive Assessment Date Thrive assessed 10/20/23 03/28/24 10:06 Const General: cooperative and healthy appearing Nutritional Appearance: well nourished Orientation/consciousness: patient oriented x3 Limitations: no limitations HENMT Head: Yes normal to inspection Eyes General: appearance normal, both eyes and all related structures Neck Neck: Yes normal visual inspection Chest Chest palpation & inspection: normal palpation of entire chest wall Resp Effort & Inspection: normal respiratory effort Neuro General: patient oriented x3 Assessment and Plan Assessment & Plan (1) Bipolar disorder in partial remission: Code(s): F31.70 - Bipolar disorder, currently in remission, most recent episode unspecified Qualifiers: Most recent bipolar episode type: depressed Qualified Code(s): F31.75 - Bipolar disorder, in partial remission, most recent episode depressed Plan: Community navigation attached to the office was involved. She will be called by the staff at [facility] and given an appointment for intake. Also the community navigator will be addressing her home and senior living situation. (2) Homeless: Code(s): Z59.00 - Homelessness unspecified Coding Level of Care Code Est Pt Level 3 (39458) Complex EM visit Add On G2211 Diagnoses Bipolar disorder, in partial remission, most recent episode depressed F31.75 Most recent bipolar episode type: depressed Homeless Z59.00
[2024-03-28 10:07] VITALS: BP 90/74; PULSE 66; O2SAT 98; BMI 21.1
== END 2024-03-28 14:22 | disposition home or self-care (01) ==
PROVIDERS: PCP Physician Assistant; Visit Provider Internal Medicine
DX: F31.75 Bipolar disorder, in partial remission, most recent episode depressed (principal); Z59.00 Homelessness unspecified
CPT/HCPCS: 99213; G2211

== ENCOUNTER 2024-05-03 13:58 | Outpatient (AMB) | payer OTHER, SELFPAY ==
[2024-05-03 14:06] VITALS: BP 94/68; PULSE 66; O2SAT 97; BMI 21.7
--- NOTE | 2024-05-03 14:06 | MHC.PC.OV ---
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: No Accompanied by: Self / Same As Patient Allergies aspirin [Aspirin] Allergy (Intermediate, Verified 05/03/24 14:08) WHEEZING clarithromycin [From Biaxin] Allergy (Intermediate, Verified 05/03/24 14:08) HIVES Sulfa (Sulfonamide Antibiotics) [SULFA (SULFONAMIDE ANTIBIOTICS)] Allergy (Intermediate, Verified 05/03/24 14:08) HIVES bee pollen [BEE STINGS] Allergy (Unknown, Verified 05/03/24 14:08) UNKNOWN pineapple [PINEAPPLE] Allergy (Unknown, Verified 05/03/24 14:08) UNKNOWN beeswax Allergy (Verified 05/03/24 14:08) Anaphylaxis Medication List - Last Reconciled 05/03/24 by Kevan Gordon PA-C acetaminophen (Tylenol Extra Strength) 500 mg PO Q6H PRN albuterol sulfate 90 mcg/actuation 1 inh inhalation QID PRN 30 days amitriptyline 50 mg PO BEDTIME 90 days aripiprazole (Abilify) 2 mg PO DAILY 30 days aspirin 81 mg PO DAILY bisacodyl (Dulcolax (bisacodyl)) 10 mg (2 x 5 mg) PO BEDTIME 2 days whpgzvtauc-lwjpuoopvgezz-nzez 50-325-40 mg 1 tab PO BID PRN 7 days cholecalciferol (vitamin D3) 25 mcg PO DAILY dicyclomine 10 mg PO BID divalproex ER (Depakote ER) 250 mg PO BID 90 days famotidine 20 mg PO DAILY 90 days linaclotide (Linzess) 290 mcg PO QAM 30 days lorazepam 0.5 mg PO DAILY PRN 7 days metoclopramide HCl (Reglan) 10 mg PO DAILY PRN prochlorperazine maleate (Compazine) 10 mg PO BID PRN propranolol 120 mg (2 x 60 mg) PO BID 90 days rimegepant (Nurtec ODT) 75 mg PO Q OTHER DAY 30 days rizatriptan take 1 tab at onset of headache; if no relief may repeat 1 tab after at least 2 hrs; max = 3 tabs/24 hr PO 30 days simethicone (Gas Relief (simethicone)) 180 mg PO DAILY PRN simvastatin 20 mg PO DAILY topiramate (Topamax) 100 mg PO BID 90 days tramadol 50 mg PO BID PRN 4 days Tobacco use date assessed: 10/20/23 Dental Screening Dental Screen Date: 10/20/23 HPI low BP/ cold HPI Details Patient is a 53 year female here today for problem visit. She reports having a cold over the last week. She tested for COVID was negative. She reports having a dry cough and some chest tightness. Unfortunately continues to smoke cigarettes and does understand she needs to quit does not willing to do so at this time. Hypotension: Continues have lower blood pressure. Does use nitrogen on a as needed basis for symptomatic low blood pressures. We did discuss perhaps reducing her dose beta-titus as this may be a culprit for low blood pressure though she would like to stay on this medication as it does help her migraines. .. Anxiety: Patient reports her anxiety is fairly well controlled with current doses of her mental health medications. Also does use lorazepam 0.5 mg on a very limited p.r.n. basis for hyper traore of anxiety. She continues to be homeless in his on a waiting list to get housing. She anticipates getting housing in the next 3-4 months ON LICENSE OF [facility] Medical History Migraine CAD (coronary artery disease) IBS (irritable bowel syndrome) Hypotension Migraine Surgical History History of partial hysterectomy History of cholecystectomy Family History Mother Substance use disorder Stroke Other Mental health disorder Social History Housing: House Alcohol intake: never Patient Tobacco Use Status: Current everyday Tobacco user Tobacco use type: Cigarette Cigarettes Per Day: 10 e-Cigarette/Vaping Use: Never Used Second Hand Smoke Exposure: Yes Substance Use Type: Marijuana Advance Directives Date on File: 02/01/21 service: No Current occupational status: employed and disabled Current occupation: rt handed Cognitive needs: No Hearing needs: No Vision needs: Yes (glasses) Questionnaire Thrive Questionnaire Date Thrive assessed: 10/20/23 SYLVESTER-7 AMB Questionnaire SYLVESTER-7 Date SYLVESTER - 7 assessed: 10/20/23 Source: Developed by Drs. Galo Stanford, Lynne Correia, Rico Guerrero and colleagues, with an educational bernarda from [employer]. Review of Systems Const Denies headache(s) Eyes Denies loss of vision ENT Denies vertigo, Denies dizziness, Denies headache(s) and Denies sore throat Card Denies chest pain, Denies leg edema and Denies lightheadedness Resp Reports chest congestion, Reports cough, Denies hemoptysis and Denies wheezing GI Denies abdominal pain, Denies melena, Denies constipation, Denies diarrhea and Denies vomiting Denies urinary frequency, Denies dysuria and Denies urinary urgency Musc Denies arthralgias, Denies joint swelling, Denies numbness and Denies tingling Neuro Denies Abnormal speech present, Denies behavioral changes, Denies vertigo, Denies dizziness, Denies headache(s), Denies loss of vision, Denies memory loss, Denies numbness and Denies tingling Psych Denies anxiety, Denies behavioral changes, Denies depression, Denies memory loss and Denies panic attacks Stuart/Lymph Denies easy bleeding and Denies easy bruising Aller/Immun Denies wheezing Physical exam (Primary Care) Vital Signs: Last Vital Signs Pulse 66 05/03/24 14:06 BP 94/68 05/03/24 14:06 Pulse Ox 97 05/03/24 14:06 Oxygen Delivery Method Room Air 05/03/24 14:06 BMI result Body Mass Index 21.7 Tobacco/Smoking Status: Tobacco use Status Tobacco use date assessed 10/20/23 05/03/24 14:08 Patient Tobacco Use Status Current everyday Tobacco 05/03/24 14:08 Tobacco use type Cigarette 05/03/24 14:08 e-Cigarette/Vaping Use Never Used 05/03/24 14:08 Are you ready to quit: No Tobacco cessation counseling provided: Yes Items discussed: Nicotine replacement Relapse Prevention: discussed the importance of a supportive environment, discussed negative mood or depression after quitting, weight gain after smoking is common and discussed dietary, exercise and/or lifestyle changes Number of minutes spent counselin CPT code: 07023 - 4-10 Minutes Thrive Assessment: Date of Thrive Assessment Date Thrive assessed 10/20/23 05/03/24 14:08 Const General: healthy appearing, no acute distress, alert and awake Nutritional Appearance: well nourished Orientation/consciousness: oriented to person, oriented to place and oriented to time HENMT Ears: TM's normal bilaterally General nose exam: Normal nasal mucous membranes and turbinates present Eyes Conjunctivae: conjunctivae normal Sclerae: sclerae normal Pupils: Equal, round and reactive pupils present Neck Neck: Yes no lymphadenopathy and Yes no JVD Thyroid: Thyroid normal Carotids: no bruits Resp Effort & Inspection: normal respiratory effort and not tachypneic Auscultation: no crackles, no rales, no rhonchi and no wheezes Cardio Rate: regular rate Rhythm: regular rhythm Heart sounds: no murmurs and normal S1 and S2 GI Palpation (GI): Soft to palpation, nontender, no hepatomegaly and no splenomegaly Auscultation: normal bowel sounds Skin General skin exam: no rashes or lesions noted and dry skin Neuro General: oriented to person, oriented to place and oriented to time Cranial nerves: Yes Equal, round and reactive pupils present Speech: No Abnormal speech present Gait exam (Neuro): Normal gait present Motor exam (neuro): no tremor noted Extrem Right upper extremity: full ROM Left upper extremity: full ROM Right lower extremity: full ROM; no edema Left lower extremity: full ROM; no edema Psych Mental Status: mental status grossly normal Speech and movement: Normal speech and movement present Affect: normal affect Attitude: cooperative Thought process: Normal thought process present Assessment and Plan Assessment & Plan (1) Hypotension: Code(s): I95.9 - Hypotension, unspecified Qualifiers: Hypotension type: hypotension due to drug Qualified Code(s): I95.2 - Hypotension due to drugs Plan: Continues to have chronic hypotension likely secondary to her beta-titus dose though does not want to change her dose due to it helping her migraines. She does take midodrine on an as needed basis to elevated blood pressure when needed. (2) Bronchitis: Code(s): J40 - Bronchitis, not specified as acute or chronic Plan: Patient has not ins bronchitis, physical exam fairly benign today in office. Will send for chest x-ray to evaluate for pneumonia. (3) Tobacco dependence: Code(s): F17.200 - Nicotine dependence, unspecified, uncomplicated Plan: Patient does understand she needs to quit smoking though finds it very difficult. Has tried nicotine replacement in the past though has not been successful. Orders: Orders XR chest 2V Today J40 - Bronchitis, not specified as acute or chronic Medications: New midodrine do not give last dose of day after 6PM or within 4 hrs of bedtime 5 mg PO TID 15 days PRN 45 tabs 0RF low BP I95.2 - Hypotension due to drugs Refilled simethicone (Gas Relief (simethicone)) 180 mg PO DAILY PRN 30 caps 3RF abdominal distention lorazepam 0.5 mg PO DAILY 7 days PRN 7 tabs 0RF anxiety F33.1 - Major depressive disorder, recurrent, moderate, F41.1 - Generalized anxiety disorder Coding Level of Care Code Est Pt Level 4 (91351) Diagnoses Hypotension due to drugs I95.2 Hypotension type: hypotension due to drug Bronchitis J40 Tobacco dependence F17.200 Additional Codes Vital Signs *Quality* - CPT code: 89413 - 4-10 Minutes ([id number])
== END 2024-05-03 14:20 | disposition home or self-care (01) ==
PROVIDERS: PCP Physician Assistant; Visit Provider Physician Assistant
DX: I95.2 Hypotension due to drugs (principal); J40 Bronchitis, not specified as acute or chronic; F17.200 Nicotine dependence, unspecified, uncomplicated
CPT/HCPCS: 99214; 99406

== ENCOUNTER 2024-05-27 09:24 | Outpatient (AMB) | payer OTHER, SELFPAY ==
--- NOTE | 2024-05-27 09:45 | AM.OFFWIN_ITS ---
Intake Vital Signs 05/27/24 09:46 Height 5 ft 7 in Weight 139 lb BMI 21.8 BP 140/90 H Blood Pressure Location Rt brachial Position Sitting Pulse 72 Pulse Source Pulse Oximeter Pulse Oximetry (%) 96 Oxygen Delivery Method Room Air Intake Visit Reasons: EP pain on the should, migraine Intake Note: Patient here for migraine, right shoulder pain and states that her arms have been feeling vert weak. Patient Tobacco Use Status: Current everyday Tobacco user Allergies aspirin [Aspirin] Allergy (Intermediate, Verified 05/27/24 09:47) WHEEZING clarithromycin [From Biaxin] Allergy (Intermediate, Verified 05/27/24 09:47) HIVES Sulfa (Sulfonamide Antibiotics) [SULFA (SULFONAMIDE ANTIBIOTICS)] Allergy (Intermediate, Verified 05/27/24 09:47) HIVES bee pollen [BEE STINGS] Allergy (Unknown, Verified 05/27/24 09:47) UNKNOWN pineapple [PINEAPPLE] Allergy (Unknown, Verified 05/27/24 09:47) UNKNOWN beeswax Allergy (Verified 05/27/24 09:47) Anaphylaxis Do you need a note to return to daycare/school/sports/work: No HPI HPI Comments History of Present Illness Details 53 y/o female patient who presents to [facility] in clinic with multiple problems. Pt reports Bilateral shoulder pains that radiates down to her arms. Reports generalized muscle pain and weakness. Pt states I have this vascular disease with my clavicle and veins and they want me to have surgery but I do not want to because I'm DNR . Pt also suffers from chronic Migraine headaches, and currently has a headache. She has been prescribed different medications that do not work for her. Her BP elevated today due to pain. Advised Patient to go to Emergency room for further evaluation in case there is Acute Heart etiology or Stroke. Pt states I'm not going to ED, everytime I go there they look at me funny because I have DNR form . I do not want anything done on me due to my DNR . [facility] Medical History Migraine CAD (coronary artery disease) IBS (irritable bowel syndrome) Hypotension Migraine Surgical History History of partial hysterectomy History of cholecystectomy Family History Mother Substance use disorder Stroke Other Mental health disorder Social History Housing: House Alcohol intake: never Patient Tobacco Use Status: Current everyday Tobacco user Tobacco use type: Cigarette Cigarettes Per Day: 10 e-Cigarette/Vaping Use: Never Used Second Hand Smoke Exposure: Yes Substance Use Type: Marijuana Advance Directives Date on File: 02/01/21 service: No Current occupational status: employed and disabled Current occupation: rt handed Cognitive needs: No Hearing needs: No Vision needs: Yes (glasses) Review of Systems Const All systems reviewed & are unremarkable except as noted in HPI and below Physical Exam Vital Signs: BMI result Body Mass Index 21.8 Const General: cooperative and no acute distress Orientation/consciousness: patient oriented x3 Eyes Pupils: Equal, round and reactive pupils present Resp Effort & Inspection: normal respiratory effort Cardio Heart sounds: S1 normal heart sound present and S2 normal heart sound present Neuro General: patient oriented x3, gait normal and moves all extremities Cranial nerves: Yes Equal, round and reactive pupils present and Yes Bilaterally intact EOM present Motor exam (neuro): 5/5 motor strength present throughout Psych Speech and movement: Normal speech and movement present Affect: Anxious affect present Thought content: suicidality and no homicidality Judgement: Fair judgement present (Psych) Assessment & Plan Assessment & Plan (1) Migraine headache: Code(s): G43.909 - Migraine, unspecified, not intractable, without status migrainosus Qualifiers: Intractability: not intractable Migraine type: unspecified Status migrainosus presence: with status migrainosus Qualified Code(s): G43.901 - Migraine, unspecified, not intractable, with status migrainosus Plan: Continue on current prescribed medications. Has an Appointment with PCP 06/07, she wants to f/u with them Declined ED due to DNR form per patient. (2) Bilateral shoulder pain: Code(s): M25.511 - Pain in right shoulder; M25.512 - Pain in left shoulder Qualifiers: Chronicity: unspecified Qualified Code(s): M25.511 - Pain in right shoulder; M25.512 - Pain in left shoulder Plan: Etiology unclear to me. Advised Pain medications for relief. Coding Level of Care Code Est Pt Level 3 (17432) Diagnoses Migraine with status migrainosus, not intractable, unspecified migraine type G43.901 Intractability: not intractable Migraine type: unspecified Status migrainosus presence: with status migrainosus Bilateral shoulder pain, unspecified chronicity M25.511; M25.512 Chronicity: unspecified Time Spent (min) 15
[2024-05-27 09:46] VITALS: BP 140/90; PULSE 72; O2SAT 96; BMI 21.8
== END 2024-05-27 11:00 | disposition home or self-care (01) ==
PROVIDERS: PCP Physician Assistant; Visit Provider Nurse Practitioner Family
DX: G43.901 Migraine, unspecified, not intractable, with status migrainosus (principal); M25.511 Pain in right shoulder; M25.512 Pain in left shoulder

== ENCOUNTER → 2024-05-27 09:24 | Outpatient (BNVA) | payer OTHER, SELFPAY | PROVIDERS: PCP Physician Assistant | DX: G43.901 Migraine, unspecified, not intractable, with status migrainosus (principal); M25.511 Pain in right shoulder; M25.512 Pain in left shoulder | CPT/HCPCS: 99212 ==

== ENCOUNTER 2024-06-01 15:19 | Outpatient (AMB) | payer OTHER, SELFPAY ==
--- NOTE | 2024-06-01 15:22 | MHC.PC.OV ---
Vital Signs 06/01/24 15:28 Height 5 ft 7 in Weight 136 lb 8 oz BMI 21.4 BP 80/56 L Blood Pressure Location Rt brachial Position Sitting Pulse 111 H Pulse Source Pulse Oximeter Pulse Oximetry (%) 94 Oxygen Delivery Method Room Air Intake Visit Reasons: f/u HLd/ smoking/ hypotention President Practicing Urologist Required: No Accompanied by: Self / Same As Patient Allergies aspirin [Aspirin] Allergy (Intermediate, Verified 06/01/24 15:31) WHEEZING clarithromycin [From Biaxin] Allergy (Intermediate, Verified 06/01/24 15:31) HIVES Sulfa (Sulfonamide Antibiotics) [SULFA (SULFONAMIDE ANTIBIOTICS)] Allergy (Intermediate, Verified 06/01/24 15:31) HIVES bee pollen [BEE STINGS] Allergy (Unknown, Verified 06/01/24 15:31) UNKNOWN pineapple [PINEAPPLE] Allergy (Unknown, Verified 06/01/24 15:31) UNKNOWN beeswax Allergy (Verified 06/01/24 15:31) Anaphylaxis Medication List - Last Reconciled 06/01/24 by Kevan Gordon PA-C acetaminophen (Tylenol Extra Strength) 500 mg PO Q6H PRN albuterol sulfate 90 mcg/actuation 1 inh inhalation QID PRN 30 days amitriptyline 50 mg PO BEDTIME 90 days aspirin 81 mg PO DAILY bisacodyl (Dulcolax (bisacodyl)) 10 mg (2 x 5 mg) PO BEDTIME 2 days divalproex ER (Depakote ER) 250 mg PO BID 90 days linaclotide (Linzess) 290 mcg PO QAM 30 days lorazepam 0.5 mg PO DAILY PRN 7 days metoclopramide HCl (Reglan) 10 mg PO DAILY PRN midodrine 5 mg PO TID PRN 15 days prochlorperazine maleate (Compazine) 10 mg PO BID PRN propranolol 120 mg (2 x 60 mg) PO BID 90 days simethicone (Gas Relief (simethicone)) 180 mg PO DAILY PRN simvastatin 20 mg PO DAILY topiramate (Topamax) 100 mg PO BID 90 days tramadol 50 mg PO BID PRN 4 days Tobacco use date assessed: 10/20/23 Dental Screening Dental Screen Date: 10/20/23 HPI f/u HLd/ smoking/ hypotention HPI Details Patient is a 53 year female here today for a follow-up visit. Patient has a past medical history significant for tobacco use disorder, migraine disorder, anxiety, major depression and peripheral artery disease.. Tobacco use disorder: Unfortunately continues to smoke cigarettes and does understand she needs to quit does not willing to do so at this time. .. Migraine disorder: Patient reports she has been having more frequent and severe migraines over the last few weeks. She has used Fioricet in the past with good effect and is asking for short term script of this. She has been seen by Neurology in the past though has lost follow-up. She reports am affect was somewhat effective for her in the past. She has had brain MRIs without any significant intracranial pathologies. She is interested in reestablishing care with Neurology. Hypotension: Continues have lower blood pressure. Does use nitrogen on a as needed basis for symptomatic low blood pressures. We did discuss perhaps reducing her dose beta-titus as this may be a culprit for low blood pressure though she would like to stay on this medication as it does help her migraines. She does take midodrine on an as needed basis for low blood pressures as well. .. Anxiety: Patient reports her anxiety is fairly well controlled with current doses of her mental health medications. Also does use lorazepam 0.5 mg on a very limited p.r.n. basis for hyper traore of anxiety. [facility] Medical History Homeless Migraine CAD (coronary artery disease) IBS (irritable bowel syndrome) Hypotension Migraine Surgical History History of partial hysterectomy History of cholecystectomy Family History Mother Substance use disorder Stroke Other Mental health disorder Social History Housing: House Alcohol intake: never Patient Tobacco Use Status: Current everyday Tobacco user Tobacco use type: Cigarette Cigarettes Per Day: 10 e-Cigarette/Vaping Use: Never Used Second Hand Smoke Exposure: Yes Substance Use Type: Marijuana Advance Directives Date on File: 02/01/21 service: No Current occupational status: employed and disabled Current occupation: rt handed Cognitive needs: No Hearing needs: No Vision needs: Yes (glasses) Questionnaire Thrive Questionnaire Date Thrive assessed: 10/20/23 Are you currently unemployed and looking for a job?: No AUDIT C Alcohol Use Questionnaire (AUDIT-C) 2. How many drinks containing alcohol do you have on a typical day when you are drinking?: 1 or 2 3. How often do you have six or more drinks on one occasion?: Never Total Score: 0 SYLVESTER-7 AMB Questionnaire SYLVESTER-7 Date SYLVESTER - 7 assessed: 10/20/23 Source: Developed by Drs. Galo Stanford, Lynne Correia, Rico Guerrero and colleagues, with an educational bernarda from [employer]. Review of Systems Const Reports headache(s) Eyes Denies loss of vision ENT Denies vertigo, Denies dizziness, Reports headache(s) and Denies sore throat Card Denies chest pain, Denies leg edema and Denies lightheadedness Resp Denies cough, Denies hemoptysis and Denies wheezing GI Denies abdominal pain, Denies melena, Denies constipation, Denies diarrhea and Denies vomiting Denies urinary frequency, Denies dysuria and Denies urinary urgency Musc Denies arthralgias, Denies joint swelling, Denies numbness and Denies tingling Neuro Denies Abnormal speech present, Denies behavioral changes, Denies vertigo, Denies dizziness, Reports headache(s), Denies loss of vision, Denies memory loss, Denies numbness and Denies tingling Psych Denies anxiety, Denies behavioral changes, Denies depression, Denies memory loss and Denies panic attacks Stuart/Lymph Denies easy bleeding and Denies easy bruising Aller/Immun Denies wheezing Physical exam (Primary Care) Vital Signs: Last Vital Signs Pulse 111 H 06/01/24 15:28 BP 80/56 L 06/01/24 15:28 Pulse Ox 94 06/01/24 15:28 Oxygen Delivery Method Room Air 06/01/24 15:28 BMI result Body Mass Index 21.4 Tobacco/Smoking Status: Tobacco use Status Tobacco use date assessed 10/20/23 06/01/24 15:22 Patient Tobacco Use Status Current everyday Tobacco 06/01/24 15:22 Tobacco use type Cigarette 06/01/24 15:22 e-Cigarette/Vaping Use Never Used 06/01/24 15:22 Are you ready to quit: No Tobacco cessation counseling provided: Yes Items discussed: Nicotine replacement Relapse Prevention: discussed the importance of a supportive environment, discussed negative mood or depression after quitting, weight gain after smoking is common and discussed dietary, exercise and/or lifestyle changes Number of minutes spent counselin CPT code: 03209 - 4-10 Minutes Thrive Assessment: Date of Thrive Assessment Date Thrive assessed 10/20/23 06/01/24 15:22 Const General: healthy appearing, no acute distress, alert and awake Nutritional Appearance: well nourished Orientation/consciousness: oriented to person, oriented to place and oriented to time HENMT Ears: TM's normal bilaterally General nose exam: Normal nasal mucous membranes and turbinates present Eyes Conjunctivae: conjunctivae normal Sclerae: sclerae normal Pupils: Equal, round and reactive pupils present Neck Neck: Yes no lymphadenopathy and Yes no JVD Thyroid: Thyroid normal Carotids: no bruits Resp Effort & Inspection: normal respiratory effort and not tachypneic Auscultation: no crackles, no rales, no rhonchi and no wheezes Cardio Rate: regular rate Rhythm: regular rhythm Heart sounds: no murmurs and normal S1 and S2 GI Palpation (GI): Soft to palpation, nontender, no hepatomegaly and no splenomegaly Auscultation: normal bowel sounds Skin General skin exam: no rashes or lesions noted and dry skin Neuro General: oriented to person, oriented to place and oriented to time Cranial nerves: Yes Equal, round and reactive pupils present Speech: No Abnormal speech present Gait exam (Neuro): Normal gait present Motor exam (neuro): no tremor noted Extrem Right upper extremity: full ROM Left upper extremity: full ROM Right lower extremity: full ROM; no edema Left lower extremity: full ROM; no edema Psych Mental Status: mental status grossly normal Speech and movement: Normal speech and movement present Affect: normal affect Attitude: cooperative Thought process: Normal thought process present Office Procedures Flu Questionnaire Does the patient have a severe egg allergy?: No Does the patient have severe life threatening allergies?: No Does the patient have a fever or illness today?: No Has the patient ever had Guillain-[place] Syndrome?: No Has the patient ever had any past reaction to a flu shot?: No Immunizations Fluarix Triv [id number] (PF) 45 mcg (15 mcg x 3)/0.5 mL IM syringe Performing Provider: Kevan Gordon PA-C Performing Location: [facility] Administered by: LAURENT Jacques on 06/01/24 15:30 Dose Route Admin Location Dispensed Lot Number Expiration Date NDC Kiln Transfer Operator 0.5 mL IM Left Deltoid 0.5 mL [id number] 02/20/25 [id number] [employer] VIS Given Date VIS Provided VIS Publication Date 06/01/24 Single Vaccine 21 Eligibility Eligibility Date Funding Source Not [facility] Eligible 06/01/24 Private Coding Level of Care Code Est Pt Level 4 (05042) Diagnoses Migraine with status migrainosus, not intractable, unspecified migraine type G43.901 Intractability: not intractable Migraine type: unspecified Status migrainosus presence: with status migrainosus Hypotension due to drugs I95.2 Hypotension type: hypotension due to drug Mild asthma without complication, unspecified whether persistent J45.909 Asthma complication type: uncomplicated Asthma persistence: unspecified Asthma severity: mild SYLVESTER (generalized anxiety disorder) F41.1 Mixed hyperlipidemia E78.2 Hyperlipidemia type: mixed hyperlipidemia Tobacco dependence F17.200 Additional Codes Vital Signs *Quality* - CPT code: 68511 - 4-10 Minutes ([id number]) Assessment & Plan Assessment & Plan (1) Migraine headache: Code(s): G43.909 - Migraine, unspecified, not intractable, without status migrainosus Category: Medical Qualifiers: Intractability: not intractable Migraine type: unspecified Status migrainosus presence: with status migrainosus Qualified Code(s): G43.901 - Migraine, unspecified, not intractable, with status migrainosus Plan: Patient has a chronic history of migraine disorder, she is interested in restarting Fioricet on as needed basis. She is requesting Compazine rectal suppositories for her nausea during migraine attacks. She has used multiple medications including Imitrex, Topamax, methadone, Botox injections, a moving in the past by Neurology though only had some short term effectiveness. ---> She is willing to restart and reestablish with Neurology evaluation and care for her complex migraine disorder. (2) Hypotension: Code(s): I95.9 - Hypotension, unspecified Category: Medical Qualifiers: Hypotension type: hypotension due to drug Qualified Code(s): I95.2 - Hypotension due to drugs Plan: Patient's blood pressure remains low today in office. She does have midodrine available to her to which he uses on an as needed basis for symptomatic hypotension. (3) Asthma: Code(s): J45.909 - Unspecified asthma, uncomplicated Category: Medical Qualifiers: Asthma complication type: uncomplicated Asthma persistence: unspecified Asthma severity: mild Qualified Code(s): J45.909 - Unspecified asthma, uncomplicated Plan: Patient reports her asthma has been fairly well controlled. Does use an albuterol inhaler on an as needed basis. (4) SYLVESTER (generalized anxiety disorder): Code(s): F41.1 - Generalized anxiety disorder Category: Medical Plan: Patient reports her anxiety has been fairly well controlled on current dose of divalproex and p.r.n. use of lorazepam. (5) HLD (hyperlipidemia): Code(s): E78.5 - Hyperlipidemia, unspecified Category: Medical Qualifiers: Hyperlipidemia type: mixed hyperlipidemia Qualified Code(s): E78.2 - Mixed hyperlipidemia Plan: She continues on statin therapy without side effect. Patient does have elevated cardiovascular risk due to her peripheral artery disease and continued tobacco use. She promises to get fasting lipid panel done. Goal LDL to be below 100. (6) Tobacco dependence: Code(s): F17.200 - Nicotine dependence, unspecified, uncomplicated Category: Medical Plan: As per HPI, patient not interested in reducing her smoking. Orders: Orders Comprehensive [place]. Panel Fast 06/01/24 E78.2 - Mixed hyperlipidemia Complete Blood Count no Diff 06/01/24 E78.2 - Mixed hyperlipidemia Lipid Panel 06/01/24 E78.2 - Mixed hyperlipidemia Influenza [id number] Immunization 06/01/24 Z23 - Encounter for immunization Referrals Neurology Referral G43.901 - Migraine, unspecified, not intractable, with status migrainosus Medications: New tywvscynmm-ieyuqcyhkbppn-digi 50-300-40 mg (Fioricet) 1 cap PO Q8H PRN 12 caps 0RF pain 4 days G43.901 - Migraine, unspecified, not intractable, with status migrainosus prochlorperazine (Compazine) 25 mg CA BID PRN 12 ea 0RF nausea and vomiting 6 days G43 - Migraine, unspecified, not intractable, with status migrainosus magnesium 250 mg PO BID 180 tabs 1RF 90 days G4.901 - Migraine, unspecified, not intractable, with status migrainosus riboflavin (vitamin B2) 50 mg PO DAILY 90 tabs 1RF G4.901 - Migraine, unspecified, not intractable, with status migrainosus Discontinued prochlorperazine maleate (Compazine) Discontinued Reason: Doctor's Order 10 mg PO BID PRN 14 tabs 0RF nausea and vomiting
[2024-06-01 15:28] VITALS: BP 80/56; PULSE 111; O2SAT 94; BMI 21.4
== END 2024-06-01 15:44 | disposition home or self-care (01) ==
PROVIDERS: PCP Physician Assistant; Visit Provider Physician Assistant
DX: G43.901 Migraine, unspecified, not intractable, with status migrainosus (principal); I95.2 Hypotension due to drugs; J45.909 Unspecified asthma, uncomplicated; F41.1 Generalized anxiety disorder; E78.2 Mixed hyperlipidemia; F17.210 Nicotine dependence, cigarettes, uncomplicated

== ENCOUNTER → 2024-06-01 15:19 | Outpatient (BNVA) | payer OTHER, SELFPAY | PROVIDERS: PCP Physician Assistant; Visit Provider Physician Assistant | DX: Z23 Encounter for immunization (principal); G43.901 Migraine, unspecified, not intractable, with status migrainosus; I95.2 Hypotension due to drugs; J45.909 Unspecified asthma, uncomplicated; F41.1 Generalized anxiety disorder; E78.2 Mixed hyperlipidemia; F17.200 Nicotine dependence, unspecified, uncomplicated; Z71.6 Tobacco abuse counseling | CPT/HCPCS: 90471; 90656; 99212 ==

== ENCOUNTER 2024-06-17 09:45 | Outpatient (REF) | payer OTHER, SELFPAY | END 2024-06-17 09:46 | disposition home or self-care (01) | LOC: HO.HOSX 09:45 | PROVIDERS: Visit Provider Physician Assistant | DX: Z13.89 Encounter for screening for other disorder (principal) ==

== ENCOUNTER 2024-06-21 13:03 | Outpatient (REF) | payer OTHER, SELFPAY | END 2024-06-21 13:04 | disposition home or self-care (01) | LOC: HO.HOSX 13:03 | PROVIDERS: Visit Provider Physician Assistant | DX: Z13.89 Encounter for screening for other disorder (principal) ==

== ENCOUNTER 2024-09-01 14:54 | Outpatient (AMB) | payer OTHER, SELFPAY ==
[2024-09-01 14:59] VITALS: BP 84/56; PULSE 112; O2SAT 99; BMI 21.5
--- NOTE | 2024-09-01 14:59 | MHC.PC.OV ---
Vital Signs 09/01/24 14:59 Height 5 ft 7 in Weight 137 lb 6 oz BMI 21.5 BP 84/56 L Blood Pressure Location Lt brachial Position Sitting Pulse 112 H Pulse Source Pulse Oximeter Pulse Oximetry (%) 99 Oxygen Delivery Method Room Air Intake Visit Reasons: f/u HLD/ migraines Education Sales Consultant Required: No Accompanied by: Self / Same As Patient Allergies aspirin [Aspirin] Allergy (Intermediate, Verified 09/01/24 15:05) WHEEZING clarithromycin [From Biaxin] Allergy (Intermediate, Verified 09/01/24 15:05) HIVES Sulfa (Sulfonamide Antibiotics) [SULFA (SULFONAMIDE ANTIBIOTICS)] Allergy (Intermediate, Verified 09/01/24 15:05) HIVES bee pollen [BEE STINGS] Allergy (Unknown, Verified 09/01/24 15:05) UNKNOWN pineapple [PINEAPPLE] Allergy (Unknown, Verified 09/01/24 15:05) UNKNOWN beeswax Allergy (Verified 09/01/24 15:05) Anaphylaxis Medication List - Last Reconciled 09/01/24 by Kevan Gordon PA-C acetaminophen (Tylenol Extra Strength) 500 mg PO Q6H PRN albuterol sulfate 90 mcg/actuation 1 inh inhalation QID PRN 30 days amitriptyline 50 mg PO BEDTIME 90 days aspirin 81 mg PO DAILY bisacodyl (Dulcolax (bisacodyl)) 10 mg (2 x 5 mg) PO BEDTIME 2 days mzqluzrhfv-psixyihhcyqym-iauc 50-300-40 mg (Fioricet) 1 cap PO Q8H PRN 4 days COVID-19 antigen test ([facility] COVID-19 Ag Self Test kit) As directed dicyclomine 20 mg PO TID PRN 30 days divalproex ER (Depakote ER) 250 mg PO BID 90 days linaclotide (Linzess) 290 mcg PO QAM 30 days lorazepam 0.5 mg PO DAILY PRN 7 days magnesium 250 mg PO BID 90 days metoclopramide HCl (Reglan) 10 mg PO DAILY PRN midodrine 5 mg PO TID PRN 15 days prochlorperazine (Compazine) 25 mg [place] BID PRN 6 days propranolol 120 mg (2 x 60 mg) PO BID 90 days riboflavin (vitamin B2) 50 mg PO DAILY simethicone (Gas Relief (simethicone)) 180 mg PO DAILY PRN simvastatin 20 mg PO DAILY topiramate (Topamax) 100 mg PO BID 90 days tramadol 50 mg PO BID PRN 4 days Tobacco use date assessed: 09/01/24 Dental Screening Dental Screen Date: 09/01/24 Did you have a dental visit in the last 12 months?: Yes Did you have a dental problem in the last 6 months where you did not have access to dental care?: No Was dental information given to patient?: Patient has dentist HPI f/u HLD/ migraines HPI Details Patient is a 54 year female here today for a follow-up visit. Patient has a past medical history significant for tobacco use disorder, migraine disorder, anxiety, major depression and peripheral artery disease.. Concerns--> patient reports over last 4 days having bilateral for pain in mid back pain. No urinary frequency or dysuria reported. She denies any injury to her lower back. She is worried about kidney issue or kidney stones. Tobacco use disorder: Unfortunately continues to smoke cigarettes and does understand she needs to quit does not willing to do so at this time. .. Migraine disorder: Patient reports she has been having more frequent and severe migraines over the last few weeks. She has used Fioricet in the past with good effect and is asking for short term script of this. . She has had brain MRIs without any significant intracranial pathologies. She was previously on narcotics for her migraine pain She has establish care with a neurologist in [place] Dr. Hopper and will be started on Aimovig injections in hopes to gain control over migraines. Hypotension: Continues have lower blood pressure. Does use nitrogen on a as needed basis for symptomatic low blood pressures. We did discuss perhaps reducing her dose beta-titus as this may be a culprit for low blood pressure though she would like to stay on this medication as it does help her migraines. She does take midodrine on an as needed basis for low blood pressures as well. .. Anxiety: Patient reports her anxiety is fairly well controlled with current doses of her mental health medications. Also does use lorazepam 0.5 mg on a very limited p.r.n. basis for hyper traore of anxiety. [facility] Medical History (Updated 09/01/24 @ 15:23 by Kevan Gordon PA-C) Right medial tibial plateau fracture Homeless Migraine CAD (coronary artery disease) IBS (irritable bowel syndrome) Hypotension Migraine Surgical History History of partial hysterectomy History of cholecystectomy Family History Mother Substance use disorder Stroke Other Mental health disorder Social History Housing: House Alcohol intake: never Patient Tobacco Use Status: Current everyday Tobacco user Tobacco use type: Cigarette Cigarettes Per Day: 10 e-Cigarette/Vaping Use: Never Used Second Hand Smoke Exposure: Yes Substance Use Type: Marijuana Advance Directives Date on File: 02/01/21 service: No Current occupational status: employed and disabled Current occupation: rt handed Cognitive needs: No Hearing needs: No Vision needs: Yes (glasses) Questionnaire PHQ-9 Over the last 2 weeks, how often have you been bothered by any of the following problems? 1. Little interest or pleasure in doing things: not at all 2. Feeling down, depressed, or hopeless: not at all 3. Trouble falling or staying asleep, or sleeping too much: not at all 4. Feeling tired or having little energy: not at all 5. Poor appetite or overeating: not at all 6. Feeling bad about yourself - or that you are a failure or have let yourself or your family down: not at all 7. Trouble concentrating on things, such as reading the newspaper or watching television: not at all 8. Moving or speaking so slowly that other people could have noticed. Or the opposite - being so fidgety or restless that you have been moving around a lot more than usual: not at all 9. Thoughts that you would be better off or of hurting yourself in some way: not at all Total score: 0 Depression Screening Interpretation: Negative Depression Screening Done: Yes 97394 - PHQ-9 Billing: Yes Source: Developed by Drs. Galo Stanford, Lynne Correia, Rico Guerrero and colleagues, with an educational bernarda from [employer]. Thrive Questionnaire Date Thrive assessed: 09/01/24 I am a: Patient What is your living situation today?: I have a steady place to live Within the past 12 months, did the food you bought not last and you didn't have the money to get more?: Never true Within the past 12 months, did you worry whether your food would run out before you got money to buy more?: Never true Do you have trouble paying for medicines?: No Do you have trouble getting transportation to medical appointments?: No Do you have trouble paying your heating and electricity bill?: No Do you have trouble taking care of your child, family member or friend?: No Do you have trouble with day-to-day activities such as bathing, preparing meals, shopping, managing finances, etc.?: No Are you currently unemployed and looking for a job?: No Are you interested in more education?: No Please select the resources that you would like help with: None Currently or been in a relationship where the following occur: No concerns reported THRIVE Score: 0 AUDIT C Alcohol Use Questionnaire (AUDIT-C) 1. How often do you have a drink containing alcohol?: Monthly or less 2. How many drinks containing alcohol do you have on a typical day when you are drinking?: 1 or 2 3. How often do you have six or more drinks on one occasion?: Never Total Score: 1 SYLVESTER-7 AMB Questionnaire SYLVESTER-7 Date SYLVESTER - 7 assessed: 09/01/24 Feeling nervous, anxious, or on edge: 0 = Not at all Not being able to stop or control worryin = Not at all Worrying too much about different things: 0 = Not at all Trouble relaxin = Not at all Being so restless that it is hard to sit still: 0 = Not at all Becoming easily annoyed or irritable: 0 = Not at all Feeling afraid as if something awful might happen: 0 = Not at all Total SYLVESTER-7 score (0-4 normal; 5-9 mild; 10-14 moderate; 15-21 severe): 0 Source: Developed by Drs. Galo Stanford, Lynne Correia, Rico Guerrero and colleagues, with an educational bernarda from [employer]. SYLVESTER-7 Assessment Billing SYLVESTER-7 Assessment Tool: SYLVESTER-7 Assessment 49699 Review of Systems Const Reports headache(s) Eyes Denies loss of vision ENT Denies vertigo, Denies dizziness, Reports headache(s) and Denies sore throat Card Denies chest pain, Denies leg edema and Denies lightheadedness Resp Denies cough, Denies hemoptysis and Denies wheezing GI Denies abdominal pain, Denies melena, Denies constipation, Denies diarrhea and Denies vomiting Denies urinary frequency, Denies dysuria and Denies urinary urgency Musc Reports back pain, Denies arthralgias, Denies joint swelling, Denies numbness and Denies tingling Neuro Denies Abnormal speech present, Denies behavioral changes, Denies vertigo, Denies dizziness, Reports headache(s), Denies loss of vision, Denies memory loss, Denies numbness and Denies tingling Psych Denies anxiety, Denies behavioral changes, Denies depression, Denies memory loss and Denies panic attacks Stuart/Lymph Denies easy bleeding and Denies easy bruising Aller/Immun Denies wheezing Physical exam (Primary Care) Vital Signs: Last Vital Signs Pulse 112 H 09/01/24 14:59 BP 84/56 L 09/01/24 14:59 Pulse Ox 99 09/01/24 14:59 Oxygen Delivery Method Room Air 09/01/24 14:59 BMI result Body Mass Index 21.5 Tobacco/Smoking Status: Tobacco use Status Tobacco use date assessed 10/20/23 06/01/24 15:22 Patient Tobacco Use Status Current everyday Tobacco 06/01/24 15:22 Tobacco use type Cigarette 06/01/24 15:22 e-Cigarette/Vaping Use Never Used 06/01/24 15:22 Are you ready to quit: No Tobacco cessation counseling provided: Yes Items discussed: QuitWorks Relapse Prevention: discussed the importance of a supportive environment, discussed negative mood or depression after quitting, weight gain after smoking is common and discussed dietary, exercise and/or lifestyle changes Number of minutes spent counselin CPT code: 77141 - 4-10 Minutes Depression Screening Interpretation: Negative Thrive Assessment: Date of Thrive Assessment Date Thrive assessed 10/20/23 06/01/24 15:22 Currently or been in a relationship where the following occur: No concerns reported Const General: healthy appearing, no acute distress, alert and awake Nutritional Appearance: well nourished Orientation/consciousness: oriented to person, oriented to place and oriented to time HENMT Ears: TM's normal bilaterally General nose exam: Normal nasal mucous membranes and turbinates present Eyes Conjunctivae: conjunctivae normal Sclerae: sclerae normal Pupils: Equal, round and reactive pupils present Neck Neck: Yes no lymphadenopathy and Yes no JVD Thyroid: Thyroid normal Carotids: no bruits Resp Effort & Inspection: normal respiratory effort and not tachypneic Auscultation: no crackles, no rales, no rhonchi and no wheezes Cardio Rate: regular rate Rhythm: regular rhythm Heart sounds: no murmurs and normal S1 and S2 GI Palpation (GI): Soft to palpation, nontender, no hepatomegaly and no splenomegaly Auscultation: normal bowel sounds Skin General skin exam: no rashes or lesions noted and dry skin Neuro General: oriented to person, oriented to place and oriented to time Cranial nerves: Yes Equal, round and reactive pupils present Speech: No Abnormal speech present Gait exam (Neuro): Normal gait present Motor exam (neuro): no tremor noted Extrem Right upper extremity: full ROM Left upper extremity: full ROM Right lower extremity: full ROM; no edema Left lower extremity: full ROM; no edema Psych Mental Status: mental status grossly normal Speech and movement: Normal speech and movement present Affect: normal affect Attitude: cooperative Thought process: Normal thought process present Coding Level of Care Code Est Pt Level 4 (07691) Diagnoses Migraine with status migrainosus, not intractable, unspecified migraine type G43.901 Intractability: not intractable Migraine type: unspecified Status migrainosus presence: with status migrainosus Bilateral flank pain R10.9 Mixed hyperlipidemia E78.2 Hyperlipidemia type: mixed hyperlipidemia Tobacco dependence F17.200 Homeless Z59.00 MDD (major depressive disorder), recurrent episode, moderate F33.1 Bipolar disorder, in partial remission, most recent episode depressed F31.75 Most recent bipolar episode type: depressed Additional Codes SYLVESTER-7 Assessment Billing - SYLVESTER-7 Assessment Tool: SYLVESTER-7 Assessment 88479 ([id number]) PHQ-9 - 57050 - PHQ-9 Billing: Yes ([id number]) Vital Signs *Quality* - CPT code: 09051 - 4-10 Minutes ([id number]) Assessment & Plan Assessment & Plan (1) Migraine headache: Code(s): G43.909 - Migraine, unspecified, not intractable, without status migrainosus Category: Medical Qualifiers: Intractability: not intractable Migraine type: unspecified Status migrainosus presence: with status migrainosus Qualified Code(s): G43.901 - Migraine, unspecified, not intractable, with status migrainosus Plan: Patient has a chronic history of migraine disorder, she is interested in restarting Fioricet on as needed basis. She is requesting Compazine rectal suppositories for her nausea during migraine attacks. She has used multiple medications including Imitrex, Topamax, methadone, Botox injections, a moving in the past by Neurology though only had some short term effectiveness. She has establish care with a new neurologist in [place]. Has been trying to get new migraine medication approved through insurance. She is anticipating starting Aimovig injections to help control her migraine frequency and severity. For now she continues on Fioricet on an as needed basis to which she pays out of pocket at pharmacy (2) Bilateral flank pain: Code(s): R10.9 - Unspecified abdominal pain Category: Medical Plan: As per HPI patient reports bilateral flank pain. Will send for x-ray of kidneys urinary bladder to evaluate for nephrolithiasis. Will also send for urinalysis to evaluate for UTI. (3) HLD (hyperlipidemia): Code(s): E78.5 - Hyperlipidemia, unspecified Category: Medical Qualifiers: Hyperlipidemia type: mixed hyperlipidemia Qualified Code(s): E78.2 - Mixed hyperlipidemia Plan: She continues on statin therapy without side effect. Patient does have elevated cardiovascular risk due to her peripheral artery disease and continued tobacco use. She promises to get fasting lipid panel done. Goal LDL to be below 100. (4) Tobacco dependence: Code(s): F17.200 - Nicotine dependence, unspecified, uncomplicated Category: Medical Plan: As per HPI, patient not interested in reducing her smoking. (5) Homeless: Code(s): Z59.00 - Homelessness unspecified Category: Social Hx Plan: Continues to live in a homeless fdc in [place]. She is working with a housing counselor to get an apartment in [place] she is hopeful she will get an apartment this year. (6) MDD (major depressive disorder), recurrent episode, moderate: Code(s): F33.1 - Major depressive disorder, recurrent, moderate Category: Medical Plan: Patient's PHQ-9 score negative. Her mental health has been fairly stable on current doses of mental health medication. She does speak with a counselor quite regularly. (7) Bipolar disorder in partial remission: Code(s): F31.70 - Bipolar disorder, currently in remission, most recent episode unspecified Category: Medical Qualifiers: Most recent bipolar episode type: depressed Qualified Code(s): F31.75 - Bipolar disorder, in partial remission, most recent episode depressed Plan: Patient continues on mood stabilization with divalproex which has been effective for her. Medications: Refilled lorazepam 0.5 mg PO DAILY 7 days PRN 7 tabs 0RF anxiety F33.1 - Major depressive disorder, recurrent, moderate, F41.1 - Generalized anxiety disorder aiyzcywzmg-zypsgwhoqasrk-ofmx 50-300-40 mg (Fioricet) 1 cap PO Q8H 4 days PRN 12 caps 0RF pain G43.901 - Migraine, unspecified, not intractable, with status migrainosus
== END 2024-09-01 15:18 | disposition home or self-care (01) ==
PROVIDERS: PCP Physician Assistant; Visit Provider Physician Assistant
DX: G43.901 Migraine, unspecified, not intractable, with status migrainosus (principal); F31.75 Bipolar disorder, in partial remission, most recent episode depressed; Z59.00 Homelessness unspecified; R10.9 Unspecified abdominal pain; E78.2 Mixed hyperlipidemia; F17.200 Nicotine dependence, unspecified, uncomplicated

== ENCOUNTER → 2024-09-01 14:54 | Outpatient (BNVA) | payer OTHER, SELFPAY | PROVIDERS: PCP Physician Assistant; Visit Provider Physician Assistant | DX: G43.901 Migraine, unspecified, not intractable, with status migrainosus (principal); R10.9 Unspecified abdominal pain; E78.2 Mixed hyperlipidemia; F33.1 Major depressive disorder, recurrent, moderate; F17.200 Nicotine dependence, unspecified, uncomplicated; Z59.00 Homelessness unspecified; Z71.6 Tobacco abuse counseling | CPT/HCPCS: 96127; 99212 ==

== ENCOUNTER 2024-09-19 14:24 | Outpatient (AMB) | payer OTHER, SELFPAY ==
[2024-09-19 14:39] VITALS: BP 88/50; PULSE 99; TEMP 36.2; O2SAT 99; BMI 21.4
--- NOTE | 2024-09-19 14:39 | A.OFFPC_ITS ---
Vital Signs 09/19/24 14:39 Height 5 ft 7 in Weight 136 lb 6 oz BMI 21.4 BP 88/50 L Blood Pressure Location Rt brachial Position Sitting Pulse 99 Pulse Source Pulse Oximeter Temp 97.1 F Temp Source Temporal Artery Scan Pulse Oximetry (%) 99 Oxygen Delivery Method Room Air Intake Visit Reasons: High Blood Pressure [employer] Required: No Accompanied by: Self / Same As Patient Allergies aspirin [Aspirin] Allergy (Intermediate, Verified 09/19/24 15:09) WHEEZING clarithromycin [From Biaxin] Allergy (Intermediate, Verified 09/19/24 15:09) HIVES Sulfa (Sulfonamide Antibiotics) [SULFA (SULFONAMIDE ANTIBIOTICS)] Allergy (Intermediate, Verified 09/19/24 15:09) HIVES bee pollen [BEE STINGS] Allergy (Unknown, Verified 09/19/24 15:09) UNKNOWN pineapple [PINEAPPLE] Allergy (Unknown, Verified 09/19/24 15:09) UNKNOWN beeswax Allergy (Verified 09/19/24 15:09) Anaphylaxis Medication List - Last Reconciled 09/19/24 by Sofia Estes PA-C acetaminophen (Tylenol Extra Strength) 500 mg PO Q6H PRN albuterol sulfate 90 mcg/actuation 1 inh inhalation QID PRN 30 days amitriptyline 50 mg PO BEDTIME 90 days aspirin 81 mg PO DAILY baclofen 10 mg PO BID PRN 7 days bisacodyl (Dulcolax (bisacodyl)) 10 mg (2 x 5 mg) PO BEDTIME 2 days istadztayh-lgpjylozttfkk-wmyn 50-300-40 mg (Fioricet) 1 cap PO Q8H PRN 4 days COVID-19 antigen test ([facility] Self Test [facility]) As directed dicyclomine 20 mg PO TID PRN 30 days divalproex ER (Depakote ER) 250 mg PO BID 90 days linaclotide (Linzess) 290 mcg PO QAM 30 days lorazepam 0.5 mg PO DAILY PRN 7 days magnesium 250 mg PO BID 90 days meclizine 50 mg PO DAILY metoclopramide HCl (Reglan) 10 mg PO DAILY PRN midodrine 5 mg PO TID PRN 15 days prochlorperazine (Compazine) 25 mg [place] BID PRN 6 days propranolol 120 mg (2 x 60 mg) PO BID 90 days riboflavin (vitamin B2) 50 mg PO DAILY simethicone (Gas Relief (simethicone)) 180 mg PO DAILY PRN simvastatin 20 mg PO DAILY topiramate (Topamax) 100 mg PO BID 90 days tramadol 50 mg PO BID PRN 4 days Tobacco use date assessed: 09/01/24 Dental Screening Dental Screen Date: 09/01/24 [facility] Medical History Right medial tibial plateau fracture Homeless Migraine CAD (coronary artery disease) IBS (irritable bowel syndrome) Hypotension Migraine Surgical History History of partial hysterectomy History of cholecystectomy Family History Mother Substance use disorder Stroke Other Mental health disorder Social History Housing: House Alcohol intake: never Patient Tobacco Use Status: Current everyday Tobacco user Tobacco use type: Cigarette Cigarettes Per Day: 10 e-Cigarette/Vaping Use: Never Used Second Hand Smoke Exposure: Yes Substance Use Type: Marijuana Advance Directives Date on File: 02/01/21 service: No Current occupational status: employed and disabled Current occupation: rt handed Cognitive needs: No Hearing needs: No Vision needs: Yes (glasses) Questionnaire Thrive Questionnaire Date Thrive assessed: 09/01/24 SYLVESTER-7 AMB Questionnaire SYLVESTER-7 Date SYLVESTER - 7 assessed: 09/01/24 Source: Developed by Drs. Galo Stanford, Lynne Correia, Rico Guerrero and colleagues, with an educational bernarda from [employer]. Physical exam (Primary Care) Vital Signs: Last Vital Signs Temp 97.1 F 09/19/24 14:39 Pulse 99 09/19/24 14:39 BP 88/50 L 09/19/24 14:39 Pulse Ox 99 09/19/24 14:39 Oxygen Delivery Method Room Air 09/19/24 14:39 Care Plan Goal for BP management: <130/80 at goal BMI result Body Mass Index 21.4 normal BMI Tobacco/Smoking Status: Tobacco use Status Tobacco use date assessed 09/01/24 09/19/24 14:43 Patient Tobacco Use Status Current everyday Tobacco 09/19/24 14:43 Tobacco use type Cigarette 09/19/24 14:43 e-Cigarette/Vaping Use Never Used 09/19/24 14:43 Thrive Assessment: Date of Thrive Assessment Date Thrive assessed 09/01/24 09/19/24 14:43 Coding Level of Care Code Est Pt Level 4 (65225) Complex EM visit Add On G2211 Diagnoses Dizziness R42 Hypotension due to drugs I95.2 Hypotension type: hypotension due to drug Assessment & Plan Assessment & Plan (1) Dizziness: Code(s): R42 - Dizziness and giddiness Category: Medical Plan: Patient has a normal neuro exam. Symptoms has been present since 09/11/2024 after IM injection for migraine headaches could be possibly side effect. Will obtain basic lab which include CBC, chemistry, magnesium along with a CT scan of brain without contrast. Patient will be sent home with meclizine with instructions return in 1 week with Kevan Gordon. Condition is stable will continue to monitor. (2) Hypotension: Code(s): I95.9 - Hypotension, unspecified Category: Medical Qualifiers: Hypotension type: hypotension due to drug Qualified Code(s): I95.2 - Hypotension due to drugs Plan: Condition is chronic and stable. Will refill medications. Will continue to monitor. Plan Plan - Order a CT scan of the head to rule out other causes of dizziness and neurological changes. - Prescribe meclizine to manage symptoms of dizziness. - Conduct a CBC, chemistry panel, and magnesium level to rule out systemic causes. - Refill medications for Midodrine and Compazine. - Consider orthostatic blood pressure evaluation to assess for orthostatic hypotension. Orders: Orders Complete Blood Count Auto Diff Today R42 - Dizziness and giddiness CT head/brain wo IV con Today R42 - Dizziness and giddiness Comprehensive Caputa. Panel Fast Today R42 - Dizziness and giddiness Magnesium Today R42 - Dizziness and giddiness Medications: New meclizine 50 mg PO DAILY 30 tabs 0RF dizziness Refilled midodrine do not give last dose of day after 6PM or within 4 hrs of bedtime 5 mg PO TID PRN 45 tabs 0RF low BP 15 days I95.2 - Hypotension due to drugs prochlorperazine (Compazine) 25 mg [place] BID PRN 12 ea 0RF nausea and vomiting 6 days G43.901 - Migraine, unspecified, not intractable, with status migrainosus Patient Instructions: Patient Instructions - Take meclizine as prescribed for dizziness, up to three times daily as needed. - Complete the blood work and CT scan as soon as possible. - Monitor symptoms. Seek emergency care if weakness or severe symptoms develop. - Follow up with your primary care provider in one week for reassessment. - Use the patient portal for easy communication and prescription refills if ne eded. Scribe Plan - Not visible on output: History of Present Illness The patient is a 54-year-old female presenting with elevated blood pressure and associated symptoms after initiating Amavig for migraine treatment on the of the current month. The patient's baseline blood pressure is typically low, around 80s/50s, but she has recorded ysklsv-jspv-flqyb values of approximately 131/94 over the past week and a half following medication initiation. She describes feeling as though she is drunk, accompanied by dizziness, with an onset a day after medication administration. These symptoms are exacerbated upon standing. Additional symptoms include right-hand tingling starting from the same time period and headaches located behind the eyes. The patient also notes mild visual changes and photosensitivity. No new medications have been introduced apart from Amavig. The patient denies prior similar episodes or any recent illness leading up to the event. She has a known history of requiring vascular stents and further mentions a probable family trait of large ocular veins. The patient has no documented history of hypertension prior to this episode. Social History - from her but maintains amicable relations to assist him post-surgery. - The patient alluded to previous injuries that were untreated secondary to COVID-19 pandemic constraints. - No substance use was mentioned. Review of Systems - Neurological: Reports dizziness and right-hand tingling. - Ophthalmic: Reports sensitivity to bright lights. - Gastrointestinal: Reports mild nausea. Physical Exam Appearance: Alert. Oriented X3. No acute distress. Head: Normal external exam. Normocephalic. Atraumatic. Eyes: Pupils are equal, round, and reactive to light. Extraocular movements intact. Conjunctiva and sclera normal. Eyelids normal. Noted big veins in the eyes. Ears: External auditory canal normal. Tympanic membranes normal. Throat: Pharynx normal. Uvula midline. Moist mucous membranes. Neck: Normal inspection. Neck supple. Full range of motion. No adenopathy. Thyroid Normal. No meningeal signs. No neck mass noted. Cardiovascular: Normal heart rate and rhythm. Heart sound normal. No murmurs noted. Pulses normal throughout. Respiratory: No respiratory distress. Painless inspiration. Breath sounds normal. No wheezes/rales/rhonchi noted. Chest nontender. No accessory muscle usage noted or decreased air movement noted. Abdomen: Soft and nontender. Bowel sounds normal in all 4 quadrants. No distention noted. No organomegaly noted. No visible injury noted. Back: No costovertebral angle tenderness. Full range of motion noted. Skin: Skin warm and dry. Normal skin color. Normal skin turgor. No rashes/lesions/lacerations noted. Extremities: No lower extremity edema. Extremities exhibit normal range of motion. Extremities nontender. Neuro: Oriented X 3. No motor deficit. No sensory deficit. Reflexes normal. Noted right hand tingling. Patient reports dizziness and off-balance feeling, worsens upon standing. Normal gait observed with compensation for dizziness. No nystagmus. No pronator drift. Normal steady gait. Normal mzlvlx-jg-lxea test. Normal toe to muñoz test. NIH SS score 0. Results Plan - Order a CT scan of the head to rule out other causes of dizziness and neurological changes. - Prescribe meclizine to manage symptoms of dizziness. - Conduct a CBC, chemistry panel, and magnesium level to rule out systemic causes. - Refill medications for Midodrine and Compazine. - Consider orthostatic blood pressure evaluation to assess for orthostatic hypotension. Patient was informed and verbally consented to the use of an ambient scribe for clinic note documentation during this visit. Discussion Notes I discussed with the patient the possibility that her symptoms might be related to a side effect of the new migraine medication, Amavig, as dizziness is a known potential side effect. We agreed on obtaining a CT scan of the head due to the persistence and nature of the symptoms to exclude acute neurological events. I provided reassurance and emphasized the importance of monitoring for any worsening of symptoms, particularly unilateral weakness. I advised the patient regarding the use of meclizine for dizziness, which she is familiar with, and the necessity of additional testing to rule out any systemic causes. I ensured the patient understood when it would be appropriate to seek emergency care and the importance of follow-up care within a week. Patient Instructions - Take meclizine as prescribed for dizziness, up to three times daily as needed. - Complete the blood work and CT scan as soon as possible. - Monitor symptoms. Seek emergency care if weakness or severe symptoms develop. - Follow up with your primary care provider in one week for reassessment. - Use the patient portal for easy communication and prescription refills if needed.
== END 2024-09-19 15:12 | disposition home or self-care (01) ==
PROVIDERS: PCP Physician Assistant; Visit Provider Physician Assistant Medical
DX: R42 Dizziness and giddiness (principal); I95.2 Hypotension due to drugs

== ENCOUNTER → 2024-09-19 14:24 | Outpatient (BNVA) | payer OTHER, SELFPAY | PROVIDERS: PCP Physician Assistant; Visit Provider Physician Assistant Medical | DX: R42 Dizziness and giddiness (principal); I95.2 Hypotension due to drugs | CPT/HCPCS: 99212 ==

== ENCOUNTER 2024-09-20 06:17 | Outpatient (REF) | payer OTHER, SELFPAY ==
[2024-09-20 06:31] LABS: MANUAL DIFF FLAG NO
[2024-09-20 06:57] LABS: Basophils Absolute Auto 0.1 X10*3/uL (0.0-0.2); Basophils Percent Auto 1.2 % (0-2); Eosinophils Absolute Auto 0.3 X10*3/uL (0.0-0.4); Eosinophils Percent Auto 3.1 % (0-4); Imm Gran Abs Auto 0.02 X10*3/uL (0.00-0.03); Imm Gran Pct Auto 0.2 % (0.0-0.4); Lymphocytes Absolute Auto 4.7 X10*3/uL (1.2-4.9); Lymphocytes Percent Auto 56.3 % (20-40); Mean Corpuscular HGB Conc 33.3 g/dl (31.0-35.0); Mean Corpuscular Hemoglobin 32.6 pg (27.0-33.0); Mean Corpuscular Volume 97.9 fL (80.0-98.0); Mean Platelet Volume 9.4 fL (9.4-12.3); Monocytes Absolute Auto 0.6 X10*3/uL (0.1-1.2); Monocytes Percent Auto 6.5 % (2-11); Neutrophils Absolute Auto 2.8 x10*3/uL (2.0-8.3); Neutrophils Percent Auto 32.7 % (45-73); Platelet Count 231 X10*3/uL (160-400); Red Blood Count 4.29 X10*6/uL (4.20-5.50); White Blood Count 8.4 X10*3/uL (4.8-10.8)
[2024-09-20 07:05] LABS: Appearance Urine Clear; Color Urine Yellow; Glucose Urine UA Negative (Negative); Leukocyte Esterase Urine Negative (Negative); Nitrite Urine Negative (Negative); PH 5.5 (5.0-9.0); UMIC TRIGGER UACC YES; Urine Blood Trace (Negative); Urine Ketones Negative (Negative); Urine Protein Negative (Neg-Trace)
[2024-09-20 07:10] LABS: Bacteria Urine None Seen (None Seen); Hyaline Casts Urine 0-2 /LPF (0-2); RBC Urine 0-2 /HPF (0-2); Squamous Epithelial Cell Urine 0-2 /HPF (0-2); WBC Urine 0-5 /HPF (0-5)
[2024-09-20 07:42] LABS: Alanine Aminotransferase 12 U/L (0-31); Albumin Level 4.4 g/dL (3.5-5.0); Alkaline Phosphatase 110 U/L (39-117); Anion Gap 11 (12-20); Aspartate Amino Transferase 12 U/L (5-31); Bilirubin Total 0.2 mg/dL (0.0-1.0); Blood Urea Nitrogen 17 mg/dL (9-16); Calcium 8.8 mg/dL (8.4-10.2); Carbon Dioxide 17 mmol/L (22-29); Chloride 116 mmol/L (96-108); Estimated Glomerular Filt Rate > 60; Glucose Fasting 91 mg/dL (60-99); Sodium 140 mmol/L (135-145); Total Protein 7.6 g/dL (6.5-8.0)
== END 2024-09-20 06:18 | disposition home or self-care (01) ==
LOC: HO.LAB 06:17
PROVIDERS: PCP Physician Assistant; Visit Provider Physician Assistant Medical
DX: R42 Dizziness and giddiness (principal)
CPT/HCPCS: 36415; 80053; 81001; 81003; 83735; 85025

== ENCOUNTER → 2024-09-29 09:56 | Outpatient (BNVA) | payer OTHER, SELFPAY | PROVIDERS: PCP Physician Assistant; Visit Provider Physician Assistant Medical | DX: R42 Dizziness and giddiness (principal); I95.1 Orthostatic hypotension; I65.23 Occlusion and stenosis of bilateral carotid arteries | CPT/HCPCS: 99212 ==

== ENCOUNTER → 2024-09-29 09:56 | Outpatient (AMB) | payer OTHER, SELFPAY ==
--- NOTE | 2024-09-29 09:59 | A.OFFPC_ITS ---
Vital Signs 09/29/24 10:13 09/29/24 10:13 Height 5 ft 7 in 5 ft 7 in Weight 139 lb BMI 21.8 BP 80/62 L Blood Pressure Location Lt brachial Rt brachial Position Sitting Sitting Pulse 89 Pulse Source Pulse Oximeter Pulse Oximeter Temp 97.1 F Temp Source Temporal Artery Scan Skin Pulse Oximetry (%) 99 Oxygen Delivery Method Room Air Room Air Intake Visit Reasons: 1 week Follow Up Intake Note: Patient is here to follow up on Dizziness and Hypotension. Digital Experience Manager Required: No Boat Driver: Not Required per policy Accompanied by: Self / Same As Patient Allergies aspirin [Aspirin] Allergy (Intermediate, Verified 09/29/24 10:00) WHEEZING clarithromycin [From Biaxin] Allergy (Intermediate, Verified 09/29/24 10:00) HIVES Sulfa (Sulfonamide Antibiotics) [SULFA (SULFONAMIDE ANTIBIOTICS)] Allergy (Intermediate, Verified 09/29/24 10:00) HIVES bee pollen [BEE STINGS] Allergy (Unknown, Verified 09/29/24 10:00) UNKNOWN pineapple [PINEAPPLE] Allergy (Unknown, Verified 09/29/24 10:00) UNKNOWN beeswax Allergy (Verified 09/29/24 10:00) Anaphylaxis Medication List - Last Reconciled 09/29/24 by Sofia Estes PA-C acetaminophen (Tylenol Extra Strength) 500 mg PO Q6H PRN albuterol sulfate 90 mcg/actuation 1 inh inhalation QID PRN 30 days amitriptyline 50 mg PO BEDTIME 90 days aspirin 81 mg PO DAILY baclofen 10 mg PO BID PRN 7 days bisacodyl (Dulcolax (bisacodyl)) 10 mg (2 x 5 mg) PO BEDTIME 2 days irjropzvqp-xhkgcupzvgvcj-zjxg 50-300-40 mg (Fioricet) 1 cap PO Q8H PRN 4 days COVID-19 antigen test ([facility] COVID-19 Ag Self Test kit) As directed dicyclomine 20 mg PO TID PRN 30 days divalproex ER (Depakote ER) 250 mg PO BID 90 days linaclotide (Linzess) 290 mcg PO QAM 30 days lorazepam 0.5 mg PO DAILY PRN 7 days magnesium 250 mg PO BID 90 days meclizine 50 mg PO DAILY metoclopramide HCl (Reglan) 10 mg PO DAILY PRN midodrine 5 mg PO TID PRN 15 days prochlorperazine (Compazine) 25 mg [place] BID PRN 6 days propranolol 120 mg (2 x 60 mg) PO BID 90 days riboflavin (vitamin B2) 50 mg PO DAILY simethicone (Gas Relief (simethicone)) 180 mg PO DAILY PRN simvastatin 20 mg PO DAILY topiramate (Topamax) 100 mg PO BID 90 days tramadol 50 mg PO BID PRN 4 days Tobacco use date assessed: 09/29/24 Dental Screening Dental Screen Date: 09/01/24 [facility] Medical History (Updated 09/29/24 @ 13:39 by Sofia Estes PA-C) Stenosis of left internal carotid artery Orthostatic hypotension Right medial tibial plateau fracture Homeless Migraine CAD (coronary artery disease) IBS (irritable bowel syndrome) Hypotension Migraine Surgical History History of partial hysterectomy History of cholecystectomy Family History Mother Substance use disorder Stroke Other Mental health disorder Social History Housing: House Alcohol intake: never Patient Tobacco Use Status: Current everyday Tobacco user Tobacco use type: Cigarette Cigarette Packs Per Day: 0.5 Cigarettes Per Day: 10 e-Cigarette/Vaping Use: Never Used Second Hand Smoke Exposure: Yes Substance Use Type: Marijuana Advance Directives Date on File: 02/01/21 service: No Current occupational status: employed and disabled Current occupation: rt handed Cognitive needs: No Hearing needs: No Vision needs: Yes (glasses) Questionnaire Thrive Questionnaire Date Thrive assessed: 09/01/24 SYLVESTER-7 AMB Questionnaire SYLVESTER-7 Date SYLVESTER - 7 assessed: 09/01/24 Source: Developed by Drs. Galo Stanford, Lynne Correia, Rico Guerrero and colleagues, with an educational bernarda from [employer]. Physical exam (Primary Care) Vital Signs: Last Vital Signs Temp 97.1 F 09/29/24 10:13 Pulse 89 09/29/24 10:13 BP 80/62 L 09/29/24 10:13 Pulse Ox 99 09/29/24 10:13 Oxygen Delivery Method Room Air 09/29/24 10:13 Care Plan Goal for BP management: <130/80 BMI result Body Mass Index 21.8 BMI Assessment/Plan discussion: Low BMI Low, Plan discussed: lifestyle, increase calorie intake and dietary Tobacco/Smoking Status: Tobacco use Status Tobacco use date assessed 09/29/24 09/29/24 10:18 Patient Tobacco Use Status Current everyday Tobacco 09/29/24 09:59 Tobacco use type Cigarette 09/29/24 09:59 e-Cigarette/Vaping Use Never Used 09/29/24 09:59 Thrive Assessment: Date of Thrive Assessment Date Thrive assessed 09/01/24 09/29/24 09:59 Coding Level of Care Code Est Pt Level 4 (36695) Complex EM visit Add On G2211 Diagnoses Dizziness and giddiness R42 Orthostatic hypotension I95.1 Carotid stenosis, right I65.21 Stenosis of left internal carotid artery I65.22 Hypotension due to drugs I95.2 Hypotension type: hypotension due to drug Assessment & Plan Assessment & Plan (1) Dizziness and giddiness: Code(s): R42 - Dizziness and giddiness Category: Medical Plan: Patient alert and oriented x3. No neuro deficits. Normal steady gait. NIHSS score 0. Patient positive for orthostatic hypotension. I had ordered a CT scan on the patient's last visit although she reported she has not been called for the CT scan. I added a CTA. She had outpatient labs which were negative. Advised to go to the emergency department due to she had recent normal labs and continues to have hypotension. (2) Orthostatic hypotension: Code(s): I95.1 - Orthostatic hypotension Category: Medical Plan: Patient has a normal neuro exam although is positive for orthostatic hypotension reports dizziness upon standing. With lying down the patient's blood pressure was 84/60 When the patient was sitting down her blood pressure was 90/76 When the patient stood up she reported dizziness and her blood pressure was 70/58. (3) Carotid stenosis, right: Code(s): I65.21 - Occlusion and stenosis of right carotid artery Category: Medical Plan: Condition is chronic and stable. Repeat carotid ultrasounds ordered. Will refer to vascular surgery. Will continue to monitor. (4) Stenosis of left internal carotid artery: Code(s): I65.22 - Occlusion and stenosis of left carotid artery Category: Medical Plan: Condition is chronic and stable. Repeat carotid ultrasounds ordered. Will refer to vascular surgery. Will continue to monitor. (5) Hypotension: Code(s): I95.9 - Hypotension, unspecified Category: Medical Qualifiers: Hypotension type: hypotension due to drug Qualified Code(s): I95.2 - Hypotension due to drugs Plan: Patient continued to have hypotension. Has a history of chronic hypotension currently has midodrine at home although not providing any relief for her hypotension. Patient advised to go to the emergency department for further evaluation management of hypotension and dizziness. Plan Plan - Refer to cardiology for further evaluation and management of orthostatic hypotension and to conduct a tilt table testing. - Referred to ED for Administer IV fluids as needed to treat orthostatic hypotension if symptoms worsen. - Referral to a vascular specialist for management of carotid artery stenosis. - Refill prescription for Reglan and the medication starting with Gas x for gastrointestinal management. - Encourage consistent use of Pedialyte for hydration to aid in managing hypotension. - Schedule a follow-up appointment with a primary care provider in two weeks to reassess blood pressure management and orthostatic symptoms. - Continuation of depression and anxiety management, with essential medications maintained. Orders: Orders CT angio head neck Today R42 - Dizziness and giddiness Referrals Vascular Surgery Referral I65.21 - Occlusion and stenosis of right carotid artery, I95.1 - Orthostatic hypotension, R42 - Dizziness and giddiness Cardiology Referral I95.1 - Orthostatic hypotension, R42 - Dizziness and giddiness Medications: Refilled metoclopramide HCl (Reglan) 10 mg PO DAILY PRN 30 tabs 2RF nausea and vomiting R11.0 - Nausea simethicone (Gas Relief (simethicone)) 180 mg PO DAILY PRN 30 caps 3RF abdominal distention Patient Instructions: Patient Instructions - Continue taking all prescribed medications as directed. - Ensure adequate hydration by drinking fluids like Pedialyte or Gatorade, especially when feeling dizzy. - Seek medical care in the emergency department today especially if symptoms of dizziness or low blood pressure suddenly worsen. - Attend follow-up appointments with primary care within two weeks and subsequent consultations with cardiology and instrumental music teacher. - Monitor for any new or worsening symptoms and report them promptly. - Consider dietary adjustments to help address issues with constipation. Scribe Plan - Not visible on output: History of Present Illness The patient is a 54-year-old female presenting with dizziness and orthostatic hypotension. She reports persistent dizziness, which is described as horrible, being exacerbated when changing positions from lying down to sitting or standing. The dizziness is associated with low blood pressure readings, notably measured at 86/50 mmHg and ranging up to 90/76 mmHg. She confirms the chronic nature of her low blood pressure, indicating that she has been experiencing such episodes for a considerable period and is accustomed to low readings. She is currently on medication for low blood pressure, Midodrine, which she states she took today, but did not substantially improve her condition. The patient also reported having completed laboratory tests which were unremarkable and mentioned a recent ultrasound in 2022 revealing significant stenosis of the proximal left and right internal carotid artery. The patient describes her condition historically varied between feeling better and worse in different instances. Additionally, she described shoulder pain associated with the site of vascular stenosis. There is no associated numbness, tingling, or weakness. Note was also made of a past prescription for Reglan to manage gastrointestinal symptoms and constipation issues persisting for four to five days without bowel movements. Social History - Family status: Grandmother, caregiver to grandson at times. - Housing: Lives in a multi-leveled home with limited mobility due to family members' health issues. - Substance use: Tobacco dependence noted. - Nutritional intake: Prepared breakfast for family; mentions use of Pedialyte at times. - Functional status: Capable of moving between seated, standing, and lying positions with noted dizziness. Review of Systems - Neurological: Reports dizziness. - Cardiovascular: Reports low blood pressure readings. - Musculoskeletal: Reports shoulder pain, particularly on the right side. - Gastrointestinal: Reports constipation with infrequent stools (four to five days). - Psychological: Reports depression, anxiety, and bipolar disorder. Physical Exam Appearance: Alert. Oriented X3. No acute distress. Head: Normal external exam. Normocephalic. Atraumatic. Eyes: Pupils are equal, round, and reactive to light. Extraocular movements intact. Conjunctiva and sclera normal. Eyelids normal. Ears: External auditory canal normal. Tympanic membranes normal. Throat: Pharynx normal. Uvula midline. Moist mucous membranes. Neck: Normal inspection. Neck supple. Full range of motion. No adenopathy. Thyroid Normal. No meningeal signs. No neck mass noted. Cardiovascular: Heart rate is slower than usual. Heart sound normal. No murmurs noted. Pulses normal throughout. Respiratory: No respiratory distress. Painless inspiration. Breath sounds normal. No wheezes/rales/rhonchi noted. Chest nontender. No accessory muscle usage noted or decreased air movement noted. Abdomen: Soft and nontender. Bowel sounds normal in all 4 quadrants. No distention noted. No organomegaly noted. No visible injury noted. Back: No costovertebral angle tenderness. Full range of motion noted. Skin: Skin warm and dry. Normal skin color. Normal skin turgor. No rashes/lesions/lacerations noted. Extremities: No lower extremity edema. Extremities exhibit normal range of motion. Extremities nontender. Neuro: Oriented X 3. No motor deficit. No sensory deficit. Reflexes normal. Normal steady gait. Results - Tests and Diagnostics: Carotid ultrasound indicating significant stenosis of the proximal right internal carotid artery with minimal stenosis in the left carotid artery from 2022. Plan - Refer to cardiology for further evaluation and management of orthostatic hypotension and to conduct a tilt table testing. - Referred to ED for Administer IV fluids as needed to treat orthostatic hypotension if symptoms worsen. - Referral to a vascular specialist for management of carotid artery stenosis. - Refill prescription for Reglan and the medication starting with Gas x for gastrointestinal management. - Encourage consistent use of Pedialyte for hydration to aid in managing hypotension. - Schedule a follow-up appointment with a primary care provider in two weeks to reassess blood pressure management and orthostatic symptoms. - Continuation of depression and anxiety management, with essential medications maintained. Patient was informed and verbally consented to the use of an ambient scribe for clinic note documentation during this visit. Discussion Notes We discussed the patient's ongoing issue with orthostatic hypotension and the likelihood of dehydration or insufficient fluid status contributing to her dizzi ness. We acknowledged her previous adjustment to low blood pressure but emphasized the importance of monitoring and addressing low levels to prevent significant complications. I explained the need for a cardiology referral and possible tilt table testing to ascertain reasons for her hypotension. The potential role of right internal carotid artery stenosis in her symptoms was discussed, leading to plans for vascular consultation. The need to continue depression and anxiety treatments was also reviewed, ensuring the patient's psychological and emotional symptoms are adequately managed. We agreed on close follow-ups to monitor her progress and address any changes promptly. The patient was advised to keep hydrated and to consider hospital care for intravenous rehydration if needed. Patient Instructions - Continue taking all prescribed medications as directed. - Ensure adequate hydration by drinking fluids like Pedialyte or Gatorade, especially when feeling dizzy. - Seek medical care in the emergency department if symptoms of dizziness or low blood pressure suddenly worsen. - Attend follow-up appointments with primary care within two weeks and subsequent consultations with cardiology and instrumental music teacher. - Monitor for any new or worsening symptoms and report them promptly. - Consider dietary adjustments to help address issues with constipation.
== END | disposition home or self-care (01) ==
PROVIDERS: PCP Physician Assistant; Visit Provider Physician Assistant Medical

== ENCOUNTER 2024-10-05 13:32 | Outpatient (REF) | payer OTHER, SELFPAY ==
--- NOTE | ~2024-10-05 | US_ITS ---
EXAMINATION: US EXTRACRANIAL CAROTID DUPLEX, BILATERAL CLINICAL INFORMATION: Dizziness and giddiness. COMPARISON: November 17, 2019 TECHNIQUE: Real-time ultrasound and Doppler techniques (integrating B-mode 2-D vascular images, Doppler spectral analysis and color-flow Doppler imaging) were utilized to interrogate the extracranial carotid arteries, the vertebral arteries and proximal subclavian arteries bilaterally. The degree of stenosis is determined by criteria similar to NASCET. FINDINGS: Right Side: 1. There is calcified atherosclerotic plaque seen in the bifurcation/proximal ICA region. 2. The common carotid artery PSV proximally is 111 cm/s and distally 108 cm/s. 3. The proximal internal carotid artery velocities are 135 cm/s systolic and 53 cm/s diastolic. Spectral broadening. 4. The proximal external carotid artery PSV is 112 cm/s. 5. The vertebral artery shows antegrade flow. 6. The subclavian artery waveforms are monophasic. Left Side: 1. There is calcified atherosclerotic plaque seen in the bifurcation/proximal ICA region. 2. The common carotid artery PSV proximally is 117 cm/s and distally 106 cm/s. 3. The proximal internal carotid artery velocities are 154 cm/s systolic and 44 cm/s diastolic. Spectral broadening. 4. The proximal external carotid artery PSV is 118 cm/s. 5. The vertebral artery shows retrograde flow. 6. The subclavian artery waveforms are monophasic. US/US carotid duplex BI IMPRESSION: 1. RIGHT: Calcified plaque. 50-79% stenosis by ultrasound criteria. Monophasic waveforms, right subclavian artery. 2. LEFT: Calcified plaque. 50-79% stenosis by ultrasound criteria. Monophasic waveforms, left subclavian artery. Left vertebral artery labeled retrograde. 3. There is no change in the category severity of disease when compared to the previous study dated . Electronically signed by: Duncan Elizondo MD 10/05/2024 02:29 PM EST
--- NOTE | ~2024-10-05 | CT_ITS ---
EXAMINATION: CT ANGIOGRAM NECK CLINICAL INFORMATION: EXAMINATION: CTA NECK WITH CONTRAST (STROKE) CTA BRAIN WITH CONTRAST (STROKE) CLINICAL INFORMATION: Dizziness and giddiness COMPARISON: December 08, 2019. TECHNIQUE: CTA of the head and neck was performed in the axial plane from the mediastinum to the skull vertex using 75 mL Omnipaque 350 intravenous contrast. Additional reformatted multiplanar images including maximum intensity projection MIP images are generated on the CT workstation. This CT examination was performed using dose optimization techniques as appropriate, variously including the following: *Automated exposure control *Adjustment of mA and/or kV according to patient size (this includes techniques or standardized protocols for targeted exams where dose is matched to indication/reason for exam; i.e. extremities or head) *Use of iterative reconstruction technique DLP: 1451 mGy centimeter. FINDINGS: The degree of stenosis determined by criteria similar to NASCET. Brain: No acute intracranial hemorrhage, mass effect, midline shift, hydrocephalus or herniation. Zayas-white matter differentiation is normal. Posterior cranial fossa contents demonstrated no acute intracranial hemorrhage or mass effect. Sellar/suprasellar region demonstrated no gross masses and prominent intrasellar CSF suggesting diaphragmatic sella insufficiency. Metallic piercing in the left nostril. Tympanic cavities and mastoid cells are aerated. No air-fluid levels in the included paranasal sinuses. Chest CTA: No aneurysm or dissection. Calcified plaque in the thoracic aortic arch. Neck CTA: Right CCA: Normal patency. No focal stenosis. No intimal flap Right ICA: Focal calcification in the proximal segment representing 60% stenosis. No intimal flap. Tortuosity. Left CCA: Normal patency. No focal stenosis. No intimal flap. Left ICA: Focal calcification in the proximal segment representing less than 50% stenosis. No intimal flap. Tortuosity. V1/V2 segments demonstrated normal patency without focal stenosis or intimal flap. Right vertebral artery is dominant. Both are orientating from the subclavian arteries.. Brain CTA: Anterior cerebral circulation: ICAs: Calcified plaques in the cavernous segments. Normal patency. No focal stenosis. No abrupt cut off. MCA's: Normal patency. No focal stenosis. No abrupt cut off. Bifurcation/trifurcation demonstrated no vascular irregularity. ACAs: Normal patency. No focal stenosis. No abrupt cut off. Anterior communicating artery is patent. The ophthalmic arteries are patent without contour irregularity at the origin. Posterior communicating arteries are robust and patent. Posterior cerebral circulation: V3/V4 segments are patent without focal stenosis or intimal flap. Posterior inferior cerebellar arteries are patent without vascular irregularity at the origin. Basilar artery is small caliber without focal stenosis or intimal flap. The superior cerebellar arteries are patent. There is hypoplastic versus atrophic right P1 segment. There is a hypoplastic left P1 segment. The anterior inferior cerebral arteries are patent. Paraseptal emphysematous changes in the upper lobes versus minimal honeycombing. Main cerebral venous sinuses are patent. CT/CT angio head neck IMPRESSION: Calcified plaques both ICA and representing less than 60% stenosis on the right ICA and less than 50% stenosis on the left ICA. No dissections in the vessels of the neck. No main cerebral artery occlusion or embolus. Hypoplastic P1 segments with robust posterior communicating arteries. No acute intracranial hemorrhage. Electronically signed by: Duncan Elizondo MD 10/05/2024 03:44 PM [facility]
[2024-10-05] MEDS: iohexoL 350 MG/ML 100 ML INFUS..BTL IV (15:14)
== END 2024-10-05 13:33 | disposition home or self-care (01) ==
LOC: HO.US 13:32
PROVIDERS: PCP Physician Assistant; Visit Provider Physician Assistant Medical
DX: R42 Dizziness and giddiness (principal)
CPT/HCPCS: 70496; 70498; 93880; Q9967

== ENCOUNTER → 2024-10-05 13:34 | Outpatient (BNV) | payer OTHER, SELFPAY | PROVIDERS: PCP Physician Assistant; Visit Provider Radiology Diagnostic Radiology | DX: I65.23 Occlusion and stenosis of bilateral carotid arteries (principal) | CPT/HCPCS: 70496; 70498; 93880 ==

== ENCOUNTER 2024-10-11 10:29 | Outpatient (AMB) | payer OTHER, SELFPAY ==
--- NOTE | 2024-10-11 10:30 | MHC.OFFVIS ---
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 Pt states she has dizziness and consistent exhaustion. Pt states she has always been an active person and now gets tired after small household tasks. 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 This all began as a workup for dizziness and hypotension. She has had these recurrent bouts. Upon workup by primary care team she was noted to have a carotid bruit and subsequently underwent ultrasound and CT scan. She reports that she is smoking a proximally a half a pack per day and is a nondiabetic. Upon discussion with her she reports that these episodes happen at random times. She does not notice any difference when going from a sitting to standing position. She is now for vascular evaluation. [facility] Medical History Stenosis of left internal carotid artery Orthostatic hypotension Right medial tibial plateau fracture Homeless Migraine CAD (coronary artery disease) IBS (irritable bowel syndrome) Hypotension Migraine Surgical History History of partial hysterectomy History of cholecystectomy Family History Mother Substance use disorder Stroke Other Mental health disorder Social History (Reviewed 10/11/24 @ 10:36 by ADRIANE Hwang Housing: House Alcohol intake: never Patient Tobacco Use Status: Current everyday Tobacco user Tobacco use type: Cigarette Cigarette Packs Per Day: 0.5 Cigarettes Per Day: 10 e-Cigarette/Vaping Use: Never Used Second Hand Smoke Exposure: Yes Substance Use Type: Marijuana Advance Directives Date on File: 02/01/21 service: No Current occupational status: employed and disabled Current occupation: rt handed Cognitive needs: No Hearing needs: No Vision needs: Yes (glasses) Review of Systems Const All systems reviewed & are unremarkable except as noted in HPI and below Reports no additional complaints ENT Reports Normal hearing present Card Denies chest pain, Denies chest pain at rest, Denies chest pain with activity and Denies pedal edema Resp Denies cough GI Denies abdominal pain Musc Denies abnormal gait, Denies muscle cramps and Denies radiating pain into limb Skin/Breast Denies skin ulcer and Denies wounds Neuro Reports Normal hearing present and Denies abnormal gait Psych Reports no additional complaints Physical Exam Vital Signs: Last Vital Signs BP 80/40 L 10/11/24 10:32 BMI result Body Mass Index 21.8 Const General: cooperative, healthy appearing and comfortable Orientation/consciousness: oriented to person, oriented to place and oriented to time HEENT Head: Yes normal to inspection Neck Other: Carotid bruit Neck: Yes normal visual inspection Carotids: no bruits Chest Chest palpation & inspection: normal inspection of the chest Resp Effort & Inspection: normal respiratory effort and able to speak in complete sentences Auscultation: clear to auscultation bilaterally, no crackles, no rales, no rhonchi and no wheezes Cardio Rate: regular rate Rhythm: regular rhythm Heart sounds: S1 normal heart sound present and S2 normal heart sound present Bruits: no carotid bruits Peripheral pulses: Peripheral pulses 2+ throughout GI Inspection: Yes normal to inspection Skin Wounds: no wounds Hair: normal Neuro General: oriented to person, oriented to place and oriented to time Cranial nerves: Yes CN's II-XII intact bilaterally and Yes Normal hearing present Cognition (Neuro): normal cognition Motor exam (neuro): 5/5 motor strength present throughout Extrem Other: I was unable to appreciate brachial radial ulnar pulses General: No clubbing, No cyanosis and No edema Psych Appearance: grossly normal Mental Status: mental status grossly normal Speech and movement: Normal speech and movement present Results Reviewed Results Reviewed: Carotid ultrasound dated 10/05/2024 demonstrates bilateral 50-79% stenosis. Of note left vertebral is retrograde. CT angiogram dated 10/05/2024 demonstrates right-sided stenosis of 60% left side of 50%. Assessment & Plan Assessment & Plan (1) Bilateral carotid artery stenosis: Code(s): I65.23 - Occlusion and stenosis of bilateral carotid arteries Category: Medical Plan: In short I do not believe that the carotids are the source of her current episodes. Would recommend cardiac workup. That being said she does have 60% on right. She would benefit from routine surveillance from this. We have reviewed signs and symptoms of a stroke. We also discussed risk factor modification inclusive a healthy diet low in cholesterol. The patient will follow up with us with surveillance ultrasound of the carotids 1 year. We are in the process of working up her subclavian disease. Thank you for allowing us to participate in this patient's care. If there are any questions or concerns please do not hesitate to contact us. (2) Stenosis of both subclavian arteries: Code(s): I77.1 - Stricture of artery Category: Medical Plan: She does note symptomatically that she does have pain and discomfort on hand exertion. In addition I am unable to appreciate palpable brachial radial ulnar pulses on bilateral upper extremities. I have taken the liberty of ordering a CT angiogram of bilateral upper extremities. She will follow up with us after testing. Thank you for allowing us to assist in her care. Orders: Orders CT angio chest aorta Today I77.1 - Stricture of artery Creatinine Today I77.1 - Stricture of artery Blood Urea Nitrogen Today I77.1 - Stricture of artery Coding Level of Care Code New Pt Level 4 (13353) Complex EM visit Add On G2211 Diagnoses Bilateral carotid artery stenosis I65.23 Stenosis of both subclavian arteries I77.1
[2024-10-11 10:32] VITALS: BP 80/40; BMI 21.8
== END 2024-10-11 10:57 | disposition home or self-care (01) ==
PROVIDERS: PCP Physician Assistant; Visit Provider Surgery Vascular Surgery
DX: I65.23 Occlusion and stenosis of bilateral carotid arteries (principal); I77.1 Stricture of artery
CPT/HCPCS: 99204; G2211

== ENCOUNTER → 2024-10-11 10:29 | Outpatient (BNVA) | payer OTHER, SELFPAY | PROVIDERS: PCP Physician Assistant; Visit Provider Surgery Vascular Surgery | DX: I65.23 Occlusion and stenosis of bilateral carotid arteries (principal); I77.1 Stricture of artery; F17.210 Nicotine dependence, cigarettes, uncomplicated | CPT/HCPCS: 99202 ==

== ENCOUNTER 2024-11-25 07:37 | Outpatient (REF) | payer OTHER, SELFPAY ==
--- NOTE | ~2024-11-25 | CT_ITS ---
CLINICAL HISTORY: I77.1 - Stricture of artery CT angiogram chest/pulmonary arteries with contrast Multiplanar reconstructions and MIPS Comparison: None Findings: No filling defects are noted to suggest pulmonary embolus. Main pulmonary artery normal in caliber. Thoracic aorta normal caliber without dissection. Heart size normal. Great vessel origins patent. Left subclavian artery occluded just beyond its origin. Distal right subclavian and left axillary artery patent. Note this pattern can result in subclavian steal. Please correlate with patient's clinical symptoms. No coronary calcifications. No significant focal parenchymal abnormalities. No significant mediastinal or hilar adenopathy. No free pleural fluid. No acute bony abnormality noted. Impression: Occluded proximal left subclavian artery Reconstitution in distal left subclavian artery Collateral flow may be from left vertebral artery No other vascular abnormality This document has been electronically signed by: John Prajapati MD on 11/26/2024 00:49:23
[2024-11-25] MEDS: iohexoL 350 MG/ML 75 ML INFUS..BTL 70 ML IV (08:40)
[2024-11-28 09:00] LABS: Creatinine POC 0.8 mg/dL (0.5-1.4); GFR POC > 60
== END 2024-11-25 07:38 | disposition home or self-care (01) ==
LOC: HO.CT 07:37
PROVIDERS: PCP Physician Assistant; Visit Provider Surgery Vascular Surgery
DX: I77.1 Stricture of artery (principal)
CPT/HCPCS: 71275; 82565; Q9967

== ENCOUNTER → 2024-11-25 07:39 | Outpatient (BNV) | payer OTHER, SELFPAY | PROVIDERS: PCP Physician Assistant; Visit Provider Radiology Diagnostic Radiology | DX: I77.1 Stricture of artery (principal) | CPT/HCPCS: 71275 ==

== ENCOUNTER 2024-12-06 13:20 | Outpatient (AMB) | payer OTHER, SELFPAY ==
[2024-12-06 13:25] VITALS: BMI 21.8
--- NOTE | 2024-12-06 13:25 | A.OFFVIS_ITS ---
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 Accompanied by: Self / Same As Patient Allergies aspirin [Aspirin] Allergy (Intermediate, Verified 12/06/24 13:28) WHEEZING clarithromycin [From Biaxin] Allergy (Intermediate, Verified 12/06/24 13:28) HIVES Sulfa (Sulfonamide Antibiotics) [SULFA (SULFONAMIDE ANTIBIOTICS)] Allergy (Intermediate, Verified 12/06/24 13:28) HIVES bee pollen [BEE STINGS] Allergy (Unknown, Verified 12/06/24 13:28) UNKNOWN pineapple [PINEAPPLE] Allergy (Unknown, Verified 12/06/24 13:28) UNKNOWN beeswax Allergy (Verified 12/06/24 13:28) Anaphylaxis HPI HPI follow up s/p CTA Chest 11/25/24: Details: The patient is a 54-year-old female presenting with follow-up regarding the CT angiogram of the chest, which indicated vascular insufficiency affecting her upper extremities. She notes complaints of weakness and heaviness particularly in the right arm, affecting her ability to perform daily activities like walking her dog and household tasks. These symptoms arise shortly into the activities, suggesting a limitation due to the vascular issues. That being said she is able to handle her daily tasks. She is maintained on aspirin and a statin. She now presents for follow-up with CT angiogram. [facility] Medical History Stenosis of left internal carotid artery Orthostatic hypotension Right medial tibial plateau fracture Homeless Migraine CAD (coronary artery disease) IBS (irritable bowel syndrome) Hypotension Migraine Surgical History History of partial hysterectomy History of cholecystectomy Family History Mother Substance use disorder Stroke Other Mental health disorder Social History Housing: House Alcohol intake: never Patient Tobacco Use Status: Current everyday Tobacco user Tobacco use type: Cigarette Cigarette Packs Per Day: 0.5 Cigarettes Per Day: 10 e-Cigarette/Vaping Use: Never Used Second Hand Smoke Exposure: Yes Substance Use Type: Marijuana Advance Directives Date on File: 02/01/21 service: No Current occupational status: employed and disabled Current occupation: rt handed Cognitive needs: No Hearing needs: No Vision needs: Yes (glasses) Review of Systems Const All systems reviewed & are unremarkable except as noted in HPI and below Reports no additional complaints ENT Reports Normal hearing present Card Denies chest pain, Denies chest pain at rest, Denies chest pain with activity and Denies pedal edema Resp Denies cough GI Denies abdominal pain Musc Denies abnormal gait, Denies muscle cramps and Denies radiating pain into limb Skin/Breast Denies skin ulcer and Denies wounds Neuro Reports Normal hearing present and Denies abnormal gait Psych Reports no additional complaints Physical Exam Vital Signs: BMI result Body Mass Index 21.8 Const General: cooperative, healthy appearing and comfortable Orientation/consciousness: oriented to person, oriented to place and oriented to time HEENT Head: Yes normal to inspection Neck Neck: Yes normal visual inspection Carotids: no bruits Chest Chest palpation & inspection: normal inspection of the chest Resp Effort & Inspection: normal respiratory effort and able to speak in complete sentences Auscultation: clear to auscultation bilaterally, no crackles, no rales, no rhonchi and no wheezes Cardio Other: Brachial radial ulnar signals. Rate: regular rate Rhythm: regular rhythm Heart sounds: S1 normal heart sound present and S2 normal heart sound present Bruits: no carotid bruits Peripheral pulses: Peripheral pulses 2+ throughout GI Inspection: Yes normal to inspection Skin Wounds: no wounds Hair: normal Neuro General: oriented to person, oriented to place and oriented to time Cranial nerves: Yes CN's II-XII intact bilaterally and Yes Normal hearing present Cognition (Neuro): normal cognition Motor exam (neuro): 5/5 motor strength present throughout Extrem Other: venous exam: No significant superficial varicosities or spider telangiectasias, minimal edema General: No clubbing, No cyanosis and No edema Psych Appearance: grossly normal Mental Status: mental status grossly normal Speech and movement: Normal speech and movement present Results Reviewed Results Reviewed: CT angiogram dated 11/25/2024 demonstrates occlusion proximal left subclavian reconstitution distal. Collateral flow may be from the left vert. Right ap pears to be patent. Assessment & Plan Assessment & Plan (1) Stenosis of both subclavian arteries: Code(s): I77.1 - Stricture of artery Category: Medical Plan: In short patient has bilateral subclavian artery stenosis. I did discuss these findings with the patient and at the current time would manage this as conservatively as possible. Should her symptoms progress would warrant intervention, and possibly even surgery. I did have an extensive discussion regarding this with her. She is in agreement would like to manage this as conservatively as possible. She will follow up with us in 6 months' time with surveillance ultrasound. Thank you for allowing us to assist in her care. Plan Patient was informed and verbally consented to the use of an ambient scribe for clinic note documentation during this visit. Orders: Orders US carotid duplex BI 6 Months I65.23 - Occlusion and stenosis of bilateral carotid arteries Patient Instructions: - Continue daily baby aspirin and statin as prescribed. - Monitor symptoms and avoid activities that lead to increased arm fatigue. - Plan for an ultrasound in six months to evaluate vascular health. - Return for symptoms significantly worsening or new concerning symptoms arise. - Maintain awareness of potential risk discussions related to surgery should it become necessary. Coding Level of Care Code Est Pt Level 4 (37174) Complex EM visit Add On G2211 Diagnoses Stenosis of both subclavian arteries I77.1
== END 2024-12-06 13:45 | disposition home or self-care (01) ==
LOC: HO.HVS 13:20
PROVIDERS: PCP Physician Assistant; Visit Provider Surgery Vascular Surgery
DX: I77.1 Stricture of artery (principal)
CPT/HCPCS: 99214; G2211

== ENCOUNTER → 2024-12-06 13:20 | Outpatient (BNVA) | payer OTHER, SELFPAY | PROVIDERS: PCP Physician Assistant; Visit Provider Surgery Vascular Surgery | DX: I77.1 Stricture of artery (principal); I65.23 Occlusion and stenosis of bilateral carotid arteries | CPT/HCPCS: 99212 ==

== ENCOUNTER 2024-12-08 15:49 | Outpatient (AMB) | payer OTHER, SELFPAY ==
[2024-12-08 16:18] VITALS: BP 86/60; PULSE 84; TEMP 36.3; O2SAT 97; BMI 21.9
--- NOTE | 2024-12-08 16:18 | MHC.PC.OV ---
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 Accompanied by: Self / Same As Patient Allergies aspirin [Aspirin] Allergy (Intermediate, Verified 12/08/24 16:22) WHEEZING clarithromycin [From Biaxin] Allergy (Intermediate, Verified 12/08/24 16:22) HIVES Sulfa (Sulfonamide Antibiotics) [SULFA (SULFONAMIDE ANTIBIOTICS)] Allergy (Intermediate, Verified 12/08/24 16:22) HIVES bee pollen [BEE STINGS] Allergy (Unknown, Verified 12/08/24 16:22) UNKNOWN pineapple [PINEAPPLE] Allergy (Unknown, Verified 12/08/24 16:22) UNKNOWN beeswax Allergy (Verified 12/08/24 16:22) Anaphylaxis Tobacco use date assessed: 09/29/24 Dental Screening Dental Screen Date: 09/01/24 HPI hip pain HPI Details The patient is a 54-year-old female presenting with right upper quadrant abdominal pain that has worsened acutely over the past four days, making it unbearable. The onset of the pain aligns with her history of portal hypertension and an enlarged liver with gastric varices. Her previous medical history includes a cholecystectomy and normal liver enzyme levels were last confirmed in August 2022. She reports that the pain has become severe and intolerable recently, without specific inciting factors. She experiences significant weakness in her arms that she notes correlates with the severity of her abdominal pain but feels it's unrelated to any surgical history, as her gallbladder has been removed. Past attempts to alleviate pain with dicyclomine and simethicone have not succeeded in providing satisfactory relief, leading her to occasionally use tramadol for pain management. [facility], [facility] Medical History Stenosis of left internal carotid artery Orthostatic hypotension Right medial tibial plateau fracture Homeless Migraine CAD (coronary artery disease) IBS (irritable bowel syndrome) Hypotension Migraine Surgical History History of partial hysterectomy History of cholecystectomy Family History Mother Substance use disorder Stroke Other Mental health disorder Social History Housing: House Alcohol intake: never Patient Tobacco Use Status: Current everyday Tobacco user Tobacco use type: Cigarette Cigarette Packs Per Day: 0.5 Cigarettes Per Day: 10 e-Cigarette/Vaping Use: Never Used Second Hand Smoke Exposure: Yes Substance Use Type: Marijuana Advance Directives Date on File: 02/01/21 service: No Current occupational status: employed and disabled Current occupation: rt handed Cognitive needs: No Hearing needs: No Vision needs: Yes (glasses) Questionnaire Thrive Questionnaire Date Thrive assessed: 09/01/24 SYLVESTER-7 AMB Questionnaire SYLVESTER-7 Date SYLVESTER - 7 assessed: 09/01/24 Source: Developed by Drs. Galo Stanford, Lynne Correia, Rico Guerrero and colleagues, with an educational bernarda from [employer]. Review of Systems Const Denies headache(s) Eyes Denies loss of vision ENT Denies vertigo, Denies dizziness, Denies headache(s) and Denies sore throat Card Denies chest pain, Denies leg edema and Denies lightheadedness Resp Denies cough, Denies hemoptysis and Denies wheezing GI Denies abdominal pain, Denies melena, Denies constipation, Denies diarrhea and Denies vomiting Denies urinary frequency, Denies dysuria and Denies urinary urgency Musc Denies arthralgias, Denies joint swelling, Denies numbness and Denies tingling Neuro Denies Abnormal speech present, Denies behavioral changes, Denies vertigo, Denies dizziness, Denies headache(s), Denies loss of vision, Denies memory loss, Denies numbness and Denies tingling Psych Denies anxiety, Denies behavioral changes, Denies depression, Denies memory loss and Denies panic attacks Stuart/Lymph Denies easy bleeding and Denies easy bruising Aller/Immun Denies wheezing Physical exam (Primary Care) Vital Signs: Last Vital Signs Temp 97.3 F 12/08/24 16:18 Pulse 84 12/08/24 16:18 BP 86/60 L 12/08/24 16:18 Pulse Ox 97 12/08/24 16:18 Oxygen Delivery Method Room Air 12/08/24 16:18 BMI result Body Mass Index 21.9 Tobacco/Smoking Status: Tobacco use Status Tobacco use date assessed 09/29/24 12/08/24 16:23 Patient Tobacco Use Status Current everyday Tobacco 12/08/24 16:23 Tobacco use type Cigarette 12/08/24 16:23 e-Cigarette/Vaping Use Never Used 12/08/24 16:23 Thrive Assessment: Date of Thrive Assessment Date Thrive assessed 09/01/24 12/08/24 16:23 Const General: healthy appearing, no acute distress, alert and awake Nutritional Appearance: well nourished Orientation/consciousness: oriented to person, oriented to place and oriented to time HENMT Ears: TM's normal bilaterally General nose exam: Normal nasal mucous membranes and turbinates present Eyes Conjunctivae: conjunctivae normal Sclerae: sclerae normal Pupils: Equal, round and reactive pupils present Neck Neck: Yes no lymphadenopathy and Yes no JVD Thyroid: Thyroid normal Carotids: no bruits Resp Effort & Inspection: normal respiratory effort and not tachypneic Auscultation: no crackles, no rales, no rhonchi and no wheezes Cardio Rate: regular rate Rhythm: regular rhythm Heart sounds: no murmurs and normal S1 and S2 GI Palpation (GI): Soft to palpation, nontender, no hepatomegaly and no splenomegaly Auscultation: normal bowel sounds Abdomen image: 1. TENDERNESS TO PALPATION OVER THE AREA OUTLINED Skin General skin exam: no rashes or lesions noted and dry skin Neuro General: oriented to person, oriented to place and oriented to time Cranial nerves: Yes Equal, round and reactive pupils present Speech: No Abnormal speech present Gait exam (Neuro): Normal gait present Motor exam (neuro): no tremor noted Extrem Right upper extremity: full ROM Left upper extremity: full ROM Right lower extremity: full ROM; no edema Left lower extremity: full ROM; no edema Psych Mental Status: mental status grossly normal Speech and movement: Normal speech and movement present Affect: normal affect Attitude: cooperative Thought process: Normal thought process present Coding Level of Care Code Est Pt Level 3 (90493) Diagnoses Right upper quadrant pain R10.11 Assessment & Plan Assessment & Plan (1) Right upper quadrant pain: Comment: Will draw labs including CMP, CBC, lipase, amylase, ESR. Will give patient dicyclomine and simethicone. Code(s): R10.11 - Right upper quadrant pain Category: Medical Plan: I plan to order a CT scan on a stat basis to further evaluate the underlying cause of the severe right upper quadrant pain, considering her known portal hypertension and enlarged liver. Meanwhile, tramadol is prescribed for pain management with guidance on its use given its narcotic nature. Orders: Orders CT abdomen pelvis w IV con 12/08/24 K76.6 - Portal hypertension, R10.11 - Right upper quadrant pain Comprehensive Met. Panel 12/10/24 R10.11 - Right upper quadrant pain Lipase 12/10/24 R10.11 - Right upper quadrant pain Complete Blood Count no Diff 12/10/24 R10.11 - Right upper quadrant pain Medications: Changed From tramadol 50 mg PO BID 4 days PRN 8 tabs 0RF pain G43.901 - Migraine, unspecified, not intractable, with status migrainosus To tramadol 50 mg PO BID 5 days 10 tabs 0RF pain G43.901 - Migraine, unspecified, not intractable, with status migrainosus
== END 2024-12-08 16:44 | disposition home or self-care (01) ==
LOC: HO.HMCH 15:50
PROVIDERS: PCP Physician Assistant; Visit Provider Physician Assistant
DX: R10.11 Right upper quadrant pain (principal)

== ENCOUNTER → 2024-12-08 15:49 | Outpatient (BNVA) | payer OTHER, SELFPAY | PROVIDERS: PCP Physician Assistant; Visit Provider Physician Assistant | DX: R10.11 Right upper quadrant pain (principal) | CPT/HCPCS: 99212 ==

== ENCOUNTER 2024-12-10 09:53 | Outpatient (REF) | payer OTHER, SELFPAY ==
[2024-12-10 10:39] LABS: Hematocrit 41.7 % (37.0-47.0); Hemoglobin 13.8 g/dl (12.0-16.0); Mean Corpuscular HGB Conc 33.1 g/dl (31.0-35.0); Mean Corpuscular Hemoglobin 31.9 pg (27.0-33.0); Mean Corpuscular Volume 96.5 fL (80.0-98.0); Mean Platelet Volume 9.3 fL (9.4-12.3); Platelet Count 258 X10*3/uL (160-400); Red Blood Count 4.32 X10*6/uL (4.20-5.50); Red Cell Distribution Width 14.2 % (11.0-16.0); White Blood Count 8.3 X10*3/uL (4.8-10.8)
[2024-12-10 11:15] LABS: Alanine Aminotransferase 12 U/L (0-31); Albumin Level 4.5 g/dL (3.5-5.0); Aspartate Amino Transferase 17 U/L (5-31); Bilirubin Total 0.4 mg/dL (0.0-1.0); Blood Urea Nitrogen 17 mg/dL (9-16); Calcium 9.3 mg/dL (8.4-10.2); Carbon Dioxide 23 mmol/L (22-29); Chloride 109 mmol/L (96-108); Estimated Glomerular Filt Rate > 60; Glucose Random 92 mg/dL (60-115); Lipase 27 U/L (8-78); Potassium 4.7 mmol/L (3.3-5.1); Sodium 140 mmol/L (135-145); Total Protein 7.5 g/dL (6.5-8.0)
[2024-12-10 12:34] LABS: Alkaline Phosphatase 121 U/L (39-117)
[2024-12-10 12:54] LABS: Anion Gap 16 (12-20)
== END 2024-12-10 09:54 | disposition home or self-care (01) ==
LOC: HO.LAB 09:53
PROVIDERS: PCP Physician Assistant; Visit Provider Physician Assistant
DX: R10.11 Right upper quadrant pain (principal)
CPT/HCPCS: 36415; 80053; 83690; 85027

== ENCOUNTER 2025-01-20 15:57 | Outpatient (AMB) | payer OTHER, SELFPAY ==
--- NOTE | 2025-01-20 15:59 | A.OFFVIS_ITS ---
Vital Signs 01/20/25 16:14 Height 5 ft 7 in Weight 140 lb BMI 21.9 BP 74/58 L Blood Pressure Location Rt brachial Position Sitting Pulse 92 Pulse Source Pulse Oximeter Pulse Oximetry (%) 95 Oxygen Delivery Method Room Air Intake Visit Reasons: Follow up abd pain Intake Note: Patient follow up for abdominal pain,mitchell was 12/03/2022 for CIC/lab results. Patient cc: C.O. chronic sx persistence since [facility]. Pt still experiencing RUQ pain. Pt is hoping that she could discuss MRI order as her PCP has attempted 3 times but has received denial from the insurance company. Pt also needs refill of dicyclomine and another medication which she cannot recall the name of. 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 Accompanied by: Self / Same As Patient Allergies aspirin [Aspirin] Allergy (Intermediate, Verified 01/20/25 16:07) WHEEZING clarithromycin [From Biaxin] Allergy (Intermediate, Verified 01/20/25 16:07) HIVES Sulfa (Sulfonamide Antibiotics) [SULFA (SULFONAMIDE ANTIBIOTICS)] Allergy (Intermediate, Verified 01/20/25 16:07) HIVES bee pollen [BEE STINGS] Allergy (Unknown, Verified 01/20/25 16:07) UNKNOWN pineapple [PINEAPPLE] Allergy (Unknown, Verified 01/20/25 16:07) UNKNOWN beeswax Allergy (Verified 01/20/25 16:07) Anaphylaxis HPI HPI Follow up abd pain: Details: Assessment & Plan (1) Right flank pain: ?Code(s): R10.9 - Unspecified abdominal pain ?Plan: In the past 3 years she states that her most concerning new diagnoses center around ?my heart? and she describes needing some sort of surgery for what sounds like carotid stenosis or even thoracic outlet syndrome along with multiple musculoskeletal issues. She has had a worsening of her right flank pain that is the same as 3 years ago. It is worse if she sits and does not move for a long time, or lays too long and it is alleviated with movement. It is not r/t eating or moving her bowels. Again, in the past she has had extensive GI workup with no GI cause found.? This is either functional related to her very difficult to control constipation or could be musculoskeletal.? She had an EGD/colonoscopy in 2019 there on revealing, she has had 3 CT scans over the course of the past 3 years all unrevealing, and I tried sending her for an x-ray of thoracic spine to see if her problem is musculoskeletal but then COVID hit and this was never accomplished.? This is something we could consider going forward to try to get her point in the right direction. I sincerely doubt that pancreatitis is the cause as she has had this same symptom set for over 3 years and in the past she did not have an elevated lipase.? However I am going to repeat the lipase and will keep an eye on this.? We could consider a trial of Creon. She has Reglan but she is only taking it as needed because she says it causes her to have twitching at the corner of her mouth.? Obviously this is not going to be helpful with her constipation.? Will restart her on the Linzess at 290 micro g since as were we left off and titrate her to affect her side effect.? She also would like to have the bisacodyl made available on agreeable to this as well. She also has nausea that seems to be chronic as well.? She is only using famotidine as needed and no PPI and this did not seem to quell the problem in the past so we will not restart them at this time. She has successfully weaned off of her methadone so this is no longer a contributing factor to her constipation.? She is on amitriptyline which could be a partial factor, along with Topamax and Compazine.? She utilizes the Compazine for her severe migraines.? Return office visit in 3 weeks to evaluate her response. (2) Chronic idiopathic constipation: ?Code(s): K59.04 - Chronic idiopathic constipation (3) Nausea: ?Code(s): R11.0 - Nausea (4) Elevated lipase: ?Code(s): R74.8 - Abnormal levels of other serum enzymes (5) GERD (gastroesophageal reflux disease): ?Code(s): K21.9 - Gastro-esophageal reflux disease without esophagitis ?Qualifiers: ?Esophagitis presence:?without esophagitis? Qualified Code(s):?K21.9 - Gastro-esophageal reflux disease without esophagitis ? ? ? Orders: Orders Lipase Today R74.8 - Abnormal levels of other serum enzymes ? Lactate Dehydrogenase Today R74.8 - Abnormal levels of other serum enzymes ? Medications: New linaclotide (Linzess) 290 mcg? PO QAM 30 days 30 caps 0RF ? ? bisacodyl (Dulcolax (bisacodyl)) 10 mg (2 x 5 mg) PO BEDTIME 2 days 4 tabs 0RF ? ? Refilled metoclopramide HCl (Reglan) 10 mg? PO DAILY PRN 30 tabs 3RF nausea and vomiting R11.0 - Nausea ? Discontinued dicyclomine ?? Discontinued Reason:? Doctor's Order 20 mg? PO QID PRN 20 tabs 0RF? abdominal pain ? ? LABS: Laboratory Tests 12/10/24 10:02 Lipase 27 TODAY'S VISIT (She has had a worsening of her right flank pain that is the same as 3 years ago. It is worse if she sits and does not move for a long time, or lays too long and it is alleviated with movement. It is not r/t eating or moving her bowels.Again, in the past she has had extensive GI workup with no GI cause found. She has successfully weaned off of her methadone so this is no longer a contributing factor to her constipation. She is on amitriptyline which could be a partial factor, along with Topamax and Compazine. She utilizes the Compazine for her severe migraines. ) I suggest that she have some x-rays and a workup of her spine as this might be referred pain/radicular pain from a pinched nerve in the thoracic spine. She should talk to her primary care provider about this. Her current GI regimen consists of dicyclomine, famotidine, Linzess 290, metoclopramide 10 mg(rx for her migraines), and simethicone. She has been out of her rx for a while as she is yearly follow ups and then we missed appts. ROV 1 year [facility] Medical History (Updated 01/20/25 @ 16:31 by LACEY Hines) Dizziness Stenosis of left internal carotid artery Annual physical exam Breast cancer screening Colon cancer screening Screening for hypercholesterolemia Screening for diabetes mellitus (DM) Orthostatic hypotension Right medial tibial plateau fracture Homeless Migraine CAD (coronary artery disease) IBS (irritable bowel syndrome) Hypotension Migraine Surgical History History of partial hysterectomy History of cholecystectomy Family History Mother Substance use disorder Stroke Other Mental health disorder Social History Housing: House Alcohol intake: never Patient Tobacco Use Status: Current everyday Tobacco user Tobacco use type: Cigarette Cigarette Packs Per Day: 0.5 Cigarettes Per Day: 10 e-Cigarette/Vaping Use: Never Used Second Hand Smoke Exposure: Yes Substance Use Type: Marijuana Advance Directives Date on File: 02/01/21 service: No Current occupational status: employed and disabled Current occupation: rt handed Cognitive needs: No Hearing needs: No Vision needs: Yes (glasses) Review of Systems Const Denies fatigue, Denies fever(s), Denies night sweats, Denies poor appetite and Denies weight loss Eyes Details: glasses Reports requires corrective lenses ENT Reports Normal hearing present, Denies dental pain, Denies dysphagia, Denies hearing loss, Denies mouth pain, Denies odynophagia, Denies throat swelling, Denies tongue swelling and Reports other (Dentition adequate) Card Reports syncope Resp Reports no additional complaints GI Details: Denies abdominal pain, Denies melena, Denies bloating, Denies hematochezia, Reports constipation, Denies GI cramping, Denies dysphagia, Denies excessive flatus, Denies early satiety, Reports heartburn, Denies diarrhea, Denies nausea, Denies odynophagia, Denies vomiting and Denies hematemesis Reports flank pain Skin/Breast Denies pruritus, Denies lesions, Denies rash and Denies jaundice Neuro Reports Normal hearing present, Denies Abnormal speech present and Reports syncope Endo Denies fatigue Aller/Immun Denies throat swelling and Denies tongue swelling Physical Exam Vital Signs: Last Vital Signs Pulse 92 05/30/25 16:14 BP 74/58 L 01/20/25 16:14 Pulse Ox 95 01/20/25 16:14 Oxygen Delivery Method Room Air 01/20/25 16:14 BMI result Body Mass Index 21.9 Const General: cooperative, no acute distress, well developed and well groomed Nutritional Appearance: average body habitus and well nourished Orientation/consciousness: oriented to person, oriented to place and oriented to time Limitations: No language barrier HEENT Head: Yes normocephalic and Yes atraumatic Eyes General: appearance normal, both eyes and all related structures Pupils: Equal, round and reactive pupils present Neck Neck: Yes normal visual inspection and Yes no lymphadenopathy Thyroid: Thyroid normal Resp Effort & Inspection: normal respiratory effort and able to speak in complete sentences Auscultation: clear to auscultation bilaterally Cardio Rate: regular rate Rhythm: regular rhythm Heart sounds: Normal, physiologic split S2 sound present Peripheral pulses: radial pulses present and posterior tibial pulses present GI Inspection: No distended and No Abdominal panniculus present Palpation (GI): Soft to palpation, nontender, no guarding, not rigid and No hepatosplenomegaly present Percussion: Yes normal to percussion Auscultation: normal bowel sounds Rectal Exam - Female: deferred Skin General skin exam: no rashes or lesions noted, turgor normal, skin not dry, no jaundice, No spider nevi and no striae Rashes: no rashes Nails: normal Neuro General: oriented to person, oriented to place and oriented to time Cranial nerves: Yes Equal, round and reactive pupils present and Yes Normal hearing present Speech: No Abnormal speech present Extrem General: Yes normal to inspection, No clubbing, No cyanosis and No edema Psych Appearance: grossly normal and well kempt Mental Status: mental status grossly normal Speech and movement: Normal speech and movement present Affect: normal affect Attitude: cooperative Thought process: Normal thought process present and not confabulating Thought content: Normal thought content present Insight: Fair insight present (Psych) Judgement: Fair judgement present (Psych) Assessment & Plan Assessment & Plan (1) Chronic idiopathic constipation: Code(s): K59.04 - Chronic idiopathic constipation Category: Medical (2) GERD (gastroesophageal reflux disease): Code(s): K21.9 - Gastro-esophageal reflux disease without esophagitis Category: Medical Qualifiers: Esophagitis presence: without esophagitis Qualified Code(s): K21.9 - Gastro-esophageal reflux disease without esophagitis (3) IBS (irritable bowel syndrome): Code(s): K58.9 - Irritable bowel syndrome, unspecified Category: Medical Qualifiers: Irritable bowel syndrome type: with diarrhea Qualified Code(s): K58.0 - Irritable bowel syndrome with diarrhea Plan (She has had a worsening of her right flank pain that is the same as 3 years ago. It is worse if she sits and does not move for a long time, or lays too long and it is alleviated with movement. It is not r/t eating or moving her bowels.Again, in the past she has had extensive GI workup with no GI cause found. She has successfully weaned off of her methadone so this is no longer a contributing factor to her constipation. She is on amitriptyline which could be a partial factor, along with Topamax and Compazine. She utilizes the Compazine for her severe migraines. ) I suggest that she have some x-rays and a workup of her spine as this might be referred pain/radicular pain from a pinched nerve in the thoracic spine. She should talk to her primary care provider about this. Her current GI regimen consists of dicyclomine, famotidine, Linzess 290, metoclopramide 10 mg(rx for her migraines), and simethicone. She has been out of her rx for a while as she is yearly follow ups and then we missed appts. ROV 1 year Medications: New famotidine 20 mg PO DAILY 30 tabs 12RF Changed From bisacodyl (Dulcolax (bisacodyl)) 10 mg (2 x 5 mg) PO BEDTIME 2 days 4 tabs 0RF K59.04 - Chronic idiopathic constipation To bisacodyl (Dulcolax (bisacodyl)) 15 mg (3 x 5 mg) PO BEDTIME 90 tabs 12RF 30 days K59.04 - Chronic idiopathic constipation Refilled linaclotide (Linzess) 290 mcg PO QAM 30 caps 12RF 30 days simethicone (Gas Relief (simethicone)) 180 mg PO DAILY PRN 30 caps 6RF abdominal distention dicyclomine 20 mg PO TID PRN 90 tabs 2RF abdominal pain 30 days K58.0 - Irritable bowel syndrome with diarrhea Coding Level of Care Code Est Pt Level 3 (10364) Diagnoses Chronic idiopathic constipation K59.04 Gastroesophageal reflux disease without esophagitis K21.9 Esophagitis presence: without esophagitis Irritable bowel syndrome with diarrhea K58.0 Irritable bowel syndrome type: with diarrhea
--- OUTSIDE RECORDS SUMMARY | 2025-01-20 15:59 | XMS_ITS | Clinical Summary ---
Author Organization [facility] Address [address] [place] [address] Care Team Providers Care Director Of Cloud Services Name Role Phone Kevan Gordon Primary Care Provider [phone] Allergies Active Allergy Reactions Criticality Noted Date Comments Aspirin Hives,Chest pain 03/08/2020 Biavax Ii Dyspnea High 05/07/2020 Clarithromycin Rash 03/04/2021 Sulfa (Sulfonamide Antibiotics) Hives 02/21 Medications * This document contains information received from the source organization and may not represent a complete record from that organization. propranoloL (INDERAL) 20 mg tablet Take 20 mg by mouth 3 times a day. Active metoclopramide (REGLAN) 10 mg tablet Take 10 mg by mouth 4 times a day. Active prochlorperazin e (COMPAZINE) 25 mg suppository Insert 1 suppository (25 mg total) into the rectum every 12 hours as needed for nausea or vomiting. 12 suppository 05/07/20 20 Active butalbital-acet aminophen-caffe ine (FIORICET) 50-325-40 mg tablet Take 1 tablet by mouth every 4 hours as needed for headache. 24 tablet 1 10/21/19 22 Active prochlorperazin e (COMPAZINE) 25 mg suppository Insert 1 suppository (25 mg total) into the rectum every 12 hours as needed for nausea or vomiting. 14 suppository 1 10/21/19 22 Active divalproex ER (DEPAKOTE) 250 mg tablet Take 1 tablet (250 mg total) by mouth 2 (two) times a day. 60 tablet 03/07/20 22 Active hydrOXYzine HCL (ATARAX) 25 mg tablet Take 1 tablet (25 mg total) by mouth 3 times a day as needed for anxiety. 60 tablet 10/29/19 Active fluticasone propionate (FLONASE) 50 mcg/actuation nasal spray Administer 1 spray into each nostril once a day. 16 g 10/29/19 Active cetirizine (ZyrTEC) 10 mg tablet Take 1 tablet (10 mg total) by mouth once a day. 30 tablet 2 10/29/19 Active Active Problems Problem Noted Date Diagnosed Date Mood disorder 10/28/2021 Chronic migraine without aur a without status migrainosus, not intractable 10/21/2021 COVID 09/16/2021 Social History Tobacco Use Types Packs/Day Years Used Date Smoking Tobacco: Every Day Smokeless Tobacco: Never Alcohol Use Standard Drinks/Week Comments Yes 0 (1 standard drink = 0.6 oz pur e alcohol) Comments No Sex and Gender Information Value Date Recorded Sex Assigned at Not on file Legal Sex Female 5:52 AM EDT Gender Identity Not on file Sexual Orientation Not on file Last Filed Vital Signs Vital Sign Reading Time Taken Comments Blood Pressure 97/64 12/06/2021 6:34 PM EDT Pulse 77 12/06/2021 6:34 PM EDT Temperature 36.9 ??C (98.4 ??F) 12/06/2021 2:51 PM ED T Respiratory Rate 18 12/06/2021 6:34 PM EDT Oxygen Saturation 99% 12/06/2021 6:34 PM EDT Inhaled Oxygen Concentration - - Weight 61.2 kg (135 lb) 12/06/2021 2:51 PM EDT Height 172.7 cm (5' 8 ) 12/06/2021 2:51 PM EDT Body Mass Index 20.53 12/06/2021 2:51 PM EDT Plan of Treatment Health Maintenance Due Date Last Done Comments Cervical Cancer Screening 1970 Cologuard 1970 Colon Cancer Screening 1970 Colonoscopy 1970 FOBT / Fit Test 1970 HIV Screening 1970 HPV and Pap Smear 1970 Pap Smear 1970 Sigmoidoscopy 1970 Hepatitis B Vaccines (1 of 3 - 19+ 3-dose series) 1989 Pneumococcal Vaccine: 50+ Ye ars (2 of 2 - PCV) 01/31/2018 01/31/2017 CT Lung Cancer Screening (Baseline) 2020 Zoster Vaccines (1 of 2) 2020 COVID-19 Vaccine (3 - 2023- season) 04/24/202402/2021, 04/09/2021 Alcohol/Substance Use Screening 08/24/2024 Influenza Vaccine (Season Ended) 2025 05/27/2019, 06/13/2018, 06/11/2017 DTaP,Tdap,and Td Vaccines (3 - Td or Tdap) 03/07/2031 03/07/2021, 05/23/2016, 12/09/2014 RSV Vaccine (60+ years old a nd patients) (1 - 1-dose 75+ series) [address] [place], [place] [address]INC[place] Care Teams Director Of Cloud Services Relationship Specialty Start Date End Date Kevan Gordon PA [address] [place] [id number] PCP - General 03/08/20
[2025-01-20 16:14] VITALS: BP 74/58; PULSE 92; O2SAT 95; BMI 21.9
== END 2025-01-20 16:40 | disposition home or self-care (01) ==
LOC: HO.HGI 15:57
PROVIDERS: PCP Physician Assistant; Visit Provider Nurse Practitioner
DX: K59.04 Chronic idiopathic constipation (principal); K21.9 Gastro-esophageal reflux disease without esophagitis; K58.0 Irritable bowel syndrome with diarrhea
CPT/HCPCS: 99213

== ENCOUNTER → 2025-01-20 15:57 | Outpatient (BNVA) | payer OTHER, SELFPAY | PROVIDERS: PCP Physician Assistant; Visit Provider Nurse Practitioner | DX: K59.04 Chronic idiopathic constipation (principal); K21.9 Gastro-esophageal reflux disease without esophagitis; K58.0 Irritable bowel syndrome with diarrhea | CPT/HCPCS: 99212 ==

== ENCOUNTER 2025-02-02 08:38 | Outpatient (AMB) | payer OTHER, SELFPAY ==
[2025-02-02 08:50] VITALS: BP 92/62; PULSE 83; O2SAT 97; BMI 21.0
--- NOTE | 2025-02-02 08:50 | MHC.PC.OV ---
Vital Signs 02/02/25 08:50 Height 5 ft 7 in Weight 134 lb 6 oz BMI 21.0 BP 92/62 Blood Pressure Location Lt brachial Position Sitting Pulse 83 Pulse Source Pulse Oximeter Pulse Oximetry (%) 97 Oxygen Delivery Method Room Air Intake Visit Reasons: follow up Director Institution Required: No Accompanied by: Self / Same As Patient Allergies aspirin [Aspirin] Allergy (Intermediate, Verified 02/02/25 09:04) WHEEZING clarithromycin [From Biaxin] Allergy (Intermediate, Verified 02/02/25 09:04) HIVES Sulfa (Sulfonamide Antibiotics) [SULFA (SULFONAMIDE ANTIBIOTICS)] Allergy (Intermediate, Verified 02/02/25 09:04) HIVES bee pollen [BEE STINGS] Allergy (Unknown, Verified 02/02/25 09:04) UNKNOWN pineapple [PINEAPPLE] Allergy (Unknown, Verified 02/02/25 09:04) UNKNOWN beeswax Allergy (Verified 02/02/25 09:04) Anaphylaxis Medication List - Last Reconciled 02/02/25 by Kevan Gordon PA-C acetaminophen (Tylenol Extra Strength) 500 mg PO Q6H PRN albuterol sulfate 90 mcg/actuation 1 inh inhalation QID PRN 30 days amitriptyline 50 mg PO BEDTIME 90 days aspirin 81 mg PO DAILY baclofen 10 mg PO BID PRN 7 days bisacodyl (Dulcolax (bisacodyl)) 15 mg (3 x 5 mg) PO BEDTIME 30 days aszndkqqvz-ugrmydrrlwfqi-ulzi 50-325-40 mg 1 cap PO Q6H PRN 4 days COVID-19 antigen test ([facility] COVID-19 Ag Self Test kit) As directed dicyclomine 20 mg PO TID PRN 30 days divalproex ER (Depakote ER) 250 mg PO BID 90 days erenumab-aooe (Aimovig Autoinjector) mg subcut famotidine 20 mg PO DAILY linaclotide (Linzess) 290 mcg PO QAM 30 days lorazepam 0.5 mg PO DAILY PRN 7 days magnesium 250 mg PO BID 90 days meclizine 50 mg PO DAILY metoclopramide HCl (Reglan) 10 mg PO DAILY PRN midodrine 5 mg PO TID PRN 15 days nicotine 1 patch transdermal DAILY 14 days prochlorperazine (Compazine) 25 mg CA BID PRN 6 days propranolol 120 mg (2 x 60 mg) PO BID 90 days riboflavin (vitamin B2) 50 mg PO DAILY simethicone (Gas Relief (simethicone)) 180 mg PO DAILY PRN simvastatin 20 mg PO DAILY topiramate (Topamax) 100 mg PO BID 90 days tramadol 50 mg PO BID 5 days Tobacco use date assessed: 02/02/25 Dental Screening Dental Screen Date: 02/02/25 Did you have a dental visit in the last 12 months?: Yes Did you have a dental problem in the last 6 months where you did not have access to dental care?: No Was dental information given to patient?: Patient has dentist HPI follow up HPI Details Patient is a 54 year female here today for a follow-up visit. Patient has a past medical history significant for tobacco use disorder, migraine disorder, anxiety, major depression and peripheral artery disease.. Right flank pain: ? --thoracic radiculitis-> Additionally, the patient reports back pain, which she associates with frequent bowel movements. She has been advised to undergo x-rays to check for a pinched nerve or other spinal issues. Tobacco use disorder: Unfortunately continues to smoke cigarettes and does understand she needs to quit does not willing to do so at this time. .. Migraine disorder: Patient reports she has been having more frequent and severe migraines over the last few weeks. She has used Fioricet in the past with good effect and is asking for short term script of this. . She has had brain MRIs without any significant intracranial pathologies. She was previously on narcotics for her migraine pain She has establish care with a neurologist in [place] Dr. Hopper and will be started on Aimovig injections in hopes to gain control over migraines. .. Subclavian stenosis: Patient is followed by [facility] vascular surgeon had subclavian surgery done in December for repair, she reports feeling a bit swollen in her left side though it is not do an feeding. She now has a pulse in her left upper extremity. Unfortunately blood pressure still remains low. Hypotension: Continues have lower blood pressure. Does use nitrogen on a as needed basis for symptomatic low blood pressures. We did discuss perhaps reducing her dose beta-titus as this may be a culprit for low blood pressure though she would like to stay on this medication as it does help her migraines. She does take midodrine on an as needed basis for low blood pressures as well. .. Anxiety: Patient reports her anxiety is fairly well controlled with current doses of her mental health medications. Also does use lorazepam 0.5 mg on a very limited p.r.n. basis for hyper traore of anxiety. FOR[facility]LY [facility], [facility] Medical History (Updated 02/02/25 @ 09:07 by Kevan Gordon PA-C) Dizziness Stenosis of left internal carotid artery Annual physical exam Breast cancer screening Colon cancer screening Screening for hypercholesterolemia Screening for diabetes mellitus (DM) Orthostatic hypotension Right medial tibial plateau fracture Homeless Migraine CAD (coronary artery disease) IBS (irritable bowel syndrome) Hypotension Migraine Surgical History History of partial hysterectomy History of cholecystectomy Family History Mother Substance use disorder Stroke Other Mental health disorder Social History Housing: House Alcohol intake: never Patient Tobacco Use Status: Current everyday Tobacco user Tobacco use type: Cigarette Cigarette Packs Per Day: 0.5 Cigarettes Per Day: 10 e-Cigarette/Vaping Use: Never Used Second Hand Smoke Exposure: Yes Substance Use Type: Marijuana Advance Directives Date on File: 02/01/21 service: No Current occupational status: employed and disabled Current occupation: rt handed Cognitive needs: No Hearing needs: No Vision needs: Yes (glasses) Questionnaire PHQ-9 Over the last 2 weeks, how often have you been bothered by any of the following problems? 1. Little interest or pleasure in doing things: not at all 2. Feeling down, depressed, or hopeless: not at all 3. Trouble falling or staying asleep, or sleeping too much: not at all 4. Feeling tired or having little energy: not at all 5. Poor appetite or overeating: not at all 6. Feeling bad about yourself - or that you are a failure or have let yourself or your family down: not at all 7. Trouble concentrating on things, such as reading the newspaper or watching television: not at all 8. Moving or speaking so slowly that other people could have noticed. Or the opposite - being so fidgety or restless that you have been moving around a lot more than usual: not at all 9. Thoughts that you would be better off or of hurting yourself in some way: not at all Total score: 0 Depression Screening Interpretation: Negative Depression Screening Done: Yes 18681 - PHQ-9 Billing: Yes Source: Developed by Drs. Galo Stanford, Lynne Correia, Rico Guerrero and colleagues, with an educational bernarda from [employer]. Thrive Questionnaire Date Thrive assessed: 02/02/25 I am a: Patient What is your living situation today?: I have a steady place to live Within the past 12 months, did the food you bought not last and you didn't have the money to get more?: Never true Within the past 12 months, did you worry whether your food would run out before you got money to buy more?: Never true Do you have trouble paying for medicines?: No Do you have trouble getting transportation to medical appointments?: No Do you have trouble paying your heating and electricity bill?: No Do you have trouble taking care of your child, family member or friend?: No Do you have trouble with day-to-day activities such as bathing, preparing meals, shopping, managing finances, etc.?: No Are you currently unemployed and looking for a job?: No Are you interested in more education?: No Please select the resources that you would like help with: None Currently or been in a relationship where the following occur: No concerns reported THRIVE Score: 0 AUDIT C Alcohol Use Questionnaire (AUDIT-C) 1. How often do you have a drink containing alcohol?: Monthly or less 2. How many drinks containing alcohol do you have on a typical day when you are drinking?: 1 or 2 3. How often do you have six or more drinks on one occasion?: Never Total Score: 1 SYLVESTER-7 AMB Questionnaire SYLVESTER-7 Date SYLVESTER - 7 assessed: 02/02/25 Feeling nervous, anxious, or on edge: 0 = Not at all Not being able to stop or control worryin = Not at all Worrying too much about different things: 0 = Not at all Trouble relaxin = Not at all Being so restless that it is hard to sit still: 0 = Not at all Becoming easily annoyed or irritable: 0 = Not at all Feeling afraid as if something awful might happen: 0 = Not at all Total SYLVESTER-7 score (0-4 normal; 5-9 mild; 10-14 moderate; 15-21 severe): 0 Source: Developed by Drs. Galo Stanford, Lynne Correia, Rico Guerrero and colleagues, with an educational bernarda from [employer]. Review of Systems Const Denies headache(s) Eyes Denies loss of vision ENT Denies vertigo, Denies dizziness, Denies headache(s) and Denies sore throat Card Denies chest pain, Denies leg edema and Denies lightheadedness Resp Denies cough, Denies hemoptysis and Denies wheezing GI Denies abdominal pain, Denies melena, Denies constipation, Denies diarrhea and Denies vomiting Denies urinary frequency, Denies dysuria and Denies urinary urgency Musc Denies arthralgias, Denies joint swelling, Denies numbness and Denies tingling Neuro Denies Abnormal speech present, Denies behavioral changes, Denies vertigo, Denies dizziness, Denies headache(s), Denies loss of vision, Denies memory loss, Denies numbness and Denies tingling Psych Denies anxiety, Denies behavioral changes, Denies depression, Denies memory loss and Denies panic attacks Stuart/Lymph Denies easy bleeding and Denies easy bruising Aller/Immun Denies wheezing Physical exam (Primary Care) Vital Signs: Last Vital Signs Pulse 83 02/02/25 08:50 BP 92/62 02/02/25 08:50 Pulse Ox 97 02/02/25 08:50 Oxygen Delivery Method Room Air 02/02/25 08:50 BMI result Body Mass Index 21.0 Tobacco/Smoking Status: Tobacco use Status Tobacco use date assessed 02/02/25 02/02/25 08:56 Patient Tobacco Use Status Current everyday Tobacco 02/02/25 08:56 Tobacco use type Cigarette 02/02/25 08:56 e-Cigarette/Vaping Use Never Used 02/02/25 08:56 PHQ-9: PHQ-9 Score PHQ-9: Total score 0 02/02/25 09:03 Depression Screening Interpretation: Negative Thrive Assessment: Date of Thrive Assessment Date Thrive assessed 02/02/25 02/02/25 08:56 Currently or been in a relationship where the following occur: No concerns reported Const General: healthy appearing, no acute distress, alert and awake Nutritional Appearance: well nourished Orientation/consciousness: oriented to person, oriented to place and oriented to time HENMT Ears: TM's normal bilaterally General nose exam: Normal nasal mucous membranes and turbinates present Eyes Conjunctivae: conjunctivae normal Sclerae: sclerae normal Pupils: Equal, round and reactive pupils present Neck Neck: Yes no lymphadenopathy and Yes no JVD Thyroid: Thyroid normal Carotids: no bruits Resp Effort & Inspection: normal respiratory effort and not tachypneic Auscultation: no crackles, no rales, no rhonchi and no wheezes Cardio Rate: regular rate Rhythm: regular rhythm Heart sounds: no murmurs and normal S1 and S2 GI Palpation (GI): Soft to palpation, nontender, no hepatomegaly and no splenomegaly Auscultation: normal bowel sounds Skin General skin exam: no rashes or lesions noted and dry skin Neuro General: oriented to person, oriented to place and oriented to time Cranial nerves: Yes Equal, round and reactive pupils present Speech: No Abnormal speech present Gait exam (Neuro): Normal gait present Motor exam (neuro): no tremor noted Extrem Right upper extremity: full ROM Left upper extremity: full ROM Right lower extremity: full ROM; no edema Left lower extremity: full ROM; no edema Psych Mental Status: mental status grossly normal Speech and movement: Normal speech and movement present Affect: normal affect Attitude: cooperative Thought process: Normal thought process present Coding Level of Care Code Est Pt Level 4 (41494) Diagnoses Thoracic radiculitis M54.14 Tobacco dependence F17.200 Stenosis of both subclavian arteries I77.1 Additional Codes PHQ-9 - 71007 - PHQ-9 Billing: Yes ([id number]) Assessment & Plan Assessment & Plan (1) Thoracic radiculitis: Code(s): M54.14 - Radiculopathy, thoracic region Category: Medical Plan: Patient continues with chronic right-sided flank pain, thought to be abdominal issue though evaluation has not been revealing. There is some concern here for radicular pain from may be the thoracic spine. Will get an x-ray of the thoracic spine and referred pain management for possible pain reduction modality. (2) Tobacco dependence: Code(s): F17.200 - Nicotine dependence, unspecified, uncomplicated Category: Medical Plan: Patient does understand she needs to quit smoking, now using electronic cigarettes. She does have subclavian vein stenosis that was recently repaired by vascular surgeon at [facility] in December of 2024 (3) Stenosis of both subclavian arteries: Code(s): I77.1 - Stricture of artery Category: Medical Plan: As above Orders: Orders Complete Blood Count no Diff 02/02/25 K21.9 - Gastro-esophageal reflux disease without esophagitis XR thoracic spine 3V 02/02/25 M54.14 - Radiculopathy, thoracic region Lipid Panel 02/02/25 I77.1 - Stricture of artery Comprehensive [place]. Panel Fast 02/02/25 E78.2 - Mixed hyperlipidemia Referrals Pain Management Referral M54.14 - Radiculopathy, thoracic region Medications: Changed From metoclopramide HCl (Reglan) 10 mg PO DAILY PRN 30 tabs 2RF nausea and vomiting R11.0 - Nausea To metoclopramide HCl (Reglan) 10 mg PO DAILY PRN 30 tabs 3RF nausea and vomiting 30 days R11.0 - Nausea
--- OUTSIDE RECORDS SUMMARY | 2025-02-02 08:55 | XMS_ITS | Clinical Summary ---
Author Organization [facility] Address [address] [place] [address] Care Team Providers Care Hospitality Ambassador Name Role Phone Kevan Gordon Primary Care Provider [phone] Allergies Active Allergy Reactions Criticality Noted Date [...] (1 - 1-dose 75+ series) [address] [place] [address] Care Teams Hospitality Ambassador Relationship Specialty Start Date End Date Kevan Gordon PA [address] [place] [id number] PCP - General 03/08/20
== END 2025-02-02 09:17 | disposition home or self-care (01) ==
LOC: HO.HMCH 08:39
PROVIDERS: PCP Physician Assistant; Visit Provider Physician Assistant
DX: M54.14 Radiculopathy, thoracic region (principal); F17.200 Nicotine dependence, unspecified, uncomplicated; I77.1 Stricture of artery

== ENCOUNTER → 2025-02-02 08:38 | Outpatient (BNVA) | payer OTHER, SELFPAY | PROVIDERS: PCP Physician Assistant; Visit Provider Physician Assistant | DX: M54.14 Radiculopathy, thoracic region (principal); G43.909 Migraine, unspecified, not intractable, without status migrainosus; F41.9 Anxiety disorder, unspecified; F32.A Depression, unspecified; I73.9 Peripheral vascular disease, unspecified; F17.210 Nicotine dependence, cigarettes, uncomplicated; I95.9 Hypotension, unspecified; R11.0 Nausea | CPT/HCPCS: 96127; 99212 ==

== ENCOUNTER 2025-02-27 07:27 | Outpatient (REF) | payer OTHER, SELFPAY ==
--- NOTE | ~2025-02-27 | XR_ITS ---
CLINICAL HISTORY: M54.14 - Radiculopathy, thoracic region 3 views thoracic spine Comparison: None Findings: No fractures or dislocations. There is mild scoliosis. Disc spaces are well preserved. Costovertebral joints and pedicles are unremarkable. No significant arthritic change. Impression: Mild scoliosis, otherwise normal thoracic spine. This document has been electronically signed by: Audie Jackson MD on 02/27/2025 16:37:48
[2025-02-27 07:55] LABS: Hematocrit 43.0 % (37.0-47.0); Hemoglobin 14.3 g/dl (12.0-16.0); Mean Corpuscular HGB Conc 33.3 g/dl (31.0-35.0); Mean Corpuscular Hemoglobin 31.7 pg (27.0-33.0); Mean Corpuscular Volume 95.3 fL (80.0-98.0); NRBC Abs Auto 0.000 X10*3/uL (0.0-0.012); NRBC Pct Auto 0.0 /100WBC (0.0-0.2); Platelet Count 241 X10*3/uL (160-400); Red Blood Count 4.51 X10*6/uL (4.20-5.50); White Blood Count 11.3 X10*3/uL (4.8-10.8)
[2025-02-27 08:38] LABS: Appearance Urine Clear; Glucose Urine UA Negative (Negative); PH 5.5 (5.0-9.0); Specific Gravity - Urine 1.025 (1.005-1.025); UMIC TRIGGER UACC YES
[2025-02-27 08:47] LABS: Alanine Aminotransferase 13 U/L (0-31); Albumin Level 4.9 g/dL (3.5-5.0); Alkaline Phosphatase 122 U/L (39-117); Anion Gap 14 (12-20); Aspartate Amino Transferase 20 U/L (5-31); Blood Urea Nitrogen 18 mg/dL (9-16); Calcium 9.3 mg/dL (8.4-10.2); Carbon Dioxide 20 mmol/L (22-29); Chloride 112 mmol/L (96-108); Cholesterol 238 mg/dL (<200); Estimated Glomerular Filt Rate > 60; HDL Cholesterol 68 mg/dL (>40); Potassium 4.6 mmol/L (3.3-5.1); Sodium 141 mmol/L (135-145); Total Protein 7.7 g/dL (6.5-8.0); Triglycerides 95 mg/dL (<150)
== END 2025-02-27 07:28 | disposition home or self-care (01) ==
LOC: HO.XRAY 07:27
PROVIDERS: PCP Physician Assistant; Visit Provider Physician Assistant
DX: M54.14 Radiculopathy, thoracic region (principal); I77.1 Stricture of artery; E78.2 Mixed hyperlipidemia; K21.9 Gastro-esophageal reflux disease without esophagitis
CPT/HCPCS: 36415; 72072; 80053; 80061; 81001; 85027

== ENCOUNTER → 2025-02-27 07:41 | Outpatient (BNV) | payer OTHER, SELFPAY | PROVIDERS: PCP Physician Assistant; Visit Provider Radiology Diagnostic Radiology | DX: M54.14 Radiculopathy, thoracic region (principal) | CPT/HCPCS: 72072 ==

== ENCOUNTER 2025-03-01 13:30 | Outpatient (AMB) | payer OTHER, SELFPAY ==
--- NOTE | 2025-03-01 13:38 | MHC.PC.OV ---
Vital Signs 03/01/25 13:39 Height 5 ft 7 in Weight 134 lb 6 oz BMI 21.0 BP 92/62 Blood Pressure Location Lt brachial Position Sitting Pulse 105 H Pulse Source Pulse Oximeter Temp 97.3 F Temp Source Temporal Artery Scan Pulse Oximetry (%) 98 Oxygen Delivery Method Room Air Intake Visit Reasons: Annual Exam Point Of Sale Associate Required: No Accompanied by: Self / Same As Patient Allergies aspirin (Aspirin) Allergy (Intermediate, Verified 03/01/25 13:39) WHEEZING clarithromycin (From Biaxin) Allergy (Intermediate, Verified 03/01/25 13:39) HIVES Sulfa (Sulfonamide Antibiotics) (SULFA (SULFONAMIDE ANTIBIOTICS)) Allergy (Intermediate, Verified 03/01/25 13:39) HIVES bee pollen (BEE STINGS) Allergy (Unknown, Verified 03/01/25 13:39) UNKNOWN pineapple (PINEAPPLE) Allergy (Unknown, Verified 03/01/25 13:39) UNKNOWN beeswax Allergy (Verified 03/01/25 13:39) Anaphylaxis Tobacco use date assessed: 02/02/25 Dental Screening Dental Screen Date: 02/02/25 HPI Annual Exam HPI Details Patient is a 54 year female here today for routine annual physical. Patient has a past medical history significant for tobacco use disorder, migraine disorder, anxiety, major depression and peripheral artery disease.. Concern--> patient reports over the last 4 days having diarrhea after she eats. She denies any fevers, abdominal pain or abdominal cramping. She has been using her Bentyl though has not been effective. Right flank pain: ? --thoracic radiculitis-> Additionally, the patient reports back pain, which she associates with frequent bowel movements. She has gotten x-rays of her thoracic spine that showed mild scoliosis. She has a coming appointment with pain management and physical therapy. Will supply patient with tramadol to use on p.r.n. basis for pain. Otherwise her pain is located in a muscular structures adjacent to her thoracic spine Tobacco use disorder: Unfortunately continues to smoke cigarettes and does understand she needs to quit does not willing to do so at this time. .. Migraine disorder: Patient reports she has been having more frequent and severe migraines over the last few weeks. She has used Fioricet in the past with good effect and is asking for short term script of this. . She has had brain MRIs without any significant intracranial pathologies. She was previously on narcotics for her migraine pain She has establish care with a neurologist in [place] Dr. Hopper and will be started on Aimovig injections in hopes to gain control over migraines. .. Subclavian stenosis: Patient is followed by [facility] vascular surgeon had subclavian surgery done in December for repair, she reports feeling a bit swollen in her left side though it is not do an feeding. She now has a pulse in her left upper extremity. Unfortunately blood pressure still remains low. Hypotension: Continues have lower blood pressure. Does use nitrogen on a as needed basis for symptomatic low blood pressures. We did discuss perhaps reducing her dose beta-titus as this may be a culprit for low blood pressure though she would like to stay on this medication as it does help her migraines. She does take midodrine on an as needed basis for low blood pressures as well. .. Anxiety: Patient reports her anxiety is fairly well controlled with current doses of her mental health medications. Also does use lorazepam 0.5 mg on a very limited p.r.n. basis for hyper traore of anxiety. .. Hyperlipidemia: Most recent lipid panel showing elevated total cholesterol and LDL. Her simvastatin was increased to 40 mg and recheck her cholesterol panel in 3 months. .. 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 Vaccines: Up-to-date with COVID, tetanus, Need PCV- 20 pneumonia vaccine-declines at this time, considering shingles PFS Medical History Annual physical exam Dizziness Stenosis of left internal carotid artery Breast cancer screening Colon cancer screening Screening for hypercholesterolemia Screening for diabetes mellitus (DM) Orthostatic hypotension Right medial tibial plateau fracture Homeless Migraine CAD (coronary artery disease) IBS (irritable bowel syndrome) Hypotension Migraine Surgical History History of partial hysterectomy History of cholecystectomy Family History Mother Substance use disorder Stroke Other Mental health disorder Social History (Updated 03/01/25 @ 14:00 by Kevan Gordon PA-C) Housing: House Alcohol intake: current Alcohol intake frequency: holidays/special occasions only Patient Tobacco Use Status: Current everyday Tobacco user Tobacco use type: Cigarette Cigarette Packs Per Day: 0.5 Cigarettes Per Day: 10 e-Cigarette/Vaping Use: Never Used Second Hand Smoke Exposure: Yes Substance Use Type: Marijuana Advance Directives Date on File: 02/01/21 service: No Current occupational status: employed and disabled Current occupation: rt handed Cognitive needs: No Hearing needs: No Vision needs: Yes (glasses) Questionnaire PHQ-9 Over the last 2 weeks, how often have you been bothered by any of the following problems? 1. Little interest or pleasure in doing things: not at all 2. Feeling down, depressed, or hopeless: not at all 3. Trouble falling or staying asleep, or sleeping too much: not at all 4. Feeling tired or having little energy: not at all 5. Poor appetite or overeating: not at all 6. Feeling bad about yourself - or that you are a failure or have let yourself or your family down: not at all 7. Trouble concentrating on things, such as reading the newspaper or watching television: not at all 8. Moving or speaking so slowly that other people could have noticed. Or the opposite - being so fidgety or restless that you have been moving around a lot more than usual: not at all 9. Thoughts that you would be better off or of hurting yourself in some way: not at all Total score: 0 Depression Screening Interpretation: Negative Depression Screening Done: Yes 57530 - PHQ-9 Billing: Yes Source: Developed by Drs. Galo Stanford, Lynne Correia, Rico Guerrero and colleagues, with an educational bernarda from [employer]. Thrive Questionnaire Date Thrive assessed: 02/22/25 I am a: Patient What is your living situation today?: I do not have a steady places to live I am living on the street Within the past 12 months, did the food you bought not last and you didn't have the money to get more?: Sometimes True Within the past 12 months, did you worry whether your food would run out before you got money to buy more?: Sometimes True Do you have trouble paying for medicines?: Yes Do you have trouble getting transportation to medical appointments?: No Do you have trouble paying your heating and electricity bill?: No Do you have trouble taking care of your child, family member or friend?: No Do you have trouble with day-to-day activities such as bathing, preparing meals, shopping, managing finances, etc.?: I choose not to answer this question Are you currently unemployed and looking for a job?: No Are you interested in more education?: No Please select the resources that you would like help with: Housing/Residential Currently or been in a relationship where the following occur: I choose not to answer THRIVE Score: 3 AUDIT C Alcohol Use Questionnaire (AUDIT-C) 1. How often do you have a drink containing alcohol?: Never 3. How often do you have six or more drinks on one occasion?: Never Total Score: 0 SYLVESTER-7 AMB Questionnaire SYLVESTER-7 Date SYLVESTER - 7 assessed: 02/02/25 Feeling nervous, anxious, or on edge: 2 = More than half the days Not being able to stop or control worryin = Several days Worrying too much about different things: 1 = Several days Trouble relaxin = More than half the days Being so restless that it is hard to sit still: 1 = Several days Becoming easily annoyed or irritable: 0 = Not at all Feeling afraid as if something awful might happen: 0 = Not at all Total SYLVESTER-7 score (0-4 normal; 5-9 mild; 10-14 moderate; 15-21 severe): 7 Source: Developed by Drs. Galo Stanford, Lynne Corriea, Rico Guerrero and colleagues, with an educational bernarda from [employer]. SYLVESTER-7 Assessment Billing SYLVESTER-7 Assessment Tool: SYLVESTER-7 Assessment 56699 Review of Systems Const Denies body aches, Denies chills, Denies excessive sweating, Denies fatigue, Denies fever(s) and Denies headache(s) Eyes Denies blurry vision ENT Denies dysphagia, Denies vertigo, Denies dizziness, Denies headache(s), Denies hearing loss and Denies tinnitus Card Denies chest pain, Denies chest pain with activity, Denies syncope, Denies irregular heart rhythm and Denies dyspnea Resp Denies chest congestion, Denies cough, Denies hemoptysis, Denies dyspnea and Denies wheezing GI Denies abdominal pain, Denies melena, Denies hematochezia, Denies coffee ground emesis, Denies dysphagia, Reports diarrhea, Denies nausea and Denies vomiting Denies urinary frequency, Denies dysuria, Denies urinary hesitancy and Denies urinary urgency Musc Reports back pain, Denies arthralgias, Denies limited range of motion, Denies muscle cramps and Denies muscle weakness Skin/Breast Denies rash and Denies skin ulcer Neuro Denies Abnormal speech present, Denies confusion, Denies vertigo, Denies dizziness, Denies syncope, Denies headache(s), Denies memory loss and Denies seizure-like activity Psych Denies anxiety, Denies confusion, Denies depression, Denies memory loss, Denies panic attacks and Denies paranoia Endo Denies excessive sweating, Denies fatigue, Denies flushing, Denies polydipsia and Denies polyuria Aller/Immun Denies wheezing Physical exam (Primary Care) Vital Signs: Last Vital Signs Temp 97.3 F 03/01/25 13:39 Pulse 105 H 03/01/25 13:39 BP 92/62 03/01/25 13:39 Pulse Ox 98 03/01/25 13:39 Oxygen Delivery Method Room Air 03/01/25 13:39 BMI result Body Mass Index 21.0 Tobacco/Smoking Status: Tobacco use Status Tobacco use date assessed 02/02/25 03/01/25 13:40 Patient Tobacco Use Status Current everyday Tobacco 03/01/25 14:00 Tobacco use type Cigarette 03/01/25 14:00 e-Cigarette/Vaping Use Never Used 03/01/25 14:00 Are you ready to quit: No Tobacco cessation counseling provided: Yes Items discussed: Nicotine replacement Relapse Prevention: discussed the importance of a supportive environment, discussed negative mood or depression after quitting, weight gain after smoking is common and discussed dietary, exercise and/or lifestyle changes Number of minutes spent counselin CPT code: 66820 - 4-10 Minutes PHQ-9: PHQ-9 Score PHQ-9: Total score 0 03/01/25 13:48 Depression Screening Interpretation: Negative Thrive Assessment: Date of Thrive Assessment Date Thrive assessed 02/22/25 03/01/25 13:40 Currently or been in a relationship where the following occur: I choose not to answer Const General: cooperative, comfortable, no acute distress, alert and awake; No confusion Orientation/consciousness: oriented to person, oriented to place, patient oriented x3 and No confusion HENMD Head: Yes normocephalic Ears: external ears normal and TM's normal bilaterally Face and sinus: No sinus tenderness Mouth: Normal oral and palatal mucosa present and tongue normal Teeth and gingiva: dentition normal and gingiva normal Throat: Yes posterior oropharynx normal, Yes tonsils normal and Yes uvula midline Eyes Conjunctivae: conjunctivae normal Sclerae: sclerae normal Pupils: Equal, round and reactive pupils present EOM: EOMs intact bilaterally Direct Ophthalmoscopy: No no photophobia Neck Neck: Yes no lymphadenopathy, No tender and Yes no JVD Thyroid: Thyroid normal Carotids: no bruits Chest Chest palpation & inspection: no tenderness Resp Effort & Inspection: normal respiratory effort, no audible wheezes, not labored and no stridor Auscultation: no crackles, no rales, no rhonchi and no wheezes Cardio Jugular venous distension: no JVD Rate: regular rate, not bradycardic and not tachycardic Rhythm: regular rhythm Bruits: no carotid bruits Peripheral pulses: Peripheral pulses 2+ throughout GI Inspection: Yes normal to inspection, No abdominal wall ecchymosis and No visible herniation Palpation (GI): Soft to palpation, nontender, no guarding, not rigid and No hepatosplenomegaly present Auscultation: normoactive bowel sounds General: Yes no CVA tenderness Back/Spine/Pelvis Back: no CVA tenderness and No back tenderness Cervical Spine: cervical ROM normal Thoracic/Lumbar Spine: thoracic and lumbar spine normal to inspection, straight leg raise negative bilaterally, No thoraco-lumbar ROM limited and No lumbar spinal tenderness Back/spine/pelvis image:  1. PAIN LOCATED IN THE IN THE AREA OUTLINED, Skin Lesions: no lesions Rashes: no rashes Wounds: no wounds Neuro General: oriented to person, oriented to place, patient oriented x3, CN's II-XI intact bilaterally and No confusion Cranial nerves: Yes Equal, round and reactive pupils present and Yes Normal accommodation reflex present Cognition (Neuro): normal cognition Speech: No Abnormal speech present Gait exam (Neuro): Normal gait present Motor exam (neuro): 5/5 motor strength present throughout Extrem Right upper extremity: full ROM; no cyanosis Left upper extremity: full ROM; no cyanosis Right lower extremity: no edema Left lower extremity: no edema Psych Appearance: grossly normal Mental Status: mental status grossly normal Affect: normal affect Attitude: cooperative Thought process: Normal thought process present Coding Level of Care Code Est Pt Prev Care 40-64y(48106) Diagnoses Annual physical exam Z00.00 Diarrhea, unspecified type R19.7 Diarrhea type: unspecified type Thoracic radiculitis M54.14 Tobacco dependence F17.200 Mixed hyperlipidemia E78.2 Hyperlipidemia type: mixed hyperlipidemia Additional Codes SYLVESTER-7 Assessment Billing - SYLVESTER-7 Assessment Tool: SYLVESTER-7 Assessment 68245 ([id number]) PHQ-9 - 53757 - PHQ-9 Billing: Yes ([id number]) Vital Signs *Quality* - CPT code: 30873 - 4-10 Minutes ([id number]) Assessment & Plan Assessment & Plan (1) Annual physical exam: Code(s): Z00.00 - Encounter for general adult medical examination without abnormal findings Category: Medical Plan: As per HPI (2) Diarrhea: Code(s): R19.7 - Diarrhea, unspecified Category: Medical Qualifiers: Diarrhea type: unspecified type Qualified Code(s): R19.7 - Diarrhea, unspecified Plan: Over the last 4 days patient has been experiencing loose stool and diarrhea after she eats. Unclear etiology at this time. She denies any abdominal pain, vomiting or fevers. Will send for GI panel evaluate for virus otherwise will supply patient with loperamide to use to help slow loose stool. (3) Thoracic radiculitis: Code(s): M54.14 - Radiculopathy, thoracic region Category: Medical Plan: Patient continues with chronic right-sided flank pain, x-rays of the thoracic spine showing mild scoliosis. Has upcoming appointment with pain management and physical therapy. Supply patient with tramadol to use on a p.r.n. basis for pain scales of 9-10 (4) Tobacco dependence: Code(s): F17.200 - Nicotine dependence, unspecified, uncomplicated Category: Medical Plan: Patient does understand she needs to quit smoking, now using electronic cigarettes. She does have subclavian vein stenosis that was recently repaired by vascular surgeon at [facility] in December of 2024 (5) HLD (hyperlipidemia): Code(s): E78.5 - Hyperlipidemia, unspecified Category: Medical Qualifiers: Hyperlipidemia type: mixed hyperlipidemia Qualified Code(s): E78.2 - Mixed hyperlipidemia Plan: Most recent lipid panel showing elevated total cholesterol and LDL, her simvastatin was increased for better control over total cholesterol. Will recheck her cholesterol in 3 months with goal LDL to be below 130 Orders: Orders Comprehensive [place]. Panel Fast 03/01/25 E78.2 - Mixed hyperlipidemia Lipid Panel 03/01/25 E78.2 - Mixed hyperlipidemia Complete Blood Count no Diff 03/01/25 E78.2 - Mixed hyperlipidemia GI Panel 03/01/25 R19.7 - Diarrhea, unspecified Medications: New loperamide 2 mg PO Q8H PRN 21 caps 0RF loose stool 7 days R19.7 - Diarrhea, unspecified Refilled tramadol 50 mg PO BID 10 tabs 0RF pain 5 days G43.901 - Migraine, unspecified, not intractable, with status migrainosus
[2025-03-01 13:39] VITALS: BP 92/62; PULSE 105; TEMP 36.3; O2SAT 98; BMI 21.0
--- OUTSIDE RECORDS SUMMARY | 2025-03-01 14:19 | XMS_ITS | Clinical Summary ---
Author Organization [facility] Address [address] [place] [address] Care Team Providers Care Cook Helper Dessert Name Role Phone Kevan Gordon Primary Care Provider [phone] Allergies Active Allergy Reactions Criticality Noted Date [...] 77 12/06/2021 6:34 PM EDT Temperature 36.9 C (98.4 F) 12/06/2021 2:51 PM EDT Respiratory Rate 18 12/06/2021 6:34 PM EDT [...] 04/09/2021 Alcohol/Substance Use Screening 08/24/2024 Influenza Vaccine (#1) 2025 9, 06/13/2018, 06/11/2017 DTaP,Tdap,and Td Vaccines (3 - Td or Tdap) 03/07/2031 03/07/2021, 05/23/2016, 12/09/2014 RSV Vaccine (60+ years old a nd patients) (1 - 1-dose 75+ series) [address] [place] [address] Care Teams Cook Helper Dessert Relationship Specialty Start Date End Date Kevan Gordon PA [address] [place] [id number] PCP - General 03/08/20
== END 2025-03-01 14:13 | disposition home or self-care (01) ==
LOC: HO.HMCH 13:31
PROVIDERS: PCP Physician Assistant; Visit Provider Physician Assistant
DX: Z00.00 Encounter for general adult medical examination without abnormal findings (principal); R19.7 Diarrhea, unspecified; M54.14 Radiculopathy, thoracic region; F17.200 Nicotine dependence, unspecified, uncomplicated; E78.2 Mixed hyperlipidemia

== ENCOUNTER → 2025-03-01 13:30 | Outpatient (BNVA) | payer OTHER, SELFPAY | PROVIDERS: PCP Physician Assistant; Visit Provider Physician Assistant | DX: Z00.00 Encounter for general adult medical examination without abnormal findings (principal); R19.7 Diarrhea, unspecified; M54.14 Radiculopathy, thoracic region; E78.2 Mixed hyperlipidemia; F17.210 Nicotine dependence, cigarettes, uncomplicated; Z13.30 Encounter for screening examination for mental health and behavioral disorders, unspecified; Z13.31 Encounter for screening for depression | CPT/HCPCS: 96127; 99396 ==

== ENCOUNTER 2025-03-13 09:43 | Outpatient (AMB) | payer OTHER, SELFPAY ==
--- NOTE | 2025-03-13 09:46 | A.OFFVIS_ITS ---
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 [facility] cardio) [employer] Required: No Accompanied by: Self / Same As Patient Allergies aspirin (Aspirin) Allergy (Intermediate, Verified 03/01/25 13:39) WHEEZING clarithromycin (From Biaxin) Allergy (Intermediate, Verified 03/01/25 13:39) HIVES Sulfa (Sulfonamide Antibiotics) (SULFA (SULFONAMIDE ANTIBIOTICS)) Allergy (Intermediate, Verified 03/01/25 13:39) HIVES bee pollen (BEE STINGS) Allergy (Unknown, Verified 03/01/25 13:39) UNKNOWN pineapple (PINEAPPLE) Allergy (Unknown, Verified 03/01/25 13:39) UNKNOWN beeswax Allergy (Verified 03/01/25 13:39) Anaphylaxis Medication List - Last Reconciled 03/13/25 by Denzel Quiñones MD acetaminophen (Tylenol Extra Strength) 500 mg PO Q6H PRN albuterol sulfate 90 mcg/actuation 1 inh inhalation QID PRN 30 days amitriptyline 50 mg PO BEDTIME 90 days aspirin 81 mg PO DAILY baclofen 10 mg PO BID PRN 7 days bisacodyl (Dulcolax (bisacodyl)) 15 mg (3 x 5 mg) PO BEDTIME 30 days rqvbvnuhzl-xoasdbsarwzwg-rcuy 50-325-40 mg 1 cap PO Q6H PRN 4 days COVID-19 antigen test ([facility] COVID-19 Ag Self Test kit) As directed dicyclomine 20 mg PO TID PRN 30 days divalproex ER (Depakote ER) 250 mg PO BID 90 days erenumab-aooe (Aimovig Autoinjector) mg subcut famotidine 20 mg PO DAILY linaclotide (Linzess) 290 mcg PO QAM 30 days loperamide 2 mg PO Q8H PRN 7 days lorazepam 0.5 mg PO DAILY PRN 7 days magnesium 250 mg PO BID 90 days meclizine 50 mg PO DAILY metoclopramide HCl (Reglan) 10 mg PO DAILY PRN 30 days midodrine 5 mg PO TID PRN 15 days nicotine 1 patch transdermal DAILY 14 days prochlorperazine (Compazine) 25 mg [place] BID PRN 6 days propranolol 120 mg (2 x 60 mg) PO BID 90 days riboflavin (vitamin B2) 50 mg PO DAILY simethicone (Gas Relief (simethicone)) 180 mg PO DAILY PRN simvastatin 40 mg PO DAILY topiramate (Topamax) 100 mg PO BID 90 days tramadol 50 mg PO BID 5 days HPI Comments Details: Thank you for referring Maritza in cardiology consultation today for chest discomfort. Patient has had her care under multiple different account at [facility] and also had multiple different hospitals this seems like. 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 She also has significant stenosis of the right subclavian artery with symptoms of claudication. However she says she is very unhappy with the surgery results as she is having increased symptoms of migraine. She is a vague historian. She said she had workup done at [facility] prior to this surgery which is potentially true however we could not find any records of the same at [facility]. I do not see any stress testing or echocardiogram although she says she was told that she had normal muscle function of the heart with blood flow issues on the left side, very vague description. Could not find any records of the same. The last record from cardiac perspective he was found from 10 years ago. She had a stress test test and echocardiogram which were within acceptable limits. She also has bilateral carotid disease with 50-79% stenosis bilaterally. She is currently on statin therapy with significantly elevated LDL for her vascular disease and suddenly recently has been started taking her simvastatin again for a month to 2 months. She is currently not on aspirin therapy due to allergies. She is continuing to smoke about but has cut down significantly from a pack and a half to 5 cigarettes a day. She has symptoms of orthostatic lightheadedness for which she takes midodrine on a PRN basis in his symptoms are not corrected by simple maneuvers. She complains of intermittent episodes of chest tightness which are not exertional related. She says they happen intermittently without any clear triggering factors. Symptoms last for about 10-15 minutes. [facility] Medical History Annual physical exam Dizziness Stenosis of left internal carotid artery Breast cancer screening Colon cancer screening Screening for hypercholesterolemia Screening for diabetes mellitus (DM) Orthostatic hypotension Right medial tibial plateau fracture Homeless Migraine CAD (coronary artery disease) IBS (irritable bowel syndrome) Hypotension Migraine Surgical History History of partial hysterectomy History of cholecystectomy Family History Mother Substance use disorder Stroke Other Mental health disorder Social History Housing: House Alcohol intake: current Alcohol intake frequency: holidays/special occasions only Patient Tobacco Use Status: Current everyday Tobacco user Tobacco use type: Cigarette Cigarette Packs Per Day: 0.5 Cigarettes Per Day: 10 e-Cigarette/Vaping Use: Never Used Second Hand Smoke Exposure: Yes Substance Use Type: Marijuana Advance Directives Date on File: 02/01/21 service: No Current occupational status: employed and disabled Current occupation: rt handed Cognitive needs: No Hearing needs: No Vision needs: Yes (glasses) Review of Systems Const Denies chills, Denies fatigue, Denies fever(s), Denies frequent falls, Denies weakness, Denies weight gain and Denies weight loss ENT Denies dizziness Card Reports chest pain, Reports chest pain at rest, Reports chest pain with activity, Denies leg edema, Denies lightheadedness, Denies palpitations, Reports dyspnea, Denies dyspnea on exertion and Denies orthopnea Resp Denies cough, Reports dyspnea and Denies dyspnea on exertion GI Denies bloating and Denies change in bowel habits Musc Denies muscle weakness, Denies numbness and Denies tingling Neuro Denies dizziness, Denies frequent falls, Denies numbness, Denies tingling and Denies weakness Endo Denies fatigue and Denies palpitations Physical Exam Vital Signs: Last Vital Signs Pulse 81 03/13/25 09:49 BP 90/62 03/13/25 09:49 BMI result Body Mass Index 21.1 Const General: cooperative, comfortable, no acute distress, alert and awake Nutritional Appearance: thin Orientation/consciousness: patient oriented x3 Limitations: no limitations HEENT Head: Yes normocephalic and Yes atraumatic Neck Neck: Yes trachea midline, Yes supple and Yes no JVD Carotids: bruit Resp Effort & Inspection: normal respiratory effort Auscultation: clear to auscultation bilaterally and diminished lung sounds Cardio Jugular venous distension: no JVD Rate: regular rate Rhythm: regular rhythm Heart sounds: S1 normal heart sound present, S2 normal heart sound present, no click, no gallops, no murmurs and no rubs Peripheral pulses: radial pulses present on the right other (Absent) and on the left 1+ GI Auscultation: normal bowel sounds Skin General skin exam: no rashes or lesions noted Neuro General: patient oriented x3 and no focal motor deficits Extrem General: Yes no clubbing, cyanosis or edema Psych Appearance: grossly normal Office Procedures EKG Details: EKG shows normal sinus rhythm normal EKG. [id number], Complete Assessment & Plan Assessment & Plan (1) Chest tightness: Code(s): R07.89 - Other chest pain Category: Medical Plan: Patient with intermittent episodes of chest tightness with a diffuse vascular disease as high likelihood of underlying coronary artery disease. However she says she had recent workup and was told that she had coronary artery disease although I could not find any testing done recently at [facility]. There is no testing done at [facility]. We discussed about the need for this testing although she says she just underwent the testing and she is not clearly wanting to do any further testing and any further interventions even if required. I would strongly suggest her to undergo myocardial perfusion imaging if no recent testing has been performed at any hospitalist. Please obtain old records. She also require an echocardiogram to evaluate LV systolic and diastolic function. This was discussed with her. Other she wants to follow-up through your office. (2) Peripheral vascular disease: Code(s): I73.9 - Peripheral vascular disease, unspecified Category: Medical Plan: She has significant peripheral vascular disease bilateral subclavian artery stenosis with persistent reduced blood flow in the right upper extremity. I would avoid measuring blood pressures in his right upper extremity. The left upper extremity has good pulse in his systolic blood pressure was systolic 120. I would use a left upper arm for checking her blood pressures which will generally give a better blood pressure readings in the right arm. Given bilateral carotid disease and bilateral pleural subclavian stenosis she is at high risk for future cardiovascular events. She should be on antiplatelet therapy. She says she is allergic to aspirin I would therefore consider clopidogrel therapy. She also should be on high-intensity statin therapy either atorvastatin 40-80 or rosuvastatin 20-40 mg with target goal LDL less than 70 mg/dL. This should be pursued through your office. Also strongly suggests complete smoking cessation, she says she is trying. Management of atherosclerotic disease was discussed. She is very disappointed with her recent surgery although I suggested that she had pretty critical disease and required the surgery, unfortunately she has developed increased migraines after surgery and she thinks this is a direct result of the surgery. (3) Orthostatic hypotension: Code(s): I95.1 - Orthostatic hypotension Category: Medical Plan: Orthostatic hypotension although her prior low blood pressures could be related to bilateral subclavian artery stenosis. She has adequate blood pressure reading on the left side and would use left arm to measure blood pressures in the future. However she does describe classic symptoms of orthostatic hypotension and uses midodrine as need be. Can continue the same. Orthostatic precautions were discussed. Advised to maintain adequate hydration. In absence of any further testing, will follow up with her in 1 year's time. She is at high risk for vascular events and was discussed with her. Thank you for allowing me to partake in her care Coding Level of Care Code New Pt Level 4 (64303) Complex EM visit Add On G2211 Diagnoses Chest tightness R07.89 Peripheral vascular disease I73.9 Orthostatic hypotension I95.1 CPT Codes EKG - CPT: [id number], Complete ([id number])
[2025-03-13 09:49] VITALS: BP 90/62; PULSE 81; BMI 21.1
--- OUTSIDE RECORDS SUMMARY | 2025-03-13 10:20 | XMS_ITS | Clinical Summary ---
Author Organization [facility] Address [address] [place] [address] Care Team Providers Care Cemetery Manager Name Role Phone Kevan Gordon Primary Care Provider [phone] Allergies Active Allergy Reactions Criticality Noted Date [...] (1 - 1-dose 75+ series) [address] [place] [address] Care Teams Cemetery Manager Relationship Specialty Start Date End Date Kevan Gordon PA [address] [place] [id number] PCP - General 03/08/20
== END 2025-03-13 10:19 | disposition home or self-care (01) ==
LOC: HO.HCS 09:44
PROVIDERS: PCP Physician Assistant; Visit Provider Internal Medicine Cardiovascular Disease
DX: R07.89 Other chest pain (principal); I73.9 Peripheral vascular disease, unspecified; I95.1 Orthostatic hypotension
CPT/HCPCS: 93010; 99204

== ENCOUNTER → 2025-03-13 09:43 | Outpatient (BNVA) | payer OTHER, SELFPAY | PROVIDERS: PCP Physician Assistant; Visit Provider Internal Medicine Cardiovascular Disease | DX: I95.1 Orthostatic hypotension (principal); I73.9 Peripheral vascular disease, unspecified; R07.89 Other chest pain | CPT/HCPCS: 93005; 99202 ==

== ENCOUNTER 2025-05-05 20:32 | Emergency (ER) | payer OTHER, SELFPAY ==
--- NOTE | ~2025-05-05 | CT_ITS ---
CLINICAL HISTORY: balance issues CT angiography head and neck with contrast. 3D Postprocessing. Comparison: CT/PA/SR - CT HEAD NECK ANGIOGRAPHY WITH IV CONTRAST - 10/05/24 14:[address]/SR - CT HEAD WITHOUT IV CONTRAST - 08/02/22 16:08 EST Findings: BRAIN: No acute infarct, hemorrhage, or mass effect. No abnormal atrophy. CSF SPACES: No hydrocephalus or effacement of basal cisterns. SKULL: No calvarial fracture. SINUSES: No significant mucosal thickening or effusion on limited views. ORBITS: Limited views are unremarkable. OTHER: Negative. ANT CIRCULATION: No large vessel occlusion, AVM or aneurysm. 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 POST CIRCULATION: No large vessel occlusion, AVM or aneurysm. AORTIC ARCH: Normal aortic arch. No high-grade stenosis. R COMMON CAROTID: No hemodynamically significant stenosis or dissection. R INTERNAL CAROTID: No hemodynamically significant stenosis or dissection. R EXTERNAL CAROTID: No hemodynamically significant stenosis or dissection. R VERTEBRAL: No high-grade stenosis or dissection. Right dominant vertebral artery. L COMMON CAROTID: No hemodynamically significant stenosis or dissection. L INTERNAL CAROTID: No hemodynamically significant stenosis or dissection. L EXTERNAL CAROTID: No hemodynamically significant stenosis or dissection. L VERTEBRAL: Similar diminutive and small caliber left vertebral artery throughout its length with multi segment non opacification, for example from the origin to C5 ( not opacified), C5-C2 ( patent ), and then from C2 to the V4 segment ( not opacified ). The V4 is patent to the basilar artery. LUNG APEX: Pleural-based reticulations and cystic changes. SOFT TISSUES: The salivary and thyroid glands are within normal limits. No paraspinous soft tissue abnormality. LIMITED SPINE: No evidence of fracture on limited views. IMPRESSION: 1. CT brain without acute intracranial abnormality. 2. CTA brain demonstrates patent intracranial vasculature. 3. CTA neck demonstrates diminutive caliber of the left vertebral artery with multi segment non opacification as above. This was also seen on prior exam 10/05/2024 and favored to be chronic. This document has been electronically signed by: Cecily He MD on 05/06/2025 00:18:37
[2025-05-05 20:42] VITALS: BP 111/59; PULSE 78; RESP 16; TEMP 36.7; O2SAT 98; BMI 21.4
--- NOTE | 2025-05-05 20:50 | ECG_ITS ---
Test Reason : WEAKNESS Blood Pressure : */* mmHG Vent. Rate : 75 BPM Atrial Rate : 75 BPM P-R Int : 148 ms QRS Dur : 90 ms QT Int : 404 ms P-R-T Axes : 70 75 70 degrees QTcB Int : 451 ms Normal sinus rhythm Normal ECG When compared with ECG of 30-Jan-2024 11:11, No significant change was found Referred By: Cassie York Electronically Signed By: JALEESA SHEIKH MD
--- OUTSIDE RECORDS SUMMARY | 2025-05-05 20:54 | XMS_ITS | Clinical Summary ---
Author Organization [facility] Address [address] [place] [address] Care Team Providers Care Medical Staff Services Coordinator Name Role Phone Kevan Gordon Primary Care Provider [phone] Allergies Active Allergy Reactions Criticality Noted Date [...] Health Maintenance Due Date Last Done Comments Cologuard 1970 Colon Cancer Screening 1970 Colonoscopy 1970 FOBT / Fit Test 1970 HIV Screening 1970 Sigmoidoscopy 1970 Hepatitis B Vaccines (1 of 3 - 19+ 3-dose series) 1989 Pneumococcal Vaccine: 50+ Ye ars (2 of 2 - PCV) 01/31/2018 01/31/2017 CT Lung Cancer Screening (Baseline) 2020 Zoster Vaccines (1 of 2) 2020 Alcohol/Substance Use Screening 08/24/2024 COVID-19 Vaccine (3 - season) 04/24/202502/2021, 04/09/2021 Influenza Vaccine (#1) 2025 9, 06/13/2018, 06/11/2017 DTaP,Tdap,and Td Vaccines (3 - Td or Tdap) 03/07/2031 03/07/2021, 05/23/2016, 12/09/2014 RSV Vaccine (60+ years old a nd patients) (1 - 1-dose 75+ series) 2045 Insurance Care Teams Medical Staff Services Coordinator Relationship Specialty Start Date End Date Kevan Grodon PA [address] [place] [id number] PCP - General 03/08/20
[2025-05-05 21:11] VITALS: BP 104/52; PULSE 71; RESP 16; TEMP 36.9; O2SAT 98
[2025-05-05 21:27] LABS: MANUAL DIFF FLAG NO
[2025-05-05 21:30] LABS: Appearance Urine Clear; Glucose Urine UA Negative (Negative); PH 6.0 (5.0-9.0); Specific Gravity - Urine >= 1.030 (1.005-1.025); UMIC TRIGGER UACC YES
[2025-05-05 21:37] LABS: Hematocrit 34.5 % (37.0-47.0); Hemoglobin 11.8 g/dl (12.0-16.0); Imm Gran Abs Auto 0.02 X10*3/uL (0.00-0.03); Imm Gran Pct Auto 0.2 % (0.0-0.4); Lymphocytes Absolute Auto 4.6 X10*3/uL (1.2-4.9); Mean Corpuscular HGB Conc 34.2 g/dl (31.0-35.0); Mean Corpuscular Hemoglobin 31.9 pg (27.0-33.0); Mean Corpuscular Volume 93.2 fL (80.0-98.0); NRBC Abs Auto 0.000 X10*3/uL (0.0-0.012); NRBC Pct Auto 0.0 /100WBC (0.0-0.2); Platelet Count 196 X10*3/uL (160-400); Red Blood Count 3.70 X10*6/uL (4.20-5.50); White Blood Count 9.7 X10*3/uL (4.8-10.8)
[2025-05-05 21:43] LABS: Alanine Aminotransferase 15 U/L (0-31); Albumin Level 4.1 g/dL (3.5-5.0); Alkaline Phosphatase 109 U/L (39-117); Anion Gap 11 (12-20); Aspartate Amino Transferase 19 U/L (5-31); Blood Urea Nitrogen 19 mg/dL (9-16); Calcium 8.4 mg/dL (8.4-10.2); Carbon Dioxide 19 mmol/L (22-29); Chloride 117 mmol/L (96-108); Creatinine Clr Calc Pharmacy 60.7; Estimated Glomerular Filt Rate 56; Lipase 20 U/L (8-78); Magnesium 2.0 mg/dL (1.6-2.6); Potassium 4.1 mmol/L (3.3-5.1); Sodium 143 mmol/L (135-145); Total Protein 6.2 g/dL (6.5-8.0)
[2025-05-05 21:50] LABS: Cannabinoid Screen Urine POSITIVE (Not Detect)
[2025-05-05 21:59] VITALS: BP 91/52; PULSE 65; RESP 16; TEMP 36.9; O2SAT 98
[2025-05-05 22:14] LABS: UACC Culture Trigger YES
--- NOTE | 2025-05-05 22:55 | ED.GENADULT ---
HPI - General Adult General Chief complaint: Weakness Stated complaint: Unsteady gait Time Seen by Provider: 05/05/25 22:28 Source: patient Mode of arrival: ambulatory Limitations: no limitations History of Present Illness ED Provider: Dr. Michelle HPI narrative: This is a 54-year-old female history of peripheral vascular disease, bilateral carotid stenosis, and hospital today for evaluation of balance problem. Patient stated that she has been feeling weaker than usual. She having increased trouble ambulating. This has been going on for a week now. Patient is also endorsing some nausea with this. And increased fatigue. She has no unilateral weakness no unilateral changes in sensation. However she stated that it feels like she is ?drunk? Related Data Home Medications ?Medication ?Instructions ?Recorded ?Confirmed aspirin 81 mg chewable tablet 81 mg PO DAILY 05/13/23 03/13/25 erenumab-aooe 70 mg/mL mg subcut 12/06/24 03/13/25 subcutaneous auto-injector (Aimovig Autoinjector) Previous Rx's ?Medication ?Instructions ?Recorded acetaminophen 500 mg tablet 500 mg PO Q6H PRN fever or pain 07/12/23 (Tylenol Extra Strength) #30 tabs propranolol 60 mg tablet 120 mg (2 x 60 mg) PO BID 90 days 10/20/23 #360 tabs amitriptyline 50 mg tablet 50 mg PO BEDTIME 90 days #90 tabs 03/30/24 divalproex 250 mg tablet,extended 250 mg PO BID 90 days #180 tabs 03/30/24 release 24 hr (Depakote ER) magnesium 250 mg tablet 250 mg PO BID 90 days #180 tabs 06/01/24 riboflavin (vitamin B2) 50 mg 50 mg PO DAILY #90 tabs 06/01/24 tablet COVID-19 antigen test (BinaxNOW #2 ea 06/29/24 COVID-19 Ag Self Test kit) baclofen 10 mg tablet 10 mg PO BID PRN muscle spasm 7 09/05/24 days #14 tabs midodrine 5 mg tablet 5 mg PO TID PRN low BP 15 days #45 09/19/24 tabs albuterol sulfate 90 mcg/actuation 1 inh inhalation QID PRN shortness 10/16/24 aerosol inhaler of breath or wheezing 30 days #8.5 grams meclizine 50 mg tablet 50 mg PO DAILY dizziness #90 tabs 11/28/24 nicotine 21 mg/24 hr daily 1 patch transdermal DAILY 14 days 12/28/24 transdermal patch #14 ea bisacodyl 5 mg tablet,delayed 15 mg (3 x 5 mg) PO BEDTIME 30 01/20/25 release (Dulcolax (bisacodyl)) days #90 tabs famotidine 20 mg tablet 20 mg PO DAILY #30 tabs 01/20/25 linaclotide 290 mcg capsule 290 mcg PO QAM 30 days #30 caps 01/20/25 (Linzess) simethicone 180 mg capsule (Gas 180 mg PO DAILY PRN abdominal 01/20/25 Relief (simethicone)) distention #30 caps metoclopramide HCl 10 mg tablet 10 mg PO DAILY PRN nausea and 02/02/25 (Reglan) vomiting 30 days #30 tabs simvastatin 40 mg tablet 40 mg PO DAILY #90 tabs 02/28/25 loperamide 2 mg capsule 2 mg PO Q8H PRN loose stool 7 days 03/01/25 #21 caps tramadol 50 mg tablet 50 mg PO BID pain 5 days #10 tabs 03/01/25 ialuegeepc-ximhnbnthpqan-xdtojaeb 1 cap PO Q6H PRN pain 4 days #16 04/11/25 50 mg-325 mg-40 mg capsule caps dicyclomine 20 mg tablet 20 mg PO TID PRN for abdominal 04/18/25 pain #270 tabs lorazepam 0.5 mg tablet 0.5 mg PO DAILY PRN anxiety 7 days 05/02/25 #7 tabs prochlorperazine 25 mg rectal 25 mg MO BID PRN nausea and 05/02/25 suppository (Compazine) vomiting 6 days #12 ea topiramate 100 mg tablet (Topamax) 100 mg PO BID 90 days #180 tabs 05/02/25 cephalexin 500 mg capsule 500 mg PO Q8H 7 days #21 caps 05/06/25 Allergies Allergy/AdvReac Type Severity Reaction Status Date / Time aspirin (Aspirin) Allergy Intermediate WHEEZING Verified 05/05/25 20:48 clarithromycin (From Biaxin) Allergy Intermediate HIVES Verified 05/05/25 20:48 Sulfa (Sulfonamide Allergy Intermediate HIVES Verified 05/05/25 20:48 Antibiotics) (SULFA (SULFONAMIDE ANTIBIOTICS)) bee pollen (BEE STINGS) Allergy Unknown UNKNOWN Verified 05/05/25 20:48 pineapple (PINEAPPLE) Allergy Unknown UNKNOWN Verified 05/05/25 20:48 beeswax Allergy Anaphylaxis Verified 05/05/25 20:48 Review of Systems Review of Systems: Pertinent review of systems as mentioned in HPI. All other system otherwise negative. PMFSH Past Medical History [facility] Narrative: Medical history as mentioned in HPI Medical History (Updated 05/06/25 @ 02:01 by Luann Michelle DO) Dizziness Annual physical exam Stenosis of left internal carotid artery Breast cancer screening Colon cancer screening Screening for hypercholesterolemia Screening for diabetes mellitus (DM) Orthostatic hypotension Right medial tibial plateau fracture Homeless Migraine CAD (coronary artery disease) IBS (irritable bowel syndrome) Hypotension Migraine Surgical History History of partial hysterectomy History of cholecystectomy Family History Family History Mother Substance use disorder Stroke Other Mental health disorder Social History Social History Housing: House Alcohol intake: current Alcohol intake frequency: holidays/special occasions only Patient Tobacco Use Status: Current everyday Tobacco user Tobacco use type: Cigarette Cigarette Packs Per Day: 0.5 Cigarettes Per Day: 10 Smoked in Last 30 Days: Yes e-Cigarette/Vaping Use: Never Used Second Hand Smoke Exposure: Yes Substance Use Type: Marijuana Substance Use Frequency: Daily Advance Directives: Yes Advance Directives on File: Yes Advance Directives Date on File: 02/01/21 Do you have a plan to hurt others: No Plan service: No Current occupational status: employed and disabled Current occupation: rt handed Cognitive needs: No Hearing needs: No Vision needs: Yes (glasses) Physical Exam ED Exam Exam: General: Pleasant, no distress, interacting appropriately Head: Normacephalic, atraumatic ENT: oral mucosa moist, neck supple, no tracheal deviation Cardiovascular: regular rate, regular rhythm, no murmurs, rubbing, gallops Respiratory: CTAB, no wheeze, rales, rhonchi Gastrointestinal: Soft, non distended, non tender, non guarding Extremities: No limb pain or swelling, no calf tenderness Neurological: Awake and alert, no facial droop noted, good strength in upper and lower extremity, no sign of sensation deficit on exam, no facial droop, no ataxia [id number]. Skin: Warm and dry Psychiatric: Appropriate mood and thoughts Vital Signs: Vital Signs - 24 hr 05/05/25 20:42 05/05/25 21:11 05/05/25 21:59 Temperature 98.1 F 98.4 F 98.4 F Pulse Rate 78 71 65 Respiratory Rate 16 16 16 Blood Pressure 111/59 L 104/52 L 91/52 L Pulse Oximetry 98 98 98 Oxygen Delivery Method Room Air Room Air Room Air 05/06/25 00:30 Temperature 98.4 F Pulse Rate 61 Respiratory Rate 18 Blood Pressure 103/51 L Pulse Oximetry 98 Oxygen Delivery Method Room Air BMI result Body Mass Index 21.4 NIH Stroke Scale Internal: Initial- Upon Arrival Level of Consciousness: Alert Level of Consciousness Questions: Answers both questions correctly Level of Consciousness Commands: Performs both tasks correctly Best Gaze: Normal Visual: No visual loss Facial Palsy: Normal Motor Arm (Right): No drift Motor Arm (Left): No drift Motor Leg (Right): No drift Motor Leg (Left): No drift Limb Ataxia: Absent Sensory: Normal Best Language: No aphasia Dysarthia: Normal Extinction and Inattention: No abnormality Score: 0 Medications Administered Discontinued Medications Generic Name Dose Route Start Last Admin Trade Name Kendall PRN Reason Stop Dose Admin Ceftriaxone Sodium 1 gm 05/05/25 22:53 05/05/25 23:13 Ceftriaxone Sodium 1 Gm Vial IVPUSH 05/05/25 22:54 1 gm ONCE ONE Administration Iohexol 70 ml 05/05/25 23:23 05/05/25 23:25 Iohexol 350 Mg/Ml 100 Ml Infus..Btl IV 05/05/25 23:24 70 ml ONCE ONE Administration Medical Decision Making Medical Decision Making MDM Narrative: This is a 54-year-old female presented hospital today for evaluation of generalized weakness. Patient's symptom has been going for a week now. We will plan to obtain a CT head CTA of the head and neck to assess for any signs of significant stenosis. On reassessment the patient's does not have any ataxia on tbyrto-dd-msbb however I did ambulate the patient. She did have difficulty walking in a straight line. She has no strength or sensation changes. No signs of facial droop no vision changes. We will patient does noted to have a UA positive for UTI. Screening lab work will be obtained for the patient a bolus IV fluid will be provided to the patient as well. Plan to start patient on IV ceftriaxone for a UTI treatment. On reassessment patient stated that she is feeling better. We will plan to ambulate patient. Patient's lab work was reviewed by me. So slight anemia 11.8, no leukocytosis. CTA of the head and neck did not show any signs of significant stenosis or blockages. CT head without contrast is negative as well. Patient was able to ambulate without any issues with nursing staff at this time. We will plan to discharge patient. My suspicion for CVA is low. I will plan to discharge patient with PO antibiotics for UTI. Differential Diagnosis Differential Diagnoses: The differential diagnosis associated with the presentation includes UTI, sepsis, CVA, intracranial bleed Lab Data MDM Lab Attestation statement: I reviewed the patient's lab results. 05/05/25 21:23 05/05/25 21:23 Labs: Lab Results 05/05/25 05/05/25 Range/Units 21:23 23:06 WBC 9.7 (4.8-10.8) X10*3/uL RBC 3.70 L (4.20-5.50) X10*6/uL Hgb 11.8 L (12.0-16.0) g/dl Hct 34.5 L (37.0-47.0) % MCV 93.2 (80.0-98.0) fL MCH 31.9 (27.0-33.0) pg MCHC 34.2 (31.0-35.0) g/dl RDW 14.8 (11.0-16.0) % Plt Count 196 (160-400) X10*3/uL MPV 9.8 (9.4-12.3) fL Immature Gran % (Auto) 0.2 (0.0-0.4) % Neut % (Auto) 40.5 L (45-73) % Lymph % (Auto) 47.1 H (20-40) % [place] % (Auto) 7.9 (2-11) % Eos % (Auto) 3.4 (0-4) % Baso % (Auto) 0.9 (0-2) % Lymph # (Auto) 4.6 (1.2-4.9) X10*3/uL [place] # (Auto) 0.8 (0.1-1.2) X10*3/uL Eos # (Auto) 0.3 (0.0-0.4) X10*3/uL Baso # (Auto) 0.1 (0.0-0.2) X10*3/uL Abs Immat Gran (auto) 0.02 (0.00-0.03) X10*3/uL Absolute Neuts (auto) 3.9 (2.0-8.3) x10*3/uL Absolute Nucleated RBC 0.000 (0.0-0.012) X10*3/uL Nucleated RBC % (auto) 0.0 (0.0-0.2) /100WBC PT 11.2 (10.9-12.4) SEC INR 1.0 (0.9-1.1) Sodium 143 (135-145) mmol/L Potassium 4.1 (3.3-5.1) mmol/L Chloride 117 H (96-108) mmol/L Carbon Dioxide 19 L (22-29) mmol/L Anion Gap 11 L (12-20) BUN 19 H (9-16) mg/dL Creatinine 1.03 (0.5-1.4) mg/dL Estim Creat Clear Calc 60.7 Estimated GFR 56 Random Glucose 104 (60-115) mg/dL Lactic Acid 1.9 (0.5-2.0) mmol/L Calcium 8.4 D (8.4-10.2) mg/dL Magnesium 2.0 (1.6-2.6) mg/dL Total Bilirubin 0.2 (0.0-1.0) mg/dL Direct Bilirubin < 0.2 (0.0-0.5) mg/dL AST 19 (5-31) U/L ALT 15 (0-31) U/L Alkaline Phosphatase 109 (39-117) U/L Total Protein 6.2 L (6.5-8.0) g/dL Albumin 4.1 (3.5-5.0) g/dL Lipase 20 (8-78) U/L Urine Color Dark Yellow Urine Appearance Clear Urine pH 6.0 (5.0-9.0) Ur Specific [place] >= 1.030 H (1.005-1.025) Urine Protein Negative (Neg-Trace) mg/dL Urine Glucose (UA) Negative (Negative) mg/dL Urine Ketones Trace (Negative) mg/dL Urine Blood Negative (Negative) Urine Nitrite Negative (Negative) Ur Leukocyte Esterase Small (1+) H (Negative) Urine RBC 3-5 H (0-2) /HPF Urine WBC 6-10 H (0-5) /HPF Ur Squamous Epith Cells 3-5 (0-2) /HPF Urine Bacteria 2+ (None Seen) Hyaline Casts 0-2 (0-2) /LPF Urine Opiates Screen Not Detected (Not Detect) Ur Buprenorphine Scrn Not Detected (Not Detect) ng/mL Ur Oxycodone Screen Not Detected (Not Detect) ng/mL Urine Methadone Screen Not Detected (Not Detect) ng/mL Urine Fentanyl Screen Not Detected (Not Detect) Ur Barbiturates Screen Not Detected (Not Detect) Ur Phencyclidine Scrn Not Detected (Not Detect) Ur Amphetamines Screen Not Detected (Not Detect) U Benzodiazepines Scrn Not Detected (Not Detect) Urine Cocaine Screen Not Detected (Not Detect) U Marijuana (THC) Screen POSITIVE H (Not Detect) Independent Interpretation I performed an independent interpretation of an: CT Scan Radiology Impression Discussion of test interpretation with radiology: I have reviewed the radiologist's reading. Prescription Management I considered prescription management with: Antibiotic Discharge Plan Discharge Clinical Impression: UTI (urinary tract infection) Qualifiers: Urinary tract infection type: site unspecified Hematuria presence: without hematuria Qualified Code(s): N39.0 - Urinary tract infection, site not specified Prescriptions: New cephalexin 500 mg capsule 500 mg PO Q8H 7 Days Qty: 21 0RF No Action amitriptyline 50 mg tablet 50 mg PO BEDTIME 90 Days Qty: 90 2RF divalproex [Depakote ER] 250 mg tablet extended release 24 hr 250 mg PO BID 90 Days Qty: 180 2RF (DME) BinaxNOW COVID-19 Ag Self Test Kit See Rx Instructions .Route Qty: 2 0RF Rx Instructions: As directed baclofen 10 mg tablet 10 mg PO BID PRN (Reason: muscle spasm) 7 Days Qty: 14 0RF albuterol sulfate 90 mcg/actuation HFA aerosol inhaler 1 inh inhalation QID PRN (Reason: shortness of breath or wheezing) 30 Days Qty: 8.5 3RF meclizine 50 mg tablet 50 mg PO DAILY Qty: 90 1RF nicotine 21 mg/24 hr patch 24 hour 1 patch transdermal DAILY 14 Days Qty: 14 0RF simvastatin 40 mg tablet 40 mg PO DAILY Qty: 90 1RF lxqurrrjoi-kxvajitymioor-yrdc 50-325-40 mg capsule 1 cap PO Q6H PRN (Reason: pain) 4 Days Qty: 16 0RF dicyclomine 20 mg tablet 20 mg PO TID PRN (Reason: for abdominal pain) Qty: 270 0RF lorazepam 0.5 mg tablet 0.5 mg PO DAILY PRN (Reason: anxiety) 7 Days Qty: 7 0RF prochlorperazine [Compazine] 25 mg suppository 25 mg MO BID PRN (Reason: nausea and vomiting) 6 Days Qty: 12 0RF topiramate [Topamax] 100 mg tablet 100 mg PO BID 90 Days Qty: 180 2RF acetaminophen [Tylenol Extra Strength] 500 mg tablet 500 mg PO Q6H PRN (Reason: fever or pain) Qty: 30 0RF aspirin 81 mg tablet,chewable 81 mg PO DAILY propranolol 60 mg tablet 120 mg PO BID 90 Days Qty: 360 2RF loperamide 2 mg capsule 2 mg PO Q8H PRN (Reason: loose stool) 7 Days Qty: 21 0RF tramadol 50 mg tablet 50 mg PO BID 5 Days Qty: 10 0RF metoclopramide HCl [Reglan] 10 mg tablet 10 mg PO DAILY PRN (Reason: nausea and vomiting) 30 Days Qty: 30 3RF magnesium 250 mg tablet 250 mg PO BID 90 Days Qty: 180 1RF riboflavin (vitamin B2) 50 mg tablet 50 mg PO DAILY Qty: 90 1RF midodrine 5 mg tablet 5 mg PO TID PRN (Reason: low BP) 15 Days Qty: 45 0RF Rx Instructions: do not give last dose of day after 6PM or within 4 hrs of bedtime bisacodyl [Dulcolax (bisacodyl)] 5 mg tablet,delayed release (DR/EC) 15 mg PO BEDTIME 30 Days Qty: 90 12RF famotidine 20 mg tablet 20 mg PO DAILY Qty: 30 12RF Linzess 290 mcg capsule 290 mcg PO QAM 30 Days Qty: 30 12RF simethicone [Gas Relief (simethicone)] 180 mg capsule 180 mg PO DAILY PRN (Reason: abdominal distention) Qty: 30 6RF Aimovig Autoinjector 70 mg/mL auto-injector subcut Print Language: Azeri
[2025-05-05 23:20] LABS: INTERNATIONAL NORM RATIO 1.0 (0.9-1.1); Prothrombin Time 11.2 SEC (10.9-12.4)
[2025-05-05] MEDS: iohexoL 350 MG/ML 100 ML INFUS..BTL 70 ML IV (23:25)
[2025-05-06 00:30] VITALS: BP 103/51; PULSE 61; RESP 18; TEMP 36.9; O2SAT 98
--- NOTE | 2025-05-06 02:12 | PC.NURSE ---
Ambulation trial with patient, patient ambulated with an even steady gait.
[2025-05-06 02:13] VITALS: BP 103/51; PULSE 64; RESP 18; TEMP 36.7; O2SAT 98
[2025-05-06 02:18] VITALS: BP 103/51; PULSE 64; RESP 18; TEMP 36.7; O2SAT 98
== END 2025-05-06 02:33 | disposition home or self-care (01) ==
PROVIDERS: Emergency Medicine; Emergency Provider Student in an Organized Health Care Education/Training Program; PCP Physician Assistant
DX: N39.0 Urinary tract infection, site not specified (principal); R26.81 Unsteadiness on feet; R11.0 Nausea; Z51.81 Encounter for therapeutic drug level monitoring; Z79.899 Other long term (current) drug therapy; F17.210 Nicotine dependence, cigarettes, uncomplicated
CPT/HCPCS: 36415; 70496; 70498; 80048; 80076; 80307; 81001; 83605; 83690; 83735; 85025; 85610; 87040; 87086; 93005; 96374; 99285; J0696; Q9967

== ENCOUNTER → 2025-05-05 20:50 | Outpatient (BNV) | payer OTHER, SELFPAY | PROVIDERS: Emergency Provider Student in an Organized Health Care Education/Training Program; PCP Physician Assistant; Visit Provider Internal Medicine Cardiovascular Disease | DX: R53.1 Weakness (principal) | CPT/HCPCS: 93010 ==

== ENCOUNTER → 2025-05-05 22:53 | Outpatient (BNV) | payer OTHER, SELFPAY | PROVIDERS: Emergency Provider Student in an Organized Health Care Education/Training Program; PCP Physician Assistant; Visit Provider Student in an Organized Health Care Education/Training Program | DX: R26.81 Unsteadiness on feet (principal) | CPT/HCPCS: 70496; 70498 ==

== ENCOUNTER 2025-05-29 05:23 | Emergency (ER) | payer OTHER, SELFPAY ==
--- NOTE | ~2025-05-29 | CT_ITS ---
EXAMINATION: CT ABDOMEN PELVIS WITHOUT IV CONTRAST HISTORY: R flank pain COMPARISON: Comparison is made with the prior examination dated 10/28/2022. TECHNIQUE: CT scan of the abdomen and pelvis was performed without contrast using standard departmental protocol. Coronal and sagittal reformatted images were generated and reviewed. Oral contrast material was not administered per department protocol. This CT exam was performed with one or more of the following dose reduction techniques: automated exposure control, adjustment of the mA and/or kV according to patient size, use of iterative reconstruction technique. DLP: 378 mGy-cm FINDINGS: LOWER CHEST: The visualized lung bases are clear. There is no pleural effusion. CARDIOVASCULATURE: The heart is normal in size. There is no pericardial effusion. LIVER: The liver is normal in size and contour. The liver has an unremarkable unenhanced appearance. GALLBLADDER / BILE DUCTS: The gallbladder is surgically absent. There is no intra or extrahepatic biliary ductal dilatation. SPLEEN: The spleen is normal in size and has an unremarkable unenhanced appearance. PANCREAS: The pancreas has an unremarkable unenhanced appearance. ADRENAL GLANDS: Unremarkable. KIDNEYS/RETROPERITONEUM: No renal or ureteral calculi are identified. There is no hydronephrosis or hydroureter. LYMPH NODES: No retroperitoneal lymphadenopathy is identified in the abdomen or pelvis. VASCULATURE: The abdominal aorta demonstrates atherosclerotic calcification, but is normal in caliber. MESENTERY/PERITONEUM: No free fluid. No masses. There is no free intraperitoneal gas. STOMACH: The stomach is collapsed, limiting evaluation. SMALL BOWEL: The small bowel is normal in caliber. COLON: The colon is unremarkable. APPENDIX: The appendix is not seen, however no inflammatory changes are seen adjacent to the cecum. URINARY BLADDER/PELVIC ORGANS: The urinary bladder is collapsed, limiting evaluation. The patient is status post hysterectomy. BONES / SOFT TISSUES: No suspicious bony or soft tissue abnormalities. CT/CT abdomen pelvis wo IV con IMPRESSION: No evidence of nephrolithiasis or ureteral obstruction. Electronically signed by: Galo Martínez MD 05/29/2025 08:17 AM EDT
[2025-05-29 05:28] VITALS: BP 97/59; PULSE 74; RESP 18; TEMP 36.6; O2SAT 97; BMI 19.5
--- NOTE | 2025-05-29 05:44 | PC.NURSE ---
pt given small cup of water as she is having hard time voiding more than a few drops, pt expresses pain in lower abdomen and ride sided flank 03/02, states this has been going on for 5 days, she has sudden strong urge to urinate but the feeling of urgency doesn't match the amount voided.
[2025-05-29 05:49] LABS: MANUAL DIFF FLAG NO
[2025-05-29 05:51] LABS: Hematocrit 37.6 % (37.0-47.0); Hemoglobin 13.0 g/dl (12.0-16.0); Imm Gran Abs Auto 0.02 X10*3/uL (0.00-0.03); Imm Gran Pct Auto 0.2 % (0.0-0.4); Lymphocytes Absolute Auto 4.4 X10*3/uL (1.2-4.9); Mean Corpuscular HGB Conc 34.6 g/dl (31.0-35.0); Mean Corpuscular Hemoglobin 32.5 pg (27.0-33.0); Mean Corpuscular Volume 94.0 fL (80.0-98.0); NRBC Abs Auto 0.000 X10*3/uL (0.0-0.012); NRBC Pct Auto 0.0 /100WBC (0.0-0.2); Platelet Count 216 X10*3/uL (160-400); Red Blood Count 4.00 X10*6/uL (4.20-5.50); White Blood Count 9.4 X10*3/uL (4.8-10.8)
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
--- OUTSIDE RECORDS SUMMARY | 2025-05-29 05:53 | XMS_ITS | Clinical Summary ---
Author Organization [facility] Address [address] [place] [address] Care Team Providers Care Commercial Account Officer Name Role Phone Kevan Gordon Primary Care Provider Unavailab le Source Comments PLEASE NOTE, if this patient is a minor, it may be UNLAWFUL to discuss sensitive information that is contained in these records (such as FAMILY PLANNING, MENTAL HEALTH or SUBSTANCE ABUSE) with the minor patient's parent or other person without the patient's specific authorization.[facility] Allergies Active Allergy Reactions Criticality Noted Date Comments Aspirin Anaphylaxis High 04/02/2023 Clarithromycin Anaphylaxis High 04/02/2023 Ibuprofen Hives 05/04/2023 Other Reaction(s): GI Upset Naproxen Hives 05/04/2023 Other Reaction(s): GI Upset Pineapple Anaphylaxis High 04/02/2023 Sulfa (Sulfonamide Antibiotics) Anaphylaxis High 04/02/2023 Medications propranoloL (INNOPRAN XL) 120 mg 24 hr capsule Take 120 mg by mouth 2 (two) times daily Active topiramate (TOPAMAX) 100 mg tablet Take 100 mg by mouth 2 (two) times daily Active acetaminophen (TYLENOL) 500 mg tablet Take 2 Tablets by mouth every 6 (six) hours as needed for pain Avoid daily use 100 Tablet 2 09/28/2023 Active divalproex (DEPAKOTE ER) 250 mg 24 hr tablet Take 250 mg by mouth twice a day. 03/20/2024 Active aspirin 81 mg chewable tablet Chew and swallow 81 mg by mouth daily. Active rosuvastatin (CRESTOR) 20 mg tablet Take 20 mg by mouth daily. 03/21/2024 Active verapamiL (CALAN) 40 mg tablet Take 40 mg by mouth. 03/20/2024 Active Active Problems Problem Noted Date Diagnosed Date Bipolar disorder 03/17/2024 Nicotine dependence 03/17/2024 Subclavian artery stenosis 03/16/2024 Assessment & Plan (05/16/2025 11:31 AM EDT): Episodic numbness at RUE, active today F/u w primary medical team if persists For now muscle rub and APAP given for acute pain relief Chronic tension-type headache, not intractable 0 12/21/2023 Assessment & Plan (05/23/2025 8:57 AM EDT): C/o migraine NICKERSON pain that started yesterday No worrisome neuro sxs APAP given for acute NICKERSON pain relief Pt to f/u w PCP for further treatment (Fioricet) if needed Assessment & Plan (03/30/2025 10:37 AM EDT): VSS. Pt c/o frontal headache since this AM. Pt denies CP, SOB, N/V, palpitations, dizziness, vision changes, diaphoresis. Gave pt 3 single dose packets of APAP with instructions. Encouraged adequate fluids, rest, avoid caffeine and nicotine. RTC should sx worsen or persist. Pt states understanding and agrees Assessment & Plan (04/12/2024 2:48 PM EDT): Appears to be a chronic issue. Provided with APAP and instructed to return if sx worsen. History of stroke 09/29/2023 Tobacco use 09/28/2023 Assessment & Plan (09/28/2023 2:29 PM EST): Performed motivational interviewing and pt pre-contemplative. Reviewed risks of smoking and benefits of cessation. Encouraged pt to cut down on smoking and consider cessation. RTC as needed. Pt states understanding. Sheltered homelessness 09/13/2023 Assessment & Plan (05/23/2025 8:57 AM EDT): Stays at local retirement, seeks supportive services at [facility] Assessment & Plan (05/16/2025 11:31 AM EDT): Stays at [facility], seeks supportive services at [facility] Assessment & Plan (09/13/2023 1:55 PM EST): Stays at [facility], seeks supportive services at [facility] sites Living in homeless retirement 06/02/2023 Dizziness 04/15/2023 Assessment & Plan (05/12/2025 12:19 PM EDT): VSS, has PCP f/u Thursday. States went to ED with no improvement to symptoms. Provided with acetaminophen for headache, pt instructed on dose, administration, use, potential s/e of medications. pt verbalizes good understanding back to RN. Assessment & Plan (04/28/2025 10:16 AM EDT): Advised to f/u with PCP today and educated on s/sx requiring immediate medical attention. Assessment & Plan (04/26/2025 10:53 AM EDT): Educated on s/sx requiring immediate medical attention. States will go to the hospital if having persistent symptoms or symptoms of stroke. Assessment & Plan (09/13/2023 1:54 PM EST): Brief episode this am, no other sxs reported Now resolved VSS RTC if sxs return Assessment & Plan (04/15/2023 11:37 AM EDT): Pt reporting dizziness, vertigo, nausea, and 3 days of migraine. Reports hx of migraines and this feels similar. Took Fioricet with minimal relief. Eating small amts; drinking water. Requested BP check; BP stable at 101/77, HR slightly tachycardic between 98-104. Pt denies history of DM or low blood sugars. Denies sore throat, fevers/chills or other concerning COVID symptoms. Pt was planning to go to ER but has now decided she will go to [facility] to try and have migraine medications adjusted. Pt ambulating with steady gait and accompanied by female peer. Encouraged adequate PO hydration and eating as tolerated. Resolved Problems Problem Noted Date Diagnosed Date Resolved Date Immunization due 05/12/2025 05/16/2025 Assessment & Plan (05/12/2025 12:19 PM EDT): Pt received Influenza vaccination today. RN determined patient eligibility based on age, risk factors and vaccination history. VIS provided prior to vaccination. Patient denied any contraindications or precautions. Educated on common side effects as well as severe reactions that require immediate medical attention. Injection tolerated well, all questions answered. Acute nonintractable headache 04/26/2025 05/16/2025 Assessment & Plan (04/28/2025 10:15 AM EDT): Provided with acetaminophen for headache, pt instructed on dose, administration, use, potential s/e of medications. pt verbalizes good understanding back to RN. Assessment & Plan (04/26/2025 10:52 AM EDT): Provided OTC acetaminophen, pt instructed on dose, administration, use, potential s/e of medications. pt verbalizes good understanding back to RN. Low blood pressure reading 03/22/2024 0 05/16/2025 Assessment & Plan (04/12/2024 2:47 PM EDT): BP on lower side at 104/74. Asx. Encouraged to continue following with PCP. Blood pressure check 12/31/2023 025 Assessment & Plan (12/31/2023 9:55 AM EDT): Last 3 Vitals Flowsheet Row Office Visit from 12/18/2023 in [facility] Interim Notes from 11/10/2023 in [facility] Interim Notes from 11/07/2023 in [facility] Temp -- -- -- Pulse 81 74 75 BP 92/62 101/73 95/70 Resp -- -- -- Weight -- -- -- Head Circumference -- -- -- Pt presented to clinic to check blood pressure as she tries to do most night. Reports some dizziness at the moment of visit with BP 92/62. Pt arm is very small, and she requires use of the light blue blood pressure cuff to get an accurate reading. Educated Pt on ways to increase and maintain healthy BP. She reports she knows what to, it's just that sometimes she runs low. Offered Pt appointment to follow up with a PCP here at [facility] since she is currently staying here, but she declined at this time. Migraine without status migr ainosus, not intractable 09/29/2023 05/16/2025 Ear pressure, bilateral 04/22/20232 10/2024 Assessment & Plan (07/01/2023 2:58 PM EST): B/L TM WNL on exam. No sinus, external ear tenderness. Pt reports that she experiences frequent ear problem r/t vertigo. Provider gave APAP single dose x2 and loratadine single dose packets x1 with instructions. RTC should condition worsen or persist. Do not insert foreign bodies into ear. Pt states verbal understanding and agrees. Assessment & Plan (04/22/2023 4:43 PM EDT): Pt reporting ringing and pressure in her ears. States it is related to her vertigo. She also has environmental allergies at [facility]. Pt requesting Tylenol and Claritin which have offered moderate relief in the past; this RN provided pt with clinic-supplied Tylenol and Claritin. Pt still awaiting medical records from her previous clinic regarding which vertigo medications she was on. Pt has new pt PCP appt on 05/[address] Phillips. Cough 04/02/2023 05/16/2025 Assessment & Plan (04/02/2023 5:17 PM EDT): 5 days c/o NICKERSON, dry cough, usual migraine NICKERSON, SOB while lying down. Lungs clear. Denies CP, fever, chills, sore throat, earache, sinus congestion, Fatigue, Loss of appetite, Muscle aches, Loss of sense of smell or taste, Runny nose, Vomiting, Diarrhea or Coughing blood. Pt given guaifenesin cough syrup, 10 ml unit dose-3 doses with instruction for use:take every 4-6 hours an needed for cough. Pt also given cough drops. Pt instructed to rest, drink plenty of fluids and rtc if cough worsens or persists. Pt taught to go to ER for CP/SOB. Encounters Date Type Department Care Team Description 05/23/2025 9:00 AM EDT Office Visit [address] [id number] Alicia Luciano NP 05/15/2025 12:00 PM EDT Office Visit [address] [phone] Alicia Luciano NP 05/12/2025 8:30 AM EDT Office Visit [address] [phone] Christi Bell RN 04/28/2025 10:30 AM EDT Office Visit [address] [id number] Christi Bell RN 04/27/2025 10:00 AM EDT Office Visit [address] [address] Margarita Zafar RN 04/26/2025 10:15 AM EDT Office Visit [address] [address] Christi Bell RN 03/30/2025 9:00 AM EDT Office Visit [address] [phone] Margarita Zafar RN from Last 3 Months Immunizations Immunization Administration Dates Next Due Flu, Preservative Free 06/08/2023 Social History Tobacco Use Types Packs/Day Years Used Date Smoking Tobacco: Every Day Cigarettes Passive Smoke Exposure: Current Smokeless Tobacco: Current Tobacco Cessation:Ready to Q uit: No; Counseling Given: Yes Alcohol Use Standard Drinks/Week Comments Not Currently 0 (1 standard drink = 0.6 oz pur e alcohol) Social Connections Answer Date Recorded Connectedness 0 05/03/2024 Financial Resource Strain Answer Date R ecorded Financial Resource Strain 0 2022 Stress Answer Date Recorded Stress 0 04/02/2023 Physical Activity Answer Date Recorded Physical Activity 0 04/02/2023 Food Insecurity Answer Date Recorded Food 0 04/02/2023 Transportation Needs Answer Date Record ed Transportation 0 04/02/2023 Housing Stability Answer Date Recorded Housing 0 04/02/2023 Safety and Environment Answer Date Harshal rded Safety 0 04/02/2023 Utilities Answer Date Recorded Utilities 0 04/02/2023 Employment Answer Date Recorded Stress 0 04/02/2023 Comments Unknown Sex and Gender Information Value Date Recorded Sex Assigned at Female 04/02/2023 6:33 AM PDT Legal Sex Female 5:25 AM PDT Gender Identity Female 04/02/2023 6:33 AM PDT Sexual Orientation Lesbian 04/02/2023 6: 33 AM PDT Last Filed Vital Signs Vital Sign Reading Time Taken Comments Blood Pressure 90/60 05/23/2025 8:54 AM EDT Pulse 74 05/23/2025 8:54 AM EDT Temperature 36.7 C (98.1 F) 05/12/2025 12:19 PM EDT Respiratory Rate 16 05/12/2025 12:19 PM EDT Oxygen Saturation 100% 05/23/2025 8:54 AM EDT Inhaled Oxygen Concentration - - Weight 65.3 kg (144 lb) 04/15/2023 10:24 AM EDT Height 167.6 cm (5' 6 ) 04/15/2023 10:24 AM EDT Body Mass Index 23.24 04/15/2023 10:24 AM EDT Plan of Treatment Health Maintenance Due Date Last Done Comments Dental Examination 1970 HPV Screening 1970 LTBI Screening (#1) 1970 Pap + HPV 1970 HIV Screening 1985 Imm-Hepatitis A (1 of 2 - Ri sk 2-dose series) 1989 Imm-Hepatitis B (1 of 3 - 19 + 3-dose series) 1989 Cervical Cancer Screening 1991 Pap Smear 1991 Breast Cancer Screening (Mammogram) 2010 CT Colonography 2015 Colonoscopy 2015 Colorectal Cancer Screening 2015 FIT/gFOBT 2015 Fecal DNA 2015 Flexible Sigmoidoscopy 2015 Imm-Pneumococcal 50+ (2 of 2 - PCV) 01/31/2018 01/31/2017 Imm-Zoster, Recombinant (1 of 2) 2020 Anxiety Screening 04/02/2024 04/02/2023 Lipid Screening 06/02/2024 06/02/2023, 05/03/2023 Alcohol and Drug Screen 08/24/2024 Depression Annual Screen 08/24/2024 04/02/2023 [id number] ( season) 2025 Imm-Influenza (#1) 2025 06/08/2023, 1 , 06/13/2018, Additional history exists Tobacco Cessation Counseling (#1) 05/12/2026 05/12/2025, 04/28/2025, 03/30/2025, Additional history exists Hypertension Screening (#1) 05/23/2026 Diabetes Screening 03/20/2027 03/20/2024, 0 03/20/2024, 03/19/2024, Additional history exists Imm-DTaP/Tdap/Td (3 - Td or Tdap) 03/07/2031 03/07/2021, 05/23/2016, 12/09/2014 Hepatitis C Screening Completed 06/02/2023, 023 Cervical Ablation/Cold-Knife Conization Discontinued Cervical Cryotherapy Discontinued Colposcopy Discontinued Endometrial Biopsy Discontinued Excision/Leep Discontinued HPV Genotyping Discontinued Vaginal Pap Discontinued Vulvoscopy Discontinued Insurance [facility] [employer] PLAN Member Subscriber Plan / Payer (Ef fective 2023-Present) Name:Maritza Smith Relation to Subscriber:Self Name:Maritza Smith Payer ID:[id number] Group ID:[id number] Type:Medicaid Address: [address] [address] [place] [address] [facility] Care Teams Commercial Account Officer Relationship Specialty Start Date End Date Kevan Gordon PCP - General 02/05/24
--- OUTSIDE RECORDS SUMMARY | 2025-05-29 05:53 | XMS_ITS | Clinical Summary ---
Author Organization [facility] Address [address] [place] [address] Care Team Providers Care Lighting Technician Name Role Phone Kevan Gordon Primary Care Provider [phone] Allergies Active Allergy Reactions Criticality Noted Date [...] 1-dose 75+ series) 2045 Insurance Care Teams Lighting Technician Relationship Specialty Start Date End Date Kevan Gordon PA [address] [place] [id number] PCP - General 03/08/20
--- NOTE | 2025-05-29 05:58 | ECG_ITS ---
Test Reason : CHECK QTC Blood Pressure : */* mmHG Vent. Rate : 58 BPM Atrial Rate : 58 BPM P-R Int : 148 ms QRS Dur : 94 ms QT Int : 414 ms P-R-T Axes : 58 67 63 degrees QTcB Int : 406 ms Sinus bradycardia Otherwise normal ECG When compared with ECG of 05-May-2025 20:56, No significant change was found Referred By: Cassie York Electronically Signed By: JALEESA SHEIKH MD
[2025-05-29 06:03] LABS: Appearance Urine Clear; Glucose Urine UA Negative (Negative); PH 5.5 (5.0-9.0); Specific Gravity - Urine 1.020 (1.005-1.025)
[2025-05-29 06:04] LABS: Alanine Aminotransferase 11 U/L (0-31); Albumin Level 4.4 g/dL (3.5-5.0); Alkaline Phosphatase 118 U/L (39-117); Anion Gap 12 (12-20); Aspartate Amino Transferase 15 U/L (5-31); Blood Urea Nitrogen 14 mg/dL (9-16); Calcium 9.1 mg/dL (8.4-10.2); Carbon Dioxide 18 mmol/L (22-29); Chloride 117 mmol/L (96-108); Creatinine Clr Calc Pharmacy 72.0; Estimated Glomerular Filt Rate > 60; Potassium 3.9 mmol/L (3.3-5.1); Sodium 143 mmol/L (135-145); Total Protein 6.8 g/dL (6.5-8.0)
[2025-05-29] MEDS: Butalb/Acetamin/Caff 50/325/40 TABLET 1 TAB PO (06:23)
--- NOTE | 2025-05-29 06:24 | PC.NURSE ---
pt medicated per MAR
--- NOTE | 2025-05-29 06:37 | ED.FEMALEGU ---
HPI - Female Genitourinary General Chief complaint: Urogenital-Female Stated complaint: side pain Time Seen by Provider: 05/29/25 05:55 Source: patient and old records reviewed Mode of arrival: ambulatory Limitations: no limitations History of Present Illness ED Provider: GALILEO ALEXANDER Narrative: 54 yo female with complicated PMH including recent UTI 05/05 culture negative though but treated with abx, chronic migraines, anxiety, carotid stenosis, bronchitis, PVD here with c/o R side pain x 4 days with nausea and urinary symptoms such as frequency but no pain. She also reports a chronic typical migraine for her. She reports she completed her prior therapy. She notes she has not had any kidney stones for several years. She denies fevers, vomiting, diarrhea. MD elicited complaint: UTI Onset (ago): day(s) (4) Location of symptoms: flank Severity: moderate Consistency: constant Urinary symptoms: Urgency and Frequency Exacerbating factors: none Relieving factors: none Associated symptoms: nausea Treatment prior to arrival: none Related Data Home Medications ?Medication ?Instructions ?Recorded ?Confirmed aspirin 81 mg chewable tablet 81 mg PO DAILY 05/13/23 03/13/25 erenumab-aooe 70 mg/mL mg subcut 12/06/24 03/13/25 subcutaneous auto-injector (Aimovig Autoinjector) Previous Rx's ?Medication ?Instructions ?Recorded acetaminophen 500 mg tablet 500 mg PO Q6H PRN fever or pain 07/12/23 (Tylenol Extra Strength) #30 tabs propranolol 60 mg tablet 120 mg (2 x 60 mg) PO BID 90 days 10/20/23 #360 tabs amitriptyline 50 mg tablet 50 mg PO BEDTIME 90 days #90 tabs 03/30/24 divalproex 250 mg tablet,extended 250 mg PO BID 90 days #180 tabs 03/30/24 release 24 hr (Depakote ER) magnesium 250 mg tablet 250 mg PO BID 90 days #180 tabs 06/01/24 riboflavin (vitamin B2) 50 mg 50 mg PO DAILY #90 tabs 06/01/24 tablet COVID-19 antigen test (BinaxNOW #2 ea 06/29/24 COVID-19 Ag Self Test kit) baclofen 10 mg tablet 10 mg PO BID PRN muscle spasm 7 09/05/24 days #14 tabs midodrine 5 mg tablet 5 mg PO TID PRN low BP 15 days #45 09/19/24 tabs albuterol sulfate 90 mcg/actuation 1 inh inhalation QID PRN shortness 10/16/24 aerosol inhaler of breath or wheezing 30 days #8.5 grams meclizine 50 mg tablet 50 mg PO DAILY dizziness #90 tabs 11/28/24 nicotine 21 mg/24 hr daily 1 patch transdermal DAILY 14 days 12/28/24 transdermal patch #14 ea bisacodyl 5 mg tablet,delayed 15 mg (3 x 5 mg) PO BEDTIME 30 01/20/25 release (Dulcolax (bisacodyl)) days #90 tabs famotidine 20 mg tablet 20 mg PO DAILY #30 tabs 01/20/25 linaclotide 290 mcg capsule 290 mcg PO QAM 30 days #30 caps 01/20/25 (Linzess) simethicone 180 mg capsule (Gas 180 mg PO DAILY PRN abdominal 01/20/25 Relief (simethicone)) distention #30 caps metoclopramide HCl 10 mg tablet 10 mg PO DAILY PRN nausea and 02/02/25 (Reglan) vomiting 30 days #30 tabs simvastatin 40 mg tablet 40 mg PO DAILY #90 tabs 02/28/25 loperamide 2 mg capsule 2 mg PO Q8H PRN loose stool 7 days 03/01/25 #21 caps tramadol 50 mg tablet 50 mg PO BID pain 5 days #10 tabs 03/01/25 vmacwltbql-jwuerjjeicljv-ogfqhqtq 1 cap PO Q6H PRN pain 4 days #16 04/11/25 50 mg-325 mg-40 mg capsule caps dicyclomine 20 mg tablet 20 mg PO TID PRN for abdominal 04/18/25 pain #270 tabs lorazepam 0.5 mg tablet 0.5 mg PO DAILY PRN anxiety 7 days 05/02/25 #7 tabs prochlorperazine 25 mg rectal 25 mg MN BID PRN nausea and 05/02/25 suppository (Compazine) vomiting 6 days #12 ea topiramate 100 mg tablet (Topamax) 100 mg PO BID 90 days #180 tabs 05/02/25 cephalexin 500 mg capsule 500 mg PO Q8H 7 days #21 caps 05/06/25 Allergies Allergy/AdvReac Type Severity Reaction Status Date / Time aspirin (Aspirin) Allergy Intermediate WHEEZING Verified 05/29/25 05:29 clarithromycin (From Biaxin) Allergy Intermediate HIVES Verified 05/29/25 05:29 Sulfa (Sulfonamide Allergy Intermediate HIVES Verified 05/29/25 05:29 Antibiotics) (SULFA (SULFONAMIDE ANTIBIOTICS)) bee pollen (BEE STINGS) Allergy Unknown UNKNOWN Verified 05/29/25 05:29 pineapple (PINEAPPLE) Allergy Unknown UNKNOWN Verified 05/29/25 05:29 beeswax Allergy Anaphylaxis Verified 05/29/25 05:29 Review of Systems Review of Systems: Constitutional : No Fever, No Chills, No Fatigue ENT/Mouth : No sore throat, No Rhinorrhea Eyes: No Eye Pain, No Swelling, No Redness Cardiovascular : No Chest Pain, No SOB Respiratory : No Cough, No Sputum Gastrointestinal : pos Nausea, No Vomiting, No Diarrhea, pos abdominal Pain Genitourinary : No Dysuria, pos Urinary Frequency, No Hematuria, Skin : No Skin Lesions, No rash All other systems reviewed and are negative [facility] Past Medical History Attestation statement: The following information was validated with the patient. Source: old records reviewed Medical History Dizziness Annual physical exam Stenosis of left internal carotid artery Breast cancer screening Colon cancer screening Screening for hypercholesterolemia Screening for diabetes mellitus (DM) Orthostatic hypotension Right medial tibial plateau fracture Homeless Migraine CAD (coronary artery disease) IBS (irritable bowel syndrome) Hypotension Migraine Surgical History History of partial hysterectomy History of cholecystectomy Family History Family History Mother Substance use disorder Stroke Other Mental health disorder Social History Social History Housing: House Alcohol intake: current Alcohol intake frequency: holidays/special occasions only Patient Tobacco Use Status: Current everyday Tobacco user Tobacco use type: Cigarette Cigarette Packs Per Day: 0.5 Cigarettes Per Day: 10 e-Cigarette/Vaping Use: Never Used Second Hand Smoke Exposure: Yes Substance Use Type: Marijuana Advance Directives: Yes Advance Directives on File: Yes Advance Directives Date on File: 02/01/21 service: No Current occupational status: employed and disabled Current occupation: rt handed Cognitive needs: No Hearing needs: No Vision needs: Yes (glasses) Physical Exam Vital Signs: Vital Signs: Last Vital Signs Temp 97.2 F 05/29/25 07:33 Pulse 63 05/29/25 07:33 Resp 18 05/29/25 07:33 BP 133/77 05/29/25 07:33 Pulse Ox 99 05/29/25 07:33 O2 Del Method Room Air 05/29/25 07:33 BMI result Body Mass Index 19.5 Appearance: Alert. Oriented X3. No acute distress. Eyes: Pupils equal, round and reactive to light. ENT: Pharynx normal. Neck: Normal inspection. Neck supple. CVS: Normal heart rate and rhythm. Pulses normal. Respiratory: No respiratory distress. Breath sounds normal. Abdomen: Soft and nontender. Skin: Skin warm and dry. Normal skin color. Extremities: No lower extremity edema. Neuro: Oriented X 3. No motor deficit. No sensory deficit. Medications Administered Discontinued Medications Generic Name Dose Route Start Last Admin Trade Name Davidq PRN Reason Stop Dose Admin Acetaminophen/Butalbital/Caffeine 1 tab 05/29/25 06:09 05/29/25 06:23 Butalb/Acetamin/Caff 50/325/40 Tablet PO 05/29/25 06:10 1 tab ONCE ONE Administration Lorazepam 1 mg 05/29/25 06:09 05/29/25 06:23 Lorazepam 1 Mg Tablet PO 05/29/25 06:10 1 mg ONCE ONE Administration Medical Decision Making Medical Decision Making [facility] Narrative: 54 yo female with complicated PMH including recent UTI 05/05 culture negative though but treated with abx, chronic migraines, anxiety, carotid stenosis, bronchitis, PVD here with c/o R flank pain and urinary frequency x 4 days. No fevers, mild nausea and no vomiting. She has not toxic exam and benign abdomen. Will obtain labs, UA, CT scan for renal colic. PO pain medications for migraine. Differential Diagnosis Differential Diagnoses: The differential diagnosis associated with the presentation includes renal colic, UTI, viral syndrome, constipation Admission/Observation Consideration of admission/observation: Escalation of care including admission/observation considered not toxic, no vomiting, normal CT scan and normal UA Lab Data [facility] Lab Attestation statement: I reviewed the patient's lab results. 05/29/25 05:44 05/29/25 05:44 Labs: Lab Results 05/29/25 05/29/25 Range/Units 05:44 05:56 WBC 9.4 (4.8-10.8) X10*3/uL RBC 4.00 L (4.20-5.50) X10*6/uL Hgb 13.0 (12.0-16.0) g/dl Hct 37.6 (37.0-47.0) % MCV 94.0 (80.0-98.0) fL MCH 32.5 (27.0-33.0) pg MCHC 34.6 (31.0-35.0) g/dl RDW 15.2 (11.0-16.0) % Plt Count 216 (160-400) X10*3/uL MPV 9.7 (9.4-12.3) fL Immature Gran % (Auto) 0.2 (0.0-0.4) % Neut % (Auto) 42.7 L (45-73) % Lymph % (Auto) 46.6 H (20-40) % [place] % (Auto) 6.6 (2-11) % Eos % (Auto) 3.1 (0-4) % Baso % (Auto) 0.8 (0-2) % Lymph # (Auto) 4.4 (1.2-4.9) X10*3/uL [place] # (Auto) 0.6 (0.1-1.2) X10*3/uL Eos # (Auto) 0.3 (0.0-0.4) X10*3/uL Baso # (Auto) 0.1 (0.0-0.2) X10*3/uL Abs Immat Gran (auto) 0.02 (0.00-0.03) X10*3/uL Absolute Neuts (auto) 4.0 (2.0-8.3) x10*3/uL Absolute Nucleated RBC 0.000 (0.0-0.012) X10*3/uL Nucleated RBC % (auto) 0.0 (0.0-0.2) /100WBC Sodium 143 (135-145) mmol/L Potassium 3.9 (3.3-5.1) mmol/L Chloride 117 H (96-108) mmol/L Carbon Dioxide 18 L (22-29) mmol/L Anion Gap 12 (12-20) BUN 14 (9-16) mg/dL Creatinine 0.82 (0.5-1.4) mg/dL Estim Creat Clear Calc 72.0 Estimated GFR > 60 Random Glucose 109 (60-115) mg/dL Calcium 9.1 D (8.4-10.2) mg/dL Total Bilirubin 0.4 (0.0-1.0) mg/dL AST 15 (5-31) U/L ALT 11 (0-31) U/L Alkaline Phosphatase 118 H (39-117) U/L Total Protein 6.8 (6.5-8.0) g/dL Albumin 4.4 (3.5-5.0) g/dL Urine Color Yellow Urine Appearance Clear Urine pH 5.5 (5.0-9.0) Ur Specific [place] 1.020 (1.005-1.025) Urine Protein Negative (Neg-Trace) mg/dL Urine Glucose (UA) Negative (Negative) mg/dL Urine Ketones Trace (Negative) mg/dL Urine Blood Negative (Negative) Urine Nitrite Negative (Negative) Ur Leukocyte Esterase Negative (Negative) Urine RBC 0-2 (0-2) /HPF Urine WBC 0-5 (0-5) /HPF Ur Squamous Epith Cells 0-2 (0-2) /HPF Urine Bacteria None Seen (None Seen) Hyaline Casts 0-2 (0-2) /LPF Independent Interpretation I performed an independent interpretation of an: EKG and CT Scan (no acute findings) Interpretation: Rate: 58 Rhythm: sinus bradycardia [place]: normal Normal P waves. Normal GRACE. Normal QRS complex. ST T wave : normal no MARION, flat t waves aVL qTC: 406 prior studies: no acute ischemia The study has been interpreted contemporaneously by me. . Radiology Impression Discussion of test interpretation with radiology: I have reviewed the radiologist's reading. External Record Review External record reviewed: Inpatient record and Outpatient record Prescription Management I considered prescription management with: Pain Medication and Other Discharge Plan Discharge Clinical Impression: Right flank pain Patient Disposition: Home, Self-Care Instructions: Flank Pain (ED) Additional Instructions: urine is not infected. your recent culture was also negative your CT scan shows no pathology, stones as cause of your pain I would continue to treat as needed with tylenol return for any worsening symptoms or concerns follow up with your primary care doctor Prescriptions: No Action amitriptyline 50 mg tablet 50 mg PO BEDTIME 90 Days Qty: 90 2RF divalproex [Depakote ER] 250 mg tablet extended release 24 hr 250 mg PO BID 90 Days Qty: 180 2RF (DME) Ivana COVID-19 Ag Self Test Kit See Rx Instructions .Route Qty: 2 0RF Rx Instructions: As directed baclofen 10 mg tablet 10 mg PO BID PRN (Reason: muscle spasm) 7 Days Qty: 14 0RF albuterol sulfate 90 mcg/actuation HFA aerosol inhaler 1 inh inhalation QID PRN (Reason: shortness of breath or wheezing) 30 Days Qty: 8.5 3RF meclizine 50 mg tablet 50 mg PO DAILY Qty: 90 1RF nicotine 21 mg/24 hr patch 24 hour 1 patch transdermal DAILY 14 Days Qty: 14 0RF simvastatin 40 mg tablet 40 mg PO DAILY Qty: 90 1RF ekhsirdzeu-hjqczitihqyca-vkmp 50-325-40 mg capsule 1 cap PO Q6H PRN (Reason: pain) 4 Days Qty: 16 0RF dicyclomine 20 mg tablet 20 mg PO TID PRN (Reason: for abdominal pain) Qty: 270 0RF lorazepam 0.5 mg tablet 0.5 mg PO DAILY PRN (Reason: anxiety) 7 Days Qty: 7 0RF prochlorperazine [Compazine] 25 mg suppository 25 mg MN BID PRN (Reason: nausea and vomiting) 6 Days Qty: 12 0RF topiramate [Topamax] 100 mg tablet 100 mg PO BID 90 Days Qty: 180 2RF acetaminophen [Tylenol Extra Strength] 500 mg tablet 500 mg PO Q6H PRN (Reason: fever or pain) Qty: 30 0RF cephalexin 500 mg capsule 500 mg PO Q8H 7 Days Qty: 21 0RF aspirin 81 mg tablet,chewable 81 mg PO DAILY propranolol 60 mg tablet 120 mg PO BID 90 Days Qty: 360 2RF loperamide 2 mg capsule 2 mg PO Q8H PRN (Reason: loose stool) 7 Days Qty: 21 0RF tramadol 50 mg tablet 50 mg PO BID 5 Days Qty: 10 0RF metoclopramide HCl [Reglan] 10 mg tablet 10 mg PO DAILY PRN (Reason: nausea and vomiting) 30 Days Qty: 30 3RF magnesium 250 mg tablet 250 mg PO BID 90 Days Qty: 180 1RF riboflavin (vitamin B2) 50 mg tablet 50 mg PO DAILY Qty: 90 1RF midodrine 5 mg tablet 5 mg PO TID PRN (Reason: low BP) 15 Days Qty: 45 0RF Rx Instructions: do not give last dose of day after 6PM or within 4 hrs of bedtime bisacodyl [Dulcolax (bisacodyl)] 5 mg tablet,delayed release (DR/EC) 15 mg PO BEDTIME 30 Days Qty: 90 12RF famotidine 20 mg tablet 20 mg PO DAILY Qty: 30 12RF Linzess 290 mcg capsule 290 mcg PO QAM 30 Days Qty: 30 12RF simethicone [Gas Relief (simethicone)] 180 mg capsule 180 mg PO DAILY PRN (Reason: abdominal distention) Qty: 30 6RF Aimovig Autoinjector 70 mg/mL auto-injector subcut Print Language: Ecuadorean
[2025-05-29 07:33] VITALS: BP 133/77; PULSE 63; RESP 18; TEMP 36.2; O2SAT 99
--- NOTE | 2025-05-29 07:34 | PC.NURSE ---
Resumed care of pt at 0700, pt was resting comfortably in bed, CT at bedside, pt able to ambulate to CT at this time. Pt reporting 7/10 headache at this time, reporting little relief from PO medications given prior shift. Call baxter within reach, all needs met at this time
[2025-05-29 08:41] VITALS: BP 133/77; PULSE 63; RESP 18; TEMP 36.2; O2SAT 99
== END 2025-05-29 08:42 | disposition home or self-care (01) ==
PROVIDERS: Emergency Provider Emergency Medicine; PCP Physician Assistant
DX: R10.A0 Flank pain, unspecified side (principal); R11.0 Nausea; R35.0 Frequency of micturition
CPT/HCPCS: 36415; 74176; 80053; 81001; 85025; 93005; 99284; 99285

== ENCOUNTER → 2025-05-29 05:58 | Outpatient (BNV) | payer OTHER, SELFPAY | PROVIDERS: Emergency Provider Emergency Medicine; PCP Physician Assistant; Visit Provider Internal Medicine Cardiovascular Disease | DX: R00.1 Bradycardia, unspecified (principal) | CPT/HCPCS: 93010 ==

== ENCOUNTER → 2025-05-29 06:09 | Outpatient (BNV) | payer OTHER, SELFPAY | PROVIDERS: Emergency Provider Emergency Medicine; PCP Physician Assistant; Visit Provider Radiology Diagnostic Radiology | DX: R10.A1 Flank pain, right side (principal) | CPT/HCPCS: 74176 ==

== ENCOUNTER 2025-05-29 10:35 | Outpatient (AMB) | payer OTHER, SELFPAY ==
--- NOTE | 2025-05-29 10:39 | MHC.PC.OV ---
Vital Signs 05/29/25 10:42 Height 5 ft 8 in Weight 130 lb 2 oz BMI 19.8 BP 98/60 Blood Pressure Location Lt brachial Position Sitting Pulse 99 Pulse Source Pulse Oximeter Temp 97.5 F Temp Source Temporal Artery Scan Pulse Oximetry (%) 99 Oxygen Delivery Method Room Air Intake Visit Reasons: migraines/pain on RT side of ABD Intake Note: Patient is here to follow up on Migraines, pain on rt side of abdomen. Electrodynamicist Required: No Welder Setter Resistance Machine: Not Required per policy Accompanied by: Self / Same As Patient Allergies aspirin (Aspirin) Allergy (Intermediate, Verified 05/29/25 10:41) WHEEZING clarithromycin (From Biaxin) Allergy (Intermediate, Verified 05/29/25 10:41) HIVES Sulfa (Sulfonamide Antibiotics) (SULFA (SULFONAMIDE ANTIBIOTICS)) Allergy (Intermediate, Verified 05/29/25 10:41) HIVES bee pollen (BEE STINGS) Allergy (Unknown, Verified 05/29/25 10:41) UNKNOWN pineapple (PINEAPPLE) Allergy (Unknown, Verified 05/29/25 10:41) UNKNOWN beeswax Allergy (Verified 05/29/25 10:41) Anaphylaxis Medication List - Last Reconciled 05/29/25 by Sanjana Gagnon MD acetaminophen (Tylenol Extra Strength) 500 mg PO Q6H PRN albuterol sulfate 90 mcg/actuation 1 inh inhalation QID PRN 30 days amitriptyline 50 mg PO BEDTIME 90 days aspirin 81 mg PO DAILY baclofen 10 mg PO BID PRN 7 days bisacodyl (Dulcolax (bisacodyl)) 15 mg (3 x 5 mg) PO BEDTIME 30 days duzeowjanw-flkyhjpkanmzw-oivq 50-325-40 mg 1 cap PO Q6H PRN 4 days COVID-19 antigen test (BinaxNOW COVID-19 Ag Self Test kit) As directed diclofenac sodium 1% (Voltaren Arthritis Pain) 2 grams topical QID dicyclomine 20 mg PO TID PRN divalproex ER (Depakote ER) 250 mg PO BID 90 days erenumab-aooe (Aimovig Autoinjector) mg subcut famotidine 20 mg PO DAILY linaclotide (Linzess) 290 mcg PO QAM 30 days loperamide 2 mg PO Q8H PRN 7 days lorazepam 0.5 mg PO DAILY PRN 7 days magnesium 250 mg PO BID 90 days meclizine 50 mg PO DAILY metoclopramide HCl (Reglan) 10 mg PO DAILY PRN 30 days midodrine 5 mg PO TID PRN 15 days nicotine 1 patch transdermal DAILY 14 days prochlorperazine (Compazine) 25 mg IN BID PRN 6 days propranolol 120 mg (2 x 60 mg) PO BID 90 days riboflavin (vitamin B2) 50 mg PO DAILY simethicone (Gas Relief (simethicone)) 180 mg PO DAILY PRN simvastatin 40 mg PO DAILY topiramate (Topamax) 100 mg PO BID 90 days tramadol 50 mg PO BID 5 days Tobacco use date assessed: 05/29/25 Dental Screening Dental Screen Date: 05/29/25 Did you have a dental visit in the last 12 months?: Yes Did you have a dental problem in the last 6 months where you did not have access to dental care?: No Was dental information given to patient?: Patient has dentist HPI HPI Comments History of Present Illness Details The patient is a 54-year-old female presenting with right-sided abdominal pain and nausea. The pain started four days ago and has been worsening, radiating to the leg and affecting her ability to walk comfortably. Nausea is present, but there is no vomiting. Previous evaluations in the emergency room included a CT scan and urine test, both of which were normal. [facility] Medical History Dizziness Annual physical exam Stenosis of left internal carotid artery Breast cancer screening Colon cancer screening Screening for hypercholesterolemia Screening for diabetes mellitus (DM) Orthostatic hypotension Right medial tibial plateau fracture Homeless Migraine CAD (coronary artery disease) IBS (irritable bowel syndrome) Hypotension Migraine Surgical History History of partial hysterectomy History of cholecystectomy Family History Mother Substance use disorder Stroke Other Mental health disorder Social History Housing: House Alcohol intake: current Alcohol intake frequency: holidays/special occasions only Patient Tobacco Use Status: Current everyday Tobacco user Tobacco use type: Cigarette Cigarette Packs Per Day: 0.5 Cigarettes Per Day: 10 e-Cigarette/Vaping Use: Never Used Second Hand Smoke Exposure: Yes Substance Use Type: Marijuana Advance Directives Date on File: 02/01/21 service: No Current occupational status: employed and disabled Current occupation: rt handed Cognitive needs: No Hearing needs: No Vision needs: Yes (glasses) Questionnaire PHQ-9 Over the last 2 weeks, how often have you been bothered by any of the following problems? 1. Little interest or pleasure in doing things: not at all 2. Feeling down, depressed, or hopeless: not at all 3. Trouble falling or staying asleep, or sleeping too much: not at all 4. Feeling tired or having little energy: not at all 5. Poor appetite or overeating: not at all 6. Feeling bad about yourself - or that you are a failure or have let yourself or your family down: not at all 7. Trouble concentrating on things, such as reading the newspaper or watching television: not at all 8. Moving or speaking so slowly that other people could have noticed. Or the opposite - being so fidgety or restless that you have been moving around a lot more than usual: not at all 9. Thoughts that you would be better off or of hurting yourself in some way: not at all Total score: 0 Depression Screening Interpretation: Negative Depression Screening Done: Yes Source: Developed by Drs. Galo Stanford, Lynne Correia, Rico Guerrero and colleagues, with an educational bernarda from [employer]. Thrive Questionnaire Date Thrive assessed: 02/22/25 I am a: Patient What is your living situation today?: I do not have a steady places to live I am living on the [address] Within the past 12 months, did the food you bought not last and you didn't have the money to get more?: Sometimes True Within the past 12 months, did you worry whether your food would run out before you got money to buy more?: Sometimes True Do you have trouble paying for medicines?: Yes Do you have trouble getting transportation to medical appointments?: No Do you have trouble paying your heating and electricity bill?: No Do you have trouble taking care of your child, family member or friend?: No Do you have trouble with day-to-day activities such as bathing, preparing meals, shopping, managing finances, etc.?: I choose not to answer this question Are you currently unemployed and looking for a job?: No Are you interested in more education?: No Please select the resources that you would like help with: Housing/Snf Currently or been in a relationship where the following occur: I choose not to answer THRIVE Score: 3 AUDIT C Alcohol Use Questionnaire (AUDIT-C) 1. How often do you have a drink containing alcohol?: Never 3. How often do you have six or more drinks on one occasion?: Never Total Score: 0 SYLVESTER-7 AMB Questionnaire SYLVESTER-7 Date SYLVESTER - 7 assessed: 02/02/25 Feeling nervous, anxious, or on edge: 2 = More than half the days Not being able to stop or control worryin = Several days Worrying too much about different things: 1 = Several days Trouble relaxin = More than half the days Being so restless that it is hard to sit still: 1 = Several days Becoming easily annoyed or irritable: 0 = Not at all Feeling afraid as if something awful might happen: 0 = Not at all Total SYLVESTER-7 score (0-4 normal; 5-9 mild; 10-14 moderate; 15-21 severe): 7 Source: Developed by Drs. Galo Stanford, Lynne Correia, Rico Guerrero and colleagues, with an educational bernarda from [employer]. Review of Systems Const Details: Positives besides what was mentioned in HPI are in BOLD Constitutional: No Weight Change, No Fever, No Chills, No Night Sweats, No Fatigue, No Malaise ENT/Mouth: No Hearing Changes, No Ear Pain, No Nasal Congestion, No Sinus Pain, No Hoarseness, No sore throat, No Rhinorrhea, No Swallowing Difficulty Eyes: No Eye Pain, No Swelling, No Redness, No Foreign Body, No Discharge, No Vision Changes Cardiovascular: No Chest Pain, No SOB, No PND, No Dyspnea on Exertion, No Orthopnea, No Claudication, No Edema, No Palpitations Respiratory: No Cough, No Sputum, No Wheezing, No Smoke Exposure, No Dyspnea Gastrointestinal: No Nausea, No Vomiting, No Diarrhea, No Constipation, No Pain, No Heartburn, No Anorexia, No Dysphagia, No Hematochezia, No Melena, No Flatulence, No Jaundice Genitourinary: No Dysmenorrhea, No DUB, No Dyspareunia, No Dysuria, No Urinary Frequency, No Hematuria, No Urinary Incontinence, No Urgency, No Flank Pain, No Urinary Flow Changes, No Hesitancy Musculoskeletal: No Arthralgias, No Myalgias, No Joint Swelling, No Joint Stiffness, No Back Pain, No Neck Pain, No Injury History Skin: No Skin Lesions, No Pruritis, No Hair Changes, No Breast/Skin Changes, No Nipple Discharge Neuro: No Weakness, No Numbness, No Paresthesias, No Loss of Consciousness, No Syncope, No Dizziness, No Headache, No Coordination Changes, No Recent Falls Psych: No Anxiety/Panic, No Depression, No Insomnia, No Personality Changes, No Delusions, No Rumination, No SI/HI/AH/VH, No Social Issues, No Memory Changes, No Violence/Abuse Hx., No Eating Concerns Heme/Lymph: No Bruising, No Bleeding, No Transfusions History, No Lymphadenopathy Endocrine: No Polyuria, No Polydipsia, No Temperature Intolerance Physical exam (Primary Care) Vital Signs: Last Vital Signs Temp 97.5 F 05/29/25 10:42 Pulse 99 05/29/25 10:42 BP 98/60 05/29/25 10:42 Pulse Ox 99 05/29/25 10:42 Oxygen Delivery Method Room Air 05/29/25 10:42 BMI result Body Mass Index 19.8 Tobacco/Smoking Status: Tobacco use Status Tobacco use date assessed 05/29/25 05/29/25 10:43 Patient Tobacco Use Status Current everyday Tobacco 05/29/25 10:43 Tobacco use type Cigarette 05/29/25 10:43 e-Cigarette/Vaping Use Never Used 05/29/25 10:43 PHQ-9: PHQ-9 Score PHQ-9: Total score 0 05/29/25 10:55 Depression Screening Interpretation: Negative Thrive Assessment: Date of Thrive Assessment Date Thrive assessed 02/22/25 05/29/25 10:43 Currently or been in a relationship where the following occur: I choose not to answer Const Other: Pertinent findings are in BOLD GENERAL APPEARANCE NAD, activity normal for age, well developed/ well nourished, no cyanosis, pallor, or diaphoresis. EYES lids/conjunctiva normal. EARS/NOSE/THROAT Mucous membranes moist, nares normal, lips/teeth normal uvula midline without oral pharyngeal erythema, exudate or swelling TMs normal bilaterally. No lymphangitis/lymphedema. HEAD/NECK normocephalic atraumatic, no facial trauma, neck is supple. RESPIRATORY respiratory effort normal, speaks in full sentences, no tripod position, no accessory muscle use. Lungs clear to auscultation without rhonchi, wheezes, rales CARDIAC Regular rate and rhythm, no edema. ABDOMINAL Soft, ND/NT. No evidence of fluid wave. No pulsatile masses on exam, rebound tenderness, Ricci sign or pain over Mcburney's point. MUSCLES/EXTREMITIES No abnormal range of motion, no swelling. SKIN Warm, pink and dry. No rashes, dermatoses, petechiae or lesions. NEUROLOGICAL Speech is clear and appropriate. Normal level of consciousness. Gait and coordination are normal. 5/5 strength in all extremities. PSYCH Normal mood and affect. Judgement/competence is appropriate Results AMB Urinalysis, Automated UA Leukoctes 0 Edwardo/uL Last Edit by Laura Gonzalez CMA on 05/29/25 11:01 UA Nitrite Negative Last Edit by Laura Gonzalez CMA on 05/29/25 11:01 UA Urobilinogen 0.2 mg/dL Last Edit by Laura Gonzalez CMA on 05/29/25 11:01 UA Protein 0 mg/dL Last Edit by Lauar Gonzalez CMA on 05/29/25 11:01 UA pH 6.0 Last Edit by Laura Gonzalez CMA on 05/29/25 11:01 UA Blood 0 Serafin/uL Last Edit by Laura Gonzalez CMA on 05/29/25 11:01 UA Specific Dille 1.010 Last Edit by Laura Gonzalez CMA on 05/29/25 11:01 UA Ketone Negative Last Edit by Laura Gonzalez CMA on 05/29/25 11:01 UA Bilirubin 0 mg/dL Last Edit by Laura Gonzalez CMA on 05/29/25 11:01 UA Glucose 0 mg/dL Last Edit by Laura Gonzalez CMA on 05/29/25 11:01 Results Reviewed Results Reviewed: Laboratory Last Values Urine pH (Auto) 6.0 05/29/25 11:00 Specific Dille (Auto) 1.010 05/29/25 11:00 Urine Protein (Auto) 0 mg/dL 05/29/25 11:00 Glucose (UA)(Auto) 0 mg/dL 05/29/25 11:00 Urine Ketones (Auto) Negative 05/29/25 11:00 Urine Blood (Auto) 0 Serafin/uL 05/29/25 11:00 Urine Nitrite (Auto) Negative 05/29/25 11:00 Urine Bilirubin (Auto) 0 mg/dL 05/29/25 11:00 Urine Urobilinogen (Auto) 0.2 mg/dL 05/29/25 11:00 Leukocyte Esterase (Auto) 0 Edwardo/uL 05/29/25 11:00 Coding Level of Care Code Est Pt Level 3 (67839) Diagnoses Hip pain M25.559 Time Spent (min) 20 Assessment & Plan Assessment & Plan (1) Hip pain: Code(s): M25.559 - Pain in unspecified hip Category: Medical Plan: - Obtain an x-ray of the hip to exclude musculoskeletal issues. - Use [id number] pain relief such as Tylenol or ibuprofen. - Apply Voltaren gel for pain relief if necessary. Plan I discussed with the patient the normal results of her CT scan and urine test, which are reassuring. We considered obtaining an x-ray of the hip to further investigate the pain, although it is unlikely to reveal significant findings. I recommended using [id number] pain medications and Voltaren gel for symptomatic relief. Orders: Orders XR hip RT min 2V Today M25.559 - Pain in unspecified hip AMB Urinalysis Automated Today Z13.9 - Encounter for screening, unspecified Medications: New diclofenac sodium 1% (Voltaren Arthritis Pain) apply to single elbow, wrist or hand; for hand includes palm/fingers/back of hand 2 grams topical QID 50 grams 0RF
[2025-05-29 10:42] VITALS: BP 98/60; PULSE 99; TEMP 36.4; O2SAT 99; BMI 19.8
--- OUTSIDE RECORDS SUMMARY | 2025-05-29 12:36 | XMS_ITS | Data Portability ---
Author Organization [place] - [facility] Address [address] [place] [id number] Assessment Encounter Date Assessment Date Assessment LastModified by Organization Details LastModified Time 08/22/2015 08/22/2015 f/u abd and L flank pain RUQ much better and improving after omeprazole 20mg up to 40mg, h.pylori abx and EGD done R flank pain at rib 12 near CV angle to moderate palpation is not consistent with renal/ureteral pathology per urology and no change with abx pain interferes with sleep some nights, eased by hot shower Now completing doxy 100 bid for empiric epididimytis r/o abd benign AP 45 y/o man with tobacco abuse impairing GI and healing, h.pylori rx completed and duodenal PUD easing with omeprazole Gastritis and hernia on EGD Urology to complete abx TCA at bedtime for pain and insomnia from pain no indication for repeat EGD in 1-2 yrs STop tobacco after tapering recently f/u here after all rx's completed [email or web address] Not available 08/22/2015 10:50:08 10/24/2015 10/24/2015 recovering from flu after out from hospital. prednisone will finish on sat plan; if rebound sx will have prednisone on hand. cont alb prn [email or web address] Not available 10/24/2015 12:40:12 12/27/2015 12/27/2015 Tick bite: <24 hours since noticed, but unknown time of bite. With round redness around area will treat prophylactically with single dose of doxy. N [email or web address] Not available 12/27/2015 12:43:25 06/04/2016 06/04/2016 started one week ago; cough, hidalgo and sorethroat staying the same; can't sleep, wakens coughing, using alb last day or so , helping a little. tob 20 pyh no fevers, chills naus or vomitng cough keeps him up so use cough med at hs hold off on prednisone if can; pulse ox 97 today. if worse or cont will use it. pft once better tob; stop smoking [email or web address] Not available 06/04/2016 10:40:06 Plan of Treatment Reminders Order Date Submit Date Provider Last Modified By Organization Details Last Modified Time Details Appointments None recorded. Lab None recorded. Referral None recorded. Procedures None recorded. Surgeries None recorded. Imaging None recorded. Medication Orders prednisone 20 mg tablet 2015 016 DBA_PATCH_ [id number] [address], [address], 6 04:02:00 azithromyc in 250 mg tablet 2015 016 DBA_PATCH_ [id number] [address], [address], 6 04:02:00 Guaiatussi n AC 10 mg-100 mg/5 mL oral liquid 2015 016 DBA_PATCH_ [id number] [facility], [address] [place] [address], [address], 6 04:02:00 albuterol sulfate HFA 90 mcg/actuat ion aerosol inhaler 2015 016 DBA_PATCH_ [id number] [facility], [address] [place] [address], [address], 6 04:02:00 doxycyclin e hyclate 100 mg tablet 2015 016 [email or web address] [facility], [address] [place] [address], [address], 6 09:05:01 prednisone 20 mg tablet 2015 016 [email or web address] [facility], [address] [place] [address], [address], 6 12:40:12 albuterol sulfate 2.5 mg/3 mL (0.083 %) solution for nebulizati on 2015 016 [email or web address] [facility], [address] [place] [address], [address], 6 12:40:12 Guaiatussi n AC 10 mg-100 mg/5 mL oral liquid 2015 016 [email or web address] [facility], [address] [place] [address], [address], 6 12:40:12 amitriptyl ine 50 mg tablet [email or web address], [address], 6 12:36:27 Naprosyn 500 mg tablet 2014 [email or web address], [address], 6 12:36:27 Naprosyn 500 mg tablet 2014 [email or web address], [address], 5 10:44:55 Patient TargetsNo targets recorded. Patient Instructions Encounter Date Encounter Id Patient Instructions Last Modified By Organization Details Last Modified Time 2015 [id number] abdominal pain: care instructions [email or web address] Not available 06/29/2015 11:08:53 08/22/2015 [id number] back care and preventing injuries: care instructions [email or web address] Not available 08/22/2015 10:50:08 getting back to normal after low back pain: care instructions [email or web address] Not available 08/22/2015 10:50:08 learning about relief for back pain [email or web address] Not available 08/22/2015 10:50:08 06/04/2016 [id number] pulmonary function test* [id number] Not available 08/09/2016 04:02:01 Reason for Referral None Reported. Results Created Date Observation Date Name Description Value Unit Range Abnormal Flag Note LastModifiedBy Organization Detail LastModifiedTime 05/31/20 15 05/25/2015 ultra sound abdom en and pelvi s No observ ation record ed. veronica Not Available 2014 10:44:55 Result Notes None recorded. Problems Name Problem SNOMED Code Status Onset Date Resolution Date Notes Provider Name and Address Organization Details Recorded Time Kidney stone 20268565 Active Danis Wagner MD [address] [place] [address], [phone] , [facility] 5 13:50:41 Low back pain 186746548 Active Danis Wagner MD [address] [place] [address], [phone] , [facility] 5 10:50:08 Migraine 34513493 Active Danis Wagner MD [address] [place] [address], [address] , [facility] 5 13:50:41 Abdominal pain 05147857 Active aDnis Wagner MD [address] [place] [address], [address] , [facility] 5 13:50:41 Pneumonia 832442195 Active Danis Wagner MD [address] [place] [address], [address] , [facility] 5 13:50:41 Pain in testicle 52062394 Active Danis Wagner MD [address] [place] [address], [address] , [facility] 5 13:50:41 Indigestion 972002962 Active Danis Wagner MD [address] [place] [address], [phone] , [facility] 5 13:50:41 Bronchitis 01701217 Active Alicia Gonzalez NP [address] [place] [address], [phone] , [facility] 6 12:40:12 Abernathy's esophagus 955382343 Active Danis Wagner MD [address] [place] [address], [phone] , [facility] 5 13:50:41 Influenza 9478206 Active Alicia Gonzalez NP [address] [place] [address], [phone] , [facility] 6 12:40:12 Tick bite 68545756 Active Alicia Gonzalez NP [address] [place] [address], [phone] , [facility] 6 13:03:19 Problem Notes None recorded. Medical Equipment None Reported. Allergies No known drug allergies Medications Name Sig Start Date Stop Date Status Note LastModified by Organization Details LastModified Time cyclobenzap rine 10 mg tablet Take 1 tablet 3 times a day by oral route for 30 days. 2013 active Not Available Not Available Not Avai lable amoxicillin 500 mg capsule 06/04 completed Not Available Not Available Not Available Carafate 100 mg/mL oral suspension TAKE 10ML (2TEASPOO NFULS) BY MOUTH 3 TIMES A DAY AFTER MEALS AND AT BEDTIME FOR 2 WEEKS active Not Available Not Available No t Available albuterol sulfate 2.5 mg/3 mL (0.083 %) solution for nebulizatio n Inhale 3 mL 3 times a day by nebulizat ion route as needed for 10 days. active Not Available Not Available No t Available azithromyci n 250 mg tablet TAKE 2 TABLETS (500 MG) BY ORAL ROUTE ONCE DAILY FOR 1 DAY THEN 1 TABLET (250 MG) BY ORAL ROUTE ONCE DAILY FOR 4 DAYS 2015 active Not Available Not Available Not Avai lable clarithromy fior 500 mg tablet 06/04 completed Not Available Not Available Not Available sumatriptan 100 mg tablet Take 1 tablet as needed by oral route. active Not Available Not Available No t Available meloxicam 15 mg tablet Take 1 tablet every day by oral route for 30 days. 2014 active Not Available Not Available Not Avai lable prednisone 20 mg tablet Take 1 tablet twice a day by oral route. 2015 active Not Available Not Available Not Avai lable Imitrex STATdose Pen 6 mg/0.5 mL subcutaneou s pen injector Inject 6 mg as needed by subcutane ous route. 2015 active Not Available Not Available Not Avai lable sulindac 150 mg tablet Take 1 tablet twice a day by oral route asneeded for 15 days. 2013 active Not Available Not Available Not Avai lable penicillin V potassium 500 mg tablet TAKE 1 TABLET FOUR TIMES A DAY FOR 10 DAYS active Not Available Not Available No t Available acetaminoph en 300 mg-codeine 30 mg tablet TAKE 1 TO 2 TABLETS BY MOUTH EVERY 6 HOURS NEEDED FOR PAIN FOR 3 DAYS active Not Available Not Available No t Available amitriptyli ne 50 mg tablet Take 1 tablet every day by oral route at dinner time for 30 days. 2014 active Not Available Not Available Not Avai lable oxycodone-a cetaminophe n 5 mg-325 mg tablet Take 1 tablet every 6 hours by oral route as needed. active Not Available Not Available No t Available Guaiatussin AC 10 mg-100 mg/5 mL oral liquid Take 10 mL every 4 hours by oral route. 2015 active Not Available Not Available Not Avai lable Soma 350 mg tablet Take 1 tablet twice a day by oral route for 30 days. 08/08 completed Not Available Not Available Not Available doxycycline monohydrate 100 mg capsule TAKE 1 CAPSULE TWICE A DAY FOR 14 DAYS 06/04 completed Not Available Not Available Not Available indomethaci n 50 mg capsule Take 1 capsule 3 times a day by oral route for 7 days. 06/22 completed Not Available Not Available Not Available Imitrex 6 mg/0.5 mL subcutaneou s solution active Not Available Not Available N ot Available omeprazole 20 mg capsule,del ayed release Take 1 capsule(s ) every day by oral route as directed for 30 days. 2015 active Not Available Not Available Not Avai lable ibuprofen 600 mg tablet Take 1 tablet 3 times a day by oral route as needed. 2013 active Not Available Not Available Not Avai lable albuterol sulfate HFA 90 mcg/actuati on aerosol inhaler Inhale 2 puffs every 6-8 hours by inhalatio n route as needed. 2015 active Not Available Not Available Not Avai lable Naprosyn 500 mg tablet Take 1 tablet twice a day by oral route for 30 days. 2014 active Not Available Not Available Not Avai lable Cipro 250 mg tablet Take 1 tablet every 12 hours by oral route for 10 days. 2014 active Not Available Not Available Not Avai lable doxycycline hyclate 100 mg tablet Take 2 tablets every day by oral route. 06/04 completed Not Available Not Available Not Available Tylenol Extra Strength 500 mg tablet Take 2 tablets 4 times a day by oral route for 30 days. 2014 active Not Available Not Available Not Avai lable azithromyci n 500 mg tablet active Not Available Not Available Not Available omeprazole 20 mg tablet,emile yed release Take 1 tablet twice a day by oral route for 30 days. 2013 active Not Available Not Available Not Avai lable sumatriptan 6 mg/0.5 mL subcutaneou s syringe INJECT 6 MG NEEDED BY SUBCUTANE OUS ROUTE active Not Available Not Available No t Available Vitals None Recorded Social History None recorded. Functional Status None recorded. Mental Status None recorded. Family History Nothing Reported. Medical History No medical history recorded. Past Encounters Encounter ID Performer Location Encounter Start Date Encounter Closed Date Diagnosis/Indication Diagnosis SNOMED-CT Code Diagnosis ICD10 Code Diagnosis IMO Codes Diagnosis Note [id number] Danis Wagner MD MAIN [address] [address] 07/09/2013 08:13:42 07/09/2013 09:55:36 Low back pain [id number] Danis Wagner MD MAIN [address] [address] 01/31/2014 09:54:09 01/31/2014 10:31:15 Low back pain 399755605 [id number] Danis Wagner MD MAIN [address] [address] 02/13/2014 10:49:56 02/13/2014 14:18:56 Low back pain [id number] Danis Wagner MD MAIN [address] [address] 02/23/2014 14:46:01 03/08/2014 15:06:28 [id number] Danis Wagner MD [address] [address] 06/15/2014 09:23:50 06/15/2014 10:34:06 Low back pain [id number] Danis Wagner MD [address] [address] 06/23/2014 09:51:08 06/23/2014 10:09:12 Low back pain 215933030 Kidney stone 28556269 sten t placed and needs script for percocet as can't take vicodin; worries about pain . we will obtain his pmr and gather more informatio n about the stent. [id number] Danis Wagner MD [address] [address] 07/27/2014 10:01:08 07/27/2014 14:43:03 Abdominal pain 70338113 Kidney stone 05720134 had fu yesterday [id number] Danis Wagner MD [address] [address] 08/08/2014 17:05:33 08/08/2014 18:07:47 Abdominal pain 91046503 [id number] Danis Wagner MD [address] [address] 09/15/2014 11:23:28 09/15/2014 11:53:42 Abdominal pain 19451839 [id number] Danis Wagner MD [address] [address] 11/30/2014 10:20:01 11/30/2014 10:46:08 Pneumonia 123117004 [id number] Danis Wagner MD [address] [address] 05/07/2015 11:42:21 05/08/2015 07:30:22 Abdominal pain 68882047 [id number] Danis Wagner MD [address] [address] 05/29/2015 09:21:41 05/29/2015 11:07:57 Bronchitis 79162773 J40 [id number] Danis Wagner MD [address] [address] 05/31/2015 10:02:14 05/31/2015 10:27:29 Abdominal pain 09139159 R10.9 [id number] Danis Wagner MD [address] [address] 2015 14:24:02 2015 15:18:29 Abdominal pain 50373944 R10.9 Pain to RUQ area presumed pleuritic v. GI. Neg findings for gall baldder. Will have upper GI series next month. Plan today is for pain control. Will begin NSAID and discontinu e opiate.Pt understand s to return to care with increasing pain, fever, nausea/any concerns. [id number] Danis Wagner MD [address] [address] 08/22/2015 10:30:07 08/22/2015 11:01:57 Low back pain 498858088 M54.5 [id number] Danis Wagner MD [address] [address] 10/24/2015 11:12:08 10/24/2015 11:59:34 Influenza 8759882 J11.1 Bronchitis 60193094 J40 [id number] Danis Wagner MD [address] [address] 12/27/2015 12:15:16 12/27/2015 12:49:04 Tick bite 82762406 W57.XXXD W57.XXXA [id number] Danis Wagner MD [address] [address] 06/04/2016 08:55:10 06/04/2016 09:08:17 Bronchitis 36320278 J40 Tobacco user 880228294 Z 72.0 no tob for one week; will try to not go back full force;see pft Health Concerns Section Related Observation LastModified by Organization Detai ls LastModified Time None Recorded Concern Status LastModified by Organization Details LastModified Time None Recorded Advance Directives Directive None Recorded Payers Insurance Date Sequence Insurance Name Policy Number Policy Ying Covered Member ID Ying Member ID Guarantor Name 05/07/2015 1 [employer] (PP[employer] Jethro Smith [id number] Jethro Smith 07/19/2013 1 *SELF PAY* Chinedu Smith 05/07/2015 1 [employer] [id number] Jethro Smith [id number] Jethro Smith 05/07/2015 1 [employer] (PPO) [id number] Jethro Smith [id number] Jethro Smith 03/30/2016 1 [facility] [id number] Jethro Smith [id number] Jethro Smith 2016 1 [facility] Jethro Smith [id number] Jethro Smith 06/04/2016 2 [facility] Jethro Smith [id number] Jtehro Smith Notes Date Note Type Note Provider Name and Address Organization Details Recorded Time 2015 text/html HPI Pt comes in today for follow up for right sided abdominal pain under rib cage, radiates to right testicle intermittently. Hx of renal stones with stent placement two months prior. Stent removed. Tenderness to testicle on right side persists. Feels pain begins in ruq and radiates to testicle. Denies nausea or vomiting. Pain now 4/10. Decreases to 1/10 with percocet. 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 Not alleviated with diet changes, omeprozole. Neg hydrascan for gall bladder. US of testicle presumed infection. Treated with Abx, and prednisone no decrease in pain symptoms. SARAH nuñez, [facility] 06/29/2015 11:09:10 10/24/2015 text/html HPI lots of people sick at work. wants albuterol after recent bout of flu. Alicia Gonzalez NP [address] [place] [address], [phone], [facility] 10/24/2015 12:40:30 12/27/2015 text/html HPI Noticed tick on left shoulder late afternoon yesterday. Had not been in tra[place] but cats bring them in. Does not believe was attached long. tried to remove yesterday, used tick puller but some part remained. Not scratching since then; today red. Alicia Gonzalez NP [address] [place] [address], [phone], [facility] 12/31/2015 10:21:34
== END 2025-05-29 11:09 | disposition home or self-care (01) ==
LOC: HO.HMCH 10:36
PROVIDERS: PCP Physician Assistant; Visit Provider Internal Medicine
DX: M25.559 Pain in unspecified hip (principal); Z13.9 Encounter for screening, unspecified

== ENCOUNTER 2025-06-01 14:57 | Outpatient (AMB) | payer OTHER, SELFPAY ==
--- NOTE | 2025-06-01 15:03 | A.OFFPC_ITS ---
Vital Signs 3 06/01/25 15:05 Height 5 ft 8 in Weight 129 lb 6 oz BMI 19.7 BP 100/64 Blood Pressure Location Lt brachial Position Sitting Pulse 86 Pulse Source Pulse Oximeter Temp 97.3 F Temp Source Temporal Artery Scan Pulse Oximetry (%) 97 Oxygen Delivery Method Room Air Intake Visit Reasons: 3mth f/u Intake Note: Patient is here to follow up on PVD, Asthma, Hypotension, HLD. Hydro Station Supervisor Required: No Control Panel Assembler: Not Required per policy Accompanied by: Self / Same As Patient Allergies aspirin (Aspirin) Allergy (Intermediate, Verified 06/01/25 15:37) WHEEZING clarithromycin (From Biaxin) Allergy (Intermediate, Verified 06/01/25 15:37) HIVES Sulfa (Sulfonamide Antibiotics) (SULFA (SULFONAMIDE ANTIBIOTICS)) Allergy (Intermediate, Verified 06/01/25 15:37) HIVES bee pollen (BEE STINGS) Allergy (Unknown, Verified 06/01/25 15:37) UNKNOWN pineapple (PINEAPPLE) Allergy (Unknown, Verified 06/01/25 15:37) UNKNOWN beeswax Allergy (Verified 06/01/25 15:37) Anaphylaxis Medication List - Last Reconciled 06/01/25 by Kevan Gordon PA-C acetaminophen (Tylenol Extra Strength) 500 mg PO Q6H PRN albuterol sulfate 90 mcg/actuation 1 inh inhalation QID PRN 30 days amitriptyline 50 mg PO BEDTIME 90 days aspirin 81 mg PO DAILY baclofen 10 mg PO BID PRN 7 days bisacodyl (Dulcolax (bisacodyl)) 15 mg (3 x 5 mg) PO BEDTIME 30 days hvvkpeojkg-xsnmiyzrfiziu-tjua 50-325-40 mg 1 cap PO Q6H PRN 4 days COVID-19 antigen test (BinaxNOW COVID-19 Ag Self Test kit) As directed diclofenac sodium 1% (Voltaren Arthritis Pain) 2 grams topical QID dicyclomine 20 mg PO TID PRN divalproex ER (Depakote ER) 250 mg PO BID 90 days erenumab-aooe (Aimovig Autoinjector) mg subcut famotidine 20 mg PO DAILY linaclotide (Linzess) 290 mcg PO QAM 30 days loperamide 2 mg PO Q8H PRN 7 days lorazepam 0.5 mg PO DAILY PRN 7 days magnesium 250 mg PO BID 90 days meclizine 50 mg PO DAILY metoclopramide HCl (Reglan) 10 mg PO DAILY PRN 30 days midodrine 5 mg PO TID PRN 15 days prochlorperazine (Compazine) 25 mg SC BID PRN 6 days propranolol 120 mg (2 x 60 mg) PO BID 90 days riboflavin (vitamin B2) 50 mg PO DAILY simethicone (Gas Relief (simethicone)) 180 mg PO DAILY PRN simvastatin 40 mg PO DAILY topiramate (Topamax) 100 mg PO BID 90 days tramadol 50 mg PO BID 5 days Tobacco use date assessed: 06/01/25 Dental Screening Dental Screen Date: 05/29/25 HPI 3mth f/u 2 HPI0 Details Patient is a 54 year female here today for routine annual physical. Patient has a past medical history significant for tobacco use disorder, migraine disorder, anxiety, major depression and peripheral artery disease.. Concern--> Right flank pain: ? Maritza continues with persistent abdominal pain. The pain is localized to the lower right side of the abdomen and has been ongoing for several months, progressively worsening over time. The patient denies any recent injuries or unusual physical activities that could have contributed to the pain. Previous diagnostic evaluations, including ultrasound and CT scans, have not identified any abnormalities in the appendix or colon. The patient reports no associated symptoms such as nausea, vomiting, or diarrhea, although she experiences intermittent bowel irregularities. Tobacco use disorder: Unfortunately continues to smoke cigarettes and does understand she needs to quit does not willing to do so at this time. .. Migraine disorder: Patient reports she has been having more frequent and severe migraines over the last few weeks. She has used Fioricet in the past with good effect and is asking for short term script of this. . She has had brain MRIs without any significant intracranial pathologies. She was previously on narcotics for her migraine pain She has establish care with a neurologist in [place] Dr. Hopper and will be started on Aimovig injections in hopes to gain control over migraines. .. Subclavian stenosis: Patient is followed by [facility] vascular surgeon had subclavian surgery done in December for repair, she reports feeling a bit swollen in her left side though it is not do an feeding. She now has a pulse in her left upper extremity. Unfortunately blood pressure still remains low. Hypotension: Continues have lower blood pressure. Does use midrodine needed basis for symptomatic low blood pressures. We did discuss perhaps reducing her dose beta-titus as this may be a culprit for low blood pressure though she would like to stay on this medication as it does help her migraines. She does take midodrine on an as needed basis for low blood pressures as well. .. Anxiety: Patient reports her anxiety is fairly well controlled with current doses of her mental health medications. Also does use lorazepam 0.5 mg on a very limited p.r.n. basis for hyper traore of anxiety. .. Hyperlipidemia: Most recent lipid panel showing elevated total cholesterol and LDL. Her simvastatin was increased to 40 mg and recheck her cholesterol panel in 3 months [facility] Medical History (Reviewed 05/29/25 @ 10:53 by Laura Gonzalez [facility]) Dizziness Annual physical exam Stenosis of left internal carotid artery Breast cancer screening Colon cancer screening Screening for hypercholesterolemia Screening for diabetes mellitus (DM) Orthostatic hypotension Right medial tibial plateau fracture Homeless Migraine CAD (coronary artery disease) IBS (irritable bowel syndrome) Hypotension Migraine Surgical History History of partial hysterectomy History of cholecystectomy Family History Mother Substance use disorder Stroke Other Mental health disorder Social History Housing: House Alcohol intake: current Alcohol intake frequency: holidays/special occasions only Patient Tobacco Use Status: Current everyday Tobacco user Tobacco use type: Cigarette Cigarette Packs Per Day: 0.5 Cigarettes Per Day: 10 e-Cigarette/Vaping Use: Never Used Second Hand Smoke Exposure: Yes Substance Use Type: Marijuana Advance Directives Date on File: 02/01/21 service: No Current occupational status: employed and disabled Current occupation: rt handed Cognitive needs: No Hearing needs: No Vision needs: Yes (glasses) Questionnaire Thrive Questionnaire Date Thrive assessed: 02/22/25 I am a: Patient What is your living situation today?: I do not have a steady places to live I am living on the [address] Within the past 12 months, did the food you bought not last and you didn't have the money to get more?: Sometimes True Within the past 12 months, did you worry whether your food would run out before you got money to buy more?: Sometimes True Do you have trouble paying for medicines?: Yes Do you have trouble getting transportation to medical appointments?: No Do you have trouble paying your heating and electricity bill?: No Do you have trouble taking care of your child, family member or friend?: No Do you have trouble with day-to-day activities such as bathing, preparing meals, shopping, managing finances, etc.?: I choose not to answer this question Are you currently unemployed and looking for a job?: No Are you interested in more education?: No Please select the resources that you would like help with: Housing/Senior Living Currently or been in a relationship where the following occur: I choose not to answer THRIVE Score: 3 SYLVESTER-7 AMB Questionnaire SYLVESTER-7 Date SYLVESTER - 7 assessed: 02/02/25 Source: Developed by Drs. Galo Stafnord, Lynne Correia, Rico Guerrero and colleagues, with an educational bernarda from [employer]. Review of Systems Const Denies headache(s) Eyes Denies loss of vision ENT Denies vertigo, Denies dizziness, Denies headache(s) and Denies sore throat Card Denies chest pain, Denies leg edema and Denies lightheadedness Resp Denies cough, Denies hemoptysis and Denies wheezing GI Denies abdominal pain, Denies melena, Denies constipation, Denies diarrhea and Denies vomiting Denies urinary frequency, Denies dysuria and Denies urinary urgency Musc Denies arthralgias, Denies joint swelling, Denies numbness and Denies tingling Neuro Denies Abnormal speech present, Denies behavioral changes, Denies vertigo, Denies dizziness, Denies headache(s), Denies loss of vision, Denies memory loss, Denies numbness and Denies tingling Psych Denies anxiety, Denies behavioral changes, Denies depression, Denies memory loss and Denies panic attacks Stuart/Lymph Denies easy bleeding and Denies easy bruising Aller/Immun Denies wheezing Physical exam (Primary Care) Vital Signs: Last Vital Signs Temp 97.3 F 06/01/25 15:05 Pulse 86 06/01/25 15:05 BP 100/64 06/01/25 15:05 Pulse Ox 97 06/01/25 15:05 Oxygen Delivery Method Room Air 06/01/25 15:05 BMI result Body Mass Index 19.7 Tobacco/Smoking Status: Tobacco use Status Tobacco use date assessed 06/01/25 06/01/25 15:09 Patient Tobacco Use Status Current everyday Tobacco 06/01/25 15:09 Tobacco use type Cigarette 06/01/25 15:09 e-Cigarette/Vaping Use Never Used 06/01/25 15:09 Thrive Assessment: Date of Thrive Assessment Date Thrive assessed 02/22/25 06/01/25 15:09 Currently or been in a relationship where the following occur: I choose not to answer Const General: healthy appearing, no acute distress, alert and awake Nutritional Appearance: well nourished Orientation/consciousness: oriented to person, oriented to place and oriented to time HENMT Ears: TM's normal bilaterally General nose exam: Normal nasal mucous membranes and turbinates present Eyes Conjunctivae: conjunctivae normal Sclerae: sclerae normal Pupils: Equal, round and reactive pupils present Neck Neck: Yes no lymphadenopathy and Yes no JVD Thyroid: Thyroid normal Carotids: no bruits Resp Effort & Inspection: normal respiratory effort and not tachypneic Auscultation: no crackles, no rales, no rhonchi and no wheezes Cardio Rate: regular rate Rhythm: regular rhythm Heart sounds: no murmurs and normal S1 and S2 GI Palpation (GI): Soft to palpation, nontender, no hepatomegaly and no splenomegaly Auscultation: normal bowel sounds Abdomen image: 2 1. SUBJECTIVE PAIN LOCATED IN THE AREA OUTLINED, NO TENDERNESS TO DEEP PALPATION TO THIS AREA. NO MASSES/LUMPS NOTED TO THE AREA OUTLINED Skin General skin exam: no rashes or lesions noted and dry skin Neuro General: oriented to person, oriented to place and oriented to time Cranial nerves: Yes Equal, round and reactive pupils present Speech: No Abnormal speech present Gait exam (Neuro): Normal gait present Motor exam (neuro): no tremor noted Extrem Right upper extremity: full ROM Left upper extremity: full ROM Right lower extremity: full ROM; no edema Left lower extremity: full ROM; no edema Psych Mental Status: mental status grossly normal Speech and movement: Normal speech and movement present Affect: normal affect Attitude: cooperative Thought process: Normal thought process present Coding Level of Care Code Est Pt Level 4 (65423) Diagnoses Abdominal pain, RLQ R10.31 Tobacco dependence F17.200 Mixed hyperlipidemia E78.2 Hyperlipidemia type: mixed hyperlipidemia Assessment & Plan Assessment & Plan (1) Abdominal pain, RLQ: Code(s): R10.31 - Right lower quadrant pain Category: Medical Plan: The plan involves further evaluation of the abdominal pain, considering both gastrointestinal and musculoskeletal causes (2) Tobacco dependence: Code(s): F17.200 - Nicotine dependence, unspecified, uncomplicated Category: Medical Plan: Patient does understand she needs to quit smoking, now using electronic cigarettes. She does have subclavian vein stenosis that was recently repaired by vascular surgeon at [facility] in December of 2024 (3) HLD (hyperlipidemia): Code(s): E78.5 - Hyperlipidemia, unspecified Category: Medical Qualifiers: Hyperlipidemia type: mixed hyperlipidemia Qualified Code(s): E78.2 - Mixed hyperlipidemia Plan: Most recent lipid panel showing elevated total cholesterol and LDL, her simvastatin was increased for better control over total cholesterol. Will recheck her cholesterol in 3 months with goal LDL to be below 130 Orders: Orders 2 US appendix 06/01/25 R10.31 - Right lower quadrant pain Medications: Refilled 2 jrcoiucrur-tizpokunwsonj-urmp 50-325-40 mg 1 cap PO Q6H PRN 16 caps 1RF pain 4 days G43.909 - Migraine, unspecified, not intractable, without status migrainosus simethicone (Gas Relief (simethicone)) 180 mg PO DAILY PRN 30 caps 6RF abdominal distention metoclopramide HCl (Reglan) 10 mg PO DAILY PRN 30 tabs 3RF nausea and vomiting 30 days R11.0 - Nausea
[2025-06-01 15:05] VITALS: BP 100/64; PULSE 86; TEMP 36.3; O2SAT 97; BMI 19.7
== END 2025-06-01 16:00 | disposition home or self-care (01) ==
LOC: HO.HMCH 14:58
PROVIDERS: PCP Physician Assistant; Visit Provider Physician Assistant
DX: R10.31 Right lower quadrant pain (principal); F17.200 Nicotine dependence, unspecified, uncomplicated; E78.2 Mixed hyperlipidemia

== ENCOUNTER → 2025-06-01 14:57 | Outpatient (BNVA) | payer OTHER, SELFPAY | PROVIDERS: PCP Physician Assistant; Visit Provider Physician Assistant | DX: Z00.00 Encounter for general adult medical examination without abnormal findings (principal); R10.31 Right lower quadrant pain; F17.210 Nicotine dependence, cigarettes, uncomplicated; G43.909 Migraine, unspecified, not intractable, without status migrainosus; Q75.8 Other specified congenital malformations of skull and face bones; I95.9 Hypotension, unspecified; F41.9 Anxiety disorder, unspecified; E78.5 Hyperlipidemia, unspecified; E78.2 Mixed hyperlipidemia | CPT/HCPCS: 99212 ==

== ENCOUNTER 2025-07-09 17:35 | Emergency (ER) | payer OTHER, SELFPAY ==
--- OUTSIDE RECORDS SUMMARY | 2025-07-03 12:00 | XMS_ITS | Encounter Summary ---
Author Organization [facility] Address [address] [place] [address] Care Team Providers Care Insurance Business Analyst Name Role Phone Kevan Gordon Primary Care Provider Unavailab le Reason for Visit * Reason Comments Headache Encounter Details Date Type Department Care Team ([facility] st Contact Info) Description 07/03/2025 12:00 PM EST Office Visit [facility] [address] [place] [id number] Alicia Luciano NP [address] [place] [id number] Social History Tobacco Use Types Packs/Day Years Used Date Smoking Tobacco: Every Day Cigarettes Passive Smoke Exposure: Current Smokeless Tobacco: Current Alcohol Use Standard Drinks/Week Comments Not Currently [...] Orientation Lesbian 04/02/2023 6: 33 AM PDT documented as of this encounter Last Filed Vital Signs Vital Sign Reading Time Taken Comments Blood Pressure 90/70 07/05/2025 9:49 PM EST Pulse - - Temperature - - Respiratory Rate - - Oxygen Saturation - - Inhaled Oxygen Concentration - - Weight - - Height - - Body Mass Index - - documented in this encounter Progress Notes * Alicia Luciano NP - 07/03/2025 11:47 AM EST Provider Ambulatory Note Name: Maritza Smith : 1970 Age: [age] year old Gender: female Address: [address] [facility] [address] Encounter Date: 07/03/2025 Primary Provider: Kevan Gordon Provider: Alicia Luciano NP Department: [facility] Reason for Visit: Chief Complaint Patient presents with Headache SUBJECTIVE: Maritza Smith is a 55 year old female who presents to the clinic C/o NICKERSON x 3d Typical migraine NICKERSON, R side +photophobia, +flashers L, +nausea Takes topomax for ppx Medications Current Outpatient Medications Medication Instructions acetaminophen (TYLENOL) 1,000 mg, oral, Every 6 hours PRN, Avoid daily use aspirin 81 mg, oral, Daily divalproex (DEPAKOTE ER) 250 mg, 2 times daily propranoloL (INNOPRAN XL) 120 mg, oral, 2 times daily rosuvastatin (CRESTOR) 20 mg, Daily topiramate (TOPAMAX) 100 mg, oral, 2 times daily verapamiL (CALAN) 40 mg Allergies Allergies Allergen Reactions Aspirin Anaphylaxis Clarithromycin Anaphylaxis Pineapple Anaphylaxis Sulfa (Sulfonamide Antibiotics) Anaphylaxis Ibuprofen Hives Other Reaction(s): GI Upset Naproxen Hives Other Reaction(s): GI Upset Review of Systems Review of Systems See HPI OBJECTIVE: Vitals Signs: Vitals: 07/05/25 2149 BP: 90/70 Physical Exam Constitutional: General: She is not in acute distress. Appearance: Normal appearance. She is not ill-appearing. Eyes: General: No scleral icterus. Extraocular Movements: Extraocular movements intact. Conjunctiva/sclera: Conjunctivae normal. Pupils: Pupils are equal, round, and reactive to light. Cardiovascular: Rate and Rhythm: Normal rate and regular rhythm. Neurological: General: No focal deficit present. Mental Status: She is alert and oriented to person, place, and time. Cranial Nerves: No cranial nerve deficit. Sensory: No sensory deficit. Motor: No weakness. Coordination: Coordination normal. Gait: Gait normal. Deep Tendon Reflexes: Reflexes normal. Psychiatric: Mood and Affect: Mood normal. Behavior: Behavior normal. ASSESSMENT/PLAN: Assessment & Plan Migraine without status migrainosus, not intractable, unspecified migraine type No worrisome neuro sxs APAP given Cont topomax for ppx documented in this encounter Plan of Treatment Not on file documented as of this encounter Visit Diagnoses Diagnosis Migraine without status migrainosus, not intractable, unspecified migraine type- Primary documented in this encounter Additional Health Concerns Assessment Noted Time PHQ-9 Depression Total Score: 3 04/02/20 23 9:28 AM PDT PHQ-2 Depression Total Score: 1 04/02/20 23 9:28 AM PDT documented as of this encounter Care Teams Insurance Business Analyst Relationship Specialty Start Date End Date Kevan Gordon PCP - General 02/05/24 documented as of this encounter
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
[2025-07-09 17:41] VITALS: BP 94/56; PULSE 100; RESP 18; TEMP 36.8; O2SAT 98; BMI 18.9
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
--- OUTSIDE RECORDS SUMMARY | 2025-07-09 18:43 | XMS_ITS | Clinical Summary ---
Author Organization [facility] Address [address] [place] [address] Care Team Providers Care Sledger Name Role Phone Kevan Gordon Primary Care Provider [phone] Allergies Active Allergy Reactions Criticality Noted Date [...] of 3 - 19+ 3-dose series) 1989 Mammogram 2010 Pneumococcal Vaccine: 50+ Ye ars (2 of 2 - PCV) 01/31/2018 01/31/2017 CT Lung Cancer Screening (Baseline) 2020 Zoster Vaccines (1 of 2) 2020 Alcohol/Substance Use Screening 08/24/2024 COVID-19 Vaccine (3 - 2024- season) 04/24/202502/2021, 04/09/2021 Influenza Vaccine (#1) 2025 9, 06/13/2018, 06/11/2017 DTaP,Tdap,and Td Vaccines (3 - Td or Tdap) 03/07/2031 03/07/2021, 05/23/2016, 12/09/2014 Insurance Care Teams Sledger Relationship Specialty Start Date End Date Kevan Gordon PA [address] [place] [id number] PCP - General 03/08/20
--- OUTSIDE RECORDS SUMMARY | 2025-07-09 18:43 | XMS_ITS | Data Portability ---
Author Organization [place] - [facility] Address [address] [place] [id number] Assessment Encounter Date Assessment Date Assessment LastModified [...] have prednisone on hand. cont alb prn [email or web address] Not available 10/24/2015 12:40:12 12/27/2015 12/27/2015 Tick bite: <24 hours since noticed, but unknown time of bite. With round redness around area will treat prophylactically with single dose of doxy. N [email or web address] Not available 12/27/2015 12:43:25 06/04/2016 06/04/2016 started [...] it. pft once better tob; stop smoking [email or web address] Not available 06/04/2016 10:40:06 Plan of Treatment Reminders Order Date Submit Date Provider Last Modified By Organization Details Last Modified Time Details Appointments None recorded. Lab None recorded. Referral None recorded. Procedures None recorded. Surgeries None recorded. Imaging None recorded. Medication Orders prednisone 20 mg tablet 2015 016 DBA_PATCH_ [id number] [address], [address], 6 04:02:00 azithromyc in 250 mg tablet 2015 016 DBA_PATCH_ [id number] [address], [address], 6 04:02:00 Guaiatussi n AC 10 mg-100 mg/5 mL oral liquid 2015 016 DBA_PATCH_ [id number] [facility], [address] [place] [address], [address], 6 04:02:00 albuterol sulfate HFA 90 mcg/actuat ion aerosol inhaler 2015 016 DBA_PATCH_ [id number] [facility], [address] [place] [address], [address], 6 04:02:00 doxycyclin e hyclate 100 mg tablet 2015 016 [email or web address] [facility], [address] [place] [address], [address], 6 09:05:01 prednisone 20 mg tablet 2015 016 [email or web address] [facility], [address] [place] [address], [address], 6 12:40:12 albuterol sulfate 2.5 mg/3 mL (0.083 %) solution for nebulizati on 2015 016 [email or web address] [facility], [address] [place] [address], [address], 6 12:40:12 Guaiatussi n AC 10 mg-100 mg/5 mL oral liquid 2015 016 [email or web address] [facility], [address] [place] [address], [address], 6 12:40:12 amitriptyl ine 50 mg tablet 2014 [email or web address], [address], 6 12:36:27 Naprosyn 500 mg tablet 2014 [email or web address], [address], 6 12:36:27 Naprosyn 500 mg tablet 2014 [email or web address], [address], 5 10:44:55 Patient TargetsNo targets recorded. Patient Instructions Encounter Date Encounter Id Patient Instructions Last Modified By Organization Details Last Modified Time 2015 [id number] abdominal pain: care instructions [email or web address] Not available 06/29/2015 11:08:53 08/22/2015 [id number] back care and preventing injuries: care instructions [email or web address] Not available 08/22/2015 10:50:08 getting back to normal after low back pain: care instructions [email or web address] Not available 08/22/2015 10:50:08 learning about relief for back pain [email or web address] Not available 08/22/2015 10:50:08 06/04/2016 [id number] pulmonary function test* [id number] Not available 08/09/2016 04:02:01 Reason for Referral [...] Address Organization Details Recorded Time Kidney stone 34718396 Active Danis Wagner MD [address] [place] [address], [address] , [facility] 5 13:50:41 Low back pain 301706528 Active Danis Wagner MD [address] [place] [address], [address] , [facility] 5 10:50:08 Migraine 39904342 Active Danis Wagner MD [address] [place] [address], [address] , [facility] 5 13:50:41 Abdominal pain 27194272 Active Danis Wagner MD [address] [place] [address], [address] , [facility] 5 13:50:41 Pneumonia 245587821 Active Danis Wagner MD [address] [place] [address], [address] , [facility] 5 13:50:41 Pain in testicle 44320732 Active Danis Wagner MD [address] [place] [address], [address] , [facility] 5 13:50:41 Indigestion 177242863 Active Danis Wagner MD [address] [place] [address], [address] , [facility] 5 13:50:41 Bronchitis 23037809 Active Alicia Gonzalez NP [address] [place] [address], [address] , [facility] 6 12:40:12 Abernathy's esophagus 127670716 Active Danis Wagner MD [address] [place] [address], [address] , [facility] 5 13:50:41 Influenza 1699740 Active Alicia Gonzalez NP [address] [place] [address], [address] , [facility] 6 12:40:12 Tick bite 08590045 Active Alicia Gonzalez NP [address] [place] [address], [address] , [facility] 6 13:03:19 Problem Notes None recorded. Medical [...] ICD10 Code Diagnosis IMO Codes Diagnosis Note [id number] Danis Wagner MD MAIN [address] [address] 07/09/2013 08:13:42 07/09/2013 09:55:36 Low back pain 311960498 [id number] Danis Wagner MD MAIN [address] [address] 01/31/2014 09:54:09 01/31/2014 10:31:15 Low back pain 710623528 [id number] Danis Wagner MD MAIN [address] [address] 02/13/2014 10:49:56 02/13/2014 14:18:56 Low back pain 004247948 [id number] Danis Wagner MD MAIN [address] [address] 02/23/2014 14:46:01 03/08/2014 15:06:28 [id number] Danis Wagner MD [address] [address] 06/15/2014 09:23:50 06/15/2014 10:34:06 Low back pain 215585020 [id number] Danis Wagner MD [address] [address] 06/23/2014 09:51:08 06/23/2014 10:09:12 Low back pain 649997097 Kidney stone 40552892 sten t placed and needs script for percocet as can't take vicodin; worries about pain . we will obtain his pmr and gather more informatio n about the stent. [id number] Danis Wagner MD [address] [address] 07/27/2014 10:01:08 07/27/2014 14:43:03 Abdominal pain 32595888 Kidney stone 81042062 had fu yesterday [id number] Danis Wagner MD [address] [address] 08/08/2014 17:05:33 08/08/2014 18:07:47 Abdominal pain 60670297 [id number] Danis Wagner MD [address] [address] 09/15/2014 11:23:28 09/15/2014 11:53:42 Abdominal pain 45173078 [id number] Danis Wagner MD [address] [address] 11/30/2014 10:20:01 11/30/2014 10:46:08 Pneumonia 053614775 [id number] Danis Wagner MD [address] [address] 05/07/2015 11:42:21 05/08/2015 07:30:22 Abdominal pain 76778667 [id number] Danis Wagner MD [address] [address] 05/29/2015 09:21:41 05/29/2015 11:07:57 Bronchitis 64406434 J40 [id number] Danis Wagner MD [address] [address] 05/31/2015 10:02:14 05/31/2015 10:27:29 Abdominal pain 67570639 R10.9 [id number] Danis Wagner MD [address] [address] 2015 14:24:02 2015 15:18:29 Abdominal pain 63902603 R10.9 Pain to RUQ area presumed pleuritic v. GI. Neg findings for gall baldder. Will have upper GI series next month. Plan today is for pain control. Will begin NSAID and discontinu e opiate.Pt understand s to return to care with increasing pain, fever, nausea/any concerns. [id number] Danis Wagner MD [address] [address] 08/22/2015 10:30:07 08/22/2015 11:01:57 Low back pain 525063888 M54.5 [id number] Danis Wagner MD [address] [address] 10/24/2015 11:12:08 10/24/2015 11:59:34 Influenza 6640332 J11.1 Bronchitis 41354468 J40 [id number] Danis Wagner MD [address] [address] 12/27/2015 12:15:16 12/27/2015 12:49:04 Tick bite 85706985 W57.XXXD W57.XXXA [id number] Danis Wagner MD [address] [address] 06/04/2016 08:55:10 06/04/2016 09:08:17 Bronchitis 67622596 J40 Tobacco user 977555007 Z 72.0 no tob for one week; [...] 1 [employer] Jethro Smith [id number] Jethro Smith 07/19/2013 1 *SELF PAY* Chinedu Smith 05/07/2015 1 [employer] [id number] Jethro Smith [id number] Jethro Smith 05/07/2015 1 [employer] (PP[employer]) [id number] Jethro Smith [id number] Jethro Smith 03/30/2016 1 [facility] [id number] Jethro Smith [id number] Jethro Smith 2016 1 [facility] Jethro Smith [id number] Jethro Smith 06/04/2016 2 [facility] Jethro Smith [id number] Jethro Smith Notes Date Note Type Note Provider [...] and prednisone no decrease in pain symptoms. SAARH nuñez, [facility] 06/29/2015 11:09:10 10/24/2015 text/html HPI lots of people sick at work. wants albuterol after recent bout of flu. Alicia Gonzalez NP [address] [place] [address], [address], [facility] 10/24/2015 12:40:30 12/27/2015 text/html HPI Noticed tick on left shoulder late afternoon yesterday. Had not been in [place] but cats bring them in. Does not believe was attached long. tried to remove yesterday, used tick puller but some part remained. Not scratching since then; today red. Alicia Gonzalez NP [address] [place] [address], [address], [facility] 12/31/2015 10:21:34
--- OUTSIDE RECORDS SUMMARY | 2025-07-09 18:43 | XMS_ITS | Clinical Summary ---
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 I have a [employer] place to live 06/11/2023 EOV Answer Date [...] Screening 1970 Hepatitis B Lifetime Screening 1970 THRIVE SCREENING 1970 Oral Health Screen 1970 HEIP Disability Screen 1975 BEHAVIORAL HEALTH SCREEN 1982 Psych Substance Use Screen 1982 DTAP/TDAP VACCINE (1 - Tdap) 1989 Cervical Cancer Screening 1991 Colposcopy 1991 LEEP 1991 PAP SMEAR 1991 Pap + HPV 1991 MAMMOGRAM 2010 Colonoscopy FOBT- Positive 2015 Colonoscopy 2015 Colorectal Cancer Screening 2015 FOBT 2015 Sigmoidoscopy 2015 Pneumonia Vaccine 50+ (1 of 1 - PCV) 2020 Zoster Vaccine (1 of 2) 2020 COVID-19 Vaccine (1 - 2024-2 6 season) 2025 INFLUENZA VACCINE (#1) 2025 06/08/2023 [...] VE NON-REACTI VE 06/02/2023 7:46 AM EDT [facility] 06/02/2023 6:36 AM EDT 06/02/2023 6:46 AM EDT us Michi Sandoval DO LAB BLOOD ORDERABLES Final Re sult [employer] [facility] CLIA [id number] [address] [facility] [address] * Hemoglobin a1c (06/02/2023 6:36 AM EDT) Hemoglobin A1C 5.5 4.0 - 6.0 % 06/02/2023 3:20 PM EDT [facility] Comment:The Osman hemoglobi n A1c assay should not be used to diagnose or monitor diabetes in patients with altered red cell lifespan, such as homozygous hemoglobin variants, Hb SC, HbF > 5%, and hemolytic anemia. 06/02/2023 6:36 AM EDT 06/02/2023 10:50 AM EDT Michi Sandoval DO LAB BLOOD ORDERABLES Final Re sult Performing Organization Address [facility]/State/ZIP Co de Phone Number [facility] CLIA [id number] [place] [address], * Lipid panel (06/02/2023 6:36 AM EDT) [...] LAB BLOOD ORDERABLES Final Re sult [facility] CLIA [id number] [place] [address], from Last 3 Months or Most Recently Relevant to Health Maintenance
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
[2025-07-09 19:31] VITALS: BP 128/65; PULSE 77; RESP 16; TEMP 36.8; O2SAT 96
[2025-07-09 19:45] VITALS: BP 128/65; PULSE 77; RESP 16; TEMP 36.8; O2SAT 96
== END 2025-07-09 19:46 | disposition home or self-care (01) ==
PROVIDERS: Emergency Provider Student in an Organized Health Care Education/Training Program; PCP Physician Assistant
DX: Z04.1 Encounter for examination and observation following transport accident (principal); R42 Dizziness and giddiness; M54.50 Low back pain, unspecified; M54.2 Cervicalgia; R51.9 Headache, unspecified
CPT/HCPCS: 70450; 72100; 72125; 99284; J1885

== ENCOUNTER → 2025-07-09 17:44 | Outpatient (BNV) | payer OTHER, SELFPAY | PROVIDERS: Emergency Provider Student in an Organized Health Care Education/Training Program; PCP Physician Assistant; Visit Provider Radiology Diagnostic Radiology | DX: S09.90XA Unspecified injury of head, initial encounter (principal); M51.360 Other intervertebral disc degeneration, lumbar region with discogenic back pain only; V89.2XXA Person injured in unspecified motor-vehicle accident, traffic, initial encounter | CPT/HCPCS: 70450; 72100; 72125 ==